=== PATIENT | female | born 1950 | race Caucasian/White ===

== ENCOUNTER 2020-02-01 09:18 | Outpatient (REF) | payer MEDICARE, SELFPAY | END 2020-02-01 09:19 | disposition home or self-care (01) | LOC: HO.LAB 09:18 | PROVIDERS: PCP Internal Medicine; Visit Provider Internal Medicine | DX: E03.9 Hypothyroidism, unspecified (principal) | CPT/HCPCS: 84443 ==

== ENCOUNTER 2020-10-12 12:12 | Outpatient (REF) | payer MEDICARE, SELFPAY ==
[2020-10-12 13:39] LABS: Alanine Aminotransferase 14 U/L (0-31); Albumin Level 3.9 g/dL (3.5-5.0); Alkaline Phosphatase 78 U/L (39-117); Anion Gap 14 (12-20); Aspartate Amino Transferase 17 U/L (5-31); Bilirubin Total 0.6 mg/dL (0.0-1.0); Blood Urea Nitrogen 9 mg/dL (9-16); Calcium 9.6 mg/dL (8.4-10.2); Carbon Dioxide 27 mmol/L (22-29); Chloride 102 mmol/L (96-108); Cholesterol 225 mg/dL; Estimated Glomerular Filt Rate > 60; Glucose Fasting 98 mg/dL (60-99); HDL Cholesterol 64 mg/dL; LDL Cholesterol Calculated 139 mg/dl; Potassium 5.1 mmol/L (3.3-5.1); Sodium 138 mmol/L (135-145); Total Protein 6.8 g/dL (6.5-8.0); Triglycerides 111 mg/dL
[2020-10-12 14:00] LABS: TSH reflex Free T4 0.17 uIU/mL (0.32-4.0)
[2020-10-12 14:46] LABS: Free T4 (Free Thyroxine) 1.51 ng/dL (0.71-1.85)
[2020-10-16 13:37] LABS: Vitamin D 25-OH, D2 <4 ng/mL; Vitamin D 25-OH, D3 18 ng/mL; Vitamin D 25-OH, Total 18 ng/mL (30-100)
== END 2020-10-12 12:13 | disposition home or self-care (01) ==
LOC: HO.LAB 12:12
PROVIDERS: PCP Internal Medicine; Visit Provider Internal Medicine
DX: E78.00 Pure hypercholesterolemia, unspecified (principal); E78.5 Hyperlipidemia, unspecified; E55.9 Vitamin D deficiency, unspecified; E03.9 Hypothyroidism, unspecified
CPT/HCPCS: 36415; 80053; 80061; 82306; 84439; 84443

== ENCOUNTER 2021-02-19 09:22 | Outpatient (REF) | payer MEDICARE, SELFPAY ==
[2021-02-19 11:08] LABS: Alanine Aminotransferase 20 U/L (0-31); Alkaline Phosphatase 77 U/L (39-117); Anion Gap 12 (12-20); Aspartate Amino Transferase 21 U/L (5-31); Bilirubin Total 0.6 mg/dL (0.0-1.0); Blood Urea Nitrogen 8 mg/dL (9-16); Calcium 9.3 mg/dL (8.4-10.2); Carbon Dioxide 29 mmol/L (22-29); Chloride 103 mmol/L (96-108); Cholesterol 214 mg/dL; Estimated Glomerular Filt Rate > 60; Glucose Fasting 93 mg/dL (60-99); HDL Cholesterol 72 mg/dL; LDL Cholesterol Calculated 127 mg/dl; Potassium 4.9 mmol/L (3.3-5.1); Sodium 139 mmol/L (135-145); Total Protein 6.8 g/dL (6.5-8.0); Triglycerides 75 mg/dL
[2021-02-19 11:19] LABS: TSH reflex Free T4 0.45 uIU/mL (0.32-4.0); Thyroid Stimulating Hormone 0.46 uIU/mL (0.32-4.0)
== END 2021-02-19 09:23 | disposition home or self-care (01) ==
LOC: HO.LAB 09:22
PROVIDERS: PCP Internal Medicine; Visit Provider Internal Medicine
DX: I10 Essential (primary) hypertension (principal); E78.5 Hyperlipidemia, unspecified; E03.9 Hypothyroidism, unspecified
CPT/HCPCS: 36415; 80053; 80061; 84443

== ENCOUNTER 2021-06-19 09:23 | Outpatient (REF) | payer MEDICARE, SELFPAY ==
[2021-06-19 10:38] LABS: Alanine Aminotransferase 19 U/L (0-31); Albumin Level 3.8 g/dL (3.5-5.0); Alkaline Phosphatase 68 U/L (39-117); Anion Gap 11 (12-20); Aspartate Amino Transferase 20 U/L (5-31); Bilirubin Total 0.2 mg/dL (0.0-1.0); Blood Urea Nitrogen 16 mg/dL (9-16); Calcium 9.1 mg/dL (8.4-10.2); Carbon Dioxide 29 mmol/L (22-29); Chloride 103 mmol/L (96-108); Cholesterol 203 mg/dL; Estimated Glomerular Filt Rate > 60; Glucose Fasting 113 mg/dL (60-99); HDL Cholesterol 65 mg/dL; LDL Cholesterol Calculated 125 mg/dl; Potassium 5.1 mmol/L (3.3-5.1); Sodium 138 mmol/L (135-145); Total Protein 6.5 g/dL (6.5-8.0); Triglycerides 68 mg/dL
[2021-06-19 11:01] LABS: Thyroid Stimulating Hormone 1.54 uIU/mL (0.32-4.0)
== END 2021-06-19 09:24 | disposition home or self-care (01) ==
LOC: HO.LAB 09:23
PROVIDERS: PCP Internal Medicine; Visit Provider Internal Medicine
DX: E66.01 Morbid (severe) obesity due to excess calories (principal); E03.9 Hypothyroidism, unspecified; E78.5 Hyperlipidemia, unspecified; Z68.41 Body mass index [BMI] 40.0-44.9, adult
CPT/HCPCS: 36415; 80053; 80061; 84443

== ENCOUNTER 2021-09-07 09:23 | Outpatient (REF) | payer MEDICARE, SELFPAY ==
--- NOTE | ~2021-09-07 | MM_ITS ---
EXAMINATION: MM SCREENING DIGITAL BREAST TOMOSYNTHESIS, BILATERAL CLINICAL INFORMATION: Screening. Asymptomatic. The lifetime risk of breast cancer based on the Tyrer-Cuzick Model is 3%. COMPARISON: Mammography: 06/07/2017, 06/12/2015 TECHNIQUE: Digital breast tomosynthesis is performed in both the craniocaudal and mediolateral oblique views along with computer-aided detection (CAD). Synthesized 2D images are generated from the tomosynthesis. Additional bilateral CC and left MLO views are provided. FINDINGS: There are scattered areas of fibroglandular density (ACR BI-RADS breast composition Category b). There are no significant masses, abnormal calcifications, or other abnormalities. Breast tissue composition borders on predominantly fatty. Background fibroglandular and stromal densities are stable. No developing density. No significant changes. MM/MM tomosynthesis screening BI IMPRESSION: No mammographic evidence of malignancy. ASSESSMENT: BI-RADS 1: Negative RECOMMENDATION: Routine annual mammography screening. This patient's information was entered into a reminder system with a target due date for their next mammogram.
--- NOTE | ~2021-09-07 | MM_ITS ---
EXAMINATION: BONE DENSITOMETRY CLINICAL INDICATION: Asymptomatic menopausal state. COMPARISON: None (current study represents initial baseline exam). TECHNIQUE: Using a [employer] DXA System (software version: 13.1) manufactured by [employer], dual-energy x-ray absorptiometry was performed of the lumbar spine and left hip. The images are of good technical quality. Summary results are attached. FINDINGS: AP SPINE L1-L4: BMD 1.325 g/cm2, Z-score 1.7, T-score 1.2, normal. LEFT FEMUR, NECK: BMD 0.967 g/cm2, Z-score 0.5, T-score -0.5, normal. LEFT FEMUR, TOTAL: BMD 1.130 g/cm2, Z-score 1.7, T-score 1.0, normal. IDENTIFIED RISK FACTORS: Menopause. HISTORY OF FRACTURE: None listed. MEDICATIONS: None listed. MM/XR DEXA axial skeleton IMPRESSION: 1. DIAGNOSIS: Normal bone density based on the lowest T-score value of -0.5 in the femoral neck applying World Health Organization criteria. 2. 10-YEAR FRACTURE RISK PREDICTION, FRAX: According to the guidelines, FRAX calculation should only be performed on patients in the osteopenia bone density category. Therefore, FRAX was not performed on this patient. 3. Treatment Recommendations: NOF guidelines recommend consideration for treatment in postmenopausal women and men age 50 and older presenting with the following: -A hip or vertebral (clinical or morphometric) fracture. -T-score less than or equal to -2.5 at the femoral neck or spine after appropriate evaluation to exclude secondary causes. -Low bone mass at the hip or spine and a 10-year fracture probability by FRAX of greater than or equal to 3% for hip fracture or greater than or equal to 20% for major osteoporotic fracture based on the [place] adapted WHO algorithm. 4. Other Recommendations: All treatment decisions require clinical judgment and consideration of individual patient factors, including patient preferences, comorbidities, previous drug use, risk factors not captured in the FRAX model (e.g. frailty, falls, vitamin D deficiency, increased bone turnover, interval significant decline in bone density) and possible under or overestimation of fracture risk by FRAX. FUTURE SCAN RECOMMENDATION: People with diagnosed cases of osteoporosis or at high risk for fracture should have regular bone mineral density tests. For patients eligible for Medicare, routine testing is allowed once every 2 years. The testing frequency can be increased to one year for patients who have rapidly progressing disease, those who are receiving or discontinuing medical therapy to restore bone mass, or have additional risk factors.
== END 2021-09-07 09:24 | disposition home or self-care (01) ==
LOC: HO.MAMMO 09:23
PROVIDERS: PCP Internal Medicine; Visit Provider Internal Medicine
DX: Z12.31 Encounter for screening mammogram for malignant neoplasm of breast (principal); Z13.820 Encounter for screening for osteoporosis; Z78.0 Asymptomatic menopausal state
CPT/HCPCS: 77063; 77067; 77080

== ENCOUNTER 2021-11-09 10:22 | Outpatient (REF) | payer OTHER, SELFPAY ==
[2021-11-09 11:22] LABS: Alanine Aminotransferase 14 U/L (0-31); Alkaline Phosphatase 70 U/L (39-117); Anion Gap 12 (12-20); Aspartate Amino Transferase 17 U/L (5-31); Bilirubin Total 0.4 mg/dL (0.0-1.0); Blood Urea Nitrogen 11 mg/dL (9-16); Carbon Dioxide 29 mmol/L (22-29); Chloride 104 mmol/L (96-108); Cholesterol 212 mg/dL; Estimated Glomerular Filt Rate > 60; Glucose Fasting 109 mg/dL (60-99); HDL Cholesterol 58 mg/dL; LDL Cholesterol Calculated 142 mg/dl; Sodium 140 mmol/L (135-145); Total Protein 6.7 g/dL (6.5-8.0); Triglycerides 63 mg/dL
[2021-11-09 11:44] LABS: Thyroid Stimulating Hormone 0.31 uIU/mL (0.32-4.0)
== END 2021-11-09 10:23 | disposition home or self-care (01) ==
LOC: HO.LAB 10:22
PROVIDERS: PCP Internal Medicine; Visit Provider Internal Medicine
DX: E03.9 Hypothyroidism, unspecified (principal); E78.00 Pure hypercholesterolemia, unspecified; E78.5 Hyperlipidemia, unspecified
CPT/HCPCS: 36415; 80053; 80061; 84443

== ENCOUNTER 2022-02-15 09:37 | Outpatient (REF) | payer OTHER, SELFPAY ==
[2022-02-15 11:15] LABS: Alanine Aminotransferase 15 U/L (0-31); Albumin Level 4.1 g/dL (3.5-5.0); Alkaline Phosphatase 80 U/L (39-117); Anion Gap 15 (12-20); Aspartate Amino Transferase 20 U/L (5-31); Bilirubin Total 0.5 mg/dL (0.0-1.0); Blood Urea Nitrogen 14 mg/dL (9-16); Calcium 9.6 mg/dL (8.4-10.2); Carbon Dioxide 27 mmol/L (22-29); Chloride 101 mmol/L (96-108); Cholesterol 234 mg/dL; Estimated Glomerular Filt Rate > 60; Glucose Fasting 104 mg/dL (60-99); HDL Cholesterol 70 mg/dL; LDL Cholesterol Calculated 146 mg/dl; Sodium 138 mmol/L (135-145); Total Protein 6.9 g/dL (6.5-8.0); Triglycerides 92 mg/dL
[2022-02-15 11:40] LABS: Thyroid Stimulating Hormone 2.53 uIU/mL (0.32-4.0)
== END 2022-02-15 09:38 | disposition home or self-care (01) ==
LOC: HO.LAB 09:37
PROVIDERS: PCP Internal Medicine; Visit Provider Internal Medicine
DX: E03.9 Hypothyroidism, unspecified (principal); E78.00 Pure hypercholesterolemia, unspecified
CPT/HCPCS: 36415; 80053; 80061; 84443

== ENCOUNTER 2022-07-05 08:38 | Outpatient (REF) | payer OTHER, SELFPAY ==
[2022-07-05 10:15] LABS: Alanine Aminotransferase 20 U/L (0-31); Alkaline Phosphatase 74 U/L (39-117); Anion Gap 13 (12-20); Aspartate Amino Transferase 31 U/L (5-31); Bilirubin Total 0.8 mg/dL (0.0-1.0); Blood Urea Nitrogen 13 mg/dL (9-16); Calcium 9.3 mg/dL (8.4-10.2); Carbon Dioxide 29 mmol/L (22-29); Chloride 100 mmol/L (96-108); Cholesterol 232 mg/dL; Estimated Glomerular Filt Rate > 60; Glucose Fasting 101 mg/dL (60-99); HDL Cholesterol 76 mg/dL; LDL Cholesterol Calculated 143 mg/dl; Potassium 5.5 mmol/L (3.3-5.1); Sodium 136 mmol/L (135-145); Total Protein 6.9 g/dL (6.5-8.0); Triglycerides 68 mg/dL
[2022-07-05 10:17] LABS: Thyroid Stimulating Hormone 2.94 uIU/mL (0.32-4.0)
== END 2022-07-05 08:39 | disposition home or self-care (01) ==
LOC: HO.LAB 08:38
PROVIDERS: PCP Internal Medicine; Visit Provider Internal Medicine
DX: Z00.00 Encounter for general adult medical examination without abnormal findings (principal); E03.9 Hypothyroidism, unspecified; E78.5 Hyperlipidemia, unspecified
CPT/HCPCS: 36415; 80053; 80061; 84443

== ENCOUNTER 2022-07-08 08:38 | Outpatient (REF) | payer OTHER, SELFPAY ==
[2022-07-08 10:29] LABS: Anion Gap 12 (12-20); Blood Urea Nitrogen 13 mg/dL (9-16); Calcium 9.4 mg/dL (8.4-10.2); Carbon Dioxide 29 mmol/L (22-29); Chloride 100 mmol/L (96-108); Estimated Glomerular Filt Rate > 60; Glucose Random 105 mg/dL (60-115); Potassium 4.8 mmol/L (3.3-5.1); Sodium 136 mmol/L (135-145)
== END 2022-07-08 08:39 | disposition home or self-care (01) ==
LOC: HO.LAB 08:38
PROVIDERS: PCP Internal Medicine; Visit Provider Nurse Practitioner Family
DX: E87.5 Hyperkalemia (principal)
CPT/HCPCS: 36415; 80048

== ENCOUNTER 2022-10-16 10:07 | Outpatient (REF) | payer OTHER, SELFPAY ==
--- NOTE | ~2022-10-16 | MM_ITS ---
EXAMINATION: MM SCREENING DIGITAL BREAST TOMOSYNTHESIS, BILATERAL CLINICAL INFORMATION: Screening. Asymptomatic. The lifetime risk of breast cancer based on the Tyrer-Cuzick Model is 2.7%. COMPARISON: Mammography: This study is compared with prior exams dating back to 2018. TECHNIQUE: Digital breast tomosynthesis is performed in both the craniocaudal and mediolateral oblique views along with computer-aided detection (CAD). Synthesized 2D images are generated from the tomosynthesis. FINDINGS: There are scattered areas of fibroglandular density (ACR BI-RADS breast composition Category b). There are no significant masses, abnormal calcifications, or other abnormalities. MM/MM tomosynthesis screening BI IMPRESSION: No mammographic evidence of malignancy. ASSESSMENT: BI-RADS BI-RADS 1 - Negative RECOMMENDATION: Routine annual mammography screening. 1 year F/U This examination should not preclude the clinical evaluation of a suspicious palpable abnormality. This patient's information was entered into a reminder system with a target due date for their next mammogram.
== END 2022-10-16 10:08 | disposition home or self-care (01) ==
LOC: HO.MAMMO 10:07
PROVIDERS: PCP Internal Medicine; Visit Provider Internal Medicine
DX: Z12.31 Encounter for screening mammogram for malignant neoplasm of breast (principal)
CPT/HCPCS: 77063; 77067

== ENCOUNTER → 2022-10-16 10:15 | Outpatient (BNV) | payer OTHER, SELFPAY | PROVIDERS: PCP Internal Medicine; Visit Provider Radiology Diagnostic Radiology | DX: Z12.31 Encounter for screening mammogram for malignant neoplasm of breast (principal) | CPT/HCPCS: 77063; 77067 ==

== ENCOUNTER → 2022-10-22 10:19 | Outpatient (BNVA) | payer OTHER, SELFPAY | PROVIDERS: PCP Internal Medicine; Visit Provider Internal Medicine ==

== ENCOUNTER 2022-11-07 13:37 | Outpatient (AMB) | payer OTHER, SELFPAY ==
[2022-11-07 13:44] VITALS: BP 136/78; BMI 40.8
--- NOTE | 2022-11-07 13:44 | MHC.PC.OV ---
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 Accompanied by: Self / Same As Patient Allergies No Known Allergies [No Known Allergies*] Allergy (Verified 11/07/22 14:20) Medication List - Last Reconciled 11/07/22 by Maki Wheeler MD atorvastatin 80 mg PO DAILY furosemide 20 mg PO DAILY levothyroxine 175 mcg PO DAILY 90 days lisinopril 20 mg PO DAILY 90 days peg 3350-electrolytes 236-22.74-6.74 -5.86 gram (Golytely) 240 mL PO Q10M Tobacco use date assessed: 07/05/22 Fall risk assessment: No Falls in past year Last assessed Fall Risk: 11/07/22 Dental Screening Dental Screen Date: 11/07/22 Did you have a dental visit in the last 12 months?: No Did you have a dental problem in the last 6 months where you did not have access to dental care?: No Was dental information given to patient?: Patient has dentist HPI HPI Comments History of Present Illness Details This is a 72-year-old female with hypertension, pure hypercholesterolemia, hypothyroidism and morbid obesity that comes today for follow-up on her conditions. Blood pressure stable. Lipid panel will be order for next office visit. TSH normal the last time and will be repeated for the next office visit. She is morbidly obese with a BMI of 40.8 and declines weight loss surgery. Advised to diet and exercise to reach BMI goal less than 30. Denies any chest pain or shortness of breath. [facility] Medical History Essential hypertension Hypothyroidism Morbid obesity with BMI of 40.0-44.9, adult Port wine stain Postmenopausal Pure hypercholesterolemia Surgical History H/O ventral hernia repair History of cholecystectomy History of total abdominal hysterectomy Hx of colonoscopy Family History Father Hypertension Mother Cancer Sister Hyperlipidemia Son No problems noted. Son No problems noted. Son No problems noted. Social History Housing: House Alcohol intake: former Patient Tobacco Use Status: Never used Tobacco e-Cigarette/Vaping Use: Never Used Second Hand Smoke Exposure: No service: No Current occupational status: unemployed and disabled Cognitive needs: No Hearing needs: No Vision needs: Yes Questionnaire Thrive Questionnaire Date Thrive assessed: 07/05/22 YOVANA-7 AMB Questionnaire YOVANA-7 Date YOVANA - 7 assessed: 07/05/22 Source: Developed by Drs. Caleb Guzman, Juanita De Dios, Aris Coppola and colleagues, with an educational travis from [employer]. Review of Systems Const All systems reviewed & are unremarkable except as noted in HPI and below Eyes Reports no additional complaints, Denies change in vision and Denies other visual disturbances Card Denies chest pain at rest, Denies chest pain with activity, Denies edema, Denies irregular heart rhythm, Denies claudication, Denies dyspnea, Denies dyspnea on exertion, Denies orthopnea, Denies paroxysmal nocturnal dyspnea and Denies slow heart rate Resp Denies cough, Denies dyspnea and Denies dyspnea on exertion GI Denies abdominal pain, Denies change in bowel habits, Denies excessive flatus, Denies nausea and Denies vomiting Denies urinary incontinence, Denies urinary hesitancy and Denies urinary urgency Musc Denies atrophy, Denies deformity and Denies limited range of motion Skin/Breast Denies bleeding lesions and Denies rash Physical exam (Primary Care) Vital Signs: Last Vital Signs BP 136/78 11/07/22 13:44 BMI result Body Mass Index 40.8 Tobacco/Smoking Status: Tobacco use Status Tobacco use date assessed 07/05/22 11/07/22 13:51 Patient Tobacco Use Status Never used Tobacco 11/07/22 13:51 Tobacco use type 11/15/21 11:00 e-Cigarette/Vaping Use Never Used 11/07/22 13:51 Thrive Assessment: Date of Thrive Assessment Date Thrive assessed 07/05/22 11/07/22 13:51 Eyes General: appearance normal, both eyes and all related structures Eyelids: Yes eyelids normal Conjunctivae: conjunctivae normal Neck Neck: Yes normal visual inspection and Yes supple Resp Effort & Inspection: normal respiratory effort Auscultation: clear to auscultation bilaterally Cardio Jugular venous distension: no JVD Rate: regular rate Rhythm: regular rhythm Heart sounds: S1 normal heart sound present and S2 normal heart sound present Extrem General: Yes full ROM Assessment and Plan Assessment & Plan (1) Essential hypertension: Code(s): I10 - Essential (primary) hypertension Plan: Continue lisinopril. Blood pressure goal is equal or less than 130/80. (2) Hypothyroidism: Code(s): E03.9 - Hypothyroidism, unspecified Qualifiers: Hypothyroidism type: unspecified Qualified Code(s): E03.9 - Hypothyroidism, unspecified Plan: Continue levothyroxine. Monitor TSH. (3) Pure hypercholesterolemia: Code(s): E78.00 - Pure hypercholesterolemia, unspecified Plan: Continue statin. (4) Morbid obesity with BMI of 40.0-44.9, adult: Code(s): E66.01 - Morbid (severe) obesity due to excess calories; Z68.41 - Body mass index [BMI] 40.0-44.9, adult Plan: Start diet and exercise. BMI goal is less than 30. Orders: Orders Comprehensive [place]. Panel Fast 4 Months E66.01 - Morbid (severe) obesity due to excess calories, Z68.41 - Body mass index [BMI] 40.0-44.9, adult Lipid Panel 4 Months E78.5 - Hyperlipidemia, unspecified Thyroid Stimulating Hormone 4 Months E03.9 - Hypothyroidism, unspecified Vitamin D 25-OH Total 4 Months E55.9 - Vitamin D deficiency, unspecified Coding Level of Care Code Est Pt Level 4 (46772) Diagnoses Essential hypertension I10 Hypothyroidism E03.9 Hypothyroidism type: unspecified Pure hypercholesterolemia E78.00 Morbid obesity with BMI of 40.0-44.9, adult E66.01; Z68.41 Time Spent (min) 22
== END 2022-11-07 14:27 | disposition home or self-care (01) ==
PROVIDERS: Visit Provider Internal Medicine
DX: I10 Essential (primary) hypertension (principal); E03.9 Hypothyroidism, unspecified; E66.01 Morbid (severe) obesity due to excess calories; Z68.41 Body mass index [BMI] 40.0-44.9, adult; E78.00 Pure hypercholesterolemia, unspecified
CPT/HCPCS: 99214

== ENCOUNTER 2023-02-26 09:08 | Outpatient (AMB) | payer OTHER, SELFPAY ==
--- NOTE | 2023-02-26 09:10 | MHC.PC.OV ---
Vital Signs 02/26/23 09:12 Height 5 ft 2 in Weight 217 lb BMI 39.7 BP 130/80 Blood Pressure Location Lt brachial Position Sitting Pulse 78 Pulse Source Pulse Oximeter Pulse Oximetry (%) 98 Oxygen Delivery Method Room Air Intake Visit Reasons: PE Intake Note: Patient here for a physical exam End Maker Required: No Accompanied by: Self / Same As Patient Allergies No Known Allergies [No Known Allergies*] Allergy (Verified 02/26/23 09:23) Medication List - Last Reconciled 02/26/23 by Maki Wheeler MD atorvastatin 80 mg PO DAILY furosemide 20 mg PO DAILY levothyroxine 175 mcg PO DAILY 90 days lisinopril 20 mg PO DAILY 90 days peg 3350-electrolytes 236-22.74-6.74 -5.86 gram (Golytely) 240 mL PO Q10M Tobacco use date assessed: 07/05/22 Fall risk assessment: No Falls in past year Last assessed Fall Risk: 02/26/23 Dental Screening Dental Screen Date: 02/26/23 Did you have a dental visit in the last 12 months?: No Did you have a dental problem in the last 6 months where you did not have access to dental care?: No Was dental information given to patient?: Patient has dentist HPI HPI Comments History of Present Illness Details This is a 72-year-old female that comes for her physical exam. Mammogram done 2022 was normal. Last colonoscopy was 2010 and will have next colonoscopy in May 2023. No chest pain or shortness of breath. No fever or cough. [facility] Medical History Postmenopausal Morbid obesity with BMI of 40.0-44.9, adult Port wine stain Pure hypercholesterolemia Hypothyroidism Essential hypertension Surgical History Hx of colonoscopy H/O ventral hernia repair History of total abdominal hysterectomy History of cholecystectomy Family History Father Hypertension Mother Cancer Sister Hyperlipidemia Son No problems noted. Son No problems noted. Son No problems noted. Social History Housing: House Alcohol intake: former Patient Tobacco Use Status: Never used Tobacco e-Cigarette/Vaping Use: Never Used Second Hand Smoke Exposure: No service: No Current occupational status: unemployed and disabled Cognitive needs: No Hearing needs: No Vision needs: Yes Questionnaire Thrive Questionnaire Date Thrive assessed: 07/05/22 YOVANA-7 AMB Questionnaire YOVANA-7 Date YOVANA - 7 assessed: 07/05/22 Source: Developed by Drs. Caleb Guzman, Juanita De Dios, Aris Coppola and colleagues, with an educational travis from [employer]. Review of Systems Const All systems reviewed & are unremarkable except as noted in HPI and below Eyes Reports no additional complaints, Denies change in vision and Denies other visual disturbances Card Denies chest pain at rest, Denies chest pain with activity, Denies edema, Denies irregular heart rhythm, Denies claudication, Denies dyspnea, Denies dyspnea on exertion, Denies orthopnea, Denies paroxysmal nocturnal dyspnea and Denies slow heart rate Resp Denies cough, Denies dyspnea and Denies dyspnea on exertion GI Denies abdominal pain, Denies change in bowel habits, Denies excessive flatus, Denies nausea and Denies vomiting Denies urinary incontinence, Denies urinary hesitancy and Denies urinary urgency Musc Denies abnormal gait, Denies atrophy, Denies deformity and Denies limited range of motion Skin/Breast Denies bleeding lesions, Denies changing lesions and Denies rash Neuro Denies abnormal gait and Denies lack of coordination Physical exam (Primary Care) Vital Signs: Last Vital Signs Pulse 78 02/26/23 09:12 BP 130/80 02/26/23 09:12 Pulse Ox 98 02/26/23 09:12 Oxygen Delivery Method Room Air 02/26/23 09:12 BMI result Body Mass Index 39.7 Tobacco/Smoking Status: Tobacco use Status Tobacco use date assessed 07/05/22 02/26/23 09:13 Patient Tobacco Use Status Never used Tobacco 02/26/23 09:13 Tobacco use type 11/15/21 11:00 e-Cigarette/Vaping Use Never Used 02/26/23 09:13 Thrive Assessment: Date of Thrive Assessment Date Thrive assessed 07/05/22 02/26/23 09:13 Const Orientation/consciousness: patient oriented x3 HENMT Head: Yes normal to inspection, Yes normocephalic and Yes atraumatic Ears: external ears normal Eyes General: appearance normal, both eyes and all related structures Eyelids: Yes eyelids normal Conjunctivae: conjunctivae normal Neck Neck: Yes normal visual inspection and Yes supple Resp Effort & Inspection: normal respiratory effort Auscultation: clear to auscultation bilaterally Cardio Jugular venous distension: no JVD Rate: regular rate Rhythm: regular rhythm Heart sounds: S1 normal heart sound present and S2 normal heart sound present GI Inspection: Yes normal to inspection Palpation (GI): Soft to palpation and nontender Auscultation: normal bowel sounds Skin Other: Port wine stain in upper limbs General skin exam: no rashes or lesions noted Neuro General: patient oriented x3 and no focal motor deficits Extrem General: Yes full ROM Psych Appearance: grossly normal Office Procedures Flu Questionnaire Does the patient have a severe egg allergy?: No Does the patient have severe life threatening allergies?: No Does the patient have a fever or illness today?: No Has the patient ever had Guillain-[place] Syndrome?: No Has the patient ever had any past reaction to a flu shot?: No Immunizations flu vacc [id number] 6mos up(PF) 60 mcg(15 mcgx4)/0.5 mL IM syringe Performing Provider: Maki Wheeler MD Performing Location: [facility] Administered by: DEANA Leyva on 02/26/23 09:30 Dose Route Admin Location Dispensed Lot Number Expiration Date NDC Any Commodity Sales Deliverer 0.5 mL IM Left Deltoid 0.5 mL [id number] 10/12/23 21928-761-30 [facility] VIS Given Date VIS Provided VIS Publication Date 02/26/23 Single Vaccine 20 Eligibility Eligibility Date Funding Source Not [facility] Eligible 02/26/23 Private Assessment and Plan Assessment & Plan (1) Physical exam: Code(s): Z00.00 - Encounter for general adult medical examination without abnormal findings Plan: Repeat in a year. Orders: Orders Influenza [id number] Immunization Today Z23 - Encounter for immunization Comprehensive [place]. Panel Fast Today I10 - Essential (primary) hypertension Lipid Panel Today E78.5 - Hyperlipidemia, unspecified Thyroid Stimulating Hormone Today E03.9 - Hypothyroidism, unspecified Coding Level of Care Code Est Pt Prev Care >65y(70301) Diagnoses Physical exam Z00.00 Time Spent (min) 32
[2023-02-26 09:12] VITALS: BP 130/80; PULSE 78; O2SAT 98; BMI 39.7
== END 2023-02-26 09:39 | disposition home or self-care (01) ==
PROVIDERS: Visit Provider Internal Medicine
DX: Z00.00 Encounter for general adult medical examination without abnormal findings (principal); Z23 Encounter for immunization
CPT/HCPCS: 90471; 90686; 99397

== ENCOUNTER 2023-07-14 12:45 | Outpatient (AMB) | payer OTHER, SELFPAY ==
--- NOTE | 2023-07-14 12:51 | A.OFFPC_ITS ---
Vital Signs 07/14/23 12:55 Height 5 ft 2 in Weight 219 lb BMI 40.1 BP 130/82 Blood Pressure Location Lt brachial Position Sitting Intake Visit Reasons: follow up thyroid Intake Note: Patient here for a follow up thyroid Dry House Attendant Required: No Accompanied by: Child Allergies No Known Allergies [No Known Allergies*] Allergy (Verified 07/14/23 13:29) Medication List - Last Reconciled 07/14/23 by Maki Wheeler MD atorvastatin 80 mg PO DAILY furosemide 20 mg PO DAILY levothyroxine 175 mcg PO DAILY 90 days lisinopril 20 mg PO DAILY 90 days Tobacco use date assessed: 07/14/23 Fall risk assessment: No Falls in past year Last assessed Fall Risk: 07/14/23 Dental Screening Dental Screen Date: 07/14/23 Did you have a dental visit in the last 12 months?: No Did you have a dental problem in the last 6 months where you did not have access to dental care?: No Was dental information given to patient?: Patient has dentist HPI HPI Comments History of Present Illness Details This is a 73-year-old female with hypertension, pure hypercholesterolemia, morbid obesity and hypothyroidism that comes today accompanied by daughter for follow-up on her conditions. Blood pressure stable. Last cholesterol was well control. She is morbidly obese with a BMI of 40.1 and declines weight loss surgery. Was advised to do diet and exercise to reach BMI goal less than 30. TSH will be done this week. No chest pain or shortness of breath. [facility] Medical History Postmenopausal Morbid obesity with BMI of 40.0-44.9, adult Port wine stain Pure hypercholesterolemia Hypothyroidism Essential hypertension Surgical History Hx of cataract extraction Hx of colonoscopy H/O ventral hernia repair History of total abdominal hysterectomy History of cholecystectomy Family History Father Hypertension Mother Cancer Sister Hyperlipidemia Son No problems noted. Son No problems noted. Son No problems noted. Social History Housing: House Alcohol intake: former Patient Tobacco Use Status: Never used Tobacco e-Cigarette/Vaping Use: Never Used Second Hand Smoke Exposure: No service: No Current occupational status: unemployed and disabled Cognitive needs: No Hearing needs: No Vision needs: Yes Questionnaire PHQ-9 Over the last 2 weeks, how often have you been bothered by any of the following problems? 1. Little interest or pleasure in doing things: not at all 2. Feeling down, depressed, or hopeless: not at all 3. Trouble falling or staying asleep, or sleeping too much: not at all 4. Feeling tired or having little energy: not at all 5. Poor appetite or overeating: not at all 6. Feeling bad about yourself - or that you are a failure or have let yourself or your family down: not at all 7. Trouble concentrating on things, such as reading the newspaper or watching television: not at all 8. Moving or speaking so slowly that other people could have noticed. Or the opposite - being so fidgety or restless that you have been moving around a lot more than usual: not at all 9. Thoughts that you would be better off or of hurting yourself in some way: not at all Total score: 0 Depression Screening Interpretation: Negative Depression Screening Done: Yes [id number] - PHQ-9 Billing: Yes Source: Developed by Drs. Caleb Guzman, Juanita De Dios, Aris Coppola and colleagues, with an educational travis from [employer]. Thrive Questionnaire Date Thrive assessed: 07/14/23 I am a: Patient What is your living situation today?: I have a steady place to live Within the past 12 months, did the food you bought not last and you didn't have the money to get more?: Never true Within the past 12 months, did you worry whether your food would run out before you got money to buy more?: Never true Do you have trouble paying for medicines?: No Do you have trouble getting transportation to medical appointments?: No Do you have trouble paying your heating and electricity bill?: No Do you have trouble taking care of your child, family member or friend?: No Do you have trouble with day-to-day activities such as bathing, preparing meals, shopping, managing finances, etc.?: No Are you currently unemployed and looking for a job?: No Are you interested in more education?: No Please select the resources that you would like help with: None Currently or been in a relationship where the following occur: no concerns reported THRIVE Score: 0 AUDIT C Alcohol Use Questionnaire (AUDIT-C) 1. How often do you have a drink containing alcohol?: Never Total Score: 0 YOVANA-7 AMB Questionnaire YOVANA-7 Date YOVANA - 7 assessed: 07/14/23 Feeling nervous, anxious, or on edge: 0 = Not at all Not being able to stop or control worryin = Not at all Worrying too much about different things: 0 = Not at all Trouble relaxin = Not at all Being so restless that it is hard to sit still: 0 = Not at all Becoming easily annoyed or irritable: 0 = Not at all Feeling afraid as if something awful might happen: 0 = Not at all Total YOVANA-7 score (0-4 normal; 5-9 mild; 10-14 moderate; 15-21 severe): 0 Source: Developed by Drs. Caleb Guzman, Juanita De Dios, Aris Coppola and colleagues, with an educational travis from [employer]. YOVANA-7 Assessment Billing YOVANA-7 Assessment Tool: YOVANA-7 Assessment 43934 Review of Systems Const All systems reviewed & are unremarkable except as noted in HPI and below Eyes Reports no additional complaints, Denies change in vision and Denies other visual disturbances Card Denies chest pain at rest, Denies chest pain with activity, Denies edema, Denies irregular heart rhythm, Denies claudication, Denies dyspnea, Denies dyspnea on exertion, Denies orthopnea, Denies paroxysmal nocturnal dyspnea and Denies slow heart rate Resp Denies cough, Denies dyspnea and Denies dyspnea on exertion GI Denies abdominal pain, Denies change in bowel habits, Denies excessive flatus, Denies nausea and Denies vomiting Denies urinary incontinence, Denies urinary hesitancy and Denies urinary urgency Physical exam (Primary Care) Vital Signs: Last Vital Signs BP 130/82 07/14/23 12:55 BMI result Body Mass Index 40.1 Tobacco/Smoking Status: Tobacco use Status Tobacco use date assessed 07/14/23 07/14/23 12:58 Patient Tobacco Use Status Never used Tobacco 07/14/23 12:52 Tobacco use type 11/15/21 11:00 e-Cigarette/Vaping Use Never Used 07/14/23 12:52 PHQ-9: PHQ-9 Score PHQ-9: Total score 0 07/14/23 13:31 Depression Screening Interpretation: Negative Thrive Assessment: Date of Thrive Assessment Date Thrive assessed 07/14/23 07/14/23 12:58 Currently or been in a relationship where the following occur: no concerns r eported Cardio Jugular venous distension: no JVD Rate: regular rate Rhythm: regular rhythm Heart sounds: S1 normal heart sound present and S2 normal heart sound present Extrem General: Yes full ROM Assessment and Plan Assessment & Plan (1) Essential hypertension: Code(s): I10 - Essential (primary) hypertension Plan: Continue lisinopril. Blood pressure goal is equal or less than 130/80. (2) Hypothyroidism: Code(s): E03.9 - Hypothyroidism, unspecified Qualifiers: Hypothyroidism type: unspecified Qualified Code(s): E03.9 - Hypothyroidism, unspecified Plan: Continue levothyroxine. (3) Morbid obesity with BMI of 40.0-44.9, adult: Code(s): E66.01 - Morbid (severe) obesity due to excess calories; Z68.41 - Body mass index [BMI] 40.0-44.9, adult Plan: Start diet and exercise. BMI goal is less than 30. (4) Pure hypercholesterolemia: Code(s): E78.00 - Pure hypercholesterolemia, unspecified Plan: Continue statins. Orders: Orders XR DEXA axial skeleton 1 Month N95.9 - Unspecified menopausal and perimenopausal disorder Thyroid Stimulating Hormone Today E03.9 - Hypothyroidism, unspecified Coding Level of Care Code Est Pt Level 4 (67457) Diagnoses Essential hypertension I10 Hypothyroidism, unspecified type E03.9 Hypothyroidism type: unspecified Morbid obesity with BMI of 40.0-44.9, adult E66.01; Z68.41 Pure hypercholesterolemia E78.00 Additional Codes YOVANA-7 Assessment Billing - YOVANA-7 Assessment Tool: YOVANA-7 Assessment [id number] ([id number]) Time Spent (min) 21
[2023-07-14 12:55] VITALS: BP 130/82; BMI 40.1
== END 2023-07-14 13:36 | disposition home or self-care (01) ==
PROVIDERS: PCP Internal Medicine; Visit Provider Internal Medicine
DX: I10 Essential (primary) hypertension (principal); E03.9 Hypothyroidism, unspecified; E66.01 Morbid (severe) obesity due to excess calories; Z68.41 Body mass index [BMI] 40.0-44.9, adult; E78.00 Pure hypercholesterolemia, unspecified
CPT/HCPCS: 99214

== ENCOUNTER 2023-07-15 08:55 | Outpatient (REF) | payer OTHER, SELFPAY ==
[2023-07-15 11:10] LABS: Alanine Aminotransferase 24 U/L (0-31); Albumin Level 3.7 g/dL (3.5-5.0); Alkaline Phosphatase 59 U/L (39-117); Anion Gap 10 (12-20); Aspartate Amino Transferase 24 U/L (5-31); Bilirubin Total 0.4 mg/dL (0.0-1.0); Blood Urea Nitrogen 11 mg/dL (9-16); Calcium 9.3 mg/dL (8.4-10.2); Carbon Dioxide 28 mmol/L (22-29); Chloride 101 mmol/L (96-108); Cholesterol 204 mg/dL (<200); Estimated Glomerular Filt Rate > 60; Glucose Fasting 101 mg/dL (60-99); HDL Cholesterol 69 mg/dL (>40); LDL Cholesterol Calculated 114 mg/dL (<100); Potassium 4.6 mmol/L (3.3-5.1); Sodium 134 mmol/L (135-145); Thyroid Stimulating Hormone 3.48 uIU/mL (0.32-4.0); Total Protein 6.7 g/dL (6.5-8.0); Triglycerides 106 mg/dL (<150)
== END 2023-07-15 08:56 | disposition home or self-care (01) ==
LOC: HO.LAB 08:55
PROVIDERS: PCP Internal Medicine; Visit Provider Internal Medicine
DX: E55.9 Vitamin D deficiency, unspecified (principal); E78.5 Hyperlipidemia, unspecified; E03.9 Hypothyroidism, unspecified; E66.01 Morbid (severe) obesity due to excess calories; I10 Essential (primary) hypertension; Z68.41 Body mass index [BMI] 40.0-44.9, adult
CPT/HCPCS: 36415; 80053; 80061; 82306; 84443

== ENCOUNTER 2023-10-07 11:11 | Outpatient (REF) | payer OTHER, SELFPAY ==
--- NOTE | ~2023-10-07 | MM_ITS ---
EXAMINATION: BONE DENSITOMETRY CLINICAL INDICATION: Menopause. COMPARISON: Baseline BD dated 09/07/2021. TECHNIQUE: Using a [employer] DXA System (software version: 13.1) manufactured by [facility], dual-energy x-ray absorptiometry was performed of the lumbar spine and left hip. The images are of good technical quality. Summary results are attached. FINDINGS: LEFT FEMUR, NECK: Current: BMD 0.985 g/cm2, Z-score 0.7, T-score -0.4, normal. Baseline: BMD 0.967 g/cm2. LEFT FEMUR, TOTAL: Current: BMD 1.107 g/cm2, Z-score 1.6, T-score 0.8, normal, 2.0% decrease from baseline (<5% change is not significant). Baseline: BMD 1.130 g/cm2. AP SPINE L1-L4: Current: BMD 1.347 g/cm2, Z-score 2.0, T-score 1.4, normal, 1.7% increase from baseline (<5% change is not significant). Baseline: BMD 1.325 g/cm2. IDENTIFIED RISK FACTORS: Menopause. HISTORY OF FRACTURE: None listed. MEDICATIONS: None listed. MM/XR DEXA axial skeleton IMPRESSION: 1. DIAGNOSIS: Normal bone density based on the lowest T-score value of -0.4 in the femoral neck applying World Health Organization criteria. 2. 10-YEAR FRACTURE RISK PREDICTION, FRAX: According to the guidelines, FRAX calculation should only be performed on patients in the osteopenia bone density category. Therefore, FRAX was not performed on this patient. 3. Treatment Recommendations: NOF guidelines recommend consideration for treatment in postmenopausal women and men age 50 and older presenting with the following: -A hip or vertebral (clinical or morphometric) fracture. -T-score less than or equal to -2.5 at the femoral neck or spine after appropriate evaluation to exclude secondary causes. -Low bone mass at the hip or spine and a 10-year fracture probability by FRAX of greater than or equal to 3% for hip fracture or greater than or equal to 20% for major osteoporotic fracture based on the [place] adapted WHO algorithm. 4. Other Recommendations: All treatment decisions require clinical judgment and consideration of individual patient factors, including patient preferences, comorbidities, previous drug use, risk factors not captured in the FRAX model (e.g. frailty, falls, vitamin D deficiency, increased bone turnover, interval significant decline in bone density) and possible under or overestimation of fracture risk by FRAX. FUTURE SCAN RECOMMENDATION: People with diagnosed cases of osteoporosis or at high risk for fracture should have regular bone mineral density tests. For patients eligible for Medicare, routine testing is allowed once every 2 years. The testing frequency can be increased to one year for patients who have rapidly progressing disease, those who are receiving or discontinuing medical therapy to restore bone mass, or have additional risk factors.
== END 2023-10-07 11:12 | disposition home or self-care (01) ==
LOC: HO.MAMMO 11:11
PROVIDERS: PCP Internal Medicine; Visit Provider Internal Medicine
DX: Z13.820 Encounter for screening for osteoporosis (principal); Z78.0 Asymptomatic menopausal state
CPT/HCPCS: 77080

== ENCOUNTER 2023-10-27 09:44 | Outpatient (REF) | payer OTHER, SELFPAY | END 2023-10-27 09:45 | disposition home or self-care (01) | LOC: HO.MAMMO 09:44 | PROVIDERS: PCP Internal Medicine; Visit Provider Internal Medicine | DX: Z12.31 Encounter for screening mammogram for malignant neoplasm of breast (principal) | CPT/HCPCS: 77063; 77067 ==

== ENCOUNTER → 2023-10-27 10:00 | Outpatient (BNV) | payer OTHER, SELFPAY | PROVIDERS: PCP Internal Medicine; Visit Provider Radiology Diagnostic Radiology | DX: Z12.31 Encounter for screening mammogram for malignant neoplasm of breast (principal) | CPT/HCPCS: 77063; 77067 ==

== ENCOUNTER 2023-11-25 13:46 | Outpatient (AMB) | payer OTHER, SELFPAY ==
[2023-11-25 13:52] VITALS: BP 136/82; BMI 40.6
--- NOTE | 2023-11-25 13:52 | MHC.PC.OV ---
Vital Signs 11/25/23 13:52 Height 5 ft 2 in Weight 222 lb BMI 40.6 BP 136/82 Blood Pressure Location Lt brachial Position Sitting Intake Visit Reasons: thyroid Intake Note: Patient here for a follow up thyroid Quality Assurance Consultant Required: No Accompanied by: Self / Same As Patient Allergies No Known Allergies [No Known Allergies*] Allergy (Verified 11/25/23 13:58) Medication List - Last Reconciled 11/25/23 by Maki Wheeler MD atorvastatin 80 mg PO DAILY furosemide 20 mg PO DAILY levothyroxine 175 mcg PO DAILY 90 days lisinopril 20 mg PO DAILY 90 days Tobacco use date assessed: 07/14/23 Fall risk assessment: No Falls in past year Last assessed Fall Risk: 11/25/23 Dental Screening Dental Screen Date: 07/14/23 HPI HPI Comments History of Present Illness Details This is a 73-year-old female with hypertension, pure hypercholesterolemia, hypothyroidism and morbid obesity that comes today for follow-up on her conditions. DEXA and mammogram were normal. Blood pressure stable. Cholesterol well controlled. TSH normal. She is morbidly obese with a BMI of 40.6 and declines weight loss surgery. Was advised to do diet and exercise to reach BMI goal less than 30. [facility] Medical History Postmenopausal Morbid obesity with BMI of 40.0-44.9, adult Port wine stain Pure hypercholesterolemia Hypothyroidism Essential hypertension Surgical History Hx of cataract extraction Hx of colonoscopy H/O ventral hernia repair History of total abdominal hysterectomy History of cholecystectomy Family History Father Hypertension Mother Cancer Sister Hyperlipidemia Son No problems noted. Son No problems noted. Son No problems noted. Social History Housing: House Alcohol intake: former Patient Tobacco Use Status: Never used Tobacco e-Cigarette/Vaping Use: Never Used Second Hand Smoke Exposure: No service: No Current occupational status: unemployed and disabled Cognitive needs: No Hearing needs: No Vision needs: Yes Questionnaire Thrive Questionnaire Date Thrive assessed: 07/14/23 YOVANA-7 AMB Questionnaire YOVANA-7 Date YOVANA - 7 assessed: 07/14/23 Source: Developed by Drs. Caleb Guzman, Juanita De Dios, Aris Coppola and colleagues, with an educational travis from [employer]. Review of Systems Const All systems reviewed & are unremarkable except as noted in HPI and below Card Denies chest pain at rest, Denies chest pain with activity, Denies edema, Denies irregular heart rhythm, Denies claudication, Denies dyspnea, Denies dyspnea on exertion, Denies orthopnea, Denies paroxysmal nocturnal dyspnea and Denies slow heart rate Resp Denies cough, Denies dyspnea and Denies dyspnea on exertion Denies urinary incontinence, Denies urinary hesitancy and Denies urinary urgency Musc Denies atrophy, Denies deformity and Denies limited range of motion Physical exam (Primary Care) Vital Signs: Last Vital Signs BP 136/82 11/25/23 13:52 BMI result Body Mass Index 40.6 BMI Assessment/Plan discussion: High BMI High, discussed plan: lifestyle, weight reduction, dietary and physical activity Tobacco/Smoking Status: Tobacco use Status Tobacco use date assessed 07/14/23 11/25/23 13:52 Patient Tobacco Use Status Never used Tobacco 11/25/23 13:52 Tobacco use type 11/15/21 11:00 e-Cigarette/Vaping Use Never Used 11/25/23 13:52 Thrive Assessment: Date of Thrive Assessment Date Thrive assessed 07/14/23 11/25/23 13:52 Resp Effort & Inspection: normal respiratory effort Auscultation: clear to auscultation bilaterally Cardio Jugular venous distension: no JVD Rate: regular rate Rhythm: regular rhythm Heart sounds: S1 normal heart sound present and S2 normal heart sound present Extrem General: Yes full ROM Assessment and Plan Assessment & Plan (1) Essential hypertension: Code(s): I10 - Essential (primary) hypertension Plan: Continue lisinopril. Blood pressure goal is equal or less than 130/80. (2) Morbid obesity with BMI of 40.0-44.9, adult: Code(s): E66.01 - Morbid (severe) obesity due to excess calories; Z68.41 - Body mass index [BMI] 40.0-44.9, adult Plan: Start diet and exercise. BMI goal is less than 30. (3) Hypothyroidism: Code(s): E03.9 - Hypothyroidism, unspecified Qualifiers: Hypothyroidism type: unspecified Qualified Code(s): E03.9 - Hypothyroidism, unspecified Plan: Continue levothyroxine. Monitor TSH. (4) Pure hypercholesterolemia: Code(s): E78.00 - Pure hypercholesterolemia, unspecified Plan: Continue statins. Orders: Orders Vitamin D 25-OH Total Today E55.9 - Vitamin D deficiency, unspecified Comprehensive [place]. Panel Fast Today I10 - Essential (primary) hypertension Lipid Panel Today E78.5 - Hyperlipidemia, unspecified Thyroid Stimulating Hormone Today E03.9 - Hypothyroidism, unspecified Coding Level of Care Code Est Pt Level 4 (54783) Complex EM visit Add On G2211 Diagnoses Essential hypertension I10 Morbid obesity with BMI of 40.0-44.9, adult E66.01; Z68.41 Hypothyroidism, unspecified type E03.9 Hypothyroidism type: unspecified Pure hypercholesterolemia E78.00 Time Spent (min) 20
== END 2023-11-25 14:03 | disposition home or self-care (01) ==
PROVIDERS: PCP Internal Medicine; Visit Provider Internal Medicine
DX: I10 Essential (primary) hypertension (principal); E66.01 Morbid (severe) obesity due to excess calories; Z68.41 Body mass index [BMI] 40.0-44.9, adult; E03.9 Hypothyroidism, unspecified; E78.00 Pure hypercholesterolemia, unspecified
CPT/HCPCS: 99214; G2211

== ENCOUNTER 2024-03-09 09:26 | Outpatient (AMB) | payer OTHER, SELFPAY ==
--- NOTE | 2024-03-09 09:35 | MHC.PC.OV ---
Vital Signs 03/09/24 09:38 Height 5 ft 2 in Weight 224 lb 0.017 oz BMI 41.0 BP 130/72 Blood Pressure Location Lt brachial Position Sitting Intake Visit Reasons: annual exam Intake Note: Patient here for an annual physical exam Certified Dental Assistant Required: No Accompanied by: Self / Same As Patient Allergies No Known Allergies [No Known Allergies*] Allergy (Verified 03/09/24 09:49) Medication List - Last Reconciled 03/09/24 by Maki Wheeler MD atorvastatin 80 mg PO DAILY furosemide 20 mg PO DAILY levothyroxine 175 mcg PO DAILY 90 days lisinopril 20 mg PO DAILY 90 days Tobacco use date assessed: 07/14/23 Fall risk assessment: No Falls in past year Last assessed Fall Risk: 03/09/24 Dental Screening Dental Screen Date: 03/09/24 Did you have a dental visit in the last 12 months?: No Did you have a dental problem in the last 6 months where you did not have access to dental care?: No Was dental information given to patient?: Patient has dentist HPI HPI Comments History of Present Illness Details The patient is a 73-year-old female presenting for her annual physical examination. She has a history of hyperlipidemia, for which she is currently on atorvastatin at a dose of 80 mg once daily. Additionally, the patient is treated for hypothyroidism with levothyroxine 175 mg once daily. Her hypertension is managed with lisinopril 20 mg once daily, and her current blood pressure reading is 132 mmHg. The patient's surgical history includes a hysterectomy performed in 2017 for benign reasons and a cholecystectomy. There are no known drug allergies. Family history is notable for both parents being , with the mother having a history of cancer. The patient denies smoking or alcohol use. She had a mammogram done 2023 which was normal. Had colonoscopy over 10 years ago and will be refer to another colonoscopy. Had a DEXA scan done 2023 which was normal. No need for Pap smears due to hysterectomy for benign reasons plus she is over 65 years old. Will have pneumonia vaccine and flu vaccine today. Next office visit we will place Tdap vaccine. She is morbidly obese with a BMI of 41 and was advised to do diet and exercise to reach BMI goal less than 30. She also complains of right shoulder pain that started few weeks ago after doing a twisting movement. Still has limited elevation and abduction. I will order x-ray and she will start physical therapy. No fever or localized redness. [facility] Medical History Postmenopausal Morbid obesity with BMI of 40.0-44.9, adult Port wine stain Pure hypercholesterolemia Hypothyroidism Essential hypertension Surgical History Hx of cataract extraction Hx of colonoscopy H/O ventral hernia repair History of total abdominal hysterectomy History of cholecystectomy Family History Father Hypertension Mother Cancer Sister Hyperlipidemia Son No problems noted. Son No problems noted. Son No problems noted. Social History Housing: House Alcohol intake: former Patient Tobacco Use Status: Never used Tobacco e-Cigarette/Vaping Use: Never Used Second Hand Smoke Exposure: No service: No Current occupational status: unemployed and disabled Cognitive needs: No Hearing needs: No Vision needs: Yes Questionnaire Thrive Questionnaire Date Thrive assessed: 07/14/23 YOVANA-7 AMB Questionnaire YOVANA-7 Date YOVANA - 7 assessed: 07/14/23 Source: Developed by Drs. Caleb Guzman, Juanita De Dios, Aris Coppola and colleagues, with an educational travis from [employer]. Review of Systems Const All systems reviewed & are unremarkable except as noted in HPI and below Card Denies chest pain at rest, Denies chest pain with activity, Denies edema, Denies irregular heart rhythm, Denies claudication, Denies dyspnea, Denies dyspnea on exertion, Denies orthopnea, Denies paroxysmal nocturnal dyspnea and Denies slow heart rate Resp Denies cough, Denies dyspnea and Denies dyspnea on exertion GI Denies abdominal pain, Denies change in bowel habits, Denies excessive flatus, Denies nausea and Denies vomiting Skin/Breast Denies bleeding lesions, Denies changing lesions and Denies rash Neuro Denies lack of coordination Physical exam (Primary Care) Vital Signs: Last Vital Signs BP 130/72 03/09/24 09:38 BMI result Body Mass Index 41.0 BMI Assessment/Plan discussion: High BMI High, discussed plan: lifestyle, weight reduction, dietary and physical activity Tobacco/Smoking Status: Tobacco use Status Tobacco use date assessed 07/14/23 03/09/24 09:37 Patient Tobacco Use Status Never used Tobacco 03/09/24 09:37 Tobacco use type 11/15/21 11:00 e-Cigarette/Vaping Use Never Used 03/09/24 09:37 Thrive Assessment: Date of Thrive Assessment Date Thrive assessed 07/14/23 03/09/24 09:37 [facility] Head: Yes normal to inspection, Yes normocephalic and Yes atraumatic Ears: external ears normal Eyes General: appearance normal, both eyes and all related structures Eyelids: Yes eyelids normal Conjunctivae: conjunctivae normal Neck Neck: Yes normal visual inspection and Yes supple Resp Effort & Inspection: normal respiratory effort Auscultation: clear to auscultation bilaterally Cardio Jugular venous distension: no JVD Rate: regular rate Rhythm: regular rhythm Heart sounds: S1 normal heart sound present and S2 normal heart sound present GI Inspection: Yes normal to inspection Palpation (GI): Soft to palpation and nontender Auscultation: normal bowel sounds Skin General skin exam: no rashes or lesions noted Neuro General: no focal motor deficits Extrem General: Yes full ROM Psych Appearance: grossly normal Office Procedures Flu Questionnaire Does the patient have a severe egg allergy?: No Does the patient have severe life threatening allergies?: No Does the patient have a fever or illness today?: No Has the patient ever had Guillain-[place] Syndrome?: No Has the patient ever had any past reaction to a flu shot?: No Immunizations Fluarix Triv [id number] (PF) 45 mcg (15 mcg x 3)/0.5 mL IM syringe Performing Provider: Maki Wheeler MD [facility] [place] Administered by: DEANA Leyva on 03/09/24 10:09 Dose Route Admin Location Dispensed Lot Number Expiration Date [facility] Clothing Busheler 0.5 mL IM Left Deltoid 0.5 mL [id number] 10/11/24 [id number] Ruby Ribbon VIS Given Date VIS Provided VIS Publication Date 03/09/24 Single Vaccine 20 Eligibility Eligibility Date Funding Source Not [facility] Eligible 03/09/24 Private pneumoc 20-luis conj-dip cr(PF) 0.5 mL IM syringe Performing Provider: Maki Wheeler MD Performing Location: [facility] [place] [facility] Administered by: DEANA Leyva on 03/09/24 10:09 Dose Route Admin Location Dispensed Lot Number Expiration Date [facility] Clothing Busheler 0.5 mL IM Right Deltoid 0.5 mL [id number] 04/14/25 [id number] WYETH/PFIZER VIS Given Date VIS Provided VIS Publication Date 03/09/24 Single Vaccine 21 Eligibility Eligibility Date Funding Source Not [facility] Eligible 03/09/24 Private Coding Level of Care Code Est Pt Level 3 (72364) Est Pt Prev Care >65y(97786) Diagnoses Physical exam Z00.00 Morbid obesity with BMI of 40.0-44.9, adult E66.01; Z68.41 Right shoulder pain M25.511 Time Spent (min) 35 Assessment & Plan Assessment & Plan (1) Physical exam: Code(s): Z00.00 - Encounter for general adult medical examination without abnormal findings Category: Medical (2) Morbid obesity with BMI of 40.0-44.9, adult: Code(s): E66.01 - Morbid (severe) obesity due to excess calories; Z68.41 - Body mass index [BMI] 40.0-44.9, adult Category: Medical (3) Right shoulder pain: Code(s): M25.511 - Pain in right shoulder Category: Medical Plan - Annual physical examination conducted. - Continue current regimen of atorvastatin for hyperlipidemia, lisinopril for hypertension, and levothyroxine for hypothyroidism. - Referred for routine laboratory work to assess cholesterol, iodine, glucose, kidney, and liver function. - Mammography outcomes normal; recommend scheduled follow-up. - Discussed the importance and scheduling for colonoscopy. - Repeat DEXA in 2025. Patient was informed and verbally consented to the use of an ambient scribe for clinic note documentation during this visit. During this visit, I reviewed the patient's medical history, current medications, and surgical history. We discussed continuing the management of hyperlipidemia, hypertension, and hypothyroidism with her current medications. I emphasized the importance of follow-up care, including routine laboratory tests to monitor her health status further. Furthermore, we discussed the scheduling and pertinent vaccination, specifically the pneumonia and tetanus vaccines, to enhance her preventive care plan. I have suggested routine screenings to ensure timely surveillance of potential health concerns, with ongoing monitoring via colonoscopy and mammography where required. Orders: Orders Lipid Panel Today E78.5 - Hyperlipidemia, unspecified IRON PROFILE Today D64.9 - Anemia, unspecified Influenza [id number] Immunization Today Z23 - Encounter for immunization Pneumococcal 20 Immunization Today Z23 - Encounter for immunization XR shoulder RT min 2V Today M25.511 - Pain in right shoulder PT Evaluation and Treatment Today M25.511 - Pain in right shoulder Complete Blood Count Auto Diff Today D64.9 - Anemia, unspecified Vitamin D 25-OH Total Today E55.9 - Vitamin D deficiency, unspecified Comprehensive [place]. Panel Fast Today Z00.00 - Encounter for general adult medical examination without abnormal findings Thyroid Stimulating Hormone Today E03.9 - Hypothyroidism, unspecified Referrals Gastroenterology Referral Z12.11 - Encounter for screening for malignant neoplasm of colon Patient Instructions: - Continue current medications as prescribed. - Complete recommended laboratory work for health monitoring. - Maintain follow-up appointments for continued health screening and vaccination updates. - Adhere to scheduled mammography and prepare for colonoscopy as directed.
[2024-03-09 09:38] VITALS: BP 130/72; BMI 41.0
== END 2024-03-09 10:11 | disposition home or self-care (01) ==
LOC: HO.HMCH 09:26
PROVIDERS: PCP Internal Medicine; Visit Provider Internal Medicine
DX: Z00.00 Encounter for general adult medical examination without abnormal findings (principal); M25.511 Pain in right shoulder; E66.01 Morbid (severe) obesity due to excess calories; Z68.41 Body mass index [BMI] 40.0-44.9, adult; Z23 Encounter for immunization

== ENCOUNTER → 2024-03-09 09:26 | Outpatient (BNVA) | payer OTHER, SELFPAY | PROVIDERS: PCP Internal Medicine; Visit Provider Internal Medicine | DX: Z00.00 Encounter for general adult medical examination without abnormal findings (principal); Z23 Encounter for immunization; E66.01 Morbid (severe) obesity due to excess calories; Z68.41 Body mass index [BMI] 40.0-44.9, adult; M25.511 Pain in right shoulder | CPT/HCPCS: 90471; 90656; 90677; 99212; 99397 ==

== ENCOUNTER 2024-08-10 09:02 | Outpatient (AMB) | payer MEDICARE, MEDICAID, SELFPAY ==
--- NOTE | 2024-08-10 09:16 | A.OFFPC_ITS ---
Vital Signs 08/10/24 09:23 Height 5 ft 2 in Weight 232 lb BMI 42.4 BP 138/86 Blood Pressure Location Rt brachial Position Sitting Intake Visit Reasons: BP Intake Note: Patient here for a follow up BP Measurement Superintendent Required: No Accompanied by: Self / Same As Patient Allergies No Known Allergies [No Known Allergies*] Allergy (Verified 08/10/24 09:39) Medication List - Last Reconciled 08/10/24 by Maki Wheeler MD atorvastatin 80 mg PO DAILY furosemide 20 mg PO DAILY levothyroxine 175 mcg PO DAILY 90 days lisinopril 20 mg PO DAILY 90 days Tobacco use date assessed: 08/10/24 Fall risk assessment: No Falls in past year Last assessed Fall Risk: 08/10/24 Dental Screening Dental Screen Date: 08/10/24 Did you have a dental visit in the last 12 months?: No Did you have a dental problem in the last 6 months where you did not have access to dental care?: No Was dental information given to patient?: Patient has dentist HPI HPI Comments History of Present Illness Details The patient is a 74-year-old female presenting for follow-up management of her chronic conditions, including well-controlled essential hypertension with Lisinopril. Hypothyroidism management continues with levothyroxine, and hyperlipidemia is managed with atorvastatin. Regular monitoring of thyroid function and cholesterol levels is planned. The patient also manages edema with furosemide. Mild depression, marked by a PHQ-9 score of 12, will be addressed with the initiation of a new medication for depression and potential weight management. The patient has morbid obesity, yet expresses reluctance to take active measures towards weight loss. A recent fall at a family gathering resulted in a left shoulder injury but no head trauma. The patient experienced difficulty raising her left arm. [facility] Medical History (Updated 08/10/24 @ 09:52 by Maki Wheeler MD) Postmenopausal Morbid obesity with BMI of 40.0-44.9, adult Port wine stain Pure hypercholesterolemia Hypothyroidism Essential hypertension Surgical History Hx of cataract extraction Hx of colonoscopy H/O ventral hernia repair History of total abdominal hysterectomy History of cholecystectomy Family History Father Hypertension Mother Cancer Sister Hyperlipidemia Son No problems noted. Son No problems noted. Son No problems noted. Social History Housing: House Alcohol intake: former Patient Tobacco Use Status: Never used Tobacco e-Cigarette/Vaping Use: Never Used Second Hand Smoke Exposure: No service: No Current occupational status: unemployed and disabled Cognitive needs: No Hearing needs: No Vision needs: Yes Questionnaire PHQ-9 Over the last 2 weeks, how often have you been bothered by any of the following problems? 1. Little interest or pleasure in doing things: several days 2. Feeling down, depressed, or hopeless: nearly every day 3. Trouble falling or staying asleep, or sleeping too much: nearly every day 4. Feeling tired or having little energy: nearly every day 5. Poor appetite or overeating: several days 6. Feeling bad about yourself - or that you are a failure or have let yourself or your family down: not at all 7. Trouble concentrating on things, such as reading the newspaper or watching television: not at all 8. Moving or speaking so slowly that other people could have noticed. Or the opposite - being so fidgety or restless that you have been moving around a lot more than usual: several days 9. Thoughts that you would be better off or of hurting yourself in some way: not at all Total score: 12 Depression Screening Interpretation: Positive Depression Screening Follow-up: Existing condition, New Medication prescribed and Follow-up Visit Requested Depression Screening Done: Yes 25742 - PHQ-9 Billing: Yes Source: Developed by Drs. Caleb Guzman, Juanita De Dios, Aris Coppola and colleagues, with an educational travis from [employer]. Thrive Questionnaire Date Thrive assessed: 08/10/24 I am a: Patient What is your living situation today?: I have a steady place to live Within the past 12 months, did the food you bought not last and you didn't have the money to get more?: Never true Within the past 12 months, did you worry whether your food would run out before you got money to buy more?: Never true Do you have trouble paying for medicines?: No Do you have trouble getting transportation to medical appointments?: Yes Do you have trouble paying your heating and electricity bill?: No Do you have trouble taking care of your child, family member or friend?: No Do you have trouble with day-to-day activities such as bathing, preparing meals, shopping, managing finances, etc.?: No Are you currently unemployed and looking for a job?: Yes Are you interested in more education?: No Please select the resources that you would like help with: None Currently or been in a relationship where the following occur: No concerns reported THRIVE Score: 1 AUDIT C Alcohol Use Questionnaire (AUDIT-C) 1. How often do you have a drink containing alcohol?: Never Total Score: 0 Score Reviewed/Action Taken: No YOVANA-7 AMB Questionnaire YOVANA-7 Date YOVANA - 7 assessed: 08/10/24 Feeling nervous, anxious, or on edge: 1 = Several days Not being able to stop or control worryin = Several days Worrying too much about different things: 1 = Several days Trouble relaxin = Several days Being so restless that it is hard to sit still: 1 = Several days Becoming easily annoyed or irritable: 1 = Several days Feeling afraid as if something awful might happen: 1 = Several days Total YOVANA-7 score (0-4 normal; 5-9 mild; 10-14 moderate; 15-21 severe): 7 Source: Developed by Drs. Caleb Guzman, Juanita De Dios, Aris Coppola and colleagues, with an educational travis from [employer]. YOVANA-7 Assessment Billing YOVANA-7 Assessment Tool: YOVANA-7 Assessment 83266 Review of Systems Const All systems reviewed & are unremarkable except as noted in HPI and below Card Denies chest pain at rest, Denies chest pain with activity, Denies edema, Denies irregular heart rhythm, Denies claudication, Denies dyspnea, Denies dyspnea on exertion, Denies orthopnea, Denies paroxysmal nocturnal dyspnea and Denies slow heart rate Resp Denies cough, Denies dyspnea and Denies dyspnea on exertion GI Denies abdominal pain, Denies change in bowel habits, Denies excessive flatus, Denies nausea and Denies vomiting Physical exam (Primary Care) Vital Signs: Last Vital Signs BP 138/86 08/10/24 09:23 BMI result Body Mass Index 42.4 BMI Assessment/Plan discussion: High BMI High, discussed plan: lifestyle, weight reduction, dietary and physical activity Tobacco/Smoking Status: Tobacco use Status Tobacco use date assessed 08/10/24 08/10/24 09:26 Patient Tobacco Use Status Never used Tobacco 08/10/24 09:18 Tobacco use type 11/15/21 11:00 e-Cigarette/Vaping Use Never Used 08/10/24 09:18 PHQ-9: PHQ-9 Score PHQ-9: Total score 12 08/10/24 09:26 Depression Screening Interpretation: Positive Depression Screening Follow-up: Existing condition, New Medication prescribed and Follow-up Visit Requested Thrive Assessment: Date of Thrive Assessment Date Thrive assessed 08/10/24 08/10/24 09:18 Currently or been in a relationship where the following occur: No concerns reported Resp Effort & Inspection: normal respiratory effort Auscultation: clear to auscultation bilaterally Cardio Jugular venous distension: no JVD Rate: regular rate Rhythm: regular rhythm Heart sounds: S1 normal heart sound present and S2 normal heart sound present Extrem Left upper extremity: shoulder/upper arm Details: tenderness and abnormal ROM Details: pain with active ROM Details: in ABduction and in extension and pain with passive ROM Details: in ABduction and in extension Coding Level of Care Code Est Pt Level 4 (25762) Complex EM visit Add On G2211 Diagnoses Acute pain of left shoulder M25.512 Chronicity: acute Mild recurrent major depression F33.0 Morbid obesity with BMI of 40.0-44.9, adult E66.01; Z68.41 Essential hypertension I10 Hypothyroidism, unspecified type E03.9 Hypothyroidism type: unspecified Pure hypercholesterolemia E78.00 Additional Codes PHQ-9 - 88054 - PHQ-9 Billing: Yes ([id number]) YOVANA-7 Assessment Billing - YOVANA-7 Assessment Tool: YOVANA-7 Assessment [id number] ([id number]) Time Spent (min) 24 Assessment & Plan Assessment & Plan (1) Left shoulder pain: Code(s): M25.512 - Pain in left shoulder Category: Medical Qualifiers: Chronicity: acute Qualified Code(s): M25.512 - Pain in left shoulder (2) Mild recurrent major depression: Code(s): F33.0 - Major depressive disorder, recurrent, mild Category: Medical (3) Morbid obesity with BMI of 40.0-44.9, adult: Code(s): E66.01 - Morbid (severe) obesity due to excess calories; Z68.41 - Body mass index [BMI] 40.0-44.9, adult Category: Medical (4) Essential hypertension: Code(s): I10 - Essential (primary) hypertension Category: Medical (5) Hypothyroidism: Code(s): E03.9 - Hypothyroidism, unspecified Category: Medical Qualifiers: Hypothyroidism type: unspecified Qualified Code(s): E03.9 - Hypothyroidism, unspecified (6) Pure hypercholesterolemia: Code(s): E78.00 - Pure hypercholesterolemia, unspecified Category: Medical Plan Essential hypertension will continue to be managed with Lisinopril 20 mg. Hyperlipidemia management with atorvastatin 80 mg daily requires follow-up labs. Levothyroxine continues for hypothyroidism, pending routine blood tests. The patient agrees to start a new medication for mild depression, which may also support weight management considering her morbid obesity. Edema of the lower extremities continues to be managed with furosemide 20 mg. Further assessment of left shoulder injury is warranted if symptoms persist. Patient was informed and verbally consented to the use of an ambient scribe for clinic note documentation during this visit. During the visit, I discussed the patient's essential hypertension management, confirming its current control with Lisinopril. We reviewed ongoing hypothyroidism and hyperlipidemia management, planning for comprehensive lab work to monitor lipid levels and thyroid function. For mild depression, we deliberated over beginning medication, emphasizing its dual purpose for depression and weight support. The patient consented, recognizing its potential benefits. We also addressed her recent fall, noting the left shoulder concern and absence of head trauma. Future monitoring and management align with ongoing symptoms and any further evaluations as needed. We discussed the necessity for continued lifestyle considerations and the importance of compliance with medication and follow-up appointments. Orders: Orders XR shoulder LT min 2V Today M25.512 - Pain in left shoulder PT Evaluation and Treatment Today M25.512 - Pain in left shoulder Comprehensive [place]. Panel Fast Today E78.00 - Pure hypercholesterolemia, unspecified Thyroid Stimulating Hormone Today E03.9 - Hypothyroidism, unspecified Lipid Panel Today E78.00 - Pure hypercholesterolemia, unspecified, E78.5 - Hyperlipidemia, unspecified Medications: New bupropion HCl XL 150 mg PO QAM 90 days 90 tabs 0RF F33.0 - Major depressive disorder, recurrent, mild Patient Instructions: - Continue taking medications as prescribed: Lisinopril, atorvastatin, levothyroxine, and furosemide. - Start the new medication for depression and potential weight management daily as instructed. - Attend scheduled laboratory testing for thyroid, cholesterol, glucose, kidney, and liver function. - Monitor left shoulder and seek further evaluation if pain persists or worsens. - Maintain a healthy lifestyle and follow recommendations for managing chronic conditions. - Schedule follow-up appointments to review lab results and adjust treatment as necessary.
[2024-08-10 09:23] VITALS: BP 138/86; BMI 42.4
--- OUTSIDE RECORDS SUMMARY | 2024-08-10 09:47 | XMS_ITS | Continuity of Care Document ---
Author Organization [employer] [facility] [facility] Address [address] [place] [address] Phone Care Team Providers Care Research Support Specialist Name Role Phone Adrian GILMAN, Carlene Unavailable Unavailable Procedures Procedure Date DUPLICATE ENCOUNTER SUBSEQUENT [facility]OSPITAL CARE SUBSEQUENT HOSPITAL CARE SUBSEQUENT HOSPITAL CARE INITIAL HOSPITAL CARE SUBSEQUENT HOSPITAL CARE SUBSEQUENT HOSPITAL CARE TTE W/DOPPLER COMPLETE Advance Directives Directive Yes / No Effective Date File Name No Information Encounters Encounter Description Practice Location Reason(s) For Visit Diagnoses Date Provider Providers Copied on Encounter [facility], [facility] [place], [address], tel:[phone] [facility] No Information Adrian Fahed. [address], [address] [place] [address], [id number]. tel:[phone] Referring Provider: Carlene Campbell [address] [place] [address], [address] . tel:[phone] [facility]SEQU[facility] CARE [place] [facility], [address] [place], [address], tel:[phone] [facility] No Information Adrian Concepcion. [address], [address], [place], [id number]. tel:[phone] Referring Provider: Carlene Campbell [address], [place], [address] . tel:[phone] INITIAL HOSPITAL CARE [facility], [address] [facility], [place], [address], tel:[phone] [facility] No Information Angelita Velez. [address], [address], [place], [place], [id number], [place]. tel:[phone] Referring Provider: Agustin Goldstein, [address], [place], [address] . tel:[phone] Family History Family Member Type Diagnosis Age At Onset No Information Payers Payer name Insurance type Covered libertarian ID Freda noel(peewee) Cristopher [facility] [id number] [facility] [id number] Social History Type Description Quantity Date Captured [...]
== END 2024-08-10 09:46 | disposition home or self-care (01) ==
LOC: HO.HMCH 09:06
PROVIDERS: PCP Internal Medicine; Visit Provider Internal Medicine
DX: M25.512 Pain in left shoulder (principal); F33.0 Major depressive disorder, recurrent, mild; E66.01 Morbid (severe) obesity due to excess calories; Z68.41 Body mass index [BMI] 40.0-44.9, adult; I10 Essential (primary) hypertension; E03.9 Hypothyroidism, unspecified; E78.00 Pure hypercholesterolemia, unspecified

== ENCOUNTER → 2024-08-10 09:02 | Outpatient (BNVA) | payer MEDICARE, MEDICAID, SELFPAY | PROVIDERS: PCP Internal Medicine; Visit Provider Internal Medicine | DX: M25.512 Pain in left shoulder (principal); F33.0 Major depressive disorder, recurrent, mild; E66.01 Morbid (severe) obesity due to excess calories; Z68.41 Body mass index [BMI] 40.0-44.9, adult; I10 Essential (primary) hypertension; E03.9 Hypothyroidism, unspecified; E78.00 Pure hypercholesterolemia, unspecified; Z71.3 Dietary counseling and surveillance | CPT/HCPCS: 96127; 99212 ==

== ENCOUNTER 2024-08-17 08:49 | Outpatient (REF) | payer OTHER, SELFPAY ==
--- NOTE | ~2024-08-17 | XR_ITS ---
EXAMINATION: XR SHOULDER 2 OR MORE VIEWS LEFT HISTORY: M25.512 - Pain in left shoulder COMPARISON: There are no prior studies available for comparison. FINDINGS: Three views of the left shoulder are submitted. Osseous mineralization is normal. There appears to be proliferative bone off the glenoid rim. A lucency is seen in this region which could represent a fracture. A large osseous fragment adjacent to the humeral head likely represents a fracture of the acromion. The glenohumeral joint is maintained. There is moderate degenerative change of the AC joint. There is diffuse soft tissues. XR/XR shoulder LT min 2V IMPRESSION: Findings compatible with a fracture of the lateral aspect of the acromion, with a large fracture fragment adjacent to the humeral head. Proliferative bone off the glenoid with a possible additional fracture in this region. Further evaluation with CT would be helpful. Electronically signed by: Caleb Cain MD 08/17/2024 09:54 AM EDT
--- OUTSIDE RECORDS SUMMARY | 2024-08-17 09:23 | XMS_ITS | Continuity of Care Document ---
Author Organization [facility] Address [address] [place] [address] Phone Care Team Providers Care Cylinder Head Assembler Name Role Phone Adrian GILMAN, Carlene Unavailable Unavailable Procedures Procedure Date DUPLICATE ENCOUNTER SUBSEQUENT HOSPITAL CARE SUBSEQUENT HOSPITAL CARE SUBSEQUENT HOSPITAL CARE INITIAL [facility]PITAL CARE SUBSEQUENT [facility]OSPITAL CARE SUBSEQUENT HOSPITAL CARE TTE W/DOPPLER COMPLETE Advance Directives Directive Yes / No Effective Date File Name No Information Encounters Encounter Description Practice Location Reason(s) For Visit Diagnoses Date Provider Providers Copied on Encounter [facility], [facility] [place], [address], tel:[phone] [facility] No Information Adrian Fahed. [address], [address] [place] [address], [id number]. tel:[phone] Referring Provider: Carlene Campbell [address] [facility], [place], [address] . tel:[phone] [facility] CARE [facility], [address] [place], [address], tel:[phone] [facility] No Information Adrian Concepcion. [address], [address], [place], [id number]. tel:[phone] Referring Provider: Carlene Campbell [address], [place], [address] . tel:[phone] INITIAL HOSPITAL CARE [facility], [address] [facility], [place], [address], tel:[phone] [facility] No Information Angelita Velez. [address], [address], [place], [place], [id number], [place]. tel:[phone] Referring Provider: Agustin Goldstein, [address], [place], [address] . tel:[phone] Family History Family Member Type Diagnosis Age At Onset No Information Payers Payer name Insurance type Covered democrat ID Freda noel(peewee) Cristopher [facility] [id number] [facility] [id number] Social History Type Description Quantity Date Captured [...]
== END 2024-08-17 08:50 | disposition home or self-care (01) ==
LOC: HO.XRAY 08:49
PROVIDERS: PCP Internal Medicine; Visit Provider Internal Medicine
DX: M25.512 Pain in left shoulder (principal)
CPT/HCPCS: 73030

== ENCOUNTER → 2024-08-17 08:57 | Outpatient (BNV) | payer OTHER, SELFPAY | PROVIDERS: PCP Internal Medicine; Visit Provider Radiology Diagnostic Radiology | DX: S42.121A Displaced fracture of acromial process, right shoulder, initial encounter for closed fracture (principal) | CPT/HCPCS: 73030 ==

== ENCOUNTER 2024-08-30 12:40 | Outpatient (AMB) | payer OTHER, SELFPAY ==
--- OUTSIDE RECORDS SUMMARY | 2024-08-30 12:55 | XMS_ITS | Continuity of Care Document ---
Author Organization [employer] Address [address] [place] [address] Phone Care Team Providers Care Microfiche Camera Operator Name Role Phone Adrian GILMAN, Carlene Unavailable Unavailable Procedures Procedure Date DUPLICATE ENCOUNTER SUBSEQUENT HOSPITAL CARE SUBSEQUENT HOSPITAL CARE SUBSEQUENT HOSPITAL CARE INITIAL [facility]OSPITAL CARE SUBSEQUENT HOSPITAL CARE SUBSEQUENT HOSPITAL CARE TTE W/DOPPLER COMPLETE Advance Directives Directive Yes / No Effective Date File Name No Information Encounters Encounter Description Practice Location Reason(s) For Visit Diagnoses Date Provider Providers Copied on Encounter [facility], [facility] [place], [address], tel:[phone] [facility] No Information Adrian Fahed. [address], [address] [place] [address], [id number]. tel:[phone] Referring Provider: Carlene Campbell [address] [facility], [place], [address] . tel:[phone] SUB[facility]PITAL CARE [facility], [address] [place], [address], tel:[phone] [facility] No Information Adrian Concepcion. [address], [address], [place], [id number]. tel:[phone] Referring Provider: Carlene Campbell [address], [place], [address] . tel:[phone] INITIAL HOSPITAL CARE [facility], [address] [facility], [place], [address], tel:[phone] [facility] No Information Angelita Velez. [address], [address], [place], [place], [id number], [place]. tel:[phone] Referring Provider: Agustin Goldstein, [address], [place], [address] . tel:[phone] Family History Family Member Type Diagnosis Age At Onset No Information Payers Payer name Insurance type Covered libertarian ID Freda noel(peewee) Cristopher [facility] [id number] [facility] [id number] Social History Type Description Quantity Date Captured [...]
[2024-08-30 12:59] VITALS: BMI 42.4
--- NOTE | 2024-08-30 12:59 | MHC.OFFVIS ---
Vital Signs 08/30/24 12:59 Height 5 ft 2 in Weight 232 lb BMI 42.4 Intake Visit Reasons: FC-Lt shoulder girdle closed fx Intake Note: Linda is a 74 year old right hand dominant female who presents today for an evaluation of left shoulder. Patient was seen by her PCP on 08/07/24, where she mentioned her shoulder pain began after taking a fall. X-rays were ordered which showed fracture of left shoulder girdle. Patient reports pain at the base of the left shoulder. Patient complains of limited ROM, difficult tolift arm above the head or bring it to her back. Patient states she was already unable to bring her arm up prior to the fall. Patient is taking Advil without relief. Patient states the bruising has been clearing up since the fall. Denies prior injuries or surgeries to the left shoulder. Electrical Electronics Technician Required: No Allergies No Known Allergies [No Known Allergies*] Allergy (Verified 08/30/24 13:00) Medication List - Last Reconciled 08/30/24 by Tawnya Srivastava PA-C atorvastatin 80 mg PO DAILY bupropion HCl XL 150 mg PO QAM 90 days furosemide 20 mg PO DAILY levothyroxine 175 mcg PO DAILY 90 days lisinopril 20 mg PO DAILY 90 days HPI HPI FC-Lt shoulder girdle closed fx: Details: 74 yo female presents to the office today accompanied by her SHOT FIREMAN for pain in the left shoulder. She states she fell on 08/07 and landed on the left side of her body which caused pain in the left shoulder. Prior to the injury, she did have pain in the left shoulder but after the injury she has significant decrease in motion and strength. on 08/10 she was seen by her PCP for a physical , she mentioned the shoulder pain and an xry was ordered and she was referred to our office for ortho eval. [facility] Medical History Postmenopausal Morbid obesity with BMI of 40.0-44.9, adult Port wine stain Pure hypercholesterolemia Hypothyroidism Essential hypertension Surgical History Hx of cataract extraction Hx of colonoscopy H/O ventral hernia repair History of total abdominal hysterectomy History of cholecystectomy Family History Father Hypertension Mother Cancer Sister Hyperlipidemia Son No problems noted. Son No problems noted. Son No problems noted. Social History (Updated 08/30/24 @ 13:06 by DEANA Marie) Housing: House Alcohol intake: former Patient Tobacco Use Status: Never used Tobacco e-Cigarette/Vaping Use: Never Used Second Hand Smoke Exposure: No service: No Current occupational status: unemployed and disabled Current occupation: rt handed Cognitive needs: No Hearing needs: No Vision needs: Yes Review of Systems Const All systems reviewed & are unremarkable except as noted in HPI and below Physical Exam Vital Signs: BMI result Body Mass Index 42.4 Const General: cooperative and no acute distress Orientation/consciousness: patient oriented x3 Resp Effort & Inspection: normal respiratory effort and able to speak in complete sentences Cardio Peripheral pulses: Peripheral pulses 2+ throughout Neuro General: patient oriented x3 Extrem Other: Left arm it is normal to inspection she does have a birthmark on her left forearm into her hand. Mild tenderness over the proximal humerus which extends into the bicipital groove. She has significant crepitus with passive range of motion. Neurovascularly intact Results Reviewed Results Reviewed: XR shoulder LT min 2V 08/17/24 IMPRESSION: Findings compatible with a fracture of the lateral aspect of the acromion, with a large fracture fragment adjacent to the humeral head. Proliferative bone off the glenoid with a possible additional fracture in this region. Further evaluation with CT would be helpful. Assessment & Plan Assessment & Plan (1) Shoulder fracture, left: Code(s): S42.92XA - Fracture of left shoulder girdle, part unspecified, initial encounter for closed fracture Category: Medical Plan: I explained to the patient and her SHOT FIREMAN the extent of her injury. I feel as though we can treat this conservatively however we will obtain a CT scan to better understand the extent of her injury. At this time I recommend a sling for comfort but she should not use this at all times. She needs to come out of the sling to let the arm rest and dangle. She can work on elbow range of motion. She should avoid any lifting or reaching motions above shoulder height or behind the plane of the body. I would like to see her back once the CT scan has been obtained. Orders: Orders CT shoulder LT wo IV con Today S42.92XA - Fracture of left shoulder girdle, part unspecified, initial encounter for closed fracture Coding Level of Care Code New Pt Level 3 (37479) Complex EM visit Add On G2211 Diagnoses Shoulder fracture, left S42.92XA
== END 2024-08-30 13:41 | disposition home or self-care (01) ==
LOC: HO.HOS 12:41
PROVIDERS: PCP Internal Medicine; Visit Provider Physician Assistant
DX: S42.92XA Fracture of left shoulder girdle, part unspecified, initial encounter for closed fracture (principal)
CPT/HCPCS: 99203; G2211

== ENCOUNTER → 2024-08-30 12:40 | Outpatient (BNVA) | payer OTHER, SELFPAY | PROVIDERS: PCP Internal Medicine; Visit Provider Physician Assistant | DX: S42.92XA Fracture of left shoulder girdle, part unspecified, initial encounter for closed fracture (principal) | CPT/HCPCS: 99202 ==

== ENCOUNTER 2024-09-13 09:17 | Inpatient (IN) | payer OTHER, SELFPAY ==
[2024-09-13] VITALS (10 sets, daily range): BP systolic 111–134; BP diastolic 57–87; PULSE 95–127; RESP 14–18; TEMP 36.4–37.9; O2SAT 95–98; BMI 43.9
--- NOTE | 2024-09-13 | ECG_ITS ---
Test Reason : cp Blood Pressure : */* mmHG Vent. Rate : 121 BPM Atrial Rate : * BPM P-R Int : * ms QRS Dur : 96 ms QT Int : 328 ms P-R-T Axes : * -39 115 degrees QTcB Int : 465 ms Atrial fibrillation with rapid ventricular response Left axis deviation Anterior infarct , age undetermined Abnormal ECG When compared with ECG of 01-Jan-2018 08:40, Atrial fibrillation has replaced Sinus rhythm Vent. rate has increased by 61 bpm QRS axis Shifted left Anterior infarct is now Present Referred By: Generic ED Physician Electronically Signed By: SKY PHILLIPS
--- NOTE | ~2024-09-13 | XR_ITS ---
CLINICAL HISTORY: Check ngt placement 1 view chest x-ray Comparison: CR/SR - XR CHEST 1V - 09/13/24 10:42 EDT Findings: Interval enteric tube placement extending below the diaphragm with the tip overlying the stomach. The heart is enlarged. Pulmonary vasculature within normal limits. No definite consolidation, significant pleural effusion or pneumothorax. Osseous structures appear stable. IMPRESSION: 1. Interval placement of enteric tube extending below the diaphragm with the tip overlying the stomach. This document has been electronically signed by: Kelsey Espana MD on 09/13/2024 19:35:49
--- NOTE | ~2024-09-13 | XR_ITS ---
EXAMINATION: XR CHEST CLINICAL INFORMATION: cough COMPARISON: September 13, 2024. TECHNIQUE: Frontal view of the chest was obtained. FINDINGS: Opacity in the left lower hemithorax with transversely oriented linear morphology. Blunting of the left costophrenic angle. No pneumothorax. Cardiomediastinal silhouette size is mildly prominent, unchanged. Multilevel spondylosis, thoracic spine. Degenerative changes in both shoulders suggesting old chronic rotator cuff tendon.. XR/XR chest 1V IMPRESSION: Left-sided pleural effusion, moderate volume. Electronically signed by: Joseph Morales MD 09/29/2024 12:40 PM EDT
--- NOTE | ~2024-09-13 | XR_ITS ---
EXAMINATION: XR CHEST 1 VIEW HISTORY: SOB and chest pain COMPARISON: There are no prior studies available for comparison. FINDINGS: A single AP portable view of the chest performed at 10:42 AM is submitted. The lungs are expanded and clear. There is no pleural effusion, pneumothorax, or pulmonary vascular congestion. The heart is enlarged. There is degenerative disc disease of the spine. XR/XR chest 1V IMPRESSION: Cardiomegaly. The lungs are clear. Electronically signed by: Caleb Cain MD 09/13/2024 10:56 AM EDT
--- NOTE | ~2024-09-13 | CT_ITS ---
EXAMINATION: CT ABDOMEN AND PELVIS WITH CONTRAST CLINICAL INFORMATION: Enterocutaneous fistula. Abscess. Follow-up. COMPARISON: September 23, 2024 and September 13, 2024. TECHNIQUE: Multidetector volumetric images were obtained from the superior aspect of the liver through the pubic symphysis following administration 85 mL of Omnipaque 350 intravenous contrast. Sagittal and coronal reformatted images were obtained on the technologist's workstation. Oral contrast: [address] examination was performed using dose optimization techniques as appropriate, variously including the following: *Automated exposure control *Adjustment of mA and/or kV according to patient size (this includes techniques or standardized protocols for targeted exams where dose is matched to indication/reason for exam; i.e. extremities or head) *Use of iterative reconstruction technique. DLP: 662 mGy centimeter. FINDINGS: Enterocutaneous fistula/tract containing mostly gas and to a lesser extent contrast extending from the mid to distal small bowel loops into the infraumbilical region. 2.5 mm peripheral enhancing fluid collection at the proximal trajectory of the enterocutaneous tract/fistula. There is a 38 mm oral contrast and gasfield collection in the deep fat planes just beneath the skin along the left midline of the enterocutaneous tract/fistula. Sutures within the mid to distal small bowel loops without overt oral contrast extraluminal abnormality. The possibility of an entero enteric fistulous tract might be present best seen on image #52 series #3. No intestinal obstruction pattern. No overt pneumoperitoneum. Numerous diverticula in the left hemicolon. No other change in the appearance of the intra-abdominal solid organs and vascular structures. Coronary artery disease and atherosclerosis disease. Small hiatal hernia. Atelectasis left lung base. No hydronephrosis in either kidney. Persistent prominent mesenteric and retroperitoneal and inguinal lymph nodes. Resolved fluid collection in the posterior vagina/cervix anterior perianal. CT/CT abdomen pelvis w IV con IMPRESSION: Persistent oral contrast/gas peripheral enhancing fluid collections deep fat planes of the infraumbilical abdominal wall and peritoneal compartment along the enterocutaneous fistula. Fleischner guidelines were followed. Electronically signed by: Joseph Morales MD 09/28/2024 11:30 AM EDT
--- NOTE | ~2024-09-13 | CT_ITS ---
EXAMINATION: CT ABDOMEN PELVIS WITH IV CONTRAST HISTORY: n/v COMPARISON: There are no prior studies for available comparison. TECHNIQUE: CT scan of the abdomen and pelvis was performed following administration of 85 mL Omnipaque 350 using standard departmental protocol. Coronal and sagittal reformatted images were generated and reviewed. Oral contrast material was not administered at the request of the referring physician. This CT exam was performed with one or more of the following dose reduction techniques: automated exposure control, adjustment of the mA and/or kV according to patient size, use of iterative reconstruction technique. DLP: 1243 mGy-cm FINDINGS: LOWER CHEST: The visualized lung bases are clear. There is no pleural effusion. CARDIOVASCULATURE: The heart is normal in size. There is no pericardial effusion. LIVER: The liver is normal in size and contour. No liver mass is identified. The hepatic and portal veins are patent. GALLBLADDER / BILE DUCTS: The gallbladder is surgically absent. There is no intra or extrahepatic biliary ductal dilatation. SPLEEN: The spleen is normal in size. No focal splenic lesion is identified. PANCREAS: The pancreas is unremarkable in appearance. ADRENAL GLANDS: Within normal limits. KIDNEYS/RETROPERITONEUM: No renal calculi are identified. There is no hydronephrosis. There is a probable subcentimeter cyst at the upper pole of the left kidney. LYMPH NODES: No abdominal or pelvic lymphadenopathy. VASCULATURE: The abdominal aorta demonstrates atherosclerotic calcification, but is normal in caliber. MESENTERY/PERITONEUM: No free fluid. No masses. There is no free intraperitoneal gas. STOMACH: There is fluid in the distal esophagus. The stomach is markedly distended with fluid. SMALL BOWEL: There is dilatation of proximal small bowel loops with fluid, consistent with obstruction. The point of obstruction is at a ventral hernia just below the umbilicus and at the site of an abdominal wall mesh. Deep to this hernia, there is a heterogeneous collection of fluid and extraluminal gas measuring approximately 4 cm in size, compatible with an abscess. COLON: There is diverticulosis of the descending and sigmoid colon, without evidence of diverticulitis. APPENDIX: Normal. URINARY BLADDER/PELVIC ORGANS: The urinary bladder is unremarkable. The patient is status post hysterectomy. BONES / SOFT TISSUES: No suspicious bony or soft tissue abnormalities. CT/CT abdomen pelvis w IV con IMPRESSION: Findings consistent with small bowel obstruction secondary to a ventral hernia just below the umbilicus and in the region of an abdominal wall mesh. Deep to the hernia, there is an approximately 4 cm fluid collection and a moderate collection of extraluminal gas, consistent with an abscess. These findings were discussed with Dr. Vincent in the emergency room on 09/13/2024 at 2:31 PM. Electronically signed by: Caleb Cain MD 09/13/2024 02:36 PM EDT
--- NOTE | ~2024-09-13 | CT_ITS ---
EXAMINATION: CT ABDOMEN PELVIS WITH IV CONTRAST HISTORY: feculent discharge from incision, ? Enterocutaneous fistula COMPARISON: Patent is made with the prior examination of 09/13/2024. TECHNIQUE: CT scan of the abdomen and pelvis was performed following administration of 85 mL Omnipaque 350 using standard departmental protocol. Coronal and sagittal reformatted images were generated and reviewed. The patient received oral contrast material. This CT exam was performed with one or more of the following dose reduction techniques: automated exposure control, adjustment of the mA and/or kV according to patient size, use of iterative reconstruction technique. DLP: 816 mGy-cm FINDINGS: LOWER CHEST: The visualized lung bases are clear. There is a tiny bilateral pleural effusions. CARDIOVASCULATURE: The heart is normal in size. There is no pericardial effusion. LIVER: The liver is normal in size and contour. No liver mass is identified. The hepatic and portal veins are patent. GALLBLADDER / BILE DUCTS: The patient is status post cholecystectomy. There is mild dilatation of the common bile duct without change. SPLEEN: The spleen is normal in size. No focal splenic lesion is identified. PANCREAS: The pancreas is unremarkable in appearance. ADRENAL GLANDS: Within normal limits. KIDNEYS/RETROPERITONEUM: No renal calculi are identified. There is no hydronephrosis. A subcentimeter hypodensity at the upper pole of the left kidney likely represents a cyst. LYMPH NODES: No abdominal or pelvic lymphadenopathy. VASCULATURE: The abdominal aorta demonstrates atherosclerotic calcification, but is normal in caliber. MESENTERY/PERITONEUM: No free fluid. There is no free intraperitoneal gas. STOMACH: The stomach is collapsed, limiting evaluation. SMALL BOWEL: The small bowel is normal in caliber and is opacified by oral contrast material. There is a fistulous communication demonstrated between a small bowel loop and the previously seen abdominal abscess. The abscess measures approximately 4.8 x 2.6 x 3.1 cm on the current study and contains oral contrast material. Two separate fistulous tracts are seen extending from the abscess to the skin surface, one just above and one just below the umbilicus. The more inferior fistulous tract is outlined by oral contrast material COLON: There is diverticulosis of the sigmoid colon, without evidence of diverticulitis. APPENDIX: Normal. URINARY BLADDER/PELVIC ORGANS: The urinary bladder is unremarkable. The patient is status post hysterectomy. There is a 3.5 x 1.7 cm cyst of the vagina. BONES / SOFT TISSUES: There is degenerative disc disease of the spine. CT/CT abdomen pelvis w IV con IMPRESSION: Again seen is a 4.8 x 2.6 x 3.1 cm abscess in the upper pelvis. There is fistulous communication between the abscess and a small bowel loop which is outlined by oral contrast material. Two fistulous tracts are seen extending from the abscess to the skin surface. Electronically signed by: Caleb Cain MD 09/23/2024 01:59 PM EDT
--- NOTE | ~2024-09-13 | US_ITS ---
EXAMINATION: US TRIPLEX UPPER EXTREMITY, LEFT CLINICAL INFORMATION: Pain and swelling left upper extremity. COMPARISON: None available. TECHNIQUE: Color-flow triplex imaging with spectral analysis and compression Doppler was performed on the left upper extremity. FINDINGS: The left internal jugular, subclavian, and axillary veins are patent and free of thrombus. The imaged segment of the left brachiocephalic vein is patent. Spectral doppler waveforms are normal. The brachial, basilic, radial, and ulnar veins are patent and compressible. The cephalic vein in the mid to distal aspect appears to contain thrombus, consistent with superficial thrombophlebitis. US/US venous duplex UE LT IMPRESSION: 1. No evidence of deep venous thrombosis involving the left upper extremity. 2. Mid to distal left cephalic vein superficial thrombophlebitis. Electronically signed by: Jaya Fitzpatrick MD 09/20/2024 03:50 PM EDT
[2024-09-13 10:10] LABS: MANUAL DIFF FLAG NO
[2024-09-13 10:15] LABS: Basophils Percent Auto 0.2 % (0-2); Hematocrit 40.8 % (37.0-47.0); Hemoglobin 14.4 g/dl (12.0-16.0); Imm Gran Abs Auto 0.13 X10*3/uL (0.00-0.03); Lymphocytes Absolute Auto 0.3 X10*3/uL (1.2-4.9); Lymphocytes Percent Auto 2.1 % (20-40); Mean Corpuscular HGB Conc 35.3 g/dl (31.0-35.0); Mean Corpuscular Hemoglobin 26.9 pg (27.0-33.0); Mean Corpuscular Volume 76.3 fL (80.0-98.0); Mean Platelet Volume 8.8 fL (9.4-12.3); Monocytes Absolute Auto 1.4 X10*3/uL (0.1-1.2); Monocytes Percent Auto 10.5 % (2-11); Neutrophils Absolute Auto 11.4 x10*3/uL (2.0-8.3); Neutrophils Percent Auto 86.2 % (45-73); Platelet Count 326 X10*3/uL (160-400); Red Blood Count 5.35 X10*6/uL (4.20-5.50); Red Cell Distribution Width 14.7 % (11.0-16.0); White Blood Count 13.2 X10*3/uL (4.8-10.8)
[2024-09-13 10:27] LABS: Alanine Aminotransferase 20 U/L (0-31); Albumin Level 3.9 g/dL (3.5-5.0); Alkaline Phosphatase 87 U/L (39-117); Anion Gap 16 (12-20); Aspartate Amino Transferase 35 U/L (5-31); Bilirubin Total 1.3 mg/dL (0.0-1.0); Blood Urea Nitrogen 44 mg/dL (9-16); Calcium 9.2 mg/dL (8.4-10.2); Carbon Dioxide 25 mmol/L (22-29); Chloride 90 mmol/L (96-108); Estimated Glomerular Filt Rate 55; Glucose Random 131 mg/dL (60-115); Potassium 4.4 mmol/L (3.3-5.1); Sodium 127 mmol/L (135-145); Total Protein 7.2 g/dL (6.5-8.0)
[2024-09-13 10:38] LABS: Influenza A PCR NEGATIVE (Negative); Influenza B PCR NEGATIVE (Negative); Resp Syncy Virus RNA Qual PCR NEGATIVE (Negative); SARS COV2 PCR INHOUSE NEGATIVE (Negative)
--- OUTSIDE RECORDS SUMMARY | 2024-09-13 10:47 | XMS_ITS | Continuity of Care Document ---
Author Organization [employer] Address [address] [place] [address] Phone Care Team Providers Care Diamond Sizer Name Role Phone Adrian GILMAN, Carlene Unavailable Unavailable Procedures Procedure Date DUPLICATE ENCOUNTER SUBSEQUENT HOSPITAL CARE SUBSEQUENT HOSPITAL CARE SUBSEQUENT HOSPITAL CARE INITIAL HOSPITAL CARE SUBSEQUENT HOSPITAL CARE SUBSEQUENT HOSPITAL CARE TTE W/DOPPLER COMPLETE Advance Directives Directive Yes / No Effective Date File Name No Information Encounters Encounter Description Practice Location Reason(s) For Visit Diagnoses Date Provider Providers Copied on Encounter [facility], [facility] [place], [address], tel:[phone] [facility] No Information Adrina Fahed. [address], [address] [place] [address], [id number]. tel:[phone] Referring Provider: Carlene Campbell [address] [place] [address], [address] . tel:[phone] [facility] [employer] [facility], [address] [place], [address], tel:[phone] [facility] No Information Adrian Concepcion. [address], [address], [place], [id number]. tel:[phone] Referring Provider: Carelne Campbell [address], [place], [address] . tel:[phone] IN[facility]IAL [facility]PITAL CARE [facility], [address] [facility], [place], [address], tel:[phone] [facility] No Information Angelita Velez. [address], [address], [place], [place], [id number], [place]. tel:[phone] Referring Provider: Agustin Goldstein, [address], [place], [address] . tel:[phone] Family History Family Member Type Diagnosis Age At Onset No Information Payers Payer name Insurance type Covered constitution party ID Freda noel(peewee) Cristopher [facility] [id number] [facility] [id number] Social History Type Description Quantity Date Captured [...]
--- NOTE | 2024-09-13 10:48 | PC.NURSE ---
New a fib on monitor. Pt denies ever being told she has a fib in the past
--- NOTE | 2024-09-13 12:17 | ED.GENADULT ---
HPI - General Adult General Chief complaint: General Medical Stated complaint: chest pain nausea vomiting Time Seen by Provider: 09/13/24 10:08 History of Present Illness HPI narrative: Patient is a 74-year-old female with a history of nausea vomiting. History of hypercholesterolemia history of hypothyroid presented today with generalized malaise nausea vomiting. Patient from home. Feels weak feels nauseous have some palpitation not feeling well. Related Data Previous Rx's ?Medication ?Instructions ?Recorded atorvastatin 80 mg tablet 80 mg PO DAILY #90 tabs 02/21/21 lisinopril 20 mg tablet 20 mg PO DAILY 90 days #90 tabs 03/21/23 furosemide 20 mg tablet 20 mg PO DAILY #90 tabs 09/27/23 levothyroxine 175 mcg tablet 175 mcg PO DAILY 90 days #90 tabs 04/12/24 bupropion HCl 150 mg 24 hr tablet, 150 mg PO QAM 90 days #90 tabs 08/10/24 extended release Allergies Allergy/AdvReac Type Severity Reaction Status Date / Time No Known Allergies Allergy Verified 09/13/24 09:37 [No Known Allergies*] Review of Systems Review of Systems: Positive generalized malaise Yes all other systems are reviewed and are negative PMFSH Past Medical History Attestation statement: The following information was validated with the patient. Medical History (Updated 09/13/24 @ 15:34 by Angelita Vincent MD) Anterior wall myocardial infarction Atrial fibrillation Postmenopausal Morbid obesity with BMI of 40.0-44.9, adult Port wine stain Pure hypercholesterolemia Hypothyroidism Essential hypertension Surgical History Hx of cataract extraction Hx of colonoscopy H/O ventral hernia repair History of total abdominal hysterectomy History of cholecystectomy Family History Family History Father Hypertension Mother Cancer Sister Hyperlipidemia Son No problems noted. Son No problems noted. Son No problems noted. Social History Social History Housing: House Alcohol intake: former Patient Tobacco Use Status: Never used Tobacco e-Cigarette/Vaping Use: Never Used Second Hand Smoke Exposure: No Advance Directives: No Advance Directives Information Provided: Yes Do you have a plan to hurt others: No Plan service: No Current occupational status: unemployed and disabled Current occupation: rt handed Cognitive needs: No Hearing needs: No Vision needs: Yes Physical Exam ED Vital Signs: Vital Signs - 24 hr 09/13/24 09:32 09/13/24 12:00 09/13/24 12:27 Temperature 97.8 F 97.8 F 97.6 F Pulse Rate 127 H 109 H 120 H Respiratory Rate 18 14 16 Blood Pressure 121/70 127/60 121/59 L Pulse Oximetry 98 98 96 Oxygen Delivery Method Room Air Room Air Room Air 09/13/24 12:41 09/13/24 15:03 Temperature Pulse Rate 125 H 106 H Respiratory Rate 17 Blood Pressure 134/87 116/65 Pulse Oximetry Oxygen Delivery Method BMI result Body Mass Index 43.9 Appearance: Alert. Oriented X3. No acute distress. Eyes: Pupils equal, round and reactive to light. ENT: Pharynx normal. Neck: Normal inspection. Neck supple. No lymph nodes noted. No crepitus CVS: Normal heart rate and rhythm. Pulses normal. Normal S1 and S2 Respiratory: No respiratory distress. Breath sounds normal. No Wheezing. No rales Abdomen: Soft and nontender. No rigidity. No distention. good BS x4 Skin: Skin warm and dry. Normal skin color. Normal skin turgor. Extremities: No lower extremity edema. Neurovascular intact to all extremities. No Lacerations. No Rash Neuro: Oriented X 3. No motor deficit. No sensory deficit. Moving all extermities. No slurred speech Medications Administered Discontinued Medications Generic Name Dose Route Start Last Admin Trade Name Freq PRN Reason Stop Dose Admin Piperacillin Sod/Tazobactam 100 mls @ 200 mls/hr 09/13/24 14:31 09/13/24 15:30 Sod 4.5 gm/ Sodium Chloride IV 09/13/24 15:00 Infused ONCE ONE Infusion Iohexol 100 ml 09/13/24 14:12 09/13/24 14:13 Iohexol 350 Mg/Ml 100 Ml Infus..Btl IV 09/13/24 14:13 85 ml ONCE ONE Administration Metoprolol Tartrate 5 mg 09/13/24 12:14 09/13/24 12:37 Metoprolol Tartrate 5 Mg/5 Ml Vial IVPUSH 09/13/24 12:15 5 mg ONCE ONE Administration Protocol Metoprolol Tartrate 5 mg 09/13/24 14:32 09/13/24 15:00 Metoprolol Tartrate 5 Mg/5 Ml Vial IVPUSH 09/13/24 14:33 5 mg ONCE ONE Administration Protocol Medical Decision Making Medical Decision Making [facility] Narrative: My interpretation patient's EKG shows a atrial fibrillation had an heart rate is about 120 QRS is normal QTC is normal patient has a history of hypertension no history of cardiomyopathy she is 74 Years Old score is high. Will try to manage patient's heart rate by giving a dose of metoprolol. My interpretation patient's chest x-ray is grossly negative there is no pneumonia no pneumothorax. Patient's COVID flu RSV these are all negative. TSH is pending troponin is negative Patient's CT scan of the abdomen pelvis consistent with small-bowel obstruction by my interpretation. I reviewed radiology's reading and discussed the case with the radiologist. [place] that there is in addition to the small-bowel obstruction a possible abscess. Cultures are obtained. Antibiotics started. Surgery was consulted. Patient will most likely require admission. Two doses of metoprolol was given. Heart rate is down to approximately 100. My interpretation of patient's initial EKG showed an atrial fibrillation pattern heart rate is about 130 QRS is tight QTC is normal there is no acute ST segment elevation. Patient will require admission as well. Differential Diagnosis Differential Diagnoses: The differential diagnosis associated with the presentation includes Atrial fibrillation, small-bowel obstruction, abscess Admission/Observation Consideration of admission/observation: Escalation of care including admission/observation considered Consult Healthcare Provider Management of the patient was discussed with: Hospitalist and Electrodynamicist Surgery Lab Data [facility] Lab Attestation statement: I reviewed the patient's lab results. 09/13/24 10:04 09/13/24 10:04 Labs: Lab Results 09/13/24 09/13/24 09/13/24 Range/Units 09:54 10:04 14:54 WBC 13.2 H (4.8-10.8) X10*3/uL RBC 5.35 (4.20-5.50) X10*6/uL Hgb 14.4 (12.0-16.0) g/dl Hct 40.8 (37.0-47.0) % MCV 76.3 L (80.0-98.0) fL MCH 26.9 L (27.0-33.0) pg MCHC 35.3 H (31.0-35.0) g/dl RDW 14.7 (11.0-16.0) % Plt Count 326 (160-400) X10*3/uL MPV 8.8 L (9.4-12.3) fL Immature Gran % (Auto) 1.0 H (0.0-0.4) % Neut % (Auto) 86.2 H (45-73) % Lymph % (Auto) 2.1 L (20-40) % [place] % (Auto) 10.5 (2-11) % Eos % (Auto) 0.0 (0-4) % Baso % (Auto) 0.2 (0-2) % Lymph # (Auto) 0.3 L (1.2-4.9) X10*3/uL [place] # (Auto) 1.4 H (0.1-1.2) X10*3/uL Eos # (Auto) 0.0 (0.0-0.4) X10*3/uL Baso # (Auto) 0.0 (0.0-0.2) X10*3/uL Abs Immat Gran (auto) 0.13 H (0.00-0.03) X10*3/uL Absolute Neuts (auto) 11.4 H (2.0-8.3) x10*3/uL Absolute Nucleated RBC 0.000 (0.0-0.012) X10*3/uL Nucleated RBC % (auto) 0.0 (0.0-0.2) /100WBC Sodium 127 L (135-145) mmol/L Potassium 4.4 (3.3-5.1) mmol/L Chloride 90 L (96-108) mmol/L Carbon Dioxide 25 (22-29) mmol/L Anion Gap 16 (12-20) BUN 44 H (9-16) mg/dL Creatinine 0.99 (0.5-1.4) mg/dL Estim Creat Clear Calc 57.0 Estimated GFR 55 Random Glucose 131 H (60-115) mg/dL Lactic Acid 0.6 (0.5-2.0) mmol/L Calcium 9.2 (8.4-10.2) mg/dL Total Bilirubin 1.3 H (0.0-1.0) mg/dL AST 35 H (5-31) U/L ALT 20 (0-31) U/L Alkaline Phosphatase 87 (39-117) U/L Troponin I High Sens 17.0 (<3.5-17.0) ng/L Total Protein 7.2 (6.5-8.0) g/dL Albumin 3.9 (3.5-5.0) g/dL TSH 12.08 H (0.32-4.0) uIU/mL Influenza Type A (PCR) NEGATIVE (Negative) Influenza Type B (PCR) NEGATIVE (Negative) RSV RNA Qual (PCR) NEGATIVE (Negative) SARS-CoV-2 RNA (RT-PCR) NEGATIVE (Negative) Independent Interpretation I performed an independent interpretation of an: EKG (Atrial fibrillation heart rate is 130) and CT Scan (Small-bowel obstruction) Radiology Impression Discussion of test interpretation with radiology: I have reviewed the radiologist's reading. Radiologist Impression: An abscess was noted just adjacent to the ventral hernia Critical Care Time Critical Care Time Critical Care Time: Yes Total Critical Care Time: 40 Attestation: I have personally provided 40 minutes of critical care time exclusive of time spent on separately billable procedures. ?Time includes review of lab data, radiology results, discussion with consultants, and monitoring for potential decompensation. ?Interventions were performed as documented above Discharge Plan Discharge Clinical Impression: Complete small bowel obstruction, Atrial fibrillation, Abscess Patient Disposition: Admitted As Inpatient Print Language: Cuban
[2024-09-13] MEDS: Metoprolol Tartrate 5 MG/5 ML VIAL IVPUSH ×2 (12:37→15:00)
[2024-09-13 13:00] LABS: Thyroid Stimulating Hormone 12.08 uIU/mL (0.32-4.0)
[2024-09-13] MEDS: iohexoL 350 MG/ML 100 ML INFUS..BTL IV (14:13)
[2024-09-13] MEDS: Piperacillin Sodium/Tazobactam 4.5 GM in 0.9 % Sodium Chloride 100 ML IV (15:00)
--- NOTE | 2024-09-13 15:09 | P.CONGS_ITS ---
History of Present Illness Consult details Consult date: 09/13/24 Reason for consult: abdominal pain Requesting physician: Angelita Vincent Narrative: 74-year-old female patient presenting to the emergency department with complaints of nausea/vomiting, with generalized malaise. Patient also reports sensation of palpitations and generally feeling weak. The symptoms started several days ago but increased over the past 24 hours. She presented to the emergency department and was noted to be tachycardic with a heart rate of 127, blood pressure 121/70. Initial laboratories revealed a WBC of 13.2, sodium 127, chloride of 90, BUN of 44 glucose of 131. Troponin was 17.0 (normal range < 3.5-17). A CT abdomen and pelvis revealed dilated loops of proximal small bowel with a transition point at a an incisional hernia located in the lower abdomen. She previously underwent a ventral hernia repair with a large mesh. The new hernia is located below this mesh in the midline. There is also a fluid collection adjacent to this which may be an underlying abscess. EKG revealed atrial fibrillation, new onset with anterior infarct now present, age indeterminate. Surgical consultation was requested for management of the small- bowel obstruction. Review of Systems 2 Review of Systems: Yes all other systems are reviewed and are negative Constitutional: Constitutional: Reports lethargy Cardiovascular: Cardiovascular: Reports palpitations Gastrointestinal: Gastrointestinal: Reports as per HPI Endocrine: Endocrine: Reports palpitations PMFSH Past Medical History Medical History (Updated 09/13/24 @ 15:29 by Drake Crawford MD) Anterior wall myocardial infarction Atrial fibrillation Postmenopausal Morbid obesity with BMI of 40.0-44.9, adult Port wine stain Pure hypercholesterolemia Hypothyroidism Essential hypertension Family History Family History Father Hypertension Mother Cancer Sister Hyperlipidemia Son No problems noted. Son No problems noted. Son No problems noted. Surgical History Surgical History Hx of cataract extraction Hx of colonoscopy H/O ventral hernia repair History of total abdominal hysterectomy History of cholecystectomy Social History Social History Housing: House Alcohol intake: former Patient Tobacco Use Status: Never used Tobacco e-Cigarette/Vaping Use: Never Used Second Hand Smoke Exposure: No Advance Directives: No Advance Directives Information Provided: Yes Do you have a plan to hurt others: No Plan service: No Current occupational status: unemployed and disabled Current occupation: rt handed Cognitive needs: No Hearing needs: No Vision needs: Yes Meds Allergies Allergy/AdvReac Type Severity Reaction Status Date / Time No Known Allergies Allergy Verified 09/13/24 09:37 [No Known Allergies*] Physical Exam 2 Vital Signs: Vital Signs: Last Vital Signs Temp 97.6 F 09/13/24 12:27 Pulse 106 H 09/13/24 15:03 Resp 17 09/13/24 15:03 BP 116/65 09/13/24 15:03 Pulse Ox 96 09/13/24 12:27 O2 Del Method Room Air 09/13/24 12:27 BMI result Body Mass Index 43.9 Const: General: ill appearing Nutritional Appearance: well nourished O rientation/consciousness: patient oriented x3 Limitations: no limitations HEENT: Head: Yes normocephalic and Yes atraumatic Ears: hearing grossly normal bilaterally Resp: Effort & Inspection: normal respiratory effort Auscultation: clear to auscultation bilaterally Cardio: Rate: tachycardic Rhythm: abnormal rhythm irregularly irregular GI: Inspection: Yes normal to inspection Palpation (GI): Soft to palpation, Tenderness to palpation present (GI) (Lower midline with palpable hernia. Previous midline incision), no guarding and not rigid Percussion: Yes tympanic to percussion Rectal Exam - Female: deferred Abdomen image: 1. Palpable hernia lower abdomen Skin: General skin exam: no rashes or lesions noted Neuro: General: patient oriented x3 Extrem: General: Yes no clubbing, cyanosis or edema Results Labs 09/13/24 10:04 09/13/24 10:04 Labs: Abnormal lab results 09/13/24 Range/Units 10:04 WBC 13.2 H (4.8-10.8) X10*3/uL MCV 76.3 L (80.0-98.0) fL MCH 26.9 L (27.0-33.0) pg MCHC 35.3 H (31.0-35.0) g/dl MPV 8.8 L (9.4-12.3) fL Immature Gran % (Auto) 1.0 H (0.0-0.4) % Neut % (Auto) 86.2 H (45-73) % Lymph % (Auto) 2.1 L (20-40) % Lymph # (Auto) 0.3 L (1.2-4.9) X10*3/uL [place] # (Auto) 1.4 H (0.1-1.2) X10*3/uL Abs Immat Gran (auto) 0.13 H (0.00-0.03) X10*3/uL Absolute Neuts (auto) 11.4 H (2.0-8.3) x10*3/uL Sodium 127 L (135-145) mmol/L Chloride 90 L (96-108) mmol/L BUN 44 H (9-16) mg/dL Random Glucose 131 H (60-115) mg/dL Total Bilirubin 1.3 H (0.0-1.0) mg/dL AST 35 H (5-31) U/L TSH 12.08 H (0.32-4.0) uIU/mL Short CBC 09/13/24 Range/Units 10:04 WBC 13.2 H (4.8-10.8) X10*3/uL Hgb 14.4 (12.0-16.0) g/dl Hct 40.8 (37.0-47.0) % Plt Count 326 (160-400) X10*3/uL BMP 09/13/24 10:04 Sodium 127 L Potassium 4.4 Chloride 90 L Carbon Dioxide 25 BUN 44 H Creatinine 0.99 Calcium 9.2 Liver Function 09/13/24 Range/Units 10:04 Total Bilirubin 1.3 H (0.0-1.0) mg/dL AST 35 H (5-31) U/L ALT 20 (0-31) U/L Alkaline Phosphatase 87 (39-117) U/L Albumin 3.9 (3.5-5.0) g/dL All other labs normal. Imaging Abdomen CT scan report/results: image reviewed CT scan - pelvis: image reviewed Assessment and Plan (1) Recurrent incisional hernia with obstruction: Status: Acute (2) Anterior wall myocardial infarction: Status: Acute (3) Atrial fibrillation: Qualifiers: Atrial fibrillation type: unspecified Qualified Code(s): I48.91 - Unspecified atrial fibrillation Status: Acute Plan 74-year-old female patient presenting with complaints of abdominal pain, nausea, vomiting, malaise, heart fluttering found on examination to have tachycardia. Further workup revealed new onset atrial fibrillation with age indeterminate anterior infarct. CT abdomen and pelvis revealed dilated loops of small bowel proximally with a transition point at a ventral hernia below a previous incisional hernia repair. There was a small fluid collection adjacent to this which may indicate an underlying abscess. On examination the patient is mildly tender in this location however there is definitely a palpable incisional hernia in the lower abdomen below the umbilicus. The patient will need surgery to repair this hernia and drain the abscess collection. Patient will need medical and cardiology evaluation prior to surgery given her new diagnosis of atrial fibrillation and anterior infarct. Discussed with Dr. Gary and Dr. Vincent. Procedures Date of Service Date of Service: 09/13/24
[2024-09-13 15:20] LABS: Lactic Acid 0.6 mmol/L (0.5-2.0)
[2024-09-13] MEDS: Dextrose 5 % and 0.9 % NaCl 1,000 ML 100 ML IVCONT (16:05)
[2024-09-13] MEDS: Enoxaparin Sodium 40 MG/0.4 ML SYRINGE SUBCUT (16:05)
--- NOTE | 2024-09-13 16:12 | P.CONIM_ITS ---
History of Present Illness Data of Consult Service Date: 09/13/24 Primary Care Provider: Maki Wheeler MD HPI Reason for consult: weakness, abd pain A 74 years old lady with PMH of HTN, HLD, Hypothyroid presenting to ED with abdominal pain and weakness with reported palpitations. reporting worsening symptoms over last week with nausea and vomiting last 24 hours so she came to the hospital. Found to have hernia with SBO and transition point on CT scan. She was also noted to have new onset atrial fibrillation with RvR. denies any history of irregular heart rhythm before. Admitted for surgical evaluation. Hospitalist team asked to eval for the new Afib. Review of Systems 2 Review of Systems: No fever, chills or has weakness No chest pain, has palpitation No shortness of breath or coughing reporiting abdominal pain, nausea or vomiting No urinary symptoms No any rash or wounds [facility] Medical History Anterior wall myocardial infarction Atrial fibrillation Postmenopausal Morbid obesity with BMI of 40.0-44.9, adult Port wine stain Pure hypercholesterolemia Hypothyroidism Essential hypertension Family History Father Hypertension Mother Cancer Sister Hyperlipidemia Son No problems noted. Son No problems noted. Son No problems noted. Surgical History Hx of cataract extraction Hx of colonoscopy H/O ventral hernia repair History of total abdominal hysterectomy History of cholecystectomy Social History Housing: House Alcohol intake: former Patient Tobacco Use Status: Never used Tobacco e-Cigarette/Vaping Use: Never Used Second Hand Smoke Exposure: No Advance Directives: No Advance Directives Information Provided: Yes Do you have a plan to hurt others: No Plan service: No Current occupational status: unemployed and disabled Current occupation: rt handed Cognitive needs: No Hearing needs: No Vision needs: Yes Meds Allergies Allergy/AdvReac Type Severity Reaction Status Date / Time No Known Allergies Allergy Verified 09/13/24 09:37 [No Known Allergies*] Active Medications: Current Medications Enoxaparin Sodium (Enoxaparin Sodium 40 Mg/0.4 Ml Syringe) 40 mg SUBCUT Q24H [facility] Last Admin: 09/13/24 16:05 Dose: 40 mg Hydromorphone HCl (Hydromorphone Hcl 0.5 Mg/0.5 Ml Syringe) 0.5 mg IVPUSH Q3H PRN; Protocol PRN Reason: Pain, Severe (Pain Scale 7-10) Acetaminophen (Ofirmev) 1,000 mg in 100 mls @ 400 mls/hr IV Q6H PRN PRN Reason: Pain, Mild (Pain Scale 1-3) Piperacillin Sod/Tazobactam (Sod 3.375 gm/ Sodium Chloride) 50 mls @ 100 mls/hr IV Q6H ALETA Dextrose/Sodium Chloride (D5ns) 1,000 mls @ 100 mls/hr IVCONT .Q10H [facility] Last Admin: 09/13/24 16:05 Dose: 100 mls/hr Ondansetron HCl (Ondansetron Hcl 4 Mg/2 Ml Vial) 4 mg IVPUSH QID PRN PRN Reason: Nausea Home Medications ?Medication ?Instructions ?Recorded ?Confirmed ?Last Taken ?Type bupropion HCl 150 mg 24 hr tablet, 150 mg PO DAILY 09/13/24 Unknown History extended release levothyroxine 175 mcg tablet 175 mcg PO DAILY@0600 09/13/24 Unknown History Physical Exam 2 Vital Signs and Narrative: Vital Signs: Last Vital Signs Temp 97.6 F 09/13/24 12:27 Pulse 106 H 09/13/24 15:03 Resp 17 09/13/24 15:03 BP 116/65 09/13/24 15:03 Pulse Ox 96 09/13/24 12:27 O2 Del Method Room Air 09/13/24 12:27 BMI result Body Mass Index 43.9 Const: Other: Constitutional : Awake, interactive, not in distress Neck : Normal inspection, Supple Cardiovascular : irregular irregular , no JVP, no lower extremity edema Respiratory : good bilateral air entry, no crackles, wheezes or rhonchi Gastrointestinal: soft, lax, decreased bowel sounds, Non tender Skin : Warm, Dry Neurological : Alert & oriented x3, No focal deficit Results Labs 09/13/24 10:04 09/13/24 10:04 Labs: Laboratory Results - last 24 hr 09/13/24 09/13/24 09/13/24 09:54 10:04 14:54 MCV 76.3 L MCH 26.9 L MCHC 35.3 H RDW 14.7 Plt Count 326 MPV 8.8 L Immature Gran % (Auto) 1.0 H Neut % (Auto) 86.2 H Lymph % (Auto) 2.1 L [place] % (Auto) 10.5 Eos % (Auto) 0.0 Baso % (Auto) 0.2 Lymph # (Auto) 0.3 L [place] # (Auto) 1.4 H Eos # (Auto) 0.0 Baso # (Auto) 0.0 Abs Immat Gran (auto) 0.13 H Absolute Neuts (auto) 11.4 H Absolute Nucleated RBC 0.000 Nucleated RBC % (auto) 0.0 Anion Gap 16 Estim Creat Clear Calc 57.0 Estimated GFR 55 Random Glucose 131 H Lactic Acid 0.6 Calcium 9.2 Total Bilirubin 1.3 H AST 35 H ALT 20 Alkaline Phosphatase 87 Troponin I High Sens 17.0 Total Protein 7.2 Albumin 3.9 TSH 12.08 H Influenza Type A (PCR) NEGATIVE Influenza Type B (PCR) NEGATIVE RSV RNA Qual (PCR) NEGATIVE SARS-CoV-2 RNA (RT-PCR) NEGATIVE Imaging Radiologist's Impressions: Impressions Chest X-Ray 09/13/24 10:40 IMPRESSION: Cardiomegaly. The lungs are clear. Electronically signed by: Caleb Cain MD 09/13/2024 10:56 AM EDT RP Abdomen/Pelvis CT 09/13/24 13:59 IMPRESSION: Findings consistent with small bowel obstruction secondary to a ventral hernia just below the umbilicus and in the region of an abdominal wall mesh. Deep to the hernia, there is an approximately 4 cm fluid collection and a moderate collection of extraluminal gas, consistent with an abscess. These findings were discussed with Dr. Vincent in the emergency room on 09/13/2024 at 2:31 PM. Electronically signed by: Caleb Cain MD 09/13/2024 02:36 PM EDT RP Assessment and Plan (1) Atrial fibrillation: Status: Acute (2) Complete small bowel obstruction: Status: Acute Plan A 74 years old lady with PMH of HTN, HLD, Hypothyroid presenting to ED with abdominal pain and weakness with reported palpitations. New onset atrial fibrillation with RvR EKG showing RvR, no ST\T wave changes to suggest ACS Trop negative To check Echo and get cardiology consult Lovenox full dose for now Keep on Tele Metoprolol 2.5 mg IV for HR control SBO w complicated hernia Surgical team following HLD Startin HTN Hold Lisinopril and Lasix Hypothyroid elevated TSH check T4 Thank you for the consult will continue to follow with you.
--- NOTE | 2024-09-13 17:16 | PHA.MEDREC ---
Addendum entered by Juliet Swartz [facility] 09/13/24 17:43: [facility] ED REVIEWED, BRIEN GILMAN AND ALSO MENTIONED NO RECENT FILL OF ATORVASTATIN Original Note: Pharmacy Consult ? Medication Reconciliation Pharmacy has completed the medication reconciliation. Spoke with pt, utilizing tractor trailer technician and she was able to confirm her medications. Pt confirmed she still takes the Furosemide 20mg and Lisinopril 20mg tabs QD and states she is filling them at [facility] on ; I called [facility] and they stated they have not filled either of those medications since 09/2023 for 90 days and stated the pt has 1 refill remaining for both of them and no Dc from her
[2024-09-13 17:32] LABS: Free T4 (Free Thyroxine) 0.88 ng/dL (0.71-1.85)
[2024-09-13] MEDS: Enoxaparin Sodium 80 MG/0.8 ML SYRINGE 70 MG SUBCUT (18:02)
[2024-09-13] MEDS: Metoprolol Tartrate 5 MG/5 ML VIAL 2.5 MG IVPUSH (20:24)
[2024-09-13] MEDS: Piperacillin Sodium/Tazobactam 3.375 GM in 0.9 % Sodium Chloride 50 ML IV (21:34)
[2024-09-13] MEDS: Acetaminophen 1,000 MG/100 ML PIGGYBACK 400 MG IV (22:21)
[2024-09-14] MEDS: Dextrose 5 % and 0.9 % NaCl 1,000 ML 100 ML IVCONT (02:32)
[2024-09-14] MEDS: Piperacillin Sodium/Tazobactam 3.375 GM in 0.9 % Sodium Chloride 50 ML IV ×4 (02:32→20:56)
[2024-09-14] MEDS: Metoprolol Tartrate 5 MG/5 ML VIAL 2.5 MG IVPUSH ×4 (02:58→20:56)
[2024-09-14 03:04] VITALS: BMI 43.7
[2024-09-14 03:55] VITALS: BP 129/69; PULSE 92; RESP 18; TEMP 36.8; O2SAT 95
[2024-09-14 06:01] LABS: Appearance Urine Clear; Color Urine Yellow; Glucose Urine UA Negative (Negative); Leukocyte Esterase Urine Negative (Negative); Nitrite Urine Negative (Negative); PH 5.5 (5.0-9.0); Specific Gravity - Urine >= 1.030 (1.005-1.025); UMIC TRIGGER UACC YES; Urine Blood Negative (Negative); Urine Ketones Trace mg/dL (Negative); Urine Protein 30 (1+) mg/dL (Neg-Trace)
[2024-09-14 06:32] LABS: MANUAL DIFF FLAG NO
[2024-09-14 06:41] LABS: Basophils Absolute Auto 0.1 X10*3/uL (0.0-0.2); Basophils Percent Auto 0.7 % (0-2); Eosinophils Percent Auto 0.3 % (0-4); Hematocrit 39.6 % (37.0-47.0); Hemoglobin 13.6 g/dl (12.0-16.0); Imm Gran Abs Auto 0.15 X10*3/uL (0.00-0.03); Imm Gran Pct Auto 1.4 % (0.0-0.4); Lymphocytes Absolute Auto 0.6 X10*3/uL (1.2-4.9); Lymphocytes Percent Auto 5.6 % (20-40); Mean Corpuscular HGB Conc 34.3 g/dl (31.0-35.0); Mean Corpuscular Hemoglobin 26.6 pg (27.0-33.0); Mean Corpuscular Volume 77.5 fL (80.0-98.0); Mean Platelet Volume 9.1 fL (9.4-12.3); Monocytes Absolute Auto 1.4 X10*3/uL (0.1-1.2); Monocytes Percent Auto 13.5 % (2-11); Neutrophils Absolute Auto 8.3 x10*3/uL (2.0-8.3); Neutrophils Percent Auto 78.5 % (45-73); Platelet Count 306 X10*3/uL (160-400); Red Blood Count 5.11 X10*6/uL (4.20-5.50); Red Cell Distribution Width 14.7 % (11.0-16.0); White Blood Count 10.5 X10*3/uL (4.8-10.8)
[2024-09-14 06:43] LABS: Bacteria Urine Trace (None Seen); RBC Urine 0-2 /HPF (0-2); WBC Urine 0-5 /HPF (0-5)
[2024-09-14 06:56] LABS: Anion Gap 12 (12-20); Blood Urea Nitrogen 38 mg/dL (9-16); Calcium 8.8 mg/dL (8.4-10.2); Carbon Dioxide 25 mmol/L (22-29); Chloride 95 mmol/L (96-108); Creatinine Clr Calc Pharmacy 73.1; Estimated Glomerular Filt Rate > 60; Glucose Random 126 mg/dL (60-115); Potassium 4.1 mmol/L (3.3-5.1); Sodium 128 mmol/L (135-145)
--- NOTE | 2024-09-14 07:00 | CA_ITS ---
Transthoracic Echocardiogram Patient (Last, First, Middle): Linda Barlow, Gender: Female Date of : 1950 Age: 74 Procedure Date: 09/14/2024 Procedure Type: Transthoracic Echocardiogram Location: [facility] [place] [facility] [place] Height: 157.48 cm Weight: 107.96 kg BSA: 2.06 m2 Heart Rate: bpm BP: 129 / 69 mmHg Garage Hand: Referring MD: Preethi Albrecht MD Symptoms: new onset Afib Study Quality: Adequate w contrast ECG Rhythm: Atrial Fibrillation Conclusions: - The left ventricular systolic function is normal. The visually estimated ejection fraction is between 55-60%. - No obvious valvular pathology seen on this study. - There is mild dilatation of the ascending aorta measuring 4.00 cm. Findings Procedure Information Contrast agent, definity, is being given per protocol without apparent complications. Left Ventricle Normal left ventricular cavity size. There is moderately increased left ventricular wall thickness. The left ventricular systolic function is normal. The visually estimated ejection fraction is between 55-60%. There is no evidence of regional wall motion abnormalities. Diastolic function is indeterminate on the basis of available data. Right Ventricle Normal right ventricular cavity size and systolic function. Atria The left atrium is moderately dilated. The right atrium is mildly dilated. Aortic Valve There is a normal trileaflet aortic valve. There is no aortic valve stenosis. There is no aortic valve regurgitation. Mitral Valve The mitral valve appears normal. There is trace mitral valve regurgitation. There is no mitral valve stenosis. Pulmonic Valve There is trace pulmonic valve regurgitation. Tricuspid Valve There is trace tricuspid valve regurgitation. Tricuspid regurgitation envelope is inadequate for calculation of right ventricular systolic pressure. Great Vessels There is mild dilatation of the ascending aorta measuring 4.00 cm. Venous The inferior vena cava is normal in size and collapses greater than 50% with inspiration. Pericardium/Pleural There is a trivial pericardial effusion. Prior Study Comparison No significant change compared to prior study dated: 01/25/2016. Recommendations, Care & Conclusions No obvious valvular pathology seen on this study. Measurements 2D Linear Measurements IVSd: 1.28 0.6-0.9/0.6-1.0 cm LVIDd: 4.00 3.9-5.3/4.2-5.9 cm LVIDd Index: 1.94 2.4-3.2/2.2-3.1 cm/m2 LVIDs: 2.90 2.0-3.6 cm LVPWd: 1.26 0.7-1.1 cm Ao Root: 3.70 2.1-3.5 cm LA Diam: 4.10 2.7-3.8/3.0-4.0 cm LAIDs Index: 1.99 1.5-2.3 cm/m2 LV Mass: 224.36 67-162/88-224 g LV Mass Index: 108.91 43-95/49-115 g/m2 LVOT Diam: 2.10 3.0+(-)1.3 cm 2D Systolic Function EF 4C: 62.40 >55% EF 2C: 57.90 >55% EF BiP: 60.20 >55% Mitral Valve MV Pk E: 1.00 MV Decel Time: 139.00 E'Lateral: 13.60 E'Medial: 8.70 E/E' Med: 11.50 E/E' Lat: 7.40 PHT: 41.00 MVA PHT: 5.37 Decel [place]: 7.19 Aortic Valve AoV Pk Michael: 1.40 AoV Mn Michael: 1.01 AoV VTI: 0.23 AoV Pk Grad: 8.00 Aov Mn Grad: 5.00 JAIMIE Cont.VTI: 1.91 LVOT LVOT Pk Michael: 0.71 LVOT Mn Michael: 0.46 LVOT VTI: 0.13 LVOT Pk Grad: 2.00 LVOT Mn Grad: 1.00 LVOT Diam: 2.10 LVOT Area: 3.46 Diastolic Function MV Pk E: 1.00 E'Medial: 8.70 E/E' Med: 11.50 E' Laterial: 13.60 E/E' Lat: 7.40 Right Ventricle TAPSE (mm): 22.40 TVS' Michael: 11.20 Tricuspid Valve TR Pk Michael: 1.84 TR Pk Grad: 14.00 Great Vessels Aorta Ao Root-2D: 3.70 2.0-3.7 cm Ao Asc: 4.00 2.1-3.4 cm Pulmonary Valve PV Pk Michael: 0.98 Peak PV Grad: 4.00 Updated in Other Vendor System with Status of Final José Luis Perez MD electronically signed on 09/14/2024 10:39:25 AM with status of Final
[2024-09-14 07:28] VITALS: BP 117/76; PULSE 92; RESP 20; TEMP 36.2; O2SAT 97
--- NOTE | 2024-09-14 07:32 | PM.PNGS ---
Subjective Subjective Date of Service: 09/14/24 <Arturo Sung PA-C - Last Filed: 09/14/24 08:39> 09/14/24 <Drake Crawford MD - Last Filed: 09/14/24 07:56> Interval history: patient doing okay this morning, feels some improvement this morning. States she has mild pain in her abdomen today, she feels bloated. Denies nausea/vomiting. Endorses passing flatus, denies bowel movement. Complains of discomfort due to NG tube <Arturo Sung PA-C - Last Filed: 09/14/24 08:39> Physical Exam Vital Signs: Vital Signs: Last Vital Signs Temp 97.1 F 09/14/24 07:28 Pulse 92 09/14/24 07:28 Resp 20 09/14/24 07:28 BP 117/76 09/14/24 07:28 Pulse Ox 97 09/14/24 07:28 O2 Del Method Room Air 09/14/24 07:28 BMI result Body Mass Index 43.7 <Arturo Sung PA-C - Last Filed: 09/14/24 08:39> Const: General: comfortable and no acute distress <Arturo Sung PA-C - Last Filed: 09/14/24 08:39> Orientation/consciousness: patient oriented x3 <RK Ramos Last Filed: 09/14/24 08:39> Resp: Effort & Inspection: normal respiratory effort and able to speak in complete sentences <Arturo Sung PA-C - Last Filed: 09/14/24 08:39> GI: Other: moderate sized ventral hernia inferior to umbillicus. NG tube present 200 cc <Arturo Sung PA-C - Last Filed: 09/14/24 08:39> Inspection: Yes distended (mild upper abdominal ) <RK Ramos Last Filed: 09/14/24 08:39> Palpation (GI): Soft to palpation, not firm, Tenderness to palpation present (GI) (mild ) periumbilically, no guarding and not rigid <RK Ramos Last Filed: 09/14/24 08:39> Percussion: Yes normal to percussion <RK Ramos Last Filed: 09/14/24 08:39> Neuro: General: patient oriented x3 <Arturo Sung PA-C - Last Filed: 09/14/24 08:39> Objective Data Active Medications Calcium Carbonate (Calcium Carbonate 750 Mg Tab.Chew) 750 mg PO Q4H PRN PRN Reason: Heartburn Hydromorphone HCl (Hydromorphone Hcl 0.5 Mg/0.5 Ml Syringe) 0.5 mg IVPUSH Q3H PRN; Protocol PRN Reason: Pain, Severe (Pain Scale 7-10) Acetaminophen (Ofirmev) 1,000 mg in 100 mls @ 400 mls/hr IV Q6H PRN PRN Reason: Pain, Mild (Pain Scale 1-3) Last Infusion: 09/13/24 22:40 Dose: Infused Documented By: STELLA Piperacillin Sod/Tazobactam (Sod 3.375 gm/ Sodium Chloride) 50 mls @ 100 mls/hr IV Q6H [facility] Last Infusion: 09/14/24 03:02 Dose: Infused Documented By: STELLA Dextrose/Sodium Chloride (D5ns) 1,000 mls @ 100 mls/hr IVCONT .Q10H [facility] Last Admin: 09/14/24 02:32 Dose: 100 mls/hr Documented By: STELLA Magnesium Hydroxide (Milk Of Magnesia 30 Ml Oral.Susp) 30 ml PO DAILY PRN PRN Reason: Constipation Melatonin (Melatonin 3 Mg Tablet) 6 mg PO BEDTIME PRN PRN Reason: Insomnia Metoprolol Tartrate (Metoprolol Tartrate 5 Mg/5 Ml Vial) 2.5 mg IVPUSH Q6H [facility]; Protocol Last Admin: 09/14/24 02:58 Dose: 2.5 mg Documented By: STELLA Ondansetron HCl (Ondansetron Hcl 4 Mg/2 Ml Vial) 4 mg IVPUSH QID PRN PRN Reason: Nausea Sodium Chloride (0.9 % Sodium Chloride Flush 3 Ml Syringe) 3 ml IVFLUSH QSHIFT [facility] Last Admin: 09/14/24 00:45 Dose: Not Given Documented By: STELLA Non-Admin Reason: IV Running <Arturo Sung PA-C - Last Filed: 09/14/24 08:39> Labs CBC & Chem 7: 09/14/24 06:20 09/14/24 06:20 <Arturo Sung PA-C - Last Filed: 09/14/24 08:39> Labs: Laboratory Results - last 24 hr 09/13/24 09/13/24 09/13/24 09:54 10:04 14:54 MCV 76.3 L MCH 26.9 L MCHC 35.3 H RDW 14.7 Plt Count 326 MPV 8.8 L Immature Gran % (Auto) 1.0 H Neut % (Auto) 86.2 H Lymph % (Auto) 2.1 L [place] % (Auto) 10.5 Eos % (Auto) 0.0 Baso % (Auto) 0.2 Lymph # (Auto) 0.3 L [place] # (Auto) 1.4 H Eos # (Auto) 0.0 Baso # (Auto) 0.0 Abs Immat Gran (auto) 0.13 H Absolute Neuts (auto) 11.4 H Absolute Nucleated RBC 0.000 Nucleated RBC % (auto) 0.0 Anion Gap 16 Estim Creat Clear Calc 57.0 Estimated GFR 55 Random Glucose 131 H Lactic Acid 0.6 Calcium 9.2 Total Bilirubin 1.3 H AST 35 H ALT 20 Alkaline Phosphatase 87 Troponin I High Sens 17.0 Total Protein 7.2 Albumin 3.9 TSH 12.08 H Free T4 0.88 Urine Color Urine Appearance Urine pH Ur Specific [place] Urine Protein Urine Glucose (UA) Urine Ketones Urine Blood Urine Nitrite Ur Leukocyte Esterase Urine RBC Urine WBC Ur Squamous Epith Cells Urine Bacteria Hyaline Casts Influenza Type A (PCR) NEGATIVE Influenza Type B (PCR) NEGATIVE RSV RNA Qual (PCR) NEGATIVE SARS-CoV-2 RNA (RT-PCR) NEGATIVE 09/14/24 09/14/24 05:43 06:20 MCV 77.5 L MCH 26.6 L MCHC 34.3 RDW 14.7 Plt Count 306 MPV 9.1 L Immature Gran % (Auto) 1.4 H Neut % (Auto) 78.5 H Lymph % (Auto) 5.6 L [place] % (Auto) 13.5 H Eos % (Auto) 0.3 Baso % (Auto) 0.7 Lymph # (Auto) 0.6 L [place] # (Auto) 1.4 H Eos # (Auto) 0.0 Baso # (Auto) 0.1 Abs Immat Gran (auto) 0.15 H Absolute Neuts (auto) 8.3 Absolute Nucleated RBC 0.000 Nucleated RBC % (auto) 0.0 Anion Gap 12 Estim Creat Clear Calc 73.1 Estimated GFR > 60 Random Glucose 126 H Lactic Acid Calcium 8.8 Total Bilirubin AST ALT Alkaline Phosphatase Troponin I High Sens Total Protein Albumin TSH Free T4 Urine Color Yellow Urine Appearance Clear Urine pH 5.5 Ur Specific [place] >= 1.030 H Urine Protein 30 (1+) H Urine Glucose (UA) Negative Urine Ketones Trace Urine Blood Negative Urine Nitrite Negative Ur Leukocyte Esterase Negative Urine RBC 0-2 Urine WBC 0-5 Ur Squamous Epith Cells 11-20 Urine Bacteria Trace Hyaline Casts 3-5 Influenza Type A (PCR) Influenza Type B (PCR) RSV RNA Qual (PCR) SARS-CoV-2 RNA (RT-PCR) <Arturo Sung PA-C - Last Filed: 09/14/24 08:39> Procedures Date of Service Date of Service: 09/14/24 <Arturo Sung PA-C - Last Filed: 09/14/24 08:39> 09/14/24 <Drake Crawford MD - Last Filed: 09/14/24 07:56> Progress Note: A&P Assessment and plan (1) Recurrent incisional hernia with obstruction: Status: Acute <Arturo Sung PA-C - Last Filed: 09/14/24 08:39> (2) Abscess: Status: Acute <Arturo Sung PA-C - Last Filed: 09/14/24 08:39> Assessment and Plan: 74 year old female admitted to hospitalist service for new onset afib with RVR, being followed for SBO secondary to ventral hernia with possible intra-abdominal abscess. Patient feels some improvement this morning, denying nausea or vomiting. Complains of discomfort due to NG tube. Continues to have mild periumbilical pain to palpation at hernia site. Mild distention on exam. NG tube in place, 1000 cc overnight, 200 cc this morning. Cardiology consult this morning, will have echo for clearance for surgical intervention. Remains in afib, tachycardia improved. Improvement in leukocytosis this morning, kidney function stable. Plan for surgical repair of hernia with mesh and drainage of intra-abdominal fluid collection tomorrow morning pending cardiology clearance. Plan Continue IV antibiotics for possible intra-abdominal abscess Plan for hernia repair with mesh and intra-abdominal fluid drainage tomorrow Maintain NG tube NPO serial abdominal exams cardiology consult and echo pending Patient seen and examined independently and I agree with the above assessment and plan. Patient complaining of sore throat secondary to nasogastric tube. Reports less abdominal pain this morning. No flatus or BM yet. Does report lower abdominal pain at the site of the recurrent hernia. Patient also reports a prior fracture of the left clavicle which is causing some pain as well. Abdomen is soft with some tenderness in the infraumbilical region. Hernias still palpable. Discussed with the hospitalist team. Heart rate is improved this morning but remains in AFib. Cardiology evaluation and echocardiogram planned for this morning. WBC is improved this morning down to 10.5. We will continue the IV antibiotics for possible intra-abdominal abscess. I have tentatively placed her on the OR schedule for tomorrow for repair of the recurrent incisional hernia with mesh, drainage of abdominal fluid collection. I discussed this with the patient and her [id number] who was at the bedside. The patient expressed understanding and agrees with the plan. <Arturo Sung PA-C - Last Filed: 09/14/24 08:39> 74 year old female admitted to hospitalist service for new onset afib with RVR, being followed for SBO secondary to ventral hernia. Patient feels some improvment this morning, denying nausea or vomiting. Continues to have mild periumbilical pain. Mild distention on exam. NG tube in place, 100 cc overnight, 200 cc this morning. Patient being followed by cardiology will have echo this morning for clearance for surgical intervention. Patient seen and examined independently and I agree with the above assessment and plan. Patient complaining of sore throat secondary to nasogastric tube. Reports less abdominal pain this morning. No flatus or BM yet. Does report lower abdominal pain at the site of the recurrent hernia. Patient also reports a prior fracture of the left clavicle which is causing some pain as well. Abdomen is soft with some tenderness in the infraumbilical region. Hernias still palpable. Discussed with the hospitalist team. Heart rate is improved this morning but remains in AFib. Cardiology evaluation and echocardiogram planned for this morning. WBC is improved this morning down to 10.5. We will continue the IV antibiotics for possible intra-abdominal abscess. I have tentatively placed her on the OR schedule for tomorrow for repair of the recurrent incisional hernia with mesh, drainage of abdominal fluid collection. I discussed this with the patient and her [id number] who was at the bedside. The patient expressed understanding and agrees with the plan. <Drake Crawford MD - Last Filed: 09/14/24 07:56> Time Spent With Patient Time: Total time managing care of this patient today ____ minutes. <Arturo Sung PA-C - Last Filed: 09/14/24 08:39> Quality Stroke Does the patient have a stroke diagnosis?: No <Drake Crawford MD - Last Filed: 09/14/24 07:56> VTE Prior VTE?: No <Drake Crawford MD - Last Filed: 09/14/24 07:56> VTE Risk Level:: Surgical - moderate <Arturo Sung PA-C - Last Filed: 09/14/24 08:39> VTE Device Contraindication: N/A - Device Ordered <Arturo Sung PA-C - Last Filed: 09/14/24 08:39> VTE Drug Contraindication: N/A - Med Ordered <Arturo Sung PA-C - Last Filed: 09/14/24 08:39>
[2024-09-14] MEDS: 0.9 % Sodium Chloride Flush 3 ML SYRINGE IVFLUSH ×2 (08:07→20:56)
--- NOTE | 2024-09-14 08:26 | MHC.CM.PN ---
IMM 09/14. This CM met with pt with the assistance of a medical scheduler. Pt states she lives at home with her grandson and great grandchildren. Pt received [employer] services, and her [employer] will also transport her home at discharge. Pt states she has a HCP, its her son Dominik and daughter Malathi, copy has been requested. PCP: Dr. Maki Wheeler
--- NOTE | 2024-09-14 09:32 | P.CONCA_ITS ---
History of Present Illness History of Present Illness Date of Service: 09/14/24 Chief complaint: Small-bowel obstruction,incarcerated incisional he Narrative: This is a cardiology consultation regarding atrial fibrillation. Discussed with patient using full time staff interpreter. Patient is currently in the hospital for abdominal pain and weakness along with palpitations. In this context, she has been found to have small-bowel obstruction with complicated hernia. Surgical team is following. From the cardiac standpoint, there is finding of atrial fibrillation. Patient herself does not know much about it. She denies any prior issues like coronary disease or myocardial infarction or cardiomyopathy or in fact anything cardiac sounding. Currently, she is denying any clear cardiac symptoms. Review of Systems 2 Review of Systems: Yes all other systems are reviewed and are negative Constitutional: Constitutional: Reports as per HPI and Reports no additional constitutional complaints Eyes: Eyes: Reports as per HPI and Denies no additional eye complaints ENT: Denies system reviewed and no additional complaints, except as documented and Reports as per HPI Cardiovascular: Cardiovascular: Reports as per HPI, Reports no additional cardiovascular complaints, Denies acrocyanosis, Denies cool extremities, Denies chest pain, Denies leg edema, Denies lightheadedness, Denies palpitations and Denies dyspnea Respiratory: Respiratory: Reports as per HPI, Denies no additional respiratory complaints and Denies dyspnea Gastrointestinal: Gastrointestinal: Reports as per HPI and Denies no additional gastrointestinal complaints Genitourinary: Genitourinary: Reports as per HPI Musculoskeletal: Musculoskeletal: Reports no additional musculoskeletal complaints and Reports as per HPI Integumentary/Breasts: Skin/Breast: Reports system reviewed and no additional complaints, except as docu Neurologic: Reports system reviewed and no additional complaints, except as documented and Reports as per HPI Psychiatric: Psychiatric: Reports no additional psychiatric complaints and Reports as per HPI Endocrine: Endocrine: Reports no additional endocrine complaints, Reports as per HPI and Denies palpitations Hematologic/Lymphatic: Hematologic/Lymphatic: Reports no additional hematologic/lymphatic complaints and Reports as per HPI Allergic/Immunologic: Allergic/Immunologic: Reports no additional allergic/immunologic complaints and Reports as per HPI ON LICENSE OF [facility] Past Medical History Medical History Anterior wall myocardial infarction Atrial fibrillation Postmenopausal Morbid obesity with BMI of 40.0-44.9, adult Port wine stain Pure hypercholesterolemia Hypothyroidism Essential hypertension Family History Family History Father Hypertension Mother Cancer Sister Hyperlipidemia Son No problems noted. Son No problems noted. Son No problems noted. Surgical History Surgical History Hx of cataract extraction Hx of colonoscopy H/O ventral hernia repair History of total abdominal hysterectomy History of cholecystectomy Social History Social History Household Members: Family Housing: House Do you presently have visiting nurse or other home services: Yes ([facility]) Alcohol intake: former Patient Tobacco Use Status: Never used Tobacco e-Cigarette/Vaping Use: Never Used Second Hand Smoke Exposure: No service: No Current occupational status: unemployed and disabled Current occupation: rt handed Cognitive needs: No Hearing needs: No Vision needs: Yes Meds Allergies Allergy/AdvReac Type Severity Reaction Status Date / Time No Known Allergies Allergy Verified 09/13/24 09:37 [No Known Allergies*] Active Medications: Current Medications Calcium Carbonate (Calcium Carbonate 750 Mg Tab.Chew) 750 mg PO Q4H PRN PRN Reason: Heartburn Hydromorphone HCl (Hydromorphone Hcl 0.5 Mg/0.5 Ml Syringe) 0.5 mg IVPUSH Q3H PRN; Protocol PRN Reason: Pain, Severe (Pain Scale 7-10) Acetaminophen (Ofirmev) 1,000 mg in 100 mls @ 400 mls/hr IV Q6H PRN PRN Reason: Pain, Mild (Pain Scale 1-3) Last Infusion: 09/13/24 22:40 Dose: Infused Piperacillin Sod/Tazobactam (Sod 3.375 gm/ Sodium Chloride) 50 mls @ 100 mls/hr IV Q6H [facility] Last Admin: 09/14/24 08:05 Dose: 100 mls/hr Sodium Chloride (Ns) 1,000 mls @ 100 mls/hr IVCONT .Q10H [facility] Magnesium Hydroxide (Milk Of Magnesia 30 Ml Oral.Susp) 30 ml PO DAILY PRN PRN Reason: Constipation Melatonin (Melatonin 3 Mg Tablet) 6 mg PO BEDTIME PRN PRN Reason: Insomnia Metoprolol Tartrate (Metoprolol Tartrate 5 Mg/5 Ml Vial) 2.5 mg IVPUSH Q6H [facility]; Protocol Last Admin: 09/14/24 08:05 Dose: 2.5 mg Multi-Ingred Medicated Throat [place] (Throat [place], Medicated 177 Ml Bottle) 1 spray MUCOUS MEM Q2H PRN PRN Reason: Sore Throat Ondansetron HCl (Ondansetron Hcl 4 Mg/2 Ml Vial) 4 mg IVPUSH QID PRN PRN Reason: Nausea Sodium Chloride (0.9 % Sodium Chloride Flush 3 Ml Syringe) [facility] Last Admin: 09/14/24 08:07 Dose: 3 ml Home Medications ?Medication ?Instructions ?Recorded ?Confirmed ?Last Taken ?Type bupropion HCl 150 mg 24 hr tablet, 150 mg PO DAILY 09/13/24 09/13/24 5 Days Ago History extended release ~09/08/24 furosemide 20 mg tablet 20 mg PO DAILY 09/13/24 09/13/24 5 Days Ago History ~09/08/24 levothyroxine 175 mcg tablet 175 mcg PO DAILY@0600 09/13/24 09/13/24 5 Days Ago History ~09/08/24 lisinopril 20 mg tablet 20 mg PO DAILY 09/13/24 09/13/24 5 Days Ago History ~09/08/24 Physical Exam 2 Vital Signs: Vital Signs: Last Vital Signs Temp 97.1 F 09/14/24 07:28 Pulse 92 09/14/24 07:28 Resp 20 09/14/24 07:28 BP 117/76 09/14/24 07:28 Pulse Ox 97 09/14/24 07:28 O2 Del Method Room Air 09/14/24 07:28 BMI result Body Mass Index 43.7 Const: General: comfortable and no acute distress O rientation/consciousness: patient oriented x3 HEENT: Other: Unremarkable Head: Yes normal to inspection Neck: Neck: Yes normal visual inspection Chest: Chest palpation & inspection: normal inspection of the chest Resp: Auscultation: clear to auscultation bilaterally Cardio: Palpation: normal PMI Heart sounds: S1 normal heart sound present, S2 normal heart sound present, no gallops, no murmurs and no rubs GI: Palpation (GI): Soft to palpation Back/Spine/Pelvis: Other: unremarkable Skin: General skin exam: no rashes or lesions noted Neuro: General: patient oriented x3 Extrem: General: Yes normal to inspection Psych: Mental Status: mental status grossly normal Objective Labs and Meds 09/14/24 06:20 09/14/24 06:20 Lab results: Laboratory Results - last 24 hr 09/13/24 09/13/24 09/13/24 09:54 10:04 14:54 WBC 13.2 H RBC 5.35 Hgb 14.4 Hct 40.8 MCV 76.3 L MCH 26.9 L MCHC 35.3 H RDW 14.7 Plt Count 326 MPV 8.8 L Immature Gran % (Auto) 1.0 H Neut % (Auto) 86.2 H Lymph % (Auto) 2.1 L [place] % (Auto) 10.5 Eos % (Auto) 0.0 Baso % (Auto) 0.2 Lymph # (Auto) 0.3 L [place] # (Auto) 1.4 H Eos # (Auto) 0.0 Baso # (Auto) 0.0 Abs Immat Gran (auto) 0.13 H Absolute Neuts (auto) 11.4 H Absolute Nucleated RBC 0.000 Nucleated RBC % (auto) 0.0 Sodium 127 L Potassium 4.4 Chloride 90 L Carbon Dioxide 25 Anion Gap 16 BUN 44 H Creatinine 0.99 Estim Creat Clear Calc 57.0 Estimated GFR 55 Random Glucose 131 H Lactic Acid 0.6 Calcium 9.2 Total Bilirubin 1.3 H AST 35 H ALT 20 Alkaline Phosphatase 87 Troponin I High Sens 17.0 Total Protein 7.2 Albumin 3.9 TSH 12.08 H Free T4 0.88 Urine Color Urine Appearance Urine pH Ur Specific [place] Urine Protein Urine Glucose (UA) Urine Ketones Urine Blood Urine Nitrite Ur Leukocyte Esterase Urine RBC Urine WBC Ur Squamous Epith Cells Urine Bacteria Hyaline Casts Influenza Type A (PCR) NEGATIVE Influenza Type B (PCR) NEGATIVE RSV RNA Qual (PCR) NEGATIVE SARS-CoV-2 RNA (RT-PCR) NEGATIVE 09/14/24 09/14/24 05:43 06:20 WBC 10.5 RBC 5.11 Hgb 13.6 Hct 39.6 MCV 77.5 L MCH 26.6 L MCHC 34.3 RDW 14.7 Plt Count 306 MPV 9.1 L Immature Gran % (Auto) 1.4 H Neut % (Auto) 78.5 H Lymph % (Auto) 5.6 L [place] % (Auto) 13.5 H Eos % (Auto) 0.3 Baso % (Auto) 0.7 Lymph # (Auto) 0.6 L [place] # (Auto) 1.4 H Eos # (Auto) 0.0 Baso # (Auto) 0.1 Abs Immat Gran (auto) 0.15 H Absolute Neuts (auto) 8.3 Absolute Nucleated RBC 0.000 Nucleated RBC % (auto) 0.0 Sodium 128 L Potassium 4.1 Chloride 95 L Carbon Dioxide 25 Anion Gap 12 BUN 38 H Creatinine 0.77 Estim Creat Clear Calc 73.1 Estimated GFR > 60 Random Glucose 126 H Lactic Acid Calcium 8.8 Total Bilirubin AST ALT Alkaline Phosphatase Troponin I High Sens Total Protein Albumin TSH Free T4 Urine Color Yellow Urine Appearance Clear Urine pH 5.5 Ur Specific [place] >= 1.030 H Urine Protein 30 (1+) H Urine Glucose (UA) Negative Urine Ketones Trace Urine Blood Negative Urine Nitrite Negative Ur Leukocyte Esterase Negative Urine RBC 0-2 Urine WBC 0-5 Ur Squamous Epith Cells 11-20 Urine Bacteria Trace Hyaline Casts 3-5 Influenza Type A (PCR) Influenza Type B (PCR) RSV RNA Qual (PCR) SARS-CoV-2 RNA (RT-PCR) ECG Interpretation: EKG with atrial fibrillation at a rate of 121/Min. Cannot exclude old anterior infarct but could be from body habitus. Imaging Radiologist's impression: Impressions Chest X-Ray 09/13/24 10:40 IMPRESSION: Cardiomegaly. The lungs are clear. Electronically signed by: Caleb Cain MD 09/13/2024 10:56 AM EDT RP Abdomen/Pelvis CT 09/13/24 13:59 IMPRESSION: Findings consistent with small bowel obstruction secondary to a ventral hernia just below the umbilicus and in the region of an abdominal wall mesh. Deep to the hernia, there is an approximately 4 cm fluid collection and a moderate collection of extraluminal gas, consistent with an abscess. These findings were discussed with Dr. Vincent in the emergency room on 09/13/2024 at 2:31 PM. Electronically signed by: Caleb Cain MD 09/13/2024 02:36 PM EDT Assessment and Plan (1) Atrial fibrillation with rapid ventricular response: Status: Acute (2) Recurrent incisional hernia with obstruction: Status: Acute (3) Preoperative cardiovascular examination: Status: Acute Plan High sensitivity troponin is within range. EKGs/telemetry shows atrial fibrillation. No prior EKGs for comparison. Overall, atrial fibrillation of uncertain duration and not clear if it is new or pre-existing. However, she seems clinically compensated. We will need an echocardiogram for cardiac function assessment. As long as there is no concerning finding, she will be able to proceed with planned abdominal surgery. Eventually, anticoagulation. Procedures Date of Service Date of Service: 09/14/24
--- NOTE | 2024-09-14 09:50 | P.PNIM_ITS ---
Subjective Subjective Date of Service: 09/14/24 Interval History: seen and evaluated feels pain and nausea HR better controlled Review of Systems Review of Systems: Yes all other systems are reviewed and are negative Physical Exam 2 Vital Signs: Vital Signs: Last Vital Signs Temp 97.1 F 09/14/24 07:28 Pulse 92 09/14/24 07:28 Resp 20 09/14/24 07:28 BP 117/76 09/14/24 07:28 Pulse Ox 97 09/14/24 07:28 O2 Del Method Room Air 09/14/24 07:28 BMI result Body Mass Index 43.7 Const: Other: Constitutional : Awake, interactive, not in distress Neck : Normal inspection, Supple Cardiovascular : irregular irregular , no JVP, no lower extremity edema Respiratory : good bilateral air entry, no crackles, wheezes or rhonchi Gastrointestinal: soft, lax, decreased bowel sounds, Non tender Skin : Warm, Dry Neurological : Alert & oriented x3, No focal deficit Objective Data Active Medications Calcium Carbonate (Calcium Carbonate 750 Mg Tab.Chew) 750 mg PO Q4H PRN PRN Reason: Heartburn Hydromorphone HCl (Hydromorphone Hcl 0.5 Mg/0.5 Ml Syringe) 0.5 mg IVPUSH Q3H PRN; Protocol PRN Reason: Pain, Severe (Pain Scale 7-10) Acetaminophen (Ofirmev) 1,000 mg in 100 mls @ 400 mls/hr IV Q6H PRN PRN Reason: Pain, Mild (Pain Scale 1-3) Last Infusion: 09/13/24 22:40 Dose: Infused Documented By: STELLA Piperacillin Sod/Tazobactam (Sod 3.375 gm/ Sodium Chloride) 50 mls @ 100 mls/hr IV Q6H [facility] Last Admin: 09/14/24 08:05 Dose: 100 mls/hr Documented By: LEXI Sodium Chloride (Ns) 1,000 mls @ 100 mls/hr IVCONT .Q10H [facility] Magnesium Hydroxide (Milk Of Magnesia 30 Ml Oral.Susp) 30 ml PO DAILY PRN PRN Reason: Constipation Melatonin (Melatonin 3 Mg Tablet) 6 mg PO BEDTIME PRN PRN Reason: Insomnia Metoprolol Tartrate (Metoprolol Tartrate 5 Mg/5 Ml Vial) 2.5 mg IVPUSH Q6H [facility]; Protocol Last Admin: 09/14/24 08:05 Dose: 2.5 mg Documented By: LEXI Multi-Ingred Medicated Throat [place] (Throat [place], Medicated 177 Ml Bottle) 1 spray MUCOUS MEM Q2H PRN PRN Reason: Sore Throat Ondansetron HCl (Ondansetron Hcl 4 Mg/2 Ml Vial) 4 mg IVPUSH QID PRN PRN Reason: Nausea Sodium Chloride (0.9 % Sodium Chloride Flush 3 Ml Syringe) 3 ml IVFLUSH QSHIFT [facility] Last Admin: 09/14/24 08:07 Dose: 3 ml Documented By: LEXI Labs 09/14/24 06:20 09/14/24 06:20 Labs: Laboratory Results - last 24 hr 09/13/24 09/13/24 09/13/24 09:54 10:04 14:54 MCV 76.3 L MCH 26.9 L MCHC 35.3 H RDW 14.7 Plt Count 326 MPV 8.8 L Immature Gran % (Auto) 1.0 H Neut % (Auto) 86.2 H Lymph % (Auto) 2.1 L [place] % (Auto) 10.5 Eos % (Auto) 0.0 Baso % (Auto) 0.2 Lymph # (Auto) 0.3 L [place] # (Auto) 1.4 H Eos # (Auto) 0.0 Baso # (Auto) 0.0 Abs Immat Gran (auto) 0.13 H Absolute Neuts (auto) 11.4 H Absolute Nucleated RBC 0.000 Nucleated RBC % (auto) 0.0 Anion Gap 16 Estim Creat Clear Calc 57.0 Estimated GFR 55 Random Glucose 131 H Lactic Acid 0.6 Calcium 9.2 Total Bilirubin 1.3 H AST 35 H ALT 20 Alkaline Phosphatase 87 Troponin I High Sens 17.0 Total Protein 7.2 Albumin 3.9 TSH 12.08 H Free T4 0.88 Urine Color Urine Appearance Urine pH Ur Specific [place] Urine Protein Urine Glucose (UA) Urine Ketones Urine Blood Urine Nitrite Ur Leukocyte Esterase Urine RBC Urine WBC Ur Squamous Epith Cells Urine Bacteria Hyaline Casts Influenza Type A (PCR) NEGATIVE Influenza Type B (PCR) NEGATIVE RSV RNA Qual (PCR) NEGATIVE SARS-CoV-2 RNA (RT-PCR) NEGATIVE 09/14/24 09/14/24 05:43 06:20 MCV 77.5 L MCH 26.6 L MCHC 34.3 RDW 14.7 Plt Count 306 MPV 9.1 L Immature Gran % (Auto) 1.4 H Neut % (Auto) 78.5 H Lymph % (Auto) 5.6 L [place] % (Auto) 13.5 H Eos % (Auto) 0.3 Baso % (Auto) 0.7 Lymph # (Auto) 0.6 L [place] # (Auto) 1.4 H Eos # (Auto) 0.0 Baso # (Auto) 0.1 Abs Immat Gran (auto) 0.15 H Absolute Neuts (auto) 8.3 Absolute Nucleated RBC 0.000 Nucleated RBC % (auto) 0.0 Anion Gap 12 Estim Creat Clear Calc 73.1 Estimated GFR > 60 Random Glucose 126 H Lactic Acid Calcium 8.8 Total Bilirubin AST ALT Alkaline Phosphatase Troponin I High Sens Total Protein Albumin TSH Free T4 Urine Color Yellow Urine Appearance Clear Urine pH 5.5 Ur Specific [place] >= 1.030 H Urine Protein 30 (1+) H Urine Glucose (UA) Negative Urine Ketones Trace Urine Blood Negative Urine Nitrite Negative Ur Leukocyte Esterase Negative Urine RBC 0-2 Urine WBC 0-5 Ur Squamous Epith Cells 11-20 Urine Bacteria Trace Hyaline Casts 3-5 Influenza Type A (PCR) Influenza Type B (PCR) RSV RNA Qual (PCR) SARS-CoV-2 RNA (RT-PCR) Assessment and Plan (1) Atrial fibrillation with rapid ventricular response: Status: Acute (2) New onset atrial fibrillation: Status: Acute Plan A 74 years old lady with PMH of HTN, HLD, Hypothyroid presenting to ED with abdominal pain and weakness with reported palpitations. New onset atrial fibrillation with RvR rate better controlled pending Echo cardiology consult Lovenox full dose for today, hold overnight for planned surgery Keep on Tele Metoprolol 2.5 mg IV for HR control SBO w complicated hernia Surgical team following HLD Startin HTN Hold Lisinopril and Lasix Hypothyroid elevated TSH check T4 Thank you for the consult will continue to follow with you as needed Quality Stroke Does the patient have a stroke diagnosis?: No VTE Prior VTE?: No VTE Risk Level:: Surgical - moderate VTE Device Contraindication: N/A - Device Ordered VTE Drug Contraindication: N/A - Med Ordered
[2024-09-14] MEDS: 0.9 % Sodium Chloride 1,000 ML 100 ML IVCONT ×2 (09:57→18:23)
[2024-09-14] MEDS: Enoxaparin Sodium 120 MG/0.8 ML SYRINGE 110 MG SUBCUT (10:56)
[2024-09-14 11:40] VITALS: BP 130/63; PULSE 96; RESP 18; TEMP 36.4; O2SAT 98
[2024-09-14] MEDS: Throat Spray, Medicated 177 ML BOTTLE 1 SPRAY MUCOUS MEM ×2 (12:47→18:44)
[2024-09-14 15:29] VITALS: BP 128/65; PULSE 95; RESP 18; TEMP 36.5; O2SAT 96
[2024-09-14] MEDS: ondansetron HCL 4 MG/2 ML VIAL IVPUSH (18:44)
[2024-09-14 20:00] VITALS: BP 133/64; PULSE 110; RESP 16; TEMP 36.4; O2SAT 94
[2024-09-15] VITALS (12 sets, daily range): BP systolic 124–151; BP diastolic 59–96; PULSE 88–119; RESP 16–20; TEMP 36.2–37.2; O2SAT 95–100
[2024-09-15] MEDS: Piperacillin Sodium/Tazobactam 3.375 GM in 0.9 % Sodium Chloride 50 ML IV ×4 (03:06→21:37)
[2024-09-15] MEDS: Metoprolol Tartrate 5 MG/5 ML VIAL 2.5 MG IVPUSH ×4 (03:06→21:36)
[2024-09-15] MEDS: 0.9 % Sodium Chloride 1,000 ML 100 ML IVCONT ×2 (04:54→17:36)
[2024-09-15] MEDS: Acetaminophen 1,000 MG/100 ML PIGGYBACK 400 MG IV (06:23)
[2024-09-15 07:23] LABS: Anion Gap 15 (12-20); Blood Urea Nitrogen 26 mg/dL (9-16); Calcium 8.3 mg/dL (8.4-10.2); Carbon Dioxide 23 mmol/L (22-29); Chloride 101 mmol/L (96-108); Creatinine Clr Calc Pharmacy 93.8; Estimated Glomerular Filt Rate > 60; Glucose Random 75 mg/dL (60-115); Potassium 3.7 mmol/L (3.3-5.1); Sodium 135 mmol/L (135-145)
[2024-09-15] MEDS: 0.9 % Sodium Chloride Flush 3 ML SYRINGE IVFLUSH ×2 (08:56→17:36)
--- NOTE | 2024-09-15 09:32 | P.PNGS_ITS ---
Subjective Subjective Date of Service: 09/15/24 <Arturo Sung PA-C - Last Filed: 09/15/24 10:24> 09/15/24 <Drake Crawford MD - Last Filed: 09/15/24 12:14> Interval history: Patient doing okay today. Daughter at bedside. She has mild abdominal pain. Intermittent nausea. Complains of headache, was given tylenol, notes improvement. She has been passing small amounts of flatus, no BM. overnight NG output 1000. <Arturo Sung PA-C - Last Filed: 09/15/24 10:24> Physical Exam 2 Vital Signs: Vital Signs: Last Vital Signs Temp 99.0 F 09/15/24 07:53 Pulse 98 09/15/24 07:53 Resp 20 09/15/24 07:53 BP 124/60 09/15/24 07:53 Pulse Ox 95 09/15/24 07:53 O2 Del Method Room Air 09/15/24 07:53 BMI result Body Mass Index 43.7 <Arturo Sung PA-C - Last Filed: 09/15/24 10:24> Const: General: comfortable and no acute distress <Arturo Sung PA-C - Last Filed: 09/15/24 10:24> Orientation/consciousness: patient oriented x3 <RK Ramos Last Filed: 09/15/24 10:24> Resp: Effort & Inspection: normal respiratory effort and able to speak in complete sentences <Arturo Sung PA-C - Last Filed: 09/15/24 10:24> GI: Other: NG tube in place <RK Ramos Last Filed: 09/15/24 10:24> Inspection: No distended <RK Ramos Last Filed: 09/15/24 10:24> Palpation (GI): Soft to palpation, not firm, Tenderness to palpation present (GI) (mild epigastric tenderness), no guarding and not rigid <RK Ramos Last Filed: 09/15/24 10:24> Percussion: Yes normal to percussion <RK Ramos Last Filed: 09/15/24 10:24> Neuro: General: patient oriented x3 <RK Ramos Last Filed: 09/15/24 10:24> Objective Data Active Medications Calcium Carbonate (Calcium Carbonate 750 Mg Tab.Chew) 750 mg PO Q4H PRN PRN Reason: Heartburn Hydromorphone HCl (Hydromorphone Hcl 0.5 Mg/0.5 Ml Syringe) 0.5 mg IVPUSH Q3H PRN; Protocol PRN Reason: Pain, Severe (Pain Scale 7-10) Acetaminophen (Ofirmev) 1,000 mg in 100 mls @ 400 mls/hr IV Q6H PRN PRN Reason: Pain, Mild (Pain Scale 1-3) Last Infusion: 09/15/24 07:29 Dose: Infused Documented By: SHIVAM Piperacillin Sod/Tazobactam (Sod 3.375 gm/ Sodium Chloride) 50 mls @ 100 mls/hr IV Q6H [facility] Last Admin: 09/15/24 08:55 Dose: 100 mls/hr Documented By: SHIVAM Sodium Chloride (Ns) 1,000 mls @ 100 mls/hr IVCONT .Q10H [facility] Last Admin: 09/15/24 04:54 Dose: 100 mls/hr Documented By: JEWEL Magnesium Hydroxide (Milk Of Magnesia 30 Ml Oral.Susp) 30 ml PO DAILY PRN PRN Reason: Constipation Melatonin (Melatonin 3 Mg Tablet) 6 mg PO BEDTIME PRN PRN Reason: Insomnia Metoprolol Tartrate (Metoprolol Tartrate 5 Mg/5 Ml Vial) 2.5 mg IVPUSH Q6H [facility]; Protocol Last Admin: 09/15/24 08:55 Dose: 2.5 mg Documented By: SHIVAM Multi-Ingred Medicated Throat [place] (Throat [place], Medicated 177 Ml Bottle) 1 spray MUCOUS MEM Q2H PRN PRN Reason: Sore Throat Last Admin: 09/14/24 18:44 Dose: 1 spray Documented By: LEXI Ondansetron HCl (Ondansetron Hcl 4 Mg/2 Ml Vial) 4 mg IVPUSH QID PRN PRN Reason: Nausea Last Admin: 09/14/24 18:44 Dose: 4 mg Documented By: LEXI Sodium Chloride (0.9 % Sodium Chloride Flush 3 Ml Syringe) [facility] Last Admin: 09/15/24 08:56 Dose: 3 ml Documented By: SHIVAM <Arturo Sung PA-C - Last Filed: 09/15/24 10:24> Labs CBC & Chem 7: 09/14/24 06:20 09/15/24 06:18 <Arturo Sung PA-C - Last Filed: 09/15/24 10:24> Labs: Laboratory Results - last 24 hr 09/15/24 06:18 Hold Purple Top SEE NOTE Anion Gap 15 Estim Creat Clear Calc 93.8 Estimated GFR > 60 Random Glucose 75 Calcium 8.3 L <Arturo Sung PA-C - Last Filed: 09/15/24 10:24> Microbiology Microbiology Results: Microbiology 09/13/24 14:54 Blood Culture - Preliminary Blood - Venous No growth after 24 hours. 09/13/24 14:54 Blood Culture - Preliminary Blood - Venous No growth after 24 hours. <Arturo Sung PA-C - Last Filed: 09/15/24 10:24> Procedures Date of Service Date of Service: 09/15/24 <Arturo Sung PA-C - Last Filed: 09/15/24 10:24> 09/15/24 <Drake Crawford MD - Last Filed: 09/15/24 12:14> Progress Note: A&P Assessment and plan (1) Recurrent incisional hernia with obstruction: Status: Acute <Arturo Sung PA-C - Last Filed: 09/15/24 10:24> (2) Abscess: Status: Acute <Arturo Sung PA-C - Last Filed: 09/15/24 10:24> Assessment and Plan: 74 year old female admitted admitted to hospitalist service for new onset afib with RVR, being followed for SBO secondary to ventral hernia with possible intra-abdominal abscess. Patient stable today, no acute changes overnight. NG tube output 1000 cc overnight, 200 at the time of evaluation. Abdomen remains soft, mild tenderness to palpation of the epigastric area. AM BMP shows kidney function stable. Patient was seen by cardiology for new onset afib. had echo yesterday with no concerning findings, cardiology spoke with Dr. Crawford, cleared patient for surgery this afternoon. Will proceed with plan for hernia repair with mesh. Patient agreeable with plan. NPO Continue NG tube maintenance Plan for incisional hernia repair with mesh this afternoon. pain regimen as needed <Arturo Sung PA-C - Last Filed: 09/15/24 10:24> 74 year old female admitted admitted to hospitalist service for new onset afib with RVR, being followed for SBO secondary to ventral hernia with possible intra-abdominal abscess. Patient stable today, no acute changes overnight. NG tube output 1000 cc overnight, 200 at the time of evaluation. Abdomen remains soft, mild tenderness to palpation of the epigastric area. AM BMP shows kidney function stable. Patient was seen by cardiology for new onset afib. had echo yesterday with no concerning findings, cardiology spoke with Dr. Crawford, cleared patient for surgery this afternoon. Will proceed with plan for hernia repair with mesh. Patient agreeable with plan. NPO Continue NG tube maintenance Plan for incisional hernia repair with mesh this afternoon. pain regimen as needed Agree with the above assessment and plan. Discussed with Dr. Perez this morning I secured text. Reports we may proceed with surgery based on the echocardiogram. <Drake Crawford MD - Last Filed: 09/15/24 12:14> Time Spent With Patient Time: Total time managing care of this patient today ____ minutes. <Arturo Sung PA-C - Last Filed: 09/15/24 10:24> Quality Stroke Does the patient have a stroke diagnosis?: No <Arturo Sung PA-C - Last Filed: 09/15/24 10:24> VTE Prior VTE?: No <Arturo Sung PA-C - Last Filed: 09/15/24 10:24> VTE Risk Level:: Surgical - moderate <Arturo Sung PA-C - Last Filed: 09/15/24 10:24> VTE Device Contraindication: N/A - Device Ordered <Arturo Sung PA-C - Last Filed: 09/15/24 10:24> VTE Drug Contraindication: N/A - Med Ordered <Arturo Sung PA-C - Last Filed: 09/15/24 10:24>
--- NOTE | 2024-09-15 13:54 | P.PNIM_ITS ---
Subjective Subjective Date of Service: 09/15/24 Interval History: seen and evaluated feels pain and gas HR better controlled Review of Systems Review of Systems: Yes all other systems are reviewed and are negative Physical Exam 2 Vital Signs: Vital Signs: Last Vital Signs Temp 98.2 F 09/15/24 12:00 Pulse 93 09/15/24 12:00 Resp 18 09/15/24 12:00 BP 134/59 L 09/15/24 12:00 Pulse Ox 96 09/15/24 12:00 O2 Del Method Room Air 09/15/24 12:00 BMI result Body Mass Index 43.7 Const: Other: Constitutional : Awake, interactive, not in distress Neck : Normal inspection, Supple Cardiovascular : irregular irregular , no JVP, no lower extremity edema Respiratory : good bilateral air entry, no crackles, wheezes or rhonchi Gastrointestinal: soft, lax, decreased bowel sounds, Non tender Skin : Warm, Dry Neurological : Alert & oriented x3, No focal deficit Objective Data Active Medications Calcium Carbonate (Calcium Carbonate 750 Mg Tab.Chew) 750 mg PO Q4H PRN PRN Reason: Heartburn Hydromorphone HCl (Hydromorphone Hcl 0.5 Mg/0.5 Ml Syringe) 0.5 mg IVPUSH Q3H PRN; Protocol PRN Reason: Pain, Severe (Pain Scale 7-10) Acetaminophen (Ofirmev) 1,000 mg in 100 mls @ 400 mls/hr IV Q6H PRN PRN Reason: Pain, Mild (Pain Scale 1-3) Last Infusion: 09/15/24 07:29 Dose: Infused Documented By: SHIVAM Piperacillin Sod/Tazobactam (Sod 3.375 gm/ Sodium Chloride) 50 mls @ 100 mls/hr IV Q6H [facility] Last Infusion: 09/15/24 09:43 Dose: Infused Documented By: SHIVAM Sodium Chloride (Ns) 1,000 mls @ 100 mls/hr IVCONT .Q10H [facility] Last Admin: 09/15/24 04:54 Dose: 100 mls/hr Documented By: JEWEL Magnesium Hydroxide (Milk Of Magnesia 30 Ml Oral.Susp) 30 ml PO DAILY PRN PRN Reason: Constipation Melatonin (Melatonin 3 Mg Tablet) 6 mg PO BEDTIME PRN PRN Reason: Insomnia Metoprolol Tartrate (Metoprolol Tartrate 5 Mg/5 Ml Vial) 2.5 mg IVPUSH Q6H ALYSSA; Protocol Last Admin: 09/15/24 13:15 Dose: 2.5 mg Documented By: SHIVAM Multi-Ingred Medicated Throat [place] (Throat [place], Medicated 177 Ml Bottle) 1 spray MUCOUS MEM Q2H PRN PRN Reason: Sore Throat Last Admin: 09/14/24 18:44 Dose: 1 spray Documented By: LEXI Ondansetron HCl (Ondansetron Hcl 4 Mg/2 Ml Vial) 4 mg IVPUSH QID PRN PRN Reason: Nausea Last Admin: 09/14/24 18:44 Dose: 4 mg Documented By: LEXI Sodium Chloride (0.9 % Sodium Chloride Flush 3 Ml Syringe) 3 ml IVFLUSH QSHIFT ALYSSA Last Admin: 09/15/24 08:56 Dose: 3 ml Documented By: SHIVAM Labs 09/14/24 06:20 09/15/24 06:18 Labs: Laboratory Results - last 24 hr 09/15/24 06:18 Hold Purple Top SEE NOTE Anion Gap 15 Estim Creat Clear Calc 93.8 Estimated GFR > 60 Random Glucose 75 Calcium 8.3 L Microbiology Microbiology Results: Microbiology 09/13/24 14:54 Blood Culture - Preliminary Blood - Venous No growth after 24 hours. 09/13/24 14:54 Blood Culture - Preliminary Blood - Venous No growth after 24 hours. Assessment and Plan (1) Atrial fibrillation with rapid ventricular response: Status: Acute Plan A 74 years old lady with PMH of HTN, HLD, Hypothyroid presenting to ED with abdominal pain and weakness with reported palpitations. New onset atrial fibrillation with RvR rate better controlled with IV Metoprolol 2.5 mg Q6 alyssa for now Echo cardiology consulted Lovenox full dose held today for planned surgery , to hold until ok by surgery Keep on Tele SBO w complicated hernia Surgical team following HLD Startin HTN Hold Lisinopril and Lasix Hypothyroid elevated TSH 12.8 T4 normal Continue Levothyroixne Thank you for the consult will continue to follow with you as needed Quality Stroke Does the patient have a stroke diagnosis?: No VTE Prior VTE?: No VTE Risk Level:: Surgical - moderate VTE Device Contraindication: N/A - Device Ordered VTE Drug Contraindication: N/A - Med Ordered
--- NOTE | 2024-09-15 13:57 | HO.ANESPROP2 ---
HPI - Anesthesia Eval Consult details Narrative: 4 year old female admitted admitted to hospitalist service for new onset afib with RVR, being followed for SBO secondary to ventral hernia with possible intra-abdominal abscess. Patient stable today, no acute changes overnight. NG tube output 1000 cc overnight, 200 at the time of evaluation. Abdomen remains soft, mild tenderness to palpation of the epigastric area. AM BMP shows kidney function stable. Patient was seen by cardiology for new onset afib. had echo yesterday with no concerning findings, cardiology spoke with Dr. Crawford, cleared patient for surgery this afternoon. Will proceed with plan for hernia repair with mesh under GA PMFSH Active Problems Active Problems: All Active Problems Preoperative cardiovascular examination (Acute) Atrial fibrillation with rapid ventricular response (Acute) New onset atrial fibrillation (Acute) Abscess (Acute) Atrial fibrillation (Acute) Complete small bowel obstruction (Acute) Recurrent incisional hernia with obstruction (Acute) Anterior wall myocardial infarction (Acute) Atrial fibrillation (Acute) Shoulder fracture, left (Acute) Left shoulder pain (Acute) Mild recurrent major depression (Acute) Right shoulder pain (Acute) Colon cancer screening (Acute) Hyperkalemia (Acute) Physical exam (Acute) Postmenopausal (Acute) Morbid obesity with BMI of 40.0-44.9, adult (Acute) Port wine stain (Acute) Pure hypercholesterolemia (Acute) Hypothyroidism (Acute) Essential hypertension (Acute) Past Medical History Medical History Anterior wall myocardial infarction Atrial fibrillation Postmenopausal Morbid obesity with BMI of 40.0-44.9, adult Port wine stain Pure hypercholesterolemia Hypothyroidism Essential hypertension Family History Family History Father Hypertension Mother Cancer Sister Hyperlipidemia Son No problems noted. Son No problems noted. Son No problems noted. Family history of problems with anesthesia: No Surgical History Surgical History Hx of cataract extraction Hx of colonoscopy H/O ventral hernia repair History of total abdominal hysterectomy History of cholecystectomy History of Problems with Anesthesia: No Social History Social History Household Members: Family Housing: House Do you presently have visiting nurse or other home services: Yes ([facility]) Alcohol intake: former Patient Tobacco Use Status: Never used Tobacco e-Cigarette/Vaping Use: Never Used Second Hand Smoke Exposure: No service: No Current occupational status: unemployed and disabled Current occupation: rt handed Cognitive needs: No Hearing needs: No Vision needs: Yes Meds Allergies Allergy/AdvReac Type Severity Reaction Status Date / Time No Known Allergies Allergy Verified 09/13/24 09:37 [No Known Allergies*] Active Medications: Current Medications Calcium Carbonate (Calcium Carbonate 750 Mg Tab.Chew) 750 mg PO Q4H PRN PRN Reason: Heartburn Hydromorphone HCl (Hydromorphone Hcl 0.5 Mg/0.5 Ml Syringe) 0.5 mg IVPUSH Q3H PRN; Protocol PRN Reason: Pain, Severe (Pain Scale 7-10) Acetaminophen (Ofirmev) 1,000 mg in 100 mls @ 400 mls/hr IV Q6H PRN PRN Reason: Pain, Mild (Pain Scale 1-3) Last Infusion: 09/15/24 07:29 Dose: Infused Piperacillin Sod/Tazobactam (Sod 3.375 gm/ Sodium Chloride) 50 mls @ 100 mls/hr IV Q6H [facility] Last Infusion: 09/15/24 09:43 Dose: Infused Sodium Chloride (Ns) 1,000 mls @ 100 mls/hr IVCONT .Q10H [facility] Last Admin: 09/15/24 04:54 Dose: 100 mls/hr Magnesium Hydroxide (Milk Of Magnesia 30 Ml Oral.Susp) 30 ml PO DAILY PRN PRN Reason: Constipation Melatonin (Melatonin 3 Mg Tablet) 6 mg PO BEDTIME PRN PRN Reason: Insomnia Metoprolol Tartrate (Metoprolol Tartrate 5 Mg/5 Ml Vial) 2.5 mg IVPUSH Q6H [facility]; Protocol Last Admin: 09/15/24 13:15 Dose: 2.5 mg Multi-Ingred Medicated Throat [place] (Throat [place], Medicated 177 Ml Bottle) 1 spray MUCOUS MEM Q2H PRN PRN Reason: Sore Throat Last Admin: 09/14/24 18:44 Dose: 1 spray Ondansetron HCl (Ondansetron Hcl 4 Mg/2 Ml Vial) 4 mg IVPUSH QID PRN PRN Reason: Nausea Last Admin: 09/14/24 18:44 Dose: 4 mg Sodium Chloride (0.9 % Sodium Chloride Flush 3 Ml Syringe) 3 ml IVFLUSH QSHIFT [facility] Last Admin: 09/15/24 08:56 Dose: 3 ml Home Medications ?Medication ?Instructions ?Recorded ?Confirmed ?Last Taken ?Type bupropion HCl 150 mg 24 hr tablet, 150 mg PO DAILY 09/13/24 09/13/24 5 Days Ago History extended release ~09/08/24 furosemide 20 mg tablet 20 mg PO DAILY 09/13/24 09/13/24 5 Days Ago History ~09/08/24 levothyroxine 175 mcg tablet 175 mcg PO DAILY@59909/13/24 09/13/24 5 Days Ago History ~09/08/24 lisinopril 20 mg tablet 20 mg PO DAILY 09/13/24 09/13/24 5 Days Ago History ~09/08/24 Exam Height,Weight and Vital Signs: Height 5 ft 2 in Weight 108.3 kg Last Vital Signs Temp 98.2 F 09/15/24 12:00 Pulse 93 09/15/24 12:00 Resp 18 09/15/24 12:00 BP 134/59 L 09/15/24 12:00 Pulse Ox 96 09/15/24 12:00 O2 Del Method Room Air 09/15/24 12:00 Pertinent Lab Results Pertinent Lab Results: Laboratory Tests 09/13/24 09/13/24 09/13/24 09:54 10:04 14:54 WBC 13.2 H RBC 5.35 Hgb 14.4 Hct 40.8 MCV 76.3 L MCH 26.9 L MCHC 35.3 H RDW 14.7 Plt Count 326 MPV 8.8 L Immature Gran % (Auto) 1.0 H Neut % (Auto) 86.2 H Lymph % (Auto) 2.1 L [place] % (Auto) 10.5 Eos % (Auto) 0.0 Baso % (Auto) 0.2 Lymph # (Auto) 0.3 L [place] # (Auto) 1.4 H Eos # (Auto) 0.0 Baso # (Auto) 0.0 Abs Immat Gran (auto) 0.13 H Absolute Neuts (auto) 11.4 H Absolute Nucleated RBC 0.000 Nucleated RBC % (auto) 0.0 Hold Purple Top Sodium 127 L Potassium 4.4 Chloride 90 L Carbon Dioxide 25 Anion Gap 16 BUN 44 H Creatinine 0.99 Estim Creat Clear Calc 57.0 Estimated GFR 55 Random Glucose 131 H Lactic Acid 0.6 Calcium 9.2 Total Bilirubin 1.3 H AST 35 H ALT 20 Alkaline Phosphatase 87 Troponin I High Sens 17.0 Total Protein 7.2 Albumin 3.9 TSH 12.08 H Free T4 0.88 Urine Color Urine Appearance Urine pH Ur Specific [place] Urine Protein Urine Glucose (UA) Urine Ketones Urine Blood Urine Nitrite Ur Leukocyte Esterase Urine RBC Urine WBC Ur Squamous Epith Cells Urine Bacteria Hyaline Casts Influenza Type A (PCR) NEGATIVE Influenza Type B (PCR) NEGATIVE RSV RNA Qual (PCR) NEGATIVE SARS-CoV-2 RNA (RT-PCR) NEGATIVE 09/14/24 09/14/24 09/15/24 05:43 06:20 06:18 WBC 10.5 RBC 5.11 Hgb 13.6 Hct 39.6 MCV 77.5 L MCH 26.6 L MCHC 34.3 RDW 14.7 Plt Count 306 MPV 9.1 L Immature Gran % (Auto) 1.4 H Neut % (Auto) 78.5 H Lymph % (Auto) 5.6 L [place] % (Auto) 13.5 H Eos % (Auto) 0.3 Baso % (Auto) 0.7 Lymph # (Auto) 0.6 L [place] # (Auto) 1.4 H Eos # (Auto) 0.0 Baso # (Auto) 0.1 Abs Immat Gran (auto) 0.15 H Absolute Neuts (auto) 8.3 Absolute Nucleated RBC 0.000 Nucleated RBC % (auto) 0.0 Hold Purple Top SEE NOTE Sodium 128 L 135 Potassium 4.1 3.7 Chloride 95 L 101 Carbon Dioxide 25 23 Anion Gap 12 15 BUN 38 H 26 H Creatinine 0.77 0.60 Estim Creat Clear Calc 73.1 93.8 Estimated GFR > 60 > 60 Random Glucose 126 H 75 Lactic Acid Calcium 8.8 8.3 L Total Bilirubin AST ALT Alkaline Phosphatase Troponin I High Sens Total Protein Albumin TSH Free T4 Urine Color Yellow Urine Appearance Clear Urine pH 5.5 Ur Specific [place] >= 1.030 H Urine Protein 30 (1+) H Urine Glucose (UA) Negative Urine Ketones Trace Urine Blood Negative Urine Nitrite Negative Ur Leukocyte Esterase Negative Urine RBC 0-2 Urine WBC 0-5 Ur Squamous Epith Cells 11-20 Urine Bacteria Trace Hyaline Casts 3-5 Influenza Type A (PCR) Influenza Type B (PCR) RSV RNA Qual (PCR) SARS-CoV-2 RNA (RT-PCR) Airway Mallampati Class: III TM Dist: >3cm Neck ROM: Full Heart: afib Lungs: cta Assessment and Plan Assessment Anesthesia Assessment: Anesthesia Plan Discussed Final Anesthetic Review Family History of Problems with Anesthesia: No History of Problems with Anesthesia: No NPO: Yes ASA Class: III Final Preanesthetic Review: No Changes in Pt Med Stat, Meds/Allgs Chart Reviewed, Consent Obtained/Reviewed and Anes Risks/Benef Reviewed Patient Risk: Intermediate Procedure Risk: Intermediate Anesthetic Plan Anesthetic Plan: GA Disposition: Standard PACU
--- NOTE | 2024-09-15 16:07 | W.PM.OPN ---
Operative Note Operative Note Date of Service: 09/15/24 Narrative: Preoperative diagnosis: Incarcerated incisional hernia, intra-abdominal abscess Postoperative diagnosis: Incarcerated incisional hernia, intra-abdominal abscess, perforated small bowel loop due to prior surgery Procedure: Repair of incarcerated incisional hernia, drainage of intra-abdominal abscess, small-bowel resection Surgeon: Drake Crawford MD Film Process Operator: Damion Johnston MD, Arturo Sung PA-C Anesthesia: General endotracheal Indications for procedure: 74-year-old female patient presenting with complaints of abdominal pain abdominal distention, nausea, vomiting, and the recurrent incisional hernia. She had had a previous incisional hernia repair following hysterectomy approximately 5-6 years ago at an outside institution. She now has pain in the lower abdomen abdominal distention and evidence of a small-bowel obstruction. CT abdomen and pelvis revealed a fluid collection with air suggestive of an abscess as well as the incisional hernia. Operative findings: Incarcerated small bowel within the hernia sac as well as omentum. The omentum appeared to be strangulated. A perforation was noted in the loop of small bowel and a large abscess noted between bowel loops. Specimen: Omentum and peritoneum, small bowel, wound culture of abscess Estimated blood loss: 20 mL Complications: None Procedure details: Patient was brought to the OR and placed in a supine position. After administering general anesthesia the patient's abdomen was prepped with ChloraPrep and draped in a sterile fashion. A lower midline incision was made around the previous incision and between the palpable hernias. This was carried out through subcutaneous tissue down to fascia. Area of herniation was noted on both the left and right side. This was dissected circumferentially down to fascia. A very tight opening was identified. This opening was then widened using electrocautery to allow examination of the contents. The hernia sac was entered and omental 2nd opening on the left side was noted to have a loop of small bowel through a tiny fascial defect. This was opened further to allow reduction of the hernia.. A perforation was noted in the the loop of incarcerated bowel. In addition a large abscess was noted with foul-smelling discharge. This was drained and a wound culture obtained. The small bowel was further mobilized and a DELROY stapler used both proximally and distally to resect the perforated bowel. A segment of approximately 10 cm was removed. A functional end-to-end anastomosis was then performed. A enterotomy was placed at the staple line of both the proximal and distal bowel. A DELROY stapler was then placed to create a [id number] anastomosis. A TA 60 stapler was then used to close the enterotomy. A patent anastomosis was identified. The anastomosis was then returned to the abdominal cavity. Abdomen was then irrigated with a Betadine solution. Fascia was closed using [id number] Polysorb sutures. No attempt was made to place a mesh. Subcutaneous tissue was then irrigated with Betadine solution. Dermis was then reapproximated with interrupted 3-0 Polysorb sutures. Skin was closed using skin quentin. Sterile dressings were then applied. The patient tolerated the procedure well. Sponge, instrument, and needle counts reported as correct. The patient was transferred to PACU in stable condition.
--- NOTE | 2024-09-15 16:14 | MHC.CM.PN ---
Per MD rounds patient is scheduled for the OR today. DP dependent on PT eval recommendation. Home with resumption of [employer] services including transport home.
[2024-09-15] MEDS: fentaNYL citrate/PF 100 MCG/2 ML VIAL 25 MCG IVPUSH (16:48)
[2024-09-15] MEDS: HYDROmorphone HCl 0.5 MG/0.5 ML SYRINGE IVPUSH ×2 (17:37→19:04)
[2024-09-15] MEDS: HYDROmorphone HCl 1 MG/ML SYRINGE IVPUSH (22:21)
[2024-09-16] VITALS (8 sets, daily range): BP systolic 95–137; BP diastolic 58–70; PULSE 93–114; RESP 16–20; TEMP 36.3–37.3; O2SAT 97–100
[2024-09-16] MEDS: 0.9 % Sodium Chloride Flush 3 ML SYRINGE IVFLUSH ×3 (00:55→23:49)
[2024-09-16] MEDS: Piperacillin Sodium/Tazobactam 3.375 GM in 0.9 % Sodium Chloride 50 ML IV ×4 (02:23→20:48)
[2024-09-16] MEDS: Metoprolol Tartrate 5 MG/5 ML VIAL 2.5 MG IVPUSH ×3 (02:24→23:49)
[2024-09-16] MEDS: 0.9 % Sodium Chloride 1,000 ML 100 ML IVCONT ×3 (02:26→20:48)
[2024-09-16] MEDS: HYDROmorphone HCl 1 MG/ML SYRINGE IVPUSH (03:28)
[2024-09-16] MEDS: Levothyroxine Sodium 175 MCG TABLET PO (05:51)
--- NOTE | 2024-09-16 08:03 | HO.POSTANES ---
Post Anesthesia Evaluation Post Anesthesia Evaluation Date of Service: 09/16/24 Vital Signs: Vital Signs Temp Pulse Resp BP Pulse Ox O2 Del Method O2 Flow Rate 09/16/24 03:17 97.8 F 96 18 137/70 98 Room Air 09/16/24 00:00 97.7 F 95 18 127/66 98 Nasal Cannula 2 Anesthesia: General Endotracheal-GETA Mental Status: Awake Pain Control: Satisfactory Nausea/Vomiting: None Hydration: Adequate Anesthesia-Related Issues: No Anes. Related Issues
--- NOTE | 2024-09-16 08:27 | P.PNGS_ITS ---
Subjective Subjective Date of Service: 09/16/24 <Arturo Sung PA-C - Last Filed: 09/16/24 10:01> 09/16/24 <Drake Crawford MD - Last Filed: 09/16/24 11:21> Interval history: patient doing okay this morning, experiencing significant surrounding incision site. Denies nausea,vomiting. NG tube in place, 200 cc overnight. < Arturo Sung PA-C - Last Filed: 09/16/24 10:01> Physical Exam 2 Vital Signs: Vital Signs: Last Vital Signs Temp 97.8 F 09/16/24 03:17 Pulse 96 09/16/24 03:17 Resp 18 09/16/24 03:17 BP 137/70 09/16/24 03:17 Pulse Ox 98 09/16/24 03:17 O2 Del Method Room Air 09/16/24 03:17 O2 Flow Rate 2 09/16/24 00:00 BMI result Body Mass Index 43.7 <Arturo Sung PA-C - Last Filed: 09/16/24 10:01> Const: General: no acute distress <Arturo Sung PA-C - Last Filed: 09/16/24 10:01> Orientation/consciousness: patient oriented x3 <RK Ramos Last Filed: 09/16/24 10:01> Resp: Effort & Inspection: normal respiratory effort and no respiratory distress <Arturo Sung PA-C - Last Filed: 09/16/24 10:01> GI: Other: ng tube in place <Arturo Sung PA-C - Last Filed: 09/16/24 10:01> Inspection: No distended <RK Ramos Last Filed: 09/16/24 10:01> Palpation (GI): Soft to palpation, not firm, Tenderness to palpation present (GI) (midline incisional site ), no guarding and not rigid <RK Ramos Last Filed: 09/16/24 10:01> Neuro: General: patient oriented x3 <RK Ramos Last Filed: 09/16/24 10:01> Objective Data Active Medications Bupropion HCl (Bupropion Hcl Xl 150 Mg Tab.Er.24h) 150 mg PO DAILY [facility] Calcium Carbonate (Calcium Carbonate 750 Mg Tab.Chew) 750 mg PO Q4H PRN PRN Reason: Heartburn Hydromorphone HCl (Hydromorphone Hcl 1 Mg/Ml Syringe) 1 mg IVPUSH Q3H PRN; Protocol PRN Reason: Pain, Severe (Pain Scale 7-10) Last Admin: 09/16/24 03:28 Dose: 1 mg Documented By: KACY Acetaminophen (Ofirmev) 1,000 mg in 100 mls @ 400 mls/hr IV Q6H PRN PRN Reason: Pain, Mild (Pain Scale 1-3) Last Infusion: 09/15/24 07:29 Dose: Infused Documented By: SHIVAM Piperacillin Sod/Tazobactam (Sod 3.375 gm/ Sodium Chloride) 50 mls @ 100 mls/hr IV Q6H [facility] Last Infusion: 09/16/24 03:04 Dose: Infused Documented By: AMELIA Sodium Chloride (Ns) 1,000 mls @ 100 mls/hr IVCONT .Q10H [facility] Last Admin: 09/16/24 02:26 Dose: 100 mls/hr Documented By: AMELIA Levothyroxine Sodium (Levothyroxine Sodium 175 Mcg Tablet) 175 mcg PO DAILY@0600 [facility] Last Admin: 09/16/24 05:51 Dose: 175 mcg Documented By: AMELIA Magnesium Hydroxide (Milk Of Magnesia 30 Ml Oral.Susp) 30 ml PO DAILY PRN PRN Reason: Constipation Melatonin (Melatonin 3 Mg Tablet) 6 mg PO BEDTIME PRN PRN Reason: Insomnia Metoprolol Tartrate (Metoprolol Tartrate 5 Mg/5 Ml Vial) 2.5 mg IVPUSH Q6H [facility]; Protocol Last Admin: 09/16/24 02:24 Dose: 2.5 mg Documented By: AMELIA Comments: BP 133/69, HR 107 Multi-Ingred Medicated Throat [place] (Throat [place], Medicated 177 Ml Bottle) 1 spray MUCOUS MEM Q2H PRN PRN Reason: Sore Throat Last Admin: 09/14/24 18:44 Dose: 1 spray Documented By: LEXI Ondansetron HCl (Ondansetron Hcl 4 Mg/2 Ml Vial) 4 mg IVPUSH QID PRN PRN Reason: Nausea Last Admin: 09/14/24 18:44 Dose: 4 mg Documented By: LEXI Sodium Chloride (0.9 % Sodium Chloride Flush 3 Ml Syringe) [facility] Last Admin: 09/16/24 00:55 Dose: 3 ml Documented By: AMELIA <Arturo Sung PA-C - Last Filed: 09/16/24 10:01> Labs CBC & Chem 7: 09/14/24 06:20 09/15/24 06:18 <Arturo Sung PA-C - Last Filed: 09/16/24 10:01> Microbiology Microbiology Results: Microbiology 09/13/24 14:54 Blood Culture - Preliminary Blood - Venous No growth after 48 hours. 09/13/24 14:54 Blood Culture - Preliminary Blood - Venous No growth after 48 hours. <Arturo Sung PA-C - Last Filed: 09/16/24 10:01> Procedures Date of Service Date of Service: 09/16/24 <Arturo Sung PA-C - Last Filed: 09/16/24 10:01> 09/16/24 <Drake Crawford MD - Last Filed: 09/16/24 11:21> Progress Note: A&P Assessment and plan (1) Recurrent incisional hernia with obstruction: Status: Acute <Arturo Sung PA-C - Last Filed: 09/16/24 10:01> (2) S/P small bowel resection: Status: Acute <Arturo Sung PA-C - Last Filed: 09/16/24 10:01> (3) Abscess: Status: Acute <RK Ramos Last Filed: 09/16/24 10:01> Assessment and Plan: 74-year-old female POD 1, s/p incisional recurrent hernia repair, abscess drainage, small bowel resection. Patient doing well this morning, resting comfortably in bed. Patient experiencing significant pain localized around the incision site. Pain is controlled with current pain regimen. NG tube remains in place, 200 cc overnight. Patient denies nausea or vomiting, denies flatus, bowel movement. Abdominal exam significant for tenderness around the incision site, otherwise soft and benign. Continue current pain regimen Continue IV antibiotics Recommend ambulation, spirometry We will continue to monitor NG output When patient passing more flatus, we will remove NG, and advance diet <Arturo Sung PA-C - Last Filed: 09/16/24 10:01> 74-year-old female POD 1, s/p incisional recurrent hernia repair, abscess drainage, small bowel resection. Patient doing well this morning, resting comfortably in bed. Patient experiencing significant pain localized around the incision site. Pain is controlled with current pain regimen. NG tube remains in place, 200 cc overnight. Patient denies nausea or vomiting, denies flatus, bowel movement. Abdominal exam significant for tenderness around the incision site, otherwise soft and benign. Continue current pain regimen Continue IV antibiotics Recommend ambulation, spirometry We will continue to monitor NG output When patient passing more flatus, we will remove NG, and advance diet Patient seen and examined independently and agree with the above assessment and plan. Reviewed the findings with the patient and her family today. Patient is having some incision pain but generally remained stable overnight. NG tube continues to produce some bilious fluid. No flatus or BM yet. Management of cardiac issues per hospitalist and Cardiology team. Okay to begin anticoagulation today. Continue NG tube decompression pending return of bowel function. Await abscess culture results. Continue Zosyn. <Drake Crawford MD - Last Filed: 09/16/24 11:21> Time Spent With Patient Time: Total time managing care of this patient today ____ minutes. <Arturo Sung PA-C - Last Filed: 09/16/24 10:01> Quality Stroke Does the patient have a stroke diagnosis?: No <Arturo Sung PA-C - Last Filed: 09/16/24 10:01> VTE Prior VTE?: No <Arturo Sung PA-C - Last Filed: 09/16/24 10:01> VTE Risk Level:: Surgical - moderate <Arturo Sung PA-C - Last Filed: 09/16/24 10:01> VTE Device Contraindication: N/A - Device Ordered <Arturo Sung PA-C - Last Filed: 09/16/24 10:01> VTE Drug Contraindication: N/A - Med Ordered <Arturo Sung PA-C - Last Filed: 09/16/24 10:01>
[2024-09-16] MEDS: buPROPion HCl XL 150 MG TAB.ER.24H PO (09:02)
--- NOTE | 2024-09-16 12:43 | PM.PNCARD ---
Subjective Subjective Date of Service: 09/16/24 Interval history: Seen and examined patient. Discussed using community liaison. She is still in atrial fibrillation. However, she is not having any overt symptoms from that. Underwent bowel surgery yesterday and per surgical note, incisional hernia repair, abscess drainage and small-bowel resection. Review of Systems Review of Systems Yes all other systems are reviewed and are negative Constitutional: Reports as per HPI and Reports no additional constitutional complaints Eyes: Reports as per HPI and Denies no additional eye complaints Denies system reviewed and no additional complaints, except as documented and Reports as per HPI Cardiovascular: Reports as per HPI, Reports no additional cardiovascular complaints, Denies acrocyanosis, Denies cool extremities, Denies chest pain, Denies leg edema, Denies lightheadedness, Denies palpitations and Denies dyspnea Respiratory: Reports as per HPI, Denies no additional respiratory complaints and Denies dyspnea Gastrointestinal: Reports as per HPI and Denies no additional gastrointestinal complaints Genitourinary: Reports as per HPI Musculoskeletal: Reports no additional musculoskeletal complaints and Reports as per HPI Skin/Breast: Reports system reviewed and no additional complaints, except as docu Reports system reviewed and no additional complaints, except as documented and Reports as per HPI Psychiatric: Reports no additional psychiatric complaints and Reports as per HPI Endocrine: Reports no additional endocrine complaints, Reports as per HPI and Denies palpitations Hematologic/Lymphatic: Reports no additional hematologic/lymphatic complaints and Reports as per HPI Allergic/Immunologic: Reports no additional allergic/immunologic complaints and Reports as per HPI Physical Exam Vital Signs: Last Vital Signs Temp 97.4 F 09/16/24 12:00 Pulse 102 H 09/16/24 12:00 Resp 19 09/16/24 12:00 BP 125/70 09/16/24 12:00 Pulse Ox 97 09/16/24 12:00 O2 Del Method Nasal Cannula 09/16/24 12:00 O2 Flow Rate 2 09/16/24 12:00 BMI result Body Mass Index 43.7 Const General: comfortable and no acute distress Orientation/consciousness: patient oriented x3 HEENT Other: Unremarkable Head: Yes normal to inspection Neck Neck: Yes normal visual inspection Chest Chest palpation & inspection: normal inspection of the chest Resp Auscultation: clear to auscultation bilaterally Cardio Palpation: normal PMI Heart sounds: S1 normal heart sound present, S2 normal heart sound present, no gallops, no murmurs and no rubs GI Palpation (GI): Soft to palpation Back/Spine/Pelvis Other: unremarkable Skin General skin exam: no rashes or lesions noted Neuro General: patient oriented x3 Extrem General: Yes normal to inspection Psych Mental Status: mental status grossly normal Objective Labs and Meds 09/16/24 13:15 09/16/24 13:15 Progress Note: A&P Assessment and plan (1) Atrial fibrillation with rapid ventricular response: Status: Acute (2) Recurrent incisional hernia with obstruction: Status: Acute Plan In the echocardiogram, LVEF is 55-60%. No wall motion abnormalities. No significant valvular findings. Ascending aortic size 4 cm. High sensitivity troponin within range. Telemetry shows atrial fibrillation with slightly increased rate. Overall, atrial fibrillation of uncertain duration. Unclear if it is a new finding or visit pre-existing but not identified. Rate is slightly faster on telemetry but not too fast. We need to assess her heart rates when she is improved from surgery and not in any distress. Based on that, probably low-dose beta-blockers. Anticoagulation when cleared by surgery. Otherwise, outpatient follow-up after discharge. Discussed with Yoselin Durbin. Time Spent With Patient Time: Total time managing care of this patient today ____ minutes. Progress Note: Quality Stroke Does the patient have a stroke diagnosis?: No Procedures Date of Service Date of Service: 09/16/24
[2024-09-16 13:21] LABS: Hematocrit 41.3 % (37.0-47.0); Hemoglobin 13.9 g/dl (12.0-16.0); Mean Corpuscular HGB Conc 33.7 g/dl (31.0-35.0); Mean Corpuscular Hemoglobin 26.6 pg (27.0-33.0); Mean Corpuscular Volume 79.1 fL (80.0-98.0); Mean Platelet Volume 8.3 fL (9.4-12.3); Platelet Count 351 X10*3/uL (160-400); Red Blood Count 5.22 X10*6/uL (4.20-5.50); Red Cell Distribution Width 15.3 % (11.0-16.0); White Blood Count 12.5 X10*3/uL (4.8-10.8)
[2024-09-16 13:35] LABS: Anion Gap 15 (12-20); Blood Urea Nitrogen 20 mg/dL (9-16); Calcium 8.6 mg/dL (8.4-10.2); Carbon Dioxide 23 mmol/L (22-29); Chloride 104 mmol/L (96-108); Creatinine Clr Calc Pharmacy 93.8; Estimated Glomerular Filt Rate > 60; Glucose Random 87 mg/dL (60-115); Potassium 3.8 mmol/L (3.3-5.1); Sodium 138 mmol/L (135-145)
--- NOTE | 2024-09-16 14:49 | P.PNIM_ITS ---
Subjective Subjective Date of Service: 09/16/24 Interval History: Seen and examined this morning Follow-up for medical consultation Status post incisional hernia repair, abscess drainage, small bowel resection Pain control this morning, has NG tube in place Awake, alert, family at the bedside Review of Systems Review of Systems: Yes all other systems are reviewed and are negative Constitutional Constitutional: Denies chills and Denies fever(s) Cardiovascular Cardiovascular: Denies chest pain Physical Exam 2 Vital Signs: Vital Signs: Last Vital Signs Temp 97.4 F 09/16/24 12:00 Pulse 102 H 09/16/24 12:00 Resp 19 09/16/24 12:00 BP 125/70 09/16/24 12:00 Pulse Ox 97 09/16/24 12:00 O2 Del Method Nasal Cannula 09/16/24 12:00 O2 Flow Rate 2 09/16/24 12:00 BMI result Body Mass Index 43.7 Const: General: cooperative, comfortable, no acute distress, alert and awake Nutritional Appearance: obese Resp: Effort & Inspection: normal respiratory effort, able to speak in complete sentences, no respiratory distress and no use of accessory muscles Cardio: Other: irregular Rate: tachycardic GI: Other: NG tube in place, abdominal incision covered with clean, dry dressing Neuro: Other: Grossly nonfocal Objective Data Active Medications Bupropion HCl (Bupropion Hcl Xl 150 Mg Tab.Er.24h) 150 mg PO DAILY ALYSSA Last Admin: 09/16/24 09:02 Dose: 150 mg Documented By: PACO Calcium Carbonate (Calcium Carbonate 750 Mg Tab.Chew) 750 mg PO Q4H PRN PRN Reason: Heartburn Hydromorphone HCl (Hydromorphone Hcl 1 Mg/Ml Syringe) 1 mg IVPUSH Q3H PRN; Protocol PRN Reason: Pain, Severe (Pain Scale 7-10) Last Admin: 09/16/24 03:28 Dose: 1 mg Documented By: KACY Acetaminophen (Ofirmev) 1,000 mg in 100 mls @ 400 mls/hr IV Q6H PRN PRN Reason: Pain, Mild (Pain Scale 1-3) Last Infusion: 09/15/24 07:29 Dose: Infused Documented By: SHIVAM Piperacillin Sod/Tazobactam (Sod 3.375 gm/ Sodium Chloride) 50 mls @ 100 mls/hr IV Q6H [facility] Last Infusion: 09/16/24 10:43 Dose: Infused Documented By: KELLY Sodium Chloride (Ns) 1,000 mls @ 100 mls/hr IVCONT .Q10H [facility] Last Infusion: 09/16/24 11:13 Dose: 0 mls/hr Documented By: KELLY Levothyroxine Sodium (Levothyroxine Sodium 175 Mcg Tablet) 175 mcg PO DAILY@0600 [facility] Last Admin: 09/16/24 05:51 Dose: 175 mcg Documented By: AMELIA Magnesium Hydroxide (Milk Of Magnesia 30 Ml Oral.Susp) 30 ml PO DAILY PRN PRN Reason: Constipation Melatonin (Melatonin 3 Mg Tablet) 6 mg PO BEDTIME PRN PRN Reason: Insomnia Metoprolol Tartrate (Metoprolol Tartrate 5 Mg/5 Ml Vial) 2.5 mg IVPUSH Q6H [facility]; Protocol Last Admin: 09/16/24 09:01 Dose: Not Given Documented By: KELLY Non-Admin Reason: Physician Held Med Multi-Ingred Medicated Throat [place] (Throat [place], Medicated 177 Ml Bottle) 1 spray MUCOUS MEM Q2H PRN PRN Reason: Sore Throat Last Admin: 09/14/24 18:44 Dose: 1 spray Documented By: LEXI Ondansetron HCl (Ondansetron Hcl 4 Mg/2 Ml Vial) 4 mg IVPUSH QID PRN PRN Reason: Nausea Last Admin: 09/14/24 18:44 Dose: 4 mg Documented By: LEXI Sodium Chloride (0.9 % Sodium Chloride Flush 3 Ml Syringe) 3 ml IVFLUSH QSHIFT [facility] Last Admin: 09/16/24 09:25 Dose: Not Given Documented By: PACO Non-Admin Reason: IV Running Labs 09/16/24 13:15 09/16/24 13:15 Labs: Laboratory Results - last 24 hr 09/16/24 13:15 MCV 79.1 L MCH 26.6 L MCHC 33.7 RDW 15.3 Plt Count 351 MPV 8.3 L Absolute Nucleated RBC 0.000 Nucleated RBC % (auto) 0.0 Anion Gap 15 Estim Creat Clear Calc 93.8 Estimated GFR > 60 Random Glucose 87 Calcium 8.6 Microbiology Microbiology Results: Microbiology 09/15/24 15:00 Gram Stain - Final Abscess Intra-abdominal Routine Culture - Preliminary Culture in progress. Anaerobic Culture - Preliminary Culture in progress. 09/13/24 14:54 Blood Culture - Preliminary Blood - Venous No growth after 48 hours. 09/13/24 14:54 Blood Culture - Preliminary Blood - Venous No growth after 48 hours. Assessment and Plan (1) S/P small bowel resection: Status: Acute (2) Atrial fibrillation with rapid ventricular response: Status: Acute Plan This is a 74 year old female with PMH of HTN, HLD, Hypothyroid presenting to ED with abdominal pain , nausea, vomiting and palpitations found to have small- bowel obstruction, incisional hernia and underlying abscess with EKG showing atrial fibrillation New onset atrial fibrillation with RvR rate better controlled with IV Metoprolol 2.5 mg Q6 alyssa for now -transition to p.o. when able to tolerate diet/NG tube removed Echo unremarkable cardiology following ok to start Eliquis for anticoagulation per surgery Keep on Tele SBO w complicated hernia Surgical team following Status post incisional hernia repair, abscess drainage and small-bowel resection Abscess culture pending Continue Zosyn HLD Startin HTN Hold Lisinopril and Lasix Hypothyroid elevated TSH 12.8 T4 normal Continue Levothyroixne Thank you for the consult will continue to follow with you as needed Quality Stroke Does the patient have a stroke diagnosis?: No VTE Prior VTE?: No VTE Risk Level:: Surgical - moderate VTE Device Contraindication: N/A - Device Ordered VTE Drug Contraindication: N/A - Med Ordered
--- NOTE | 2024-09-16 17:20 | PC.NURSE ---
09/16/2024, At 11:10 AM, the IV site of L antecubital area is mildly puffy. Patient denies discomfort to this area. L antecubital area is not cool to touch and no redness noted. Manuel (primary nurse) was notified and assessed the area. IV fluids were placed on hold and Manuel to arrange an IV restart and removal of L ancecubital peripheral line. Debbie Irvin, MSN, RN, [facility] PN Instructor
[2024-09-16] MEDS: Throat Spray, Medicated 177 ML BOTTLE 1 SPRAY MUCOUS MEM (20:30)
[2024-09-16] MEDS: Apixaban 5 MG TABLET PO (20:31)
[2024-09-16] MEDS: Acetaminophen 1,000 MG/100 ML PIGGYBACK 400 MG IV (20:45)
[2024-09-17] VITALS (8 sets, daily range): BP systolic 112–153; BP diastolic 55–78; PULSE 79–100; RESP 17–18; TEMP 36.2–37; O2SAT 97–99; BMI 43.7
[2024-09-17] MEDS: Throat Spray, Medicated 177 ML BOTTLE 1 SPRAY MUCOUS MEM ×2 (03:41→20:52)
[2024-09-17] MEDS: Piperacillin Sodium/Tazobactam 3.375 GM in 0.9 % Sodium Chloride 50 ML IV ×4 (03:41→20:41)
[2024-09-17] MEDS: Metoprolol Tartrate 5 MG/5 ML VIAL 2.5 MG IVPUSH ×4 (05:11→22:27)
[2024-09-17] MEDS: Levothyroxine Sodium 175 MCG TABLET PO (05:12)
[2024-09-17] MEDS: 0.9 % Sodium Chloride 1,000 ML 100 ML IVCONT ×2 (06:05→18:02)
--- NOTE | 2024-09-17 08:07 | P.PNGS_ITS ---
Subjective Subjective Date of Service: 09/17/24 <Arturo Sung PA-C - Last Filed: 09/17/24 08:36> 09/17/24 <Drake Crawford MD - Last Filed: 09/17/24 08:24> Interval history: Continuies to have pain along the incision site. Endorses mild nausea. NG tube output overnight 1100 cc, 450 at time of evaluation. Denies passing gas or stool. Patient states she is hungry, states she hasnt eaten in over a week. < Arturo Sung PA-C - Last Filed: 09/17/24 08:36> Physical Exam 2 Vital Signs: Vital Signs: Last Vital Signs Temp 98.0 F 09/17/24 07:52 Pulse 92 09/17/24 07:52 Resp 17 09/17/24 07:52 BP 120/58 L 09/17/24 07:52 Pulse Ox 97 09/17/24 07:52 O2 Del Method Nasal Cannula 09/17/24 07:52 O2 Flow Rate 1 09/17/24 07:52 BMI result Body Mass Index 43.7 <Arturo Sung PA-C - Last Filed: 09/17/24 08:36> Const: General: comfortable and no acute distress <RK Ramos Last Filed: 09/17/24 08:36> Orientation/consciousness: patient oriented x3 <Arturo Sung PA-C - Last Filed: 09/17/24 08:36> Resp: Effort & Inspection: normal respiratory effort and able to speak in complete sentences <Arturo Sung PA-C - Last Filed: 09/17/24 08:36> GI: Other: dressings removed at bedside, incision site clean and dry. quentin in place. No surrounding erythema, edema, discharge. NG in place <Arturo Sung PA-C - Last Filed: 09/17/24 08:36> Inspection: No distended <RK Ramos Last Filed: 09/17/24 08:36> Palpation (GI): Soft to palpation, not firm, Tenderness to palpation present (GI) (incisional), no guarding and not rigid <RK Ramos Last Filed: 09/17/24 08:36> Neuro: General: patient oriented x3 <Arturo Sung PA-C - Last Filed: 09/17/24 08:36> Objective Data Active Medications Apixaban (Apixaban 5 Mg Tablet) 5 mg PO BID [facility] Last Admin: 09/16/24 20:31 Dose: 5 mg Documented By: JOSE J Bupropion HCl (Bupropion Hcl Xl 150 Mg Tab.Er.24h) 150 mg PO DAILY [facility] [place] Last Admin: 09/16/24 09:02 Dose: 150 mg Documented By: PACO Calcium Carbonate (Calcium Carbonate 750 Mg Tab.Chew) 750 mg PO Q4H PRN PRN Reason: Heartburn Hydromorphone HCl (Hydromorphone Hcl 1 Mg/Ml Syringe) 1 mg IVPUSH Q3H PRN; Protocol PRN Reason: Pain, Severe (Pain Scale 7-10) Last Admin: 09/16/24 03:28 Dose: 1 mg Documented By: KACY Acetaminophen (Ofirmev) 1,000 mg in 100 mls @ 400 mls/hr IV Q6H PRN PRN Reason: Pain, Mild (Pain Scale 1-3) Last Infusion: 09/16/24 21:00 Dose: Infused Documented By: JOSE J Piperacillin Sod/Tazobactam (Sod 3.375 gm/ Sodium Chloride) 50 mls @ 100 mls/hr IV Q6H [facility] [place] Last Infusion: 09/17/24 04:11 Dose: Infused Documented By: JOSE J Sodium Chloride (Ns) 1,000 mls @ 100 mls/hr IVCONT .Q10H [facility] [place] Last Admin: 09/17/24 06:05 Dose: 100 mls/hr Documented By: JOSE J Levothyroxine Sodium (Levothyroxine Sodium 175 Mcg Tablet) 175 mcg PO DAILY@0600 [facility] [place] Last Admin: 09/17/24 05:12 Dose: 175 mcg Documented By: JOSE J Magnesium Hydroxide (Milk Of Magnesia 30 Ml Oral.Susp) 30 ml PO DAILY PRN PRN Reason: Constipation Melatonin (Melatonin 3 Mg Tablet) 6 mg PO BEDTIME PRN PRN Reason: Insomnia Metoprolol Tartrate (Metoprolol Tartrate 5 Mg/5 Ml Vial) 2.5 mg IVPUSH Q6H [facility] [place]; Protocol Last Admin: 09/17/24 05:11 Dose: 2.5 mg Documented By: JOSE J Multi-Ingred Medicated Throat [place] (Throat [place], Medicated 177 Ml Bottle) 1 spray MUCOUS MEM Q2H PRN PRN Reason: Sore Throat Last Admin: 09/17/24 03:41 Dose: 1 spray Documented By: JOSE J Comments: sore throat Ondansetron HCl (Ondansetron Hcl 4 Mg/2 Ml Vial) 4 mg IVPUSH QID PRN PRN Reason: Nausea Last Admin: 09/14/24 18:44 Dose: 4 mg Documented By: LEXI Sodium Chloride (0.9 % Sodium Chloride Flush 3 Ml Syringe) 3 ml IVFLUSH QSHIFT [facility] Last Admin: 09/16/24 23:49 Dose: 3 ml Documented By: JOSE J <Arturo Sung PA-C - Last Filed: 09/17/24 08:36> Labs CBC & Chem 7: 09/16/24 13:15 09/16/24 13:15 <Arturo Sung PA-C - Last Filed: 09/17/24 08:36> Labs: Laboratory Results - last 24 hr 09/16/24 13:15 MCV 79.1 L MCH 26.6 L MCHC 33.7 RDW 15.3 Plt Count 351 MPV 8.3 L Absolute Nucleated RBC 0.000 Nucleated RBC % (auto) 0.0 Anion Gap 15 Estim Creat Clear Calc 93.8 Estimated GFR > 60 Random Glucose 87 Calcium 8.6 <Arturo Sung PA-C - Last Filed: 09/17/24 08:36> Microbiology Microbiology Results: Microbiology 09/15/24 15:00 Gram Stain - Final Abscess Intra-abdominal Routine Culture - Preliminary Culture in progress. Anaerobic Culture - Preliminary Culture in progress. <Arturo Sung PA-C - Last Filed: 09/17/24 08:36> Procedures Date of Service Date of Service: 09/17/24 <Arturo Sung PA-C - Last Filed: 09/17/24 08:36> 09/17/24 <Drake Crawford MD - Last Filed: 09/17/24 08:24> Progress Note: A&P Assessment and plan (1) S/P small bowel resection: Status: Acute <Arturo Sung PA-C - Last Filed: 09/17/24 08:36> (2) Complete small bowel obstruction: Status: Acute <Arturo Sung PA-C - Last Filed: 09/17/24 08:36> (3) Recurrent incisional hernia with obstruction: Status: Acute <Arturo Sung PA-C - Last Filed: 09/17/24 08:36> Assessment and Plan: 74 year old female POD2 s/p recurrent incisional hernia repair, abscess drainage, small bowel resection. Patient doing well this morning, continues to have incisonal site pain. No flatus or BM. Abdomen soft and otherwise benign. Incision site dressings removed at bedside. Incision is clean and dry, quentin in place, no concern for infection. Patient experiencing mild nausea. NG tube remains in place, high output overnight, 1100 cc, 450 cc at the time of exam. Patient will remain NPO, would recommend parenteral nutrition due to long duration of NPO. Nutrition consult ordered Continue IV antibiotics NPO. Recommend PPN, nutrition consult ordered pain regimen as needed AM labs ordered 74 year old female POD2 s/p recurrent incisional hernia repair, abscess drainage, small bowel resection. Patient doing well this morning, continues to have incisonal site pain. Abdomen soft and otherwise benign. Patient seen and examined. Agree with the above assessment and plan. Patient has been NPO for a prolonged period of time and she will be started on parenteral nutrition. We will start PPN <Arturo Sung PA-C - Last Filed: 09/17/24 08:36> 74 year old female POD2 s/p recurrent incisional hernia repair, abscess drainage, small bowel resection. Patient doing well this morning, continues to have incisonal site pain. Abdomen soft and otherwise benign. Patient seen and examined. Agree with the above assessment and plan. Patient has been NPO for a prolonged period of time and she will be started on parenteral nutrition. We will start PPN in anticipation of a prolonged delay in return of bowel function. <Drake Crawford MD - Last Filed: 09/17/24 08:24> Time Spent With Patient Time: Total time managing care of this patient today ____ minutes. <Arturo Sung PA-C - Last Filed: 09/17/24 08:36> Quality Stroke Does the patient have a stroke diagnosis?: No <Arturo Sung PA-C - Last Filed: 09/17/24 08:36> VTE Prior VTE?: No <Arturo Sung PA-C - Last Filed: 09/17/24 08:36> VTE Risk Level:: Surgical - moderate <Arturo Sung PA-C - Last Filed: 09/17/24 08:36> VTE Device Contraindication: N/A - Device Ordered <Arturo Sung PA-C - Last Filed: 09/17/24 08:36> VTE Drug Contraindication: N/A - Med Ordered <Arturo Sung PA-C - Last Filed: 09/17/24 08:36>
[2024-09-17] MEDS: Apixaban 5 MG TABLET PO ×2 (08:35→20:41)
[2024-09-17] MEDS: buPROPion HCl XL 150 MG TAB.ER.24H PO (08:36)
--- NOTE | 2024-09-17 10:17 | MHC.CLN ---
CONSULT FOR PPN: PT REQUIRES PPN R/T PROLONGED NPO STATUS REVIEWED LABS DISCUSSED WITH PHARMACY RECOMMEND PPN START AT 60ML/HR TO PROVIDE 734KCALS, 144G DEXTROSE, 61G PROTEIN (1.2G/KG) REPLETE LYTES NEEDED; CHECK TRIGS TOMORROW Friday09/18/24 IF TRIGS WNL; CONTINUE PPN AT 60ML/HR AND ADD 42G LIPIDS TO PROVIDE 1154KCALS (23KCALS/KG BASED ON IBW), 144G DEXTROSE, 61G PROTEIN (1.2G/KG) REPLETE LYTES NEEDED FRIDAY: CONTINUE PPN AT 60ML/HR WITH 42G LIPIDS TO PROVIDE 1154KCALS, 144G DEXTROSE, 61G PROTEIN REPLETE LYTES NEEDED RD CAN BE REACHED VIA TIGER CONNECT DURING OFF HOURS IF NEEDED SEE ALSO FULL CLINICAL NUTRITION ASSESSMENT
[2024-09-17 10:56] LABS: Triglycerides 127 mg/dL (<150)
[2024-09-17 11:01] LABS: Anion Gap 15 (12-20); Blood Urea Nitrogen 19 mg/dL (9-16); Calcium 8.3 mg/dL (8.4-10.2); Carbon Dioxide 23 mmol/L (22-29); Chloride 108 mmol/L (96-108); Creatinine Clr Calc Pharmacy 98.8; Estimated Glomerular Filt Rate > 60; Glucose Random 101 mg/dL (60-115); Magnesium 2.2 mg/dL (1.6-2.6); Phosphorus 2.3 mg/dL (2.7-4.5); Potassium 3.5 mmol/L (3.3-5.1); Sodium 142 mmol/L (135-145)
--- NOTE | 2024-09-17 13:09 | MHC.CM.PN ---
EMR REVIEWED, SURGICAL PT S/P INCISIONAL HERNIA REPAIR/ABSCESS DRAINAGE/SB RESECTION, PER SURGICAL NOTE PT REMAINS W/NG TUBE IN PLACE, NPO, AWAITING RETURN OF BOWEL FX AND PLAN FOR PT TO START PPN, PT WILL NEED PT EVAL FOR DISPO, CM WILL CONT TO FOLLOW DC NEEDS.
--- NOTE | 2024-09-17 15:31 | P.PNIM_ITS ---
Subjective Subjective Date of Service: 09/17/24 Interval History: Seen and examined this morning Follow-up for medical consultation for AFib RVR Heart rate under 100 overnight No chest pain or palpitations Review of Systems Review of Systems: Yes all other systems are reviewed and are negative Constitutional Constitutional: Denies chills and Denies fever(s) Physical Exam 2 Vital Signs: Vital Signs: Last Vital Signs Temp 97.1 F 09/17/24 15:26 Pulse 100 09/17/24 15:26 Resp 17 09/17/24 15:26 BP 120/63 09/17/24 15:26 Pulse Ox 99 09/17/24 15:26 O2 Del Method Nasal Cannula 09/17/24 15: O2 Flow Rate 1 09/17/24 15:26 BMI result Body Mass Index 43.7 Const: General: cooperative, comfortable, no acute distress, alert and awake Nutritional Appearance: obese Resp: Effort & Inspection: normal respiratory effort, able to speak in complete sentences, no respiratory distress and no use of accessory muscles Cardio: Other: irregular Rate: tachycardic GI: Other: NG tube in place, abdominal incision clean Neuro: Other: Grossly nonfocal Objective Data Active Medications Apixaban (Apixaban 5 Mg Tablet) 5 mg PO BID [facility] Last Admin: 09/17/24 08:35 Dose: 5 mg Documented By: PACO Bupropion HCl (Bupropion Hcl Xl 150 Mg Tab.Er.24h) 150 mg PO DAILY [facility] Last Admin: 09/17/24 08:36 Dose: 150 mg Documented By: PACO Calcium Carbonate (Calcium Carbonate 750 Mg Tab.Chew) 750 mg PO Q4H PRN PRN Reason: Heartburn Hydromorphone HCl (Hydromorphone Hcl 1 Mg/Ml Syringe) 1 mg IVPUSH Q3H PRN; Protocol PRN Reason: Pain, Severe (Pain Scale 7-10) Last Admin: 09/16/24 03:28 Dose: 1 mg Documented By: KACY Acetaminophen (Ofirmev) 1,000 mg in 100 mls @ 400 mls/hr IV Q6H PRN PRN Reason: Pain, Mild (Pain Scale 1-3) Last Infusion: 09/16/24 21:00 Dose: Infused Documented By: JOSE J Piperacillin Sod/Tazobactam (Sod 3.375 gm/ Sodium Chloride) 50 mls @ 100 mls/hr IV Q6H [facility] Last Infusion: 09/17/24 09:28 Dose: Infused Documented By: GAVIN Sodium Chloride (Ns) 1,000 mls @ 100 mls/hr IVCONT .Q10H [facility] Last Admin: 09/17/24 06:05 Dose: 100 mls/hr Documented By: JOSE J Nutrition (Parenteral) (Parenteral Nutrition) 1,440 mls @ 60 mls/hr IV .Q24H [facility]; Protocol Stop: 09/18/24 20:59 Levothyroxine Sodium (Levothyroxine Sodium 175 Mcg Tablet) 175 mcg PO DAILY@0600 [facility] Last Admin: 09/17/24 05:12 Dose: 175 mcg Documented By: JOSE J Magnesium Hydroxide (Milk Of Magnesia 30 Ml Oral.Susp) 30 ml PO DAILY PRN PRN Reason: Constipation Melatonin (Melatonin 3 Mg Tablet) 6 mg PO BEDTIME PRN PRN Reason: Insomnia Metoprolol Tartrate (Metoprolol Tartrate 5 Mg/5 Ml Vial) 2.5 mg IVPUSH Q6H [facility]; Protocol Last Admin: 09/17/24 10:26 Dose: 2.5 mg Documented By: GAVIN Multi-Ingred Medicated Throat [place] (Throat [place], Medicated 177 Ml Bottle) 1 spray MUCOUS MEM Q2H PRN PRN Reason: Sore Throat Last Admin: 09/17/24 03:41 Dose: 1 spray Documented By: JOSE J Comments: sore throat Ondansetron HCl (Ondansetron Hcl 4 Mg/2 Ml Vial) 4 mg IVPUSH QID PRN PRN Reason: Nausea Last Admin: 09/14/24 18:44 Dose: 4 mg Documented By: LEXI Pharmacy Consult (Consult Rx Parenteral Nutrition Ordering) 1 each MISCELLANE DAILY PRN PRN Reason: Consult order Sodium Chloride (0.9 % Sodium Chloride Flush 3 Ml Syringe) 3 ml IVFLUSH QSHIFT [facility] Last Admin: 09/17/24 08:59 Dose: Not Given Documented By: PACO Non-Admin Reason: IV Running Labs 09/16/24 13:15 09/17/24 10:36 Labs: Laboratory Results - last 24 hr 09/17/24 10:36 Anion Gap 15 Estim Creat Clear Calc 98.8 Estimated GFR > 60 Random Glucose 101 Calcium 8.3 L Phosphorus 2.3 L Magnesium 2.2 Triglycerides 127 Microbiology Microbiology Results: Microbiology 09/15/24 15:00 Gram Stain - Final Abscess Intra-abdominal Routine Culture - Preliminary Anaerobic Culture - Preliminary Culture in progress. Assessment and Plan (1) Atrial fibrillation with rapid ventricular response: Status: Acute Plan This is a 74 year old female with PMH of HTN, HLD, Hypothyroid presenting to ED with abdominal pain , nausea, vomiting and palpitations found to have small- bowel obstruction, incisional hernia and underlying abscess with EKG showing atrial fibrillation atrial fibrillation with RvR unknown chronicity rate better controlled with IV Metoprolol 2.5 mg Q6 alyssa for now -transition to p.o. when able to tolerate diet/NG tube removed Echo unremarkable cardiology following ok to start Eliquis for anticoagulation per surgery Keep on Tele SBO w complicated hernia Management per General surgery Status post incisional hernia repair, abscess drainage and small-bowel resection Abscess culture pending Continue Zosyn HLD Startin HTN BP stable Hold Lisinopril and Lasix Hypothyroid elevated TSH 12.8 T4 normal Continue Levothyroixne Thank you for the consult will continue to follow with you Quality Stroke Does the patient have a stroke diagnosis?: No VTE Prior VTE?: No VTE Risk Level:: Surgical - moderate VTE Device Contraindication: N/A - Device Ordered VTE Drug Contraindication: N/A - Med Ordered
[2024-09-17] MEDS: Acetaminophen 1,000 MG/100 ML PIGGYBACK 400 MG IV (20:38)
[2024-09-17] MEDS: Parenteral Nutrition 1,440 ML 60 ML IV (20:41)
[2024-09-17] MEDS: 0.9 % Sodium Chloride Flush 3 ML SYRINGE IVFLUSH (22:28)
[2024-09-18] VITALS (7 sets, daily range): BP systolic 131–160; BP diastolic 64–96; PULSE 95–109; RESP 16–18; TEMP 36.1–37.1; O2SAT 96–98
[2024-09-18] MEDS: Piperacillin Sodium/Tazobactam 3.375 GM in 0.9 % Sodium Chloride 50 ML IV ×4 (03:53→22:24)
[2024-09-18] MEDS: 0.9 % Sodium Chloride 1,000 ML 100 ML IVCONT ×2 (03:53→22:24)
[2024-09-18] MEDS: Metoprolol Tartrate 5 MG/5 ML VIAL 2.5 MG IVPUSH ×4 (03:54→22:25)
[2024-09-18] MEDS: Levothyroxine Sodium 175 MCG TABLET PO (05:55)
[2024-09-18 08:22] LABS: Hemoglobin 12.2 g/dl (12.0-16.0); Mean Corpuscular Hemoglobin 26.3 pg (27.0-33.0); Mean Corpuscular Volume 79.7 fL (80.0-98.0); Platelet Count 351 X10*3/uL (160-400); Red Blood Count 4.64 X10*6/uL (4.20-5.50); Red Cell Distribution Width 15.9 % (11.0-16.0); White Blood Count 13.9 X10*3/uL (4.8-10.8)
[2024-09-18 08:29] LABS: Albumin Level 2.8 g/dL (3.5-5.0); Anion Gap 11 (12-20); Blood Urea Nitrogen 17 mg/dL (9-16); Calcium 8.6 mg/dL (8.4-10.2); Carbon Dioxide 25 mmol/L (22-29); Chloride 110 mmol/L (96-108); Creatinine Clr Calc Pharmacy 102.3; Estimated Glomerular Filt Rate > 60; Glucose Random 143 mg/dL (60-115); Magnesium 2.2 mg/dL (1.6-2.6); Phosphorus 1.9 mg/dL (2.7-4.5); Potassium 3.8 mmol/L (3.3-5.1); Sodium 142 mmol/L (135-145)
[2024-09-18] MEDS: Apixaban 5 MG TABLET PO ×2 (08:35→20:08)
[2024-09-18] MEDS: buPROPion HCl XL 150 MG TAB.ER.24H PO (08:35)
--- NOTE | 2024-09-18 10:18 | P.PNIM_ITS ---
Subjective Subjective Date of Service: 09/18/24 Interval History: Seen and examined this morning Follow-up for medical consultation for AFib RVR No chest pain or palpitations Review of Systems Review of Systems: Yes all other systems are reviewed and are negative Constitutional Constitutional: Denies chills and Denies fever(s) Physical Exam 2 Vital Signs: Vital Signs: Last Vital Signs Temp 96.9 F 09/18/24 08:00 Pulse 99 09/18/24 08:00 Resp 18 09/18/24 08:00 BP 131/76 09/18/24 08:00 Pulse Ox 96 09/18/24 08:00 O2 Del Method Room Air 09/18/24 08:00 O2 Flow Rate 1 09/17/24 15:26 BMI result Body Mass Index 43.7 Appearing in no acute distress lung sounds are clear to auscultation heart regular rate rhythm, clear S1, S2 positive bowel sounds, abdomen is soft, nontender, NGT neuro patient is alert x3, no focal deficits Objective Data Active Medications Apixaban (Apixaban 5 Mg Tablet) 5 mg PO BID [facility] Last Admin: 09/18/24 08:35 Dose: 5 mg Documented By: OMAR Bupropion HCl (Bupropion Hcl Xl 150 Mg Tab.Er.24h) 150 mg PO DAILY [facility] Last Admin: 09/18/24 08:35 Dose: 150 mg Documented By: OMAR Calcium Carbonate (Calcium Carbonate 750 Mg Tab.Chew) 750 mg PO Q4H PRN PRN Reason: Heartburn Hydromorphone HCl (Hydromorphone Hcl 1 Mg/Ml Syringe) 1 mg IVPUSH Q3H PRN; Protocol PRN Reason: Pain, Severe (Pain Scale 7-10) Last Admin: 09/16/24 03:28 Dose: 1 mg Documented By: KACY Acetaminophen (Ofirmev) 1,000 mg in 100 mls @ 400 mls/hr IV Q6H PRN PRN Reason: Pain, Mild (Pain Scale 1-3) Last Infusion: 09/17/24 20:53 Dose: Infused Documented By: JOSE J Piperacillin Sod/Tazobactam (Sod 3.375 gm/ Sodium Chloride) 50 mls @ 100 mls/hr IV Q6H [facility] Last Infusion: 09/18/24 09:14 Dose: Infused Documented By: OMAR Sodium Chloride (Ns) 1,000 mls @ 100 mls/hr IVCONT .Q10H [facility] Last Admin: 09/18/24 03:53 Dose: 100 mls/hr Documented By: JOSE J Nutrition (Parenteral) (Parenteral Nutrition) 1,440 mls @ 60 mls/hr IV .Q24H [facility]; Protocol Stop: 09/18/24 20:59 Last Admin: 09/17/24 20:41 Dose: 60 mls/hr Documented By: JOSE J Nutrition (Parenteral) (Parenteral Nutrition) 1,440 mls @ 60 mls/hr IV .Q24H [facility]; Protocol Stop: 09/19/24 20:59 Levothyroxine Sodium (Levothyroxine Sodium 175 Mcg Tablet) 175 mcg PO DAILY@0600 [facility] Last Admin: 09/18/24 05:55 Dose: 175 mcg Documented By: JOSE J Magnesium Hydroxide (Milk Of Magnesia 30 Ml Oral.Susp) 30 ml PO DAILY PRN PRN Reason: Constipation Melatonin (Melatonin 3 Mg Tablet) 6 mg PO BEDTIME PRN PRN Reason: Insomnia Metoprolol Tartrate (Metoprolol Tartrate 5 Mg/5 Ml Vial) 2.5 mg IVPUSH Q6H [facility]; Protocol Last Admin: 09/18/24 03:54 Dose: 2.5 mg Documented By: JOSE J Multi-Ingred Medicated Throat [place] (Throat [place], Medicated 177 Ml Bottle) 1 spray MUCOUS MEM Q2H PRN PRN Reason: Sore Throat Last Admin: 09/17/24 20:52 Dose: 1 spray Documented By: JOSE J Comments: sore throat Ondansetron HCl (Ondansetron Hcl 4 Mg/2 Ml Vial) 4 mg IVPUSH QID PRN PRN Reason: Nausea Last Admin: 09/14/24 18:44 Dose: 4 mg Documented By: LEXI Pharmacy Consult (Consult Rx Parenteral Nutrition Ordering) 1 each MISCELLANE DAILY PRN PRN Reason: Consult order Sodium Chloride (0.9 % Sodium Chloride Flush 3 Ml Syringe) 3 ml IVFLUSH QSHIFT [facility] Last Admin: 09/18/24 08:35 Dose: Not Given Documented By: OMAR Non-Admin Reason: IV Running Labs 09/18/24 07:01 09/18/24 07:01 Labs: Laboratory Results - last 24 hr 09/17/24 09/18/24 09/18/24 10:36 07:01 07:01 MCV 79.7 L MCH 26.3 L MCHC 33.0 RDW 15.9 Plt Count 351 MPV 9.0 L Absolute Nucleated RBC 0.000 Nucleated RBC % (auto) 0.0 Anion Gap 15 Cancelled 11 L Estim Creat Clear Calc 98.8 Cancelled Estimated GFR > 60 Random Glucose 101 Calcium 8.3 L Phosphorus 2.3 L Magnesium 2.2 Albumin Triglycerides 127 09/18/24 09/18/24 09/18/24 07:01 07:01 07:01 MCV MCH MCHC RDW Plt Count MPV Absolute Nucleated RBC Nucleated RBC % (auto) Anion Gap Estim Creat Clear Calc 102.3 Estimated GFR Cancelled > 60 Random Glucose Cancelled 143 H Calcium Cancelled Phosphorus Magnesium Albumin Triglycerides 09/18/24 07:01 MCV MCH MCHC RDW Plt Count MPV Absolute Nucleated RBC Nucleated RBC % (auto) Anion Gap Estim Creat Clear Calc Estimated GFR Random Glucose Calcium 8.6 Phosphorus 1.9 L Magnesium 2.2 Albumin 2.8 L Triglycerides Microbiology Microbiology Results: Microbiology 09/15/24 15:00 Gram Stain - Final Abscess Intra-abdominal Routine Culture - Final Anaerobic Culture - Preliminary Culture in progress. Assessment and Plan (1) Atrial fibrillation with rapid ventricular response: Status: Acute Plan 74 year old female with PMH of HTN, HLD, Hypothyroid presenting to ED with abdominal pain , nausea, vomiting and palpitations found to have small-bowel obstruction, incisional hernia and underlying abscess with EKG showing atrial fibrillation Hypophosphatemia K-Phos x2 Atrial fibrillation with RvR unknown chronicity rate better controlled with IV Metoprolol 2.5 mg Q6 alyssa for now>transition to p.o. when able to tolerate diet/NG tube removed Echo unremarkable cardiology following ok to start Eliquis for anticoagulation per surgery Keep on Tele SBO w complicated hernia Management per General surgery Status post incisional hernia repair, abscess drainage and small-bowel resection Abscess culture pending Continue Zosyn HLD Startin HTN BP stable Hold Lisinopril and Lasix Hypothyroid elevated TSH 12.8 T4 normal Continue Levothyroixne Thank you for the consult will continue to follow with you Quality Stroke Does the patient have a stroke diagnosis?: No VTE Prior VTE?: No VTE Risk Level:: Surgical - moderate VTE Device Contraindication: N/A - Device Ordered VTE Drug Contraindication: N/A - Med Ordered
--- NOTE | 2024-09-18 10:23 | P.PNGS_ITS ---
Subjective Subjective Date of Service: 09/18/24 Interval history: Patient denies abdominal pain this morning. She appears much more comfortable. She denies passing flatus or having a bowel movement yet. Denies nausea. NG tube output seems to be decreasing Physical Exam 2 Vital Signs: Vital Signs: Last Vital Signs Temp 96.9 F 09/18/24 08:00 Pulse 99 09/18/24 08:00 Resp 18 09/18/24 08:00 BP 131/76 09/18/24 08:00 Pulse Ox 96 09/18/24 08:00 O2 Del Method Room Air 09/18/24 08:00 O2 Flow Rate 1 09/17/24 15:26 BMI result Body Mass Index 43.7 Const: General: comfortable and no acute distress O rientation/consciousness: patient oriented x3 Resp: Effort & Inspection: normal respiratory effort and able to speak in complete sentences GI: Other: Wound clean with a small amount of moisture noted at the umbilicus. No hernia palpable. No erythema noted in the skin. Inspection: No distended Palpation (GI): Soft to palpation, not firm, Tenderness to palpation present (GI) (incisional), no guarding and not rigid Skin: Other: Warm and dry. Neuro: General: patient oriented x3 Extrem: General: No edema Objective Data Active Medications Apixaban (Apixaban 5 Mg Tablet) 5 mg PO BID [facility] Last Admin: 09/18/24 08:35 Dose: 5 mg Documented By: OMAR Bupropion HCl (Bupropion Hcl Xl 150 Mg Tab.Er.24h) 150 mg PO DAILY [facility] Last Admin: 09/18/24 08:35 Dose: 150 mg Documented By: OMAR Calcium Carbonate (Calcium Carbonate 750 Mg Tab.Chew) 750 mg PO Q4H PRN PRN Reason: Heartburn Hydromorphone HCl (Hydromorphone Hcl 1 Mg/Ml Syringe) 1 mg IVPUSH Q3H PRN; Protocol PRN Reason: Pain, Severe (Pain Scale 7-10) Last Admin: 09/16/24 03:28 Dose: 1 mg Documented By: KACY Acetaminophen (Ofirmev) 1,000 mg in 100 mls @ 400 mls/hr IV Q6H PRN PRN Reason: Pain, Mild (Pain Scale 1-3) Last Infusion: 09/17/24 20:53 Dose: Infused Documented By: JOSE J Piperacillin Sod/Tazobactam (Sod 3.375 gm/ Sodium Chloride) 50 mls @ 100 mls/hr IV Q6H [facility] Last Infusion: 09/18/24 09:14 Dose: Infused Documented By: OMAR Sodium Chloride (Ns) 1,000 mls @ 100 mls/hr IVCONT .Q10H [facility] Last Admin: 09/18/24 03:53 Dose: 100 mls/hr Documented By: JOSE J Nutrition (Parenteral) (Parenteral Nutrition) 1,440 mls @ 60 mls/hr IV .Q24H [facility]; Protocol Stop: 09/18/24 20:59 Last Admin: 09/17/24 20:41 Dose: 60 mls/hr Documented By: JOSE J Nutrition (Parenteral) (Parenteral Nutrition) 1,440 mls @ 60 mls/hr IV .Q24H [facility]; Protocol Stop: 09/19/24 20:59 Potassium Phosphate (Kphos) 15 mmol in 250 mls @ 62.5 mls/hr IV Q4H [facility] Stop: 09/18/24 18:29 Levothyroxine Sodium (Levothyroxine Sodium 175 Mcg Tablet) 175 mcg PO DAILY@0600 [facility] Last Admin: 09/18/24 05:55 Dose: 175 mcg Documented By: JOSE J Magnesium Hydroxide (Milk Of Magnesia 30 Ml Oral.Susp) 30 ml PO DAILY PRN PRN Reason: Constipation Melatonin (Melatonin 3 Mg Tablet) 6 mg PO BEDTIME PRN PRN Reason: Insomnia Metoprolol Tartrate (Metoprolol Tartrate 5 Mg/5 Ml Vial) 2.5 mg IVPUSH Q6H [facility]; Protocol Last Admin: 09/18/24 03:54 Dose: 2.5 mg Documented By: JOSE J Multi-Ingred Medicated Throat [place] (Throat [place], Medicated 177 Ml Bottle) 1 spray MUCOUS MEM Q2H PRN PRN Reason: Sore Throat Last Admin: 09/17/24 20:52 Dose: 1 spray Documented By: JOSE J Comments: sore throat Ondansetron HCl (Ondansetron Hcl 4 Mg/2 Ml Vial) 4 mg IVPUSH QID PRN PRN Reason: Nausea Last Admin: 09/14/24 18:44 Dose: 4 mg Documented By: LEXI Pharmacy Consult (Consult Rx Parenteral Nutrition Ordering) 1 each MISCELLANE DAILY PRN PRN Reason: Consult order Sodium Chloride (0.9 % Sodium Chloride Flush 3 Ml Syringe) 3 ml IVFLUSH QSHIFT [facility] Last Admin: 09/18/24 08:35 Dose: Not Given Documented By: OMAR Non-Admin Reason: IV Running Labs 09/18/24 07:01 09/18/24 07:01 Labs: Laboratory Results - last 24 hr 09/17/24 09/18/24 09/18/24 10:36 07:01 07:01 MCV 79.7 L MCH 26.3 L MCHC 33.0 RDW 15.9 Plt Count 351 MPV 9.0 L Absolute Nucleated RBC 0.000 Nucleated RBC % (auto) 0.0 Anion Gap 15 Cancelled 11 L Estim Creat Clear Calc 98.8 Cancelled Estimated GFR > 60 Random Glucose 101 Calcium 8.3 L Phosphorus 2.3 L Magnesium 2.2 Albumin Triglycerides 127 09/18/24 09/18/24 09/18/24 07:01 07:01 07:01 MCV MCH MCHC RDW Plt Count MPV Absolute Nucleated RBC Nucleated RBC % (auto) Anion Gap Estim Creat Clear Calc 102.3 Estimated GFR Cancelled > 60 Random Glucose Cancelled 143 H Calcium Cancelled Phosphorus Magnesium Albumin Triglycerides 09/18/24 07:01 MCV MCH MCHC RDW Plt Count MPV Absolute Nucleated RBC Nucleated RBC % (auto) Anion Gap Estim Creat Clear Calc Estimated GFR Random Glucose Calcium 8.6 Phosphorus 1.9 L Magnesium 2.2 Albumin 2.8 L Triglycerides Microbiology Microbiology Results: Microbiology 09/15/24 15:00 Gram Stain - Final Abscess Intra-abdominal Routine Culture - Final Anaerobic Culture - Preliminary Culture in progress. Procedures Date of Service Date of Service: 09/18/24 Progress Note: A&P Assessment and plan (1) Atrial fibrillation: Status: Acute (2) S/P small bowel resection: Status: Acute (3) Recurrent incisional hernia with obstruction: Status: Acute Plan POD 3 following exploratory laparotomy, drainage of abdominal abscess, repair of incisional hernia, small-bowel resection. Patient remains with NG tube decompression, NPO, awaiting return of bowel function. Abdominal wounds are clean and intact with no evidence of hernia recurrence. Continue NPO, PPN nutrition. Encouraged out of bed and ambulation. We will monitor NG tube output. New onset AFib be monitored by Cardiology, hospitalist. Patient started on oral anticoagulation. No evidence of bleeding at this time. Time Spent With Patient Time: Total time managing care of this patient today ____ minutes. Quality Stroke Does the patient have a stroke diagnosis?: No VTE Prior VTE?: No VTE Risk Level:: Surgical - moderate VTE Device Contraindication: N/A - Device Ordered VTE Drug Contraindication: N/A - Med Ordered
[2024-09-18] MEDS: Potassium Phosphate/NS 15 MMOL/250 ML PLAST..BAG 62.5 MMOL IV ×2 (11:05→16:45)
[2024-09-18] MEDS: Parenteral Nutrition 1,440 ML 60 ML IV (20:14)
[2024-09-18] MEDS: Throat Spray, Medicated 177 ML BOTTLE 1 SPRAY MUCOUS MEM (22:52)
[2024-09-18] MEDS: Acetaminophen 1,000 MG/100 ML PIGGYBACK 400 MG IV (22:55)
[2024-09-18] MEDS: Simethicone 80 MG TAB.CHEW PO (23:48)
[2024-09-19] VITALS (8 sets, daily range): BP systolic 134–163; BP diastolic 80–93; PULSE 92–106; RESP 14–18; TEMP 36.2–37.2; O2SAT 97–99
[2024-09-19] MEDS: Piperacillin Sodium/Tazobactam 3.375 GM in 0.9 % Sodium Chloride 50 ML IV ×4 (04:52→20:36)
[2024-09-19] MEDS: Metoprolol Tartrate 5 MG/5 ML VIAL 2.5 MG IVPUSH ×4 (04:54→22:00)
[2024-09-19] MEDS: Levothyroxine Sodium 175 MCG TABLET PO (06:16)
[2024-09-19 08:19] LABS: Albumin Level 2.9 g/dL (3.5-5.0); Anion Gap 14 (12-20); Blood Urea Nitrogen 15 mg/dL (9-16); Calcium 8.7 mg/dL (8.4-10.2); Carbon Dioxide 25 mmol/L (22-29); Chloride 111 mmol/L (96-108); Creatinine Clr Calc Pharmacy 110.3; Estimated Glomerular Filt Rate > 60; Glucose Random 137 mg/dL (60-115); Phosphorus 3.2 mg/dL (2.7-4.5); Potassium 4.6 mmol/L (3.3-5.1); Sodium 145 mmol/L (135-145)
[2024-09-19] MEDS: Apixaban 5 MG TABLET PO ×2 (09:51→20:36)
[2024-09-19] MEDS: buPROPion HCl XL 150 MG TAB.ER.24H PO (09:51)
--- NOTE | 2024-09-19 11:27 | P.PNGS_ITS ---
Subjective Subjective Date of Service: 09/19/24 Interval history: Overall the patient is feeling improved with less abdominal pain. She does note some gurgling in her stomach. NG tube output has decreased significantly. She denies any flatus or BM. Physical Exam 2 Vital Signs: Vital Signs: Last Vital Signs Temp 97.5 F 09/19/24 11:20 Pulse 96 09/19/24 11:20 Resp 14 09/19/24 11:20 BP 150/80 H 09/19/24 11:20 Pulse Ox 98 09/19/24 11:20 O2 Del Method Room Air 09/19/24 11:20 O2 Flow Rate 1 09/17/24 15:26 BMI result Body Mass Index 43.7 Const: General: comfortable and no acute distress O rientation/consciousness: patient oriented x3 Resp: Effort & Inspection: normal respiratory effort GI: Other: Wound clean with a small amount of moisture noted at the umbilicus. No hernia palpable. No erythema noted in the skin. Inspection: No distended Palpation (GI): Soft to palpation, not firm, Tenderness to palpation present (GI) (incisional), no guarding and not rigid Skin: Other: Warm and dry. Neuro: General: patient oriented x3 Extrem: General: No edema Objective Data Active Medications Apixaban (Apixaban 5 Mg Tablet) 5 mg PO BID [facility] Last Admin: 09/19/24 09:51 Dose: 5 mg Documented By: NED Bupropion HCl (Bupropion Hcl Xl 150 Mg Tab.Er.24h) 150 mg PO DAILY [facility] Last Admin: 09/19/24 09:51 Dose: 150 mg Documented By: NED Calcium Carbonate (Calcium Carbonate 750 Mg Tab.Chew) 750 mg PO Q4H PRN PRN Reason: Heartburn Hydromorphone HCl (Hydromorphone Hcl 1 Mg/Ml Syringe) 1 mg IVPUSH Q3H PRN; Protocol PRN Reason: Pain, Severe (Pain Scale 7-10) Last Admin: 09/16/24 03:28 Dose: 1 mg Documented By: KACY Acetaminophen (Ofirmev) 1,000 mg in 100 mls @ 400 mls/hr IV Q6H PRN PRN Reason: Pain, Mild (Pain Scale 1-3) Last Infusion: 09/18/24 23:10 Dose: Infused Documented By: JOSE J Piperacillin Sod/Tazobactam (Sod 3.375 gm/ Sodium Chloride) 50 mls @ 100 mls/hr IV Q6H [facility] Last Infusion: 09/19/24 10:40 Dose: Infused Documented By: NED Nutrition (Parenteral) (Parenteral Nutrition) 1,440 mls @ 60 mls/hr IV .Q24H [facility]; Protocol Stop: 09/19/24 20:59 Last Admin: 09/18/24 20:14 Dose: 60 mls/hr Documented By: HAMILTON Nutrition (Parenteral) (Parenteral Nutrition) 1,440 mls @ 60 mls/hr IV .Q24H [facility]; Protocol Stop: 09/20/24 20:59 Levothyroxine Sodium (Levothyroxine Sodium 175 Mcg Tablet) 175 mcg PO DAILY@0600 [facility] Last Admin: 09/19/24 06:16 Dose: 175 mcg Documented By: HAMILTON Magnesium Hydroxide (Milk Of Magnesia 30 Ml Oral.Susp) 30 ml PO DAILY PRN PRN Reason: Constipation Melatonin (Melatonin 3 Mg Tablet) 6 mg PO BEDTIME PRN PRN Reason: Insomnia Metoprolol Tartrate (Metoprolol Tartrate 5 Mg/5 Ml Vial) 2.5 mg IVPUSH Q6H [facility]; Protocol Last Admin: 09/19/24 09:51 Dose: 2.5 mg Documented By: NED Multi-Ingred Medicated Throat [place] (Throat [place], Medicated 177 Ml Bottle) 1 spray MUCOUS MEM Q2H PRN PRN Reason: Sore Throat Last Admin: 09/18/24 22:52 Dose: 1 spray Documented By: JOSE J Ondansetron HCl (Ondansetron Hcl 4 Mg/2 Ml Vial) 4 mg IVPUSH QID PRN PRN Reason: Nausea Last Admin: 09/14/24 18:44 Dose: 4 mg Documented By: LEXI Pharmacy Consult (Consult Rx Parenteral Nutrition Ordering) 1 each MISCELLANE DAILY PRN PRN Reason: Consult order Simethicone (Simethicone 80 Mg Tab.Chew) 80 mg PO QIDWMHS PRN PRN Reason: Gas Last Admin: 09/18/24 23:48 Dose: 80 mg Documented By: JOSE J Comments: pt reports feelin gassy Sodium Chloride (0.9 % Sodium Chloride Flush 3 Ml Syringe) 3 ml IVFLUSH QSHIFT [facility] Last Admin: 09/19/24 08:00 Dose: Not Given Documented By: NED Non-Admin Reason: IV Running Labs 09/18/24 07:01 09/19/24 07:19 Labs: Laboratory Results - last 24 hr 09/19/24 07:19 Hold Purple Top SEE NOTE Anion Gap 14 Estim Creat Clear Calc 110.3 Estimated GFR > 60 Random Glucose 137 H Calcium 8.7 Phosphorus 3.2 Magnesium 2.0 Albumin 2.9 L Microbiology Microbiology Results: Microbiology 09/15/24 15:00 Gram Stain - Final Abscess Intra-abdominal Routine Culture - Final Anaerobic Culture - Preliminary Culture in progress. 09/13/24 14:54 Blood Culture - Final Blood - Venous No growth after 5 days. 09/13/24 14:54 Blood Culture - Final Blood - Venous No growth after 5 days. Procedures Date of Service Date of Service: 09/19/24 Progress Note: A&P Assessment and plan (1) Atrial fibrillation: Status: Acute (2) S/P small bowel resection: Status: Acute (3) Recurrent incisional hernia with obstruction: Status: Acute Plan POD 4 following exploratory laparotomy, drainage of abdominal abscess, repair of incisional hernia, small-bowel resection. Patient remains with NG tube decompression, NPO, awaiting return of bowel function. Abdominal wounds are clean and intact with no evidence of hernia recurrence. Continue with PPN nutrition. We will do a NG tube clamping trial today. If continued low output, we will remove the tube and start clear liquids. Encouraged out of bed and ambulation. New onset AFib be monitored by Cardiology, hospitalist. Patient started on oral anticoagulation. No evidence of bleeding at this time. Time Spent With Patient Time: Total time managing care of this patient today ____ minutes. Quality Stroke Does the patient have a stroke diagnosis?: No VTE Prior VTE?: No VTE Risk Level:: Surgical - moderate VTE Device Contraindication: N/A - Device Ordered VTE Drug Contraindication: N/A - Med Ordered
--- NOTE | 2024-09-19 11:57 | P.PNIM_ITS ---
Subjective Subjective Date of Service: 09/19/24 Interval History: Seen and examined this morning Follow-up for medical consultation for AFib RVR No chest pain or palpitations Review of Systems Review of Systems: Yes all other systems are reviewed and are negative Constitutional Constitutional: Denies chills and Denies fever(s) Physical Exam 2 Vital Signs: Vital Signs: Last Vital Signs Temp 97.5 F 09/19/24 11:20 Pulse 96 09/19/24 11:20 Resp 14 09/19/24 11:20 BP 150/80 H 09/19/24 11:20 Pulse Ox 98 09/19/24 11:20 O2 Del Method Room Air 09/19/24 11:20 O2 Flow Rate 1 09/17/24 15:26 BMI result Body Mass Index 43.7 Appearing in no acute distress lung sounds are clear to auscultation heart regular rate rhythm, clear S1, S2 positive bowel sounds, abdomen is soft, nontender neuro patient is alert x3, no focal deficits NGT clamped Objective Data Active Medications Apixaban (Apixaban 5 Mg Tablet) 5 mg PO BID [facility] Last Admin: 09/19/24 09:51 Dose: 5 mg Documented By: NED Bupropion HCl (Bupropion Hcl Xl 150 Mg Tab.Er.24h) 150 mg PO DAILY [facility] Last Admin: 09/19/24 09:51 Dose: 150 mg Documented By: NED Calcium Carbonate (Calcium Carbonate 750 Mg Tab.Chew) 750 mg PO Q4H PRN PRN Reason: Heartburn Hydromorphone HCl (Hydromorphone Hcl 1 Mg/Ml Syringe) 1 mg IVPUSH Q3H PRN; Protocol PRN Reason: Pain, Severe (Pain Scale 7-10) Last Admin: 09/16/24 03:28 Dose: 1 mg Documented By: KACY Acetaminophen (Ofirmev) 1,000 mg in 100 mls @ 400 mls/hr IV Q6H PRN PRN Reason: Pain, Mild (Pain Scale 1-3) Last Infusion: 09/18/24 23:10 Dose: Infused Documented By: JOSE J Piperacillin Sod/Tazobactam (Sod 3.375 gm/ Sodium Chloride) 50 mls @ 100 mls/hr IV Q6H [facility] Last Infusion: 09/19/24 10:40 Dose: Infused Documented By: NED Nutrition (Parenteral) (Parenteral Nutrition) 1,440 mls @ 60 mls/hr IV .Q24H [facility]; Protocol Stop: 09/19/24 20:59 Last Admin: 09/18/24 20:14 Dose: 60 mls/hr Documented By: HAMILTON Nutrition (Parenteral) (Parenteral Nutrition) 1,440 mls @ 60 mls/hr IV .Q24H [facility]; Protocol Stop: 09/20/24 20:59 Levothyroxine Sodium (Levothyroxine Sodium 175 Mcg Tablet) 175 mcg PO DAILY@0600 [facility] Last Admin: 09/19/24 06:16 Dose: 175 mcg Documented By: HAMILTON Magnesium Hydroxide (Milk Of Magnesia 30 Ml Oral.Susp) 30 ml PO DAILY PRN PRN Reason: Constipation Melatonin (Melatonin 3 Mg Tablet) 6 mg PO BEDTIME PRN PRN Reason: Insomnia Metoprolol Tartrate (Metoprolol Tartrate 5 Mg/5 Ml Vial) 2.5 mg IVPUSH Q6H [facility]; Protocol Last Admin: 09/19/24 09:51 Dose: 2.5 mg Documented By: NED Multi-Ingred Medicated Throat [place] (Throat [place], Medicated 177 Ml Bottle) 1 spray MUCOUS MEM Q2H PRN PRN Reason: Sore Throat Last Admin: 09/18/24 22:52 Dose: 1 spray Documented By: JOSE J Ondansetron HCl (Ondansetron Hcl 4 Mg/2 Ml Vial) 4 mg IVPUSH QID PRN PRN Reason: Nausea Last Admin: 09/14/24 18:44 Dose: 4 mg Documented By: LEXI Pharmacy Consult (Consult Rx Parenteral Nutrition Ordering) 1 each MISCELLANE DAILY PRN PRN Reason: Consult order Simethicone (Simethicone 80 Mg Tab.Chew) 80 mg PO QIDWMHS PRN PRN Reason: Gas Last Admin: 09/18/24 23:48 Dose: 80 mg Documented By: JOSE J Comments: pt reports dorain jadyn Sodium Chloride (0.9 % Sodium Chloride Flush 3 Ml Syringe) 3 ml IVFLUSH QSHIFT [facility] Last Admin: 09/19/24 08:00 Dose: Not Given Documented By: HO.DOBROB Non-Admin Reason: IV Running Labs 09/18/24 07:01 09/19/24 07:19 Labs: Laboratory Results - last 24 hr 09/19/24 07:19 Hold Purple Top SEE NOTE Anion Gap 14 Estim Creat Clear Calc 110.3 Estimated GFR > 60 Random Glucose 137 H Calcium 8.7 Phosphorus 3.2 Magnesium 2.0 Albumin 2.9 L Microbiology Microbiology Results: Microbiology 09/15/24 15:00 Gram Stain - Final Abscess Intra-abdominal Routine Culture - Final Anaerobic Culture - Preliminary Culture in progress. 09/13/24 14:54 Blood Culture - Final Blood - Venous No growth after 5 days. 09/13/24 14:54 Blood Culture - Final Blood - Venous No growth after 5 days. Assessment and Plan (1) Atrial fibrillation with rapid ventricular response: Status: Acute Plan 74 year old female with PMH of HTN, HLD, Hypothyroid presenting to ED with abdominal pain , nausea, vomiting and palpitations found to have small-bowel obstruction, incisional hernia and underlying abscess with EKG showing atrial fibrillation Hypophosphatemia K-Phos x2 Atrial fibrillation with RvR unknown chronicity rate better controlled with IV Metoprolol 2.5 mg Q6 alyssa for now>transition to p.o. when able to tolerate diet/NG tube removed Echo unremarkable cardiology following ok to start Eliquis for anticoagulation per surgery Keep on Tele SBO w complicated hernia Management per General surgery Status post incisional hernia repair, abscess drainage and small-bowel resection Abscess culture pending Continue Zosyn HLD Startin HTN BP stable Hold Lisinopril and Lasix Hypothyroid elevated TSH 12.8 T4 normal Continue Levothyroixne Medical consultation complete. Will sign off. Please consult Hospital Medicine Service for any further assistance. Quality Stroke Does the patient have a stroke diagnosis?: No VTE Prior VTE?: No VTE Risk Level:: Surgical - moderate VTE Device Contraindication: N/A - Device Ordered VTE Drug Contraindication: N/A - Med Ordered
--- NOTE | 2024-09-19 15:15 | PC.NURSE ---
Per provider's order patient's NG tube clamped for 4 hrs, started at 1000 at 1400 NG tube reconnected to suction with < 10ml output after 40min. Provider notified and telephone order to remove NG tube received. NG tube removed at 1500, patient tolerated the procedure well. Diet advanced to clear liquids.
[2024-09-19] MEDS: Parenteral Nutrition 1,440 ML 60 ML IV (20:36)
[2024-09-19] MEDS: 0.9 % Sodium Chloride Flush 3 ML SYRINGE IVFLUSH (20:37)
[2024-09-20 03:30] VITALS: BP 139/84; PULSE 100; RESP 18; TEMP 37.2; O2SAT 98
[2024-09-20] MEDS: Levothyroxine Sodium 175 MCG TABLET PO (04:11)
[2024-09-20] MEDS: Piperacillin Sodium/Tazobactam 3.375 GM in 0.9 % Sodium Chloride 50 ML IV ×4 (04:11→19:45)
[2024-09-20] MEDS: Metoprolol Tartrate 5 MG/5 ML VIAL 2.5 MG IVPUSH (04:12)
[2024-09-20 07:50] VITALS: BP 141/84; PULSE 93; RESP 17; TEMP 36.6; O2SAT 97
[2024-09-20 08:05] LABS: Albumin Level 2.9 g/dL (3.5-5.0); Anion Gap 12 (12-20); Blood Urea Nitrogen 13 mg/dL (9-16); Calcium 8.5 mg/dL (8.4-10.2); Carbon Dioxide 27 mmol/L (22-29); Chloride 105 mmol/L (96-108); Creatinine Clr Calc Pharmacy 117.3; Estimated Glomerular Filt Rate > 60; Glucose Random 120 mg/dL (60-115); Magnesium 1.9 mg/dL (1.6-2.6); Phosphorus 3.1 mg/dL (2.7-4.5); Potassium 4.8 mmol/L (3.3-5.1); Sodium 139 mmol/L (135-145)
[2024-09-20] MEDS: buPROPion HCl XL 150 MG TAB.ER.24H PO (08:14)
[2024-09-20] MEDS: Apixaban 5 MG TABLET PO ×2 (08:14→19:47)
[2024-09-20] MEDS: 0.9 % Sodium Chloride Flush 3 ML SYRINGE IVFLUSH ×2 (08:19→19:47)
--- NOTE | 2024-09-20 10:22 | PC.NURSE ---
0900 Patient's left arm/hand noted to be severely swollen and pink upon assessment. #20 to left lower arm and #20 to right upper arm inplace with running PPN. Patient does have a large red/purple birthmark to left hand up to mid forearm. Patient denies any pain in left arm. Positive CMS, Patient able to move left arm slightly without any assistance. [employer] notified. Ultrasound to be ordered. PPN paused at this time until new IV access is obtained.
--- NOTE | 2024-09-20 11:07 | P.PNGS_ITS ---
Subjective Subjective Date of Service: 09/20/24 <Arturo Sung PA-C - Last Filed: 09/20/24 11:55> 09/20/24 <Drake Crawford MD - Last Filed: 09/20/24 11:56> Patient reports: no new complaints, feels better, still having pain (Mild around incision) and tolerating liquids well <Arturo Sung PA-C - Last Filed: 09/20/24 11:55> Interval history: Patient doing well today. NG tube clamping trial was performed. Output remained low and NG removed yesterday evening, patient was started on clear liquids. Patient is tolerating clear liquid diet, denies nausea vomiting at this time. Patient passed a bowel movement yesterday states her abdomen feels a lot better since then. Reports she has been ambulating to and from the chair < Arturo Sung PA-C - Last Filed: 09/20/24 11:55> Physical Exam 2 Vital Signs: Vital Signs: Last Vital Signs Temp 97.9 F 09/20/24 07:50 Pulse 93 09/20/24 07:50 Resp 17 09/20/24 07:50 BP 141/84 H 09/20/24 07:50 Pulse Ox 97 09/20/24 07:50 O2 Del Method Room Air 09/20/24 07:50 O2 Flow Rate 1 09/17/24 15:26 BMI result Body Mass Index 43.7 <RK Ramos Last Filed: 09/20/24 11:55> Const: General: comfortable and no acute distress <RK Ramos Last Filed: 09/20/24 11:55> Orientation/consciousness: patient oriented x3 <RK Ramos Last Filed: 09/20/24 11:55> Resp: Effort & Inspection: normal respiratory effort and able to speak in complete sentences <RK Ramos Last Filed: 09/20/24 11:55> GI: Other: Incision site evaluated, quentin intact. Scant amounts of oozing noted <RK Ramos Last Filed: 09/20/24 11:55> Inspection: No distended <RK Ramos Last Filed: 09/20/24 11:55> Palpation (GI): Soft to palpation, not firm, Tenderness to palpation present (GI) (Incisional), no guarding and not rigid <Arturo Sung PA-C - Last Filed: 09/20/24 11:55> Neuro: General: patient oriented x3 <Arturo Sung PA-C - Last Filed: 09/20/24 11:55> Objective Data Active Medications Apixaban (Apixaban 5 Mg Tablet) 5 mg PO BID [facility] Last Admin: 09/20/24 08:14 Dose: 5 mg Documented By: SHIVAM Bupropion HCl (Bupropion Hcl Xl 150 Mg Tab.Er.24h) 150 mg PO DAILY [facility] Last Admin: 09/20/24 08:14 Dose: 150 mg Documented By: SHIVAM Calcium Carbonate (Calcium Carbonate 750 Mg Tab.Chew) 750 mg PO Q4H PRN PRN Reason: Heartburn Hydromorphone HCl (Hydromorphone Hcl 1 Mg/Ml Syringe) 1 mg IVPUSH Q3H PRN; Protocol PRN Reason: Pain, Severe (Pain Scale 7-10) Last Admin: 09/16/24 03:28 Dose: 1 mg Documented By: KACY Acetaminophen (Ofirmev) 1,000 mg in 100 mls @ 400 mls/hr IV Q6H PRN PRN Reason: Pain, Mild (Pain Scale 1-3) Last Infusion: 09/18/24 23:10 Dose: Infused Documented By: JOSE J Piperacillin Sod/Tazobactam (Sod 3.375 gm/ Sodium Chloride) 50 mls @ 100 mls/hr IV Q6H [facility] Last Infusion: 09/20/24 09:11 Dose: Infused Documented By: SHIVAM Nutrition (Parenteral) (Parenteral Nutrition) 1,440 mls @ 60 mls/hr IV .Q24H [facility]; Protocol Stop: 09/20/24 20:59 Last Admin: 09/19/24 20:36 Dose: 60 mls/hr Documented By: SRINIVAS Levothyroxine Sodium (Levothyroxine Sodium 175 Mcg Tablet) 175 mcg PO DAILY@0600 [facility] Last Admin: 09/20/24 04:11 Dose: 175 mcg Documented By: SRINIVAS Magnesium Hydroxide (Milk Of Magnesia 30 Ml Oral.Susp) 30 ml PO DAILY PRN PRN Reason: Constipation Melatonin (Melatonin 3 Mg Tablet) 6 mg PO BEDTIME PRN PRN Reason: Insomnia Metoprolol Tartrate (Metoprolol Tartrate 5 Mg/5 Ml Vial) 2.5 mg IVPUSH Q6H [facility]; Protocol Last Admin: 09/20/24 04:12 Dose: 2.5 mg Documented By: SRINIVAS Multi-Ingred Medicated Throat [place] (Throat [place], Medicated 177 Ml Bottle) 1 spray MUCOUS MEM Q2H PRN PRN Reason: Sore Throat Last Admin: 09/18/24 22:52 Dose: 1 spray Documented By: JOSE J Ondansetron HCl (Ondansetron Hcl 4 Mg/2 Ml Vial) 4 mg IVPUSH QID PRN PRN Reason: Nausea Last Admin: 09/14/24 18:44 Dose: 4 mg Documented By: LEXI Pharmacy Consult (Consult Rx Parenteral Nutrition Ordering) 1 each MISCELLANE DAILY PRN PRN Reason: Consult order Simethicone (Simethicone 80 Mg Tab.Chew) 80 mg PO QIDWMHS PRN PRN Reason: Gas Last Admin: 09/18/24 23:48 Dose: 80 mg Documented By: JOSE J Comments: pt reports feelin gassy Sodium Chloride (0.9 % Sodium Chloride Flush 3 Ml Syringe) [address] [facility] Last Admin: 09/20/24 08:19 Dose: 3 ml Documented By: SHIVAM <Atruro Sung PA-C - Last Filed: 09/20/24 11:55> Labs CBC & Chem 7: 09/18/24 07:01 09/20/24 07:06 <Arturo Sung PA-C - Last Filed: 09/20/24 11:55> Labs: Laboratory Results - last 24 hr 09/20/24 07:06 Hold Purple Top SEE NOTE Anion Gap 12 Estim Creat Clear Calc 117.3 Estimated GFR > 60 Random Glucose 120 H Calcium 8.5 Phosphorus 3.1 Magnesium 1.9 Albumin 2.9 L <RK Ramos Last Filed: 09/20/24 11:55> Microbiology Microbiology Results: Microbiology 09/15/24 15:00 Gram Stain - Final Abscess Intra-abdominal Routine Culture - Final Anaerobic Culture - Final <RK Ramos Filed: 09/20/24 11:55> Procedures Date of Service Date of Service: 09/20/24 <Arturo Sung PA-C - Last Filed: 09/20/24 11:55> 09/20/24 <Drake Crawford MD - Last Filed: 09/20/24 11:56> Progress Note: A&P Assessment and plan (1) S/P small bowel resection: Status: Acute <Arturo Sung PA-C - Last Filed: 09/20/24 11:55> (2) Recurrent incisional hernia with obstruction: Status: Acute <Arturo Sung PA-C - Last Filed: 09/20/24 11:55> (3) Complete small bowel obstruction: Status: Acute <Arturo Sung PA-C - Last Filed: 09/20/24 11:55> Assessment and Plan: 74-year-old female POD 5 following exploratory laparotomy, drainage of abdominal abscess, repair of incisional hernia, small-bowel resection. Patient doing well overall. Patient's NG tube was removed yesterday, patient was started on clear liquid diet, tolerating well. Patient passed a bowel movement yesterday, notes improvement in her abdominal pain. Currently denies nausea, vomiting, fever/chills. Abdominal exam is soft and largely benign. Remains tender around the incision site. Incision site remains intact. There is mild drying sanguinous drainage along the incision site, likely due to new oral anticoagulation. Is no surrounding erythema or warmth. No concern for infection at this time. Results from culture of abdominal abscess performed intraoperatively reviewed. Results show mixed ramo and mixed anaerobes no bacteroides or Clostridium species isolated Recommend ambulation/spirometry as tolerated Will advance regular diet Continue IV antibiotics New onset AFib managed by cardiology/hospitalist. Patient started on oral anticoagulation <Arturo Sung PA-C - Last Filed: 09/20/24 11:55> 74-year-old female POD 5 following exploratory laparotomy, drainage of abdominal abscess, repair of incisional hernia, small-bowel resection. Patient doing well overall. Patient's NG tube was removed yesterday, patient was started on clear liquid diet, tolerating well. Patient passed a bowel movement yesterday, notes improvement in her abdominal pain. Currently denies nausea, vomiting, fever/chills. Abdominal exam is soft and largely benign. Remains tender around the incision site. Incision site remains intact. There is mild drying sanguinous drainage along the incision site, likely due to new oral anticoagulation. Is no surrounding erythema or warmth. No concern for infection at this time. Results from culture of abdominal abscess performed intraoperatively reviewed Recommend ambulation/spirometry as tolerated Continue clear liquid diet, we will hopefully advance to regular diet tomorrow. New onset AFib managed by cardiology/hospitalist. Patient started on oral anticoagulation Agree with the above assessment and plan. We will advance to a regular diet today. Encouraged out of bed and ambulation. <Drake Crawford MD - Last Filed: 09/20/24 11:56> Time Spent With Patient Time: Total time managing care of this patient today ____ minutes. <Arturo Sung PA-C - Last Filed: 09/20/24 11:55> Quality Stroke Does the patient have a stroke diagnosis?: No <Arturo Sung PA-C - Last Filed: 09/20/24 11:55> VTE Prior VTE?: No <Arturo Sung PA-C - Last Filed: 09/20/24 11:55> VTE Risk Level:: Surgical - moderate <Arturo Sung PA-C - Last Filed: 09/20/24 11:55> VTE Device Contraindication: N/A - Device Ordered <Arturo Sung PA-C - Last Filed: 09/20/24 11:55> VTE Drug Contraindication: N/A - Med Ordered <Arturo Sung PA-C - Last Filed: 09/20/24 11:55>
[2024-09-20 11:35] VITALS: BP 140/83; PULSE 110; RESP 17; TEMP 36.2; O2SAT 99
[2024-09-20] MEDS: Metoprolol Tartrate 12.5 MG HALFTAB PO ×2 (13:07→19:46)
--- NOTE | 2024-09-20 13:10 | MHC.CM.PN ---
Per MD rounds patient is not medically cleared to discharge. She is tolerating a clear liquid diet. New Afib with RVR. Oral AC therapy has been started. LUE is swollen. An ultra sound of her L arm has been ordered to rule out DVT. DP home with resumption of [employer]. Patient's [employer] will provide transportation home too.
--- NOTE | 2024-09-20 13:10 | MHC.CLN ---
F/U REVIEWED LABS DISCUSSED WITH PHARMACY PT RECEIVED PPN AT 60ML/HR WITH 42G LIPIDS PROVIDED 1154KCALS, 144G DEXTROSE, 61G PROTEIN PPN TO D/C PER MD DIET ADVANCING TO REGULAR MONITOR PO INTAKE [address]LOSE[address] RD TO FOLLOW WEEKLY
[2024-09-20 16:00] VITALS: BP 134/76; PULSE 84; RESP 17; TEMP 36.3; O2SAT 98
[2024-09-20 19:43] VITALS: BP 137/75; PULSE 97; RESP 18; TEMP 37.1; O2SAT 95
[2024-09-20] MEDS: Melatonin 3 MG TABLET 6 MG PO (19:47)
[2024-09-21] VITALS (7 sets, daily range): BP systolic 131–149; BP diastolic 66–84; PULSE 76–93; RESP 16–18; TEMP 36–36.9; O2SAT 96–99
[2024-09-21] MEDS: Piperacillin Sodium/Tazobactam 3.375 GM in 0.9 % Sodium Chloride 50 ML IV ×4 (02:54→22:01)
[2024-09-21] MEDS: Levothyroxine Sodium 175 MCG TABLET PO (05:24)
[2024-09-21 07:33] LABS: Albumin Level 2.8 g/dL (3.5-5.0); Anion Gap 8 (12-20); Blood Urea Nitrogen 14 mg/dL (9-16); Carbon Dioxide 28 mmol/L (22-29); Chloride 103 mmol/L (96-108); Creatinine Clr Calc Pharmacy 112.5; Estimated Glomerular Filt Rate > 60; Glucose Random 104 mg/dL (60-115); Magnesium 1.9 mg/dL (1.6-2.6); Phosphorus 2.9 mg/dL (2.7-4.5); Potassium 4.4 mmol/L (3.3-5.1); Sodium 135 mmol/L (135-145)
--- NOTE | 2024-09-21 08:26 | PM.PNGS ---
Subjective Subjective Date of Service: 09/21/24 Patient reports: no new complaints, flatus (small amounts) and nausea (mild) Interval history: patient overall doing well today, no new complaints. Mild pain at the incision site. Overnight nurse noticed increased drainage and redness from incision site. Patient denies fever/chills. Denies N/V. She is tolerating regular diet. Endorses passing flatus Physical Exam Vital Signs: Vital Signs: Last Vital Signs Temp 96.8 F 09/21/24 07:34 Pulse 84 09/21/24 07:34 Resp 18 09/21/24 07:34 BP 133/75 09/21/24 07:34 Pulse Ox 96 09/21/24 07:34 O2 Del Method Room Air 09/21/24 07:34 O2 Flow Rate 1 09/17/24 15:26 BMI result Body Mass Index 43.7 Const: General: comfortable and no acute distress Orientation/consciousness: patient oriented x3 Resp: Effort & Inspection: normal respiratory effort and able to speak in complete sentences GI: Other: incision site: SeroSanguineous drainage from the centrum. Inferior aspect has surrounding erythema and is warm to touch. Incision remains intact Inspection: No distended Palpation (GI): Soft to palpation, not firm, Tenderness to palpation present (GI) (mild, incisional), no guarding and not rigid Neuro: General: patient oriented x3 Objective Data Active Medications Apixaban (Apixaban 5 Mg Tablet) 5 mg PO BID COUNTS [facility] BEDS AT [facility] Last Admin: 09/20/24 19:47 Dose: 5 mg Documented By: MADIE Bupropion HCl (Bupropion Hcl Xl 150 Mg Tab.Er.24h) 150 mg PO DAILY COUNTS [facility]CLUDE 234 BEDS AT [facility] Last Admin: 09/20/24 08:14 Dose: 150 mg Documented By: SHIVAM Calcium Carbonate (Calcium Carbonate 750 Mg Tab.Chew) 750 mg PO Q4H PRN PRN Reason: Heartburn Hydromorphone HCl (Hydromorphone Hcl 1 Mg/Ml Syringe) 1 mg IVPUSH Q3H PRN; Protocol PRN Reason: Pain, Severe (Pain Scale 7-10) Last Admin: 09/16/24 03:28 Dose: 1 mg Documented By: KACY Acetaminophen (Ofirmev) 1,000 mg in 100 mls @ 400 mls/hr IV Q6H PRN PRN Reason: Pain, Mild (Pain Scale 1-3) Last Infusion: 09/18/24 23:10 Dose: Infused Documented By: JOSE J Piperacillin Sod/Tazobactam (Sod 3.375 gm/ Sodium Chloride) 50 mls @ 100 mls/hr IV Q6H COUNTS [facility]CLUDE 234 BEDS AT [facility] Last Infusion: 09/21/24 03:37 Dose: Infused Documented By: MADIE Levothyroxine Sodium (Levothyroxine Sodium 175 Mcg Tablet) 175 mcg PO DAILY@0600 COUNTS [facility]CLUDE 234 BEDS AT [facility] Last Admin: 09/21/24 05:24 Dose: 175 mcg Documented By: MADIE Magnesium Hydroxide (Milk Of Magnesia 30 Ml Oral.Susp) 30 ml PO DAILY PRN PRN Reason: Constipation Melatonin (Melatonin 3 Mg Tablet) 6 mg PO BEDTIME PRN PRN Reason: Insomnia Last Admin: 09/20/24 19:47 Dose: 6 mg Documented By: MADIE Metoprolol Tartrate (Metoprolol Tartrate 12.5 Mg Halftab) 12.5 mg PO BID COUNTS [facility]CLUDE 234 BEDS AT [facility]; Protocol Last Admin: 09/20/24 19:46 Dose: 12.5 mg Documented By: MADIE Comments: BP 137/75 H 97 Multi-Ingred Medicated Throat [place] (Throat [place], Medicated 177 Ml Bottle) 1 spray MUCOUS MEM Q2H PRN PRN Reason: Sore Throat Last Admin: 09/18/24 22:52 Dose: 1 spray Documented By: JOSE J Ondansetron HCl (Ondansetron Hcl 4 Mg/2 Ml Vial) 4 mg IVPUSH QID PRN PRN Reason: Nausea Last Admin: 09/14/24 18:44 Dose: 4 mg Documented By: LEXI Pharmacy Consult (Consult Rx Parenteral Nutrition Ordering) 1 each MISCELLANE DAILY PRN PRN Reason: Consult order Simethicone (Simethicone 80 Mg Tab.Chew) 80 mg PO QIDWMHS PRN PRN Reason: Gas Last Admin: 09/18/24 23:48 Dose: 80 mg Documented By: JOSE J Comments: pt reports dorain jadyn Sodium Chloride (0.9 % Sodium Chloride Flush 3 Ml Syringe) [facility] Last Admin: 09/20/24 19:47 Dose: 3 ml Documented By: MADIE Labs 09/18/24 07:01 09/21/24 05:47 Labs: Laboratory Results - last 24 hr 09/21/24 05:47 Hold Purple Top SEE NOTE Anion Gap 8 L Estim Creat Clear Calc 112.5 Estimated GFR > 60 Random Glucose 104 Calcium 8.0 L Phosphorus 2.9 Magnesium 1.9 Albumin 2.8 L Microbiology Microbiology Results: Microbiology 09/15/24 15:00 Gram Stain - Final Abscess Intra-abdominal Routine Culture - Final Anaerobic Culture - Final Procedures Date of Service Date of Service: 09/21/24 Progress Note: A&P Assessment and plan (1) S/P small bowel resection: Status: Acute Plan 74-year-old female POD 6 following exploratory laparotomy, drainage of abdominal abscess, repair of incisional hernia, small-bowel resection. Patient overall doing well. She is now tolerating regular diet. No new bowel movements today but is passing gas. Ambulating as tolerated. Abdomen is soft and benign. The incision site had serosanguineous fluid draining from the center, and the distal portion had surrounging erythema. The distal two quentin were removed and the incision was probed with a q tip which facilitated additional serosanguineous fluid which appeared to be a seroma. The area was packed with 1/2 packing and dressed with guaze and an ABD pad. The center of the incision was also draining, so one additional staple was removed. The wound was again probed with a qtip to facilitate drainage, this was again packed and dressed in the same fashion. The patient tolerated this well. No indication for additional antibiotic coverage. Patient remains on zosyn. Recommend daily dressing changes, or as needed depending on saturation. Continue IV zosyn Continue diet recommend ambulation and spirometry Afib managed by cardiology and hospitalist. Time Spent With Patient Time: Total time managing care of this patient today ____ minutes. Quality Stroke Does the patient have a stroke diagnosis?: No VTE Prior VTE?: No VTE Risk Level:: Surgical - moderate VTE Device Contraindication: N/A - Device Ordered VTE Drug Contraindication: N/A - Med Ordered
[2024-09-21] MEDS: 0.9 % Sodium Chloride Flush 3 ML SYRINGE IVFLUSH ×3 (10:21→22:01)
[2024-09-21] MEDS: buPROPion HCl XL 150 MG TAB.ER.24H PO (10:22)
[2024-09-21] MEDS: Apixaban 5 MG TABLET PO ×2 (10:22→21:59)
[2024-09-21] MEDS: Metoprolol Tartrate 12.5 MG HALFTAB PO ×2 (10:22→22:00)
[2024-09-22 03:39] VITALS: BP 121/56; PULSE 91; RESP 18; TEMP 37.4; O2SAT 96
[2024-09-22] MEDS: Piperacillin Sodium/Tazobactam 3.375 GM in 0.9 % Sodium Chloride 50 ML IV ×4 (04:23→21:51)
[2024-09-22] MEDS: Levothyroxine Sodium 175 MCG TABLET PO (05:35)
[2024-09-22 07:27] VITALS: BP 129/67; PULSE 84; RESP 16; TEMP 36.3; O2SAT 96
--- NOTE | 2024-09-22 07:29 | PM.PNGS ---
Subjective Subjective Date of Service: 09/22/24 Patient reports: no new complaints, tolerating a regular diet and bowel movement Interval history: patient doing well. Endorses mild pain at the incision site, well managed with medication. reports passing bowel movement. Ambulating as tolerated within the room. dressing needed to be changed twice overnight due to saturation. Patient denies fever/chills, nausea/vomiting, chest pain, SOB Physical Exam Vital Signs: Vital Signs: Last Vital Signs Temp 99.3 F 09/22/24 03:39 Pulse 91 09/22/24 03:39 Resp 18 09/22/24 03:39 BP 121/56 L 09/22/24 03:39 Pulse Ox 96 09/22/24 03:39 O2 Del Method Room Air 09/22/24 03:39 O2 Flow Rate 1 09/17/24 15:26 BMI result Body Mass Index 43.7 Const: General: comfortable and no acute distress Orientation/consciousness: patient oriented x3 GI: Other: incision site dressing saturated at time of evaluation. Inferior aspect has mild erythema surrounding, improvement from yesterday. Draining serosanguineous fluid. The inferior opening was probed with qtip, tracks about 6 cm. superior opening tracks about 2 cm. both were packed with 1/2in packing and redressed Inspection: No distended Palpation (GI): Soft to palpation, not firm, Tenderness to palpation present (GI) (incisional), no guarding and not rigid Neuro: General: patient oriented x3 Objective Data Active Medications Apixaban (Apixaban 5 Mg Tablet) 5 mg PO BID [facility] Last Admin: 09/21/24 21:59 Dose: 5 mg Documented By: ENEDINA Bupropion HCl (Bupropion Hcl Xl 150 Mg Tab.Er.24h) 150 mg PO DAILY [facility] Last Admin: 09/21/24 10:22 Dose: 150 mg Documented By: DOBROB Calcium Carbonate (Calcium Carbonate 750 Mg Tab.Chew) 750 mg PO Q4H PRN PRN Reason: Heartburn Hydromorphone HCl (Hydromorphone Hcl 1 Mg/Ml Syringe) 1 mg IVPUSH Q3H PRN; Protocol PRN Reason: Pain, Severe (Pain Scale 7-10) Last Admin: 09/16/24 03:28 Dose: 1 mg Documented By: KACY Acetaminophen (Ofirmev) 1,000 mg in 100 mls @ 400 mls/hr IV Q6H PRN PRN Reason: Pain, Mild (Pain Scale 1-3) Last Infusion: 09/18/24 23:10 Dose: Infused Documented By: JOSE J Piperacillin Sod/Tazobactam (Sod 3.375 gm/ Sodium Chloride) 50 mls @ 100 mls/hr IV Q6H [facility] Last Infusion: 09/22/24 05:20 Dose: Infused Documented By: ENEDINA Levothyroxine Sodium (Levothyroxine Sodium 175 Mcg Tablet) 175 mcg PO DAILY@0600 [facility] Last Admin: 09/22/24 05:35 Dose: 175 mcg Documented By: ENEDINA Magnesium Hydroxide (Milk Of Magnesia 30 Ml Oral.Susp) 30 ml PO DAILY PRN PRN Reason: Constipation Melatonin (Melatonin 3 Mg Tablet) 6 mg PO BEDTIME PRN PRN Reason: Insomnia Last Admin: 09/20/24 19:47 Dose: 6 mg Documented By: MADIE Metoprolol Tartrate (Metoprolol Tartrate 12.5 Mg Halftab) 12.5 mg PO BID [facility]; Protocol Last Admin: 09/21/24 22:00 Dose: 12.5 mg Documented By: ENEDINA Comments: Multi-Ingred Medicated Throat [place] (Throat [place], Medicated 177 Ml Bottle) 1 spray MUCOUS MEM Q2H PRN PRN Reason: Sore Throat Last Admin: 09/18/24 22:52 Dose: 1 spray Documented By: JOSE J Ondansetron HCl (Ondansetron Hcl 4 Mg/2 Ml Vial) 4 mg IVPUSH QID PRN PRN Reason: Nausea Last Admin: 09/14/24 18:44 Dose: 4 mg Documented By: LEXI Pharmacy Consult (Consult Rx Parenteral Nutrition Ordering) 1 each MISCELLANE DAILY PRN PRN Reason: Consult order Simethicone (Simethicone 80 Mg Tab.Chew) 80 mg PO QIDWMHS PRN PRN Reason: Gas Last Admin: 09/18/24 23:48 Dose: 80 mg Documented By: JOSE J Comments: pt reports feelin gassy Sodium Chloride (0.9 % Sodium Chloride Flush 3 Ml Syringe) [facility] Last Admin: 09/21/24 22:01 Dose: 3 ml Documented By: ENEDINA Labs 09/18/24 07:01 09/22/24 06:32 Labs: Laboratory Results - last 24 hr 09/21/24 09/22/24 05:47 06:32 Hold Purple Top SEE NOTE Anion Gap 8 L Estim Creat Clear Calc 112.5 Estimated GFR > 60 Random Glucose 104 Calcium 8.0 L Phosphorus 2.9 Magnesium 1.9 Albumin 2.8 L Procedures Date of Service Date of Service: 09/22/24 Progress Note: A&P Assessment and plan (1) S/P small bowel resection: Status: Acute Plan 74 year old female POD 7 s/p exploratory laparotomy, drainage of abdominal abscess, repair of incisional hernia, small-bowel resection. Patient overall doing well. She is tolerating regular diet. Passing bowel movements. She is afebrile. Dressings saturating multiple times overnight. Incision site continues to drain, some improvement in the surrounding erythema noted. The wound was again probed with a qtip, the inferior opening tracks about 6 cm, while the superior tracks about 2 cm. The fluid draining remains serosanguineous. They were repacked with 1/2 in packing and redressed. Abdominal exam remains soft and benign aside from incisional tenderness. Continue dressing changes as needed, leave packing in place Continue IV zosyn pain regimen as needed Will order AM CBC Ambulation as tolerated Continue regular diet New onset AFib management continued per hospitalist and Cardiology recommendation Time Spent With Patient Time: Total time managing care of this patient today ____ minutes. Quality Stroke Does the patient have a stroke diagnosis?: No VTE Prior VTE?: No VTE Risk Level:: Surgical - moderate VTE Device Contraindication: N/A - Device Ordered VTE Drug Contraindication: N/A - Med Ordered
[2024-09-22 07:46] LABS: Albumin Level 2.8 g/dL (3.5-5.0); Anion Gap 9 (12-20); Blood Urea Nitrogen 9 mg/dL (9-16); Calcium 8.2 mg/dL (8.4-10.2); Carbon Dioxide 31 mmol/L (22-29); Chloride 99 mmol/L (96-108); Creatinine Clr Calc Pharmacy 104.2; Estimated Glomerular Filt Rate > 60; Glucose Random 88 mg/dL (60-115); Magnesium 1.9 mg/dL (1.6-2.6); Phosphorus 2.1 mg/dL (2.7-4.5); Potassium 4.3 mmol/L (3.3-5.1); Sodium 135 mmol/L (135-145)
[2024-09-22] MEDS: Apixaban 5 MG TABLET PO ×2 (08:40→21:52)
[2024-09-22] MEDS: Metoprolol Tartrate 12.5 MG HALFTAB PO ×2 (08:40→22:09)
[2024-09-22] MEDS: buPROPion HCl XL 150 MG TAB.ER.24H PO (08:40)
[2024-09-22] MEDS: 0.9 % Sodium Chloride Flush 3 ML SYRINGE IVFLUSH ×3 (08:47→22:09)
[2024-09-22 11:36] VITALS: BP 128/77; PULSE 86; RESP 16; TEMP 36.2; O2SAT 97
--- NOTE | 2024-09-22 15:13 | MHC.CM.PN ---
Patient is not medically cleared to discharge today. Surgical wound is draining large amount of sero-sanguineous drainage. She continues to require IV ABX. Patient is tolerating diet.
[2024-09-22 16:00] VITALS: BP 130/78; PULSE 80; RESP 18; TEMP 36.3; O2SAT 98
[2024-09-22 20:00] VITALS: BP 135/76; PULSE 96; RESP 18; TEMP 37.4; O2SAT 97
[2024-09-23] VITALS (7 sets, daily range): BP systolic 118–137; BP diastolic 59–84; PULSE 72–95; RESP 16–20; TEMP 34.1–37; O2SAT 95–97
[2024-09-23] MEDS: Acetaminophen 1,000 MG/100 ML PIGGYBACK 400 MG IV (01:38)
[2024-09-23] MEDS: Piperacillin Sodium/Tazobactam 3.375 GM in 0.9 % Sodium Chloride 50 ML IV ×4 (03:42→20:32)
[2024-09-23] MEDS: Levothyroxine Sodium 175 MCG TABLET PO (04:55)
[2024-09-23 07:11] LABS: Hematocrit 36.4 % (37.0-47.0); Mean Corpuscular Hemoglobin 26.3 pg (27.0-33.0); Mean Corpuscular Volume 79.8 fL (80.0-98.0); Mean Platelet Volume 8.6 fL (9.4-12.3); Platelet Count 381 X10*3/uL (160-400); Red Blood Count 4.56 X10*6/uL (4.20-5.50); Red Cell Distribution Width 15.2 % (11.0-16.0); White Blood Count 12.9 X10*3/uL (4.8-10.8)
[2024-09-23 07:18] LABS: Albumin Level 2.8 g/dL (3.5-5.0); Anion Gap 10 (12-20); Blood Urea Nitrogen 8 mg/dL (9-16); Calcium 8.1 mg/dL (8.4-10.2); Carbon Dioxide 29 mmol/L (22-29); Chloride 101 mmol/L (96-108); Creatinine Clr Calc Pharmacy 97.1; Estimated Glomerular Filt Rate > 60; Glucose Random 96 mg/dL (60-115); Phosphorus 2.2 mg/dL (2.7-4.5); Potassium 4.1 mmol/L (3.3-5.1); Sodium 136 mmol/L (135-145)
--- NOTE | 2024-09-23 07:57 | P.PNGS_ITS ---
Subjective Subjective Date of Service: 09/23/24 <Arturo Sung PA-C - Last Filed: 09/23/24 08:20> 09/23/24 <Drake Crawford MD - Last Filed: 09/23/24 08:11> Interval history: Patients pain is well controlled. Reports passing gas, no bowel movement yesterday. She has been ambulating within the room. Tolerating diet, denies nausea, vomiting. Overnight nursing reports high saturation of abdominal dressings, reports output appears malodorous and is no cloudy yellow. Patient denies fever/chills <Arturo Sung PA-C - Last Filed: 09/23/24 08:20> Physical Exam 2 Vital Signs: Vital Signs: Last Vital Signs Temp 97.2 F 09/23/24 07:40 Pulse 86 09/23/24 07:40 Resp 20 09/23/24 07:40 BP 126/72 09/23/24 07:40 Pulse Ox 95 09/23/24 07:40 O2 Del Method Room Air 09/23/24 07:40 O2 Flow Rate 1 09/17/24 15:26 BMI result Body Mass Index 43.7 <Arturo Sung PA-C - Last Filed: 09/23/24 08:20> Const: General: comfortable and no acute distress <RK Ramos Last Filed: 09/23/24 08:20> Orientation/consciousness: patient oriented x3 <RK Ramos Last Filed: 09/23/24 08:20> Resp: Effort & Inspection: normal respiratory effort and able to speak in complete sentences <RK Ramos Last Filed: 09/23/24 08:20> GI: Other: incision site dressings saturated. The wound has high output, cloudy yellow malodorous drainage. There appears to be feculent material within the drainage. The skin surrounding the wound is erythematous. Mildy tender to palpation. <RK Ramos Last Filed: 09/23/24 08:20> Inspection: No distended <RK Ramos Last Filed: 09/23/24 08:20> Palpation (GI): Soft to palpation, not firm, Tenderness to palpation present (GI) (mild), no guarding and not rigid <Arturo Sung PA-C - Last Filed: 09/23/24 08:20> Neuro: General: patient oriented x3 <Arturo Sung PA-C - Last Filed: 09/23/24 08:20> Objective Data Active Medications Apixaban (Apixaban 5 Mg Tablet) 5 mg PO BID [facility] Last Admin: 09/22/24 21:52 Dose: 5 mg Documented By: JOSE J Bupropion HCl (Bupropion Hcl Xl 150 Mg Tab.Er.24h) 150 mg PO DAILY [facility] Last Admin: 09/22/24 08:40 Dose: 150 mg Documented By: GAVIN Calcium Carbonate (Calcium Carbonate 750 Mg Tab.Chew) 750 mg PO Q4H PRN PRN Reason: Heartburn Hydromorphone HCl (Hydromorphone Hcl 1 Mg/Ml Syringe) 1 mg IVPUSH Q3H PRN; Protocol PRN Reason: Pain, Severe (Pain Scale 7-10) Last Admin: 09/16/24 03:28 Dose: 1 mg Documented By: KACY Acetaminophen (Ofirmev) 1,000 mg in 100 mls @ 400 mls/hr IV Q6H PRN PRN Reason: Pain, Mild (Pain Scale 1-3) Last Infusion: 09/23/24 01:53 Dose: Infused Documented By: JOSE J Piperacillin Sod/Tazobactam (Sod 3.375 gm/ Sodium Chloride) 50 mls @ 100 mls/hr IV Q6H [facility] Last Infusion: 09/23/24 04:15 Dose: Infused Documented By: JOSE J Levothyroxine Sodium (Levothyroxine Sodium 175 Mcg Tablet) 175 mcg PO DAILY@0600 [facility] Last Admin: 09/23/24 04:55 Dose: 175 mcg Documented By: JOSE J Magnesium Hydroxide (Milk Of Magnesia 30 Ml Oral.Susp) 30 ml PO DAILY PRN PRN Reason: Constipation Melatonin (Melatonin 3 Mg Tablet) 6 mg PO BEDTIME PRN PRN Reason: Insomnia Last Admin: 09/20/24 19:47 Dose: 6 mg Documented By: CASTILDigna Metoprolol Tartrate (Metoprolol Tartrate 12.5 Mg Halftab) 12.5 mg PO BID [facility]; Protocol Last Admin: 09/22/24 22:09 Dose: 12.5 mg Documented By: JOSE J Comments: BP 139/63 HR 90 Multi-Ingred Medicated Throat [place] (Throat [place], Medicated 177 Ml Bottle) 1 spray MUCOUS MEM Q2H PRN PRN Reason: Sore Throat Last Admin: 09/18/24 22:52 Dose: 1 spray Documented By: JOSE J Ondansetron HCl (Ondansetron Hcl 4 Mg/2 Ml Vial) 4 mg IVPUSH QID PRN PRN Reason: Nausea Last Admin: 09/14/24 18:44 Dose: 4 mg Documented By: LEXI Pharmacy Consult (Consult Rx Parenteral Nutrition Ordering) 1 each MISCELLANE DAILY PRN PRN Reason: Consult order Simethicone (Simethicone 80 Mg Tab.Chew) 80 mg PO QIDWMHS PRN PRN Reason: Gas Last Admin: 09/18/24 23:48 Dose: 80 mg Documented By: JOSE J Comments: pt reports feelin gassy Sodium Chloride (0.9 % Sodium Chloride Flush 3 Ml Syringe) 3 ml IVFLUSH QSHIFT [facility] Last Admin: 09/22/24 22:09 Dose: 3 ml Documented By: JOSE J <Arturo Sung PA-C - Last Filed: 09/23/24 08:20> Labs CBC & Chem 7: 09/23/24 06:50 09/23/24 06:50 <Arturo Sung PA-C - Last Filed: 09/23/24 08:20> Labs: Laboratory Results - last 24 hr 09/23/24 06:50 MCV 79.8 L MCH 26.3 L MCHC 33.0 RDW 15.2 Plt Count 381 MPV 8.6 L Absolute Nucleated RBC 0.000 Nucleated RBC % (auto) 0.0 Anion Gap 10 L Estim Creat Clear Calc 97.1 Estimated GFR > 60 Random Glucose 96 Calcium 8.1 L Phosphorus 2.2 L Magnesium 2.0 Albumin 2.8 L <Arturo Sung PA-C - Last Filed: 09/23/24 08:20> Procedures Date of Service Date of Service: 09/23/24 <Arturo Sung PA-C - Last Filed: 09/23/24 08:20> 09/23/24 <Drake Crawford MD - Last Filed: 09/23/24 08:11> Progress Note: A&P Assessment and plan (1) S/P small bowel resection: Status: Acute <Arturo Sung PA-C - Last Filed: 09/23/24 08:20> (2) Recurrent incisional hernia with obstruction: Status: Acute <Arturo Sung PA-C - Last Filed: 09/23/24 08:20> (3) Complete small bowel obstruction: Status: Acute <Arturo Sung PA-C - Last Filed: 09/23/24 08:20> Assessment and Plan: 74 year old female POD 8 s/p exploratory laparotomy, drainage of abdominal abscess, repair of incisional hernia, small-bowel resection. Patient is now having increased output from incision site. The drainage appears cloudy yellow with feculent material. The packing was removed to let the wound continue to drain. The wound was dressed with a high output dressing. Mild leukocytosis, 12.9, on AM labs. Will order repeat CT scan for possible abscess formation and the viability of the anastamosis. Patient will be NPO. Abdominal exam remains soft, mildly tender around the incision site. Nondistended. CT pending NPO Continue IV zosyn New onset afib management per hospitalist/cardiology Agree with the above assessment and plan. Increased the healing discharge noted from the lower incision suggestive of a possible intra-abdominal abscess or fistula. Dressings changed. CT abdomen and pelvis with oral contrast requested. Patient expressed understanding and agrees with the plan. <Arturo Sung PA-C - Last Filed: 09/23/24 08:20> 74 year old female POD 8 s/p exploratory laparotomy, drainage of abdominal abscess, repair of incisional hernia, small-bowel resection. Patient is now having increased output from incision site. The drainage appears cloudy yellow with feculent material Agree with the above assessment and plan. Increased the healing discharge noted from the lower incision suggestive of a possible intra-abdominal abscess or fistula. Dressings changed. CT abdomen and pelvis with oral contrast requested. Patient expressed understanding and agrees with the plan. <Drake Crawford MD - Last Filed: 09/23/24 08:11> Time Spent With Patient Time: Total time managing care of this patient today ____ minutes. <Arturo Sung PA-C - Last Filed: 09/23/24 08:20> Quality Stroke Does the patient have a stroke diagnosis?: No <Arturo Sung PA-C - Last Filed: 09/23/24 08:20> VTE Prior VTE?: No <Arturo Sung PA-C - Last Filed: 09/23/24 08:20> VTE Risk Level:: Surgical - moderate <Arturo Sung PA-C - Last Filed: 09/23/24 08:20> VTE Device Contraindication: N/A - Device Ordered <Arturo Sung PA-C - Last Filed: 09/23/24 08:20> VTE Drug Contraindication: N/A - Med Ordered <Arturo Sung PA-C - Last Filed: 09/23/24 08:20>
--- NOTE | 2024-09-23 08:09 | P.CDIM_ITS ---
PROVIDER RESPONSE TEXT: To clarify, the appropriate diagnosis supported by the clinical indicators: Obesity Due to excess calories QUERY TEXT: PHYSICIAN'S DOCUMENTATION REQUEST Date of Query: 09/20/2024 08:37 AM EDT Patient Name: Linda Barlow Admit Date: 09/13/2024 Dear Drake Crawford MD, A review of the medical record indicates additional documentation may be needed. Please review below and update the documentation accordingly. Clinical Indicators: Height: ( ) 5'2 Weight: ( ) 108.3 kg BMI: ( ) 43.7 Other Clinical Notes Supporting Significance of the BMI: Per RD Assessment 09/17/24: Morbid obesity well nourished NPO, requires PPN If possible, please provide an associated diagnosis related to the abnormal BMI, such as: Overweight Obesity Due to excess calories Obesity Drug induced Obesity Due to other cause Specify the other cause Severe or Morbid Obesity With alveolar hypoventilation Severe or Morbid Obesity Without alveolar hypoventilation BMI is not significant Other (explain) Clinically unable to determine (explain) Thank you, Maura Guerrero RN Use of terms such as suspected, likely, concern for, or probable (associated with a specific diagnosi s that is being evaluated, monitored, or treated as if it exists) are acceptable and can be coded in the inpatient se tting, when documented at the time of discharge. Please use your independent medical judgment in providing your response. THIS QUERY IS PART OF THE PERMANENT MEDICAL RECORD
[2024-09-23] MEDS: 0.9 % Sodium Chloride Flush 3 ML SYRINGE IVFLUSH ×3 (09:51→20:48)
[2024-09-23] MEDS: buPROPion HCl XL 150 MG TAB.ER.24H PO (11:19)
[2024-09-23] MEDS: Metoprolol Tartrate 12.5 MG HALFTAB PO ×2 (11:19→20:31)
[2024-09-23] MEDS: Apixaban 5 MG TABLET PO ×2 (11:20→20:31)
[2024-09-23] MEDS: iohexoL 350 MG/ML 100 ML INFUS..BTL IV (12:14)
--- NOTE | 2024-09-23 12:27 | P.CDIM_ITS ---
PROVIDER RESPONSE TEXT: To clarify, the appropriate diagnosis supported by the clinical indicators: Other (explain): patient with enterocutaneous fistula QUERY TEXT: PHYSICIAN'S DOCUMENTATION REQUEST Date of Query: 09/22/2024 09:39 AM EDT Patient Name: Linda Barlow Admit Date: 09/13/2024 Dear Drake Crawford MD, A review of the medical record indicates additional documentation may be needed. Please review below and update the documentation accordingly. Clinical Indicators: s/p exploratory laparotomy, drainage of abdominal abscess, repair of incisional hernia, small-bowel r esection Incision site has seroma which was probed with a q-tip for additional serosanguinous fluid area was packed with 1/2 packing and dressed with gauze and an ABD pad Based on the above, could you clarify the depth of the seroma that supports the above abnormalities a nd additional evaluation, monitoring, and/or treatment rendered: skin subcutaneous tissue and fascia muscle Other (explain) Clinically unable to determine (explain) Thank you, Maura Guerrero RN Use of terms such as suspected, likely, concern for, or probable (associated with a specific diagnosi s that is being evaluated, monitored, or treated as if it exists) are acceptable and can be coded in the inpatient se tting, when documented at the time of discharge. Please use your independent medical judgment in providing your response. THIS QUERY IS PART OF THE PERMANENT MEDICAL RECORD
--- NOTE | 2024-09-23 15:03 | HO.WOUND ---
Wound Consult: Initial 74 old?female admitted to [facility] [place] on 09/13/24 15:43- See progress notes and H&P for detailed history.? Wound consult placed for Midline dehiscence and copious amounts of drainage.? Patient agreeable to assessment and photo documentation.?Brief chart review completed as was consulted while on unit. Patient is followed by General surgery. Direct care staff reports concerns with azra-incision skin break down due to amount of drainage. Arrival to bedside direct care nurse reports provider was in recently to apply ostomy pouch. Skin assessed and pouch was noted to be leaking and non adherent to wound bed thus no capturing any of the drainage. Removed and skin cleansed with Ns moist gauze. Skin prep applied. The skin inferior to the incision is noted for MASD with some red erythema, scattered epidermal loss, tenderness reported. After cleansing the incision was note to have two areas of drainage. The area between the 8th and 9th quentin was noted for a small amount of kemp oozing. The most inferior portion of the incision where quentin were removed was open with slough noted and moderate amounts of orange, yellow and kemp drainage noted, mal odor noted. Recommendations: Midline Incision - Cleanse with NS Moist gauze, Pat dry. Apply skin prep allow to dry. At superior oozing site apply durafiber over incision cover with hydrocolloid, at open are place ostomy pouch with small opening. Template left at bedside. Empty when a 1/3 -1/2 full. Notify provider of worsening incision. Re-consult wound care Nurse for wound deterioration or wound changes.
[2024-09-24 03:39] VITALS: BP 134/80; PULSE 68; RESP 16; TEMP 36.9; O2SAT 97
[2024-09-24] MEDS: Piperacillin Sodium/Tazobactam 3.375 GM in 0.9 % Sodium Chloride 50 ML IV ×4 (03:41→20:16)
[2024-09-24] MEDS: Levothyroxine Sodium 175 MCG TABLET PO (04:40)
[2024-09-24 07:03] LABS: Anion Gap 13 (12-20); Blood Urea Nitrogen 6 mg/dL (9-16); Calcium 8.4 mg/dL (8.4-10.2); Carbon Dioxide 28 mmol/L (22-29); Chloride 99 mmol/L (96-108); Creatinine Clr Calc Pharmacy 104.2; Estimated Glomerular Filt Rate > 60; Glucose Random 72 mg/dL (60-115); Magnesium 2.1 mg/dL (1.6-2.6); Phosphorus 2.5 mg/dL (2.7-4.5); Potassium 4.1 mmol/L (3.3-5.1); Sodium 136 mmol/L (135-145)
[2024-09-24 07:33] VITALS: BP 130/75; PULSE 82; RESP 18; TEMP 36.1; O2SAT 98
--- NOTE | 2024-09-24 09:12 | PM.PNGS ---
Subjective Subjective Date of Service: 09/24/24 Patient reports: no new complaints Interval history: patient has ostomy bag placed on incision site to protect skin from drainage from incision site. Appears to be working well. Moderately high output, contents appears to be feculent in nature, and is accompanied by gas. Patient states she is feeling okay this morning. denies fever/chill, N/V. Remains NPO Physical Exam Vital Signs: Vital Signs: Last Vital Signs Temp 97.0 F 09/24/24 07:33 Pulse 82 09/24/24 07:33 Resp 18 09/24/24 07:33 BP 130/75 09/24/24 07:33 Pulse Ox 98 09/24/24 07:33 O2 Del Method Room Air 09/24/24 07:33 O2 Flow Rate 1 09/17/24 15:26 BMI result Body Mass Index 43.7 Const: General: no acute distress Orientation/consciousness: patient oriented x3 Resp: Effort & Inspection: normal respiratory effort and able to speak in complete sentences GI: Other: ostomy bag in place over midline incision, draining moderate high volume of feculent drainage. Inspection: No distended Palpation (GI): Soft to palpation, nontender, no guarding and not rigid Neuro: General: patient oriented x3 Objective Data Active Medications Apixaban (Apixaban 5 Mg Tablet) 5 mg PO BID [facility] Last Admin: 09/23/24 20:31 Dose: 5 mg Documented By: TYE Bupropion HCl (Bupropion Hcl Xl 150 Mg Tab.Er.24h) 150 mg PO DAILY [facility] Last Admin: 09/23/24 11:19 Dose: 150 mg Documented By: LEXI Calcium Carbonate (Calcium Carbonate 750 Mg Tab.Chew) 750 mg PO Q4H PRN PRN Reason: Heartburn Hydromorphone HCl (Hydromorphone Hcl 1 Mg/Ml Syringe) 1 mg IVPUSH Q3H PRN; Protocol PRN Reason: Pain, Severe (Pain Scale 7-10) Last Admin: 09/16/24 03:28 Dose: 1 mg Documented By: KACY Acetaminophen (Ofirmev) 1,000 mg in 100 mls @ 400 mls/hr IV Q6H PRN PRN Reason: Pain, Mild (Pain Scale 1-3) Last Infusion: 09/23/24 01:53 Dose: Infused Documented By: JOSE J Piperacillin Sod/Tazobactam (Sod 3.375 gm/ Sodium Chloride) 50 mls @ 100 mls/hr IV Q6H [facility] Last Infusion: 09/24/24 04:35 Dose: Infused Documented By: TYE Levothyroxine Sodium (Levothyroxine Sodium 175 Mcg Tablet) 175 mcg PO DAILY@0600 [facility] Last Admin: 09/24/24 04:40 Dose: 175 mcg Documented By: TYE Magnesium Hydroxide (Milk Of Magnesia 30 Ml Oral.Susp) 30 ml PO DAILY PRN PRN Reason: Constipation Melatonin (Melatonin 3 Mg Tablet) 6 mg PO BEDTIME PRN PRN Reason: Insomnia Last Admin: 09/20/24 19:47 Dose: 6 mg Documented By: REGULOILDigna Metoprolol Tartrate (Metoprolol Tartrate 12.5 Mg Halftab) 12.5 mg PO BID [facility]; Protocol Last Admin: 09/23/24 20:31 Dose: 12.5 mg Documented By: TYE Multi-Ingred Medicated Throat [place] (Throat [place], Medicated 177 Ml Bottle) 1 spray MUCOUS MEM Q2H PRN PRN Reason: Sore Throat Last Admin: 09/18/24 22:52 Dose: 1 spray Documented By: JOSE J Ondansetron HCl (Ondansetron Hcl 4 Mg/2 Ml Vial) 4 mg IVPUSH QID PRN PRN Reason: Nausea Last Admin: 09/14/24 18:44 Dose: 4 mg Documented By: LEXI Pharmacy Consult (Consult Rx Parenteral Nutrition Ordering) 1 each MISCELLANE DAILY PRN PRN Reason: Consult order Simethicone (Simethicone 80 Mg Tab.Chew) 80 mg PO QIDWMHS PRN PRN Reason: Gas Last Admin: 09/18/24 23:48 Dose: 80 mg Documented By: JOSE J Comments: pt reports dorain gassy Sodium Chloride (0.9 % Sodium Chloride Flush 3 Ml Syringe) 3 ml IVFLUSH QSHIFT [facility] Last Admin: 09/23/24 20:48 Dose: 3 ml Documented By: TYE Labs 09/23/24 06:50 09/24/24 06:35 Labs: Laboratory Results - last 24 hr 09/24/24 06:35 Anion Gap 13 Estim Creat Clear Calc 104.2 Estimated GFR > 60 Random Glucose 72 Calcium 8.4 Phosphorus 2.5 L Magnesium 2.1 Albumin 3.0 L Procedures Date of Service Date of Service: 09/24/24 Progress Note: A&P Assessment and plan (1) S/P small bowel resection: Status: Acute Plan 74 year old female POD 8 s/p exploratory laparotomy, drainage of abdominal abscess, repair of incisional hernia, small-bowel resection. Patient had repeat imaging yesterday due to increased output with feculent material from midline incision, i reviewed imaging and impression, patient was found to have a fistulous communication inferior to the umbilicus between the small bowel and the previous abdominal wall abscess. Abscess is 4x2x3 cm and evidence of contrast was seen in the abscess. a separate fistulous tract is noted superior to the umbilicus. An ostomy bag was placed over the incision to protect the skin and contain drainage. There continues to be high output in into the bag, containing feculent drainage. Patient is afebrile, mild incision site pain. Abdomen is soft, nondistended. At this time, no plans for surgical intervention. we will continue to monitor the output from the incision for spontaneous closure. Will continue to monitor output. NPO Frequent dressing changes continue IV zosyn AM labs Afib management per hospitalist and cardiology. Time Spent With Patient Time: Total time managing care of this patient today ____ minutes. Quality Stroke Does the patient have a stroke diagnosis?: No VTE Prior VTE?: No VTE Risk Level:: Surgical - moderate VTE Device Contraindication: N/A - Device Ordered VTE Drug Contraindication: N/A - Med Ordered
[2024-09-24] MEDS: Apixaban 5 MG TABLET PO ×2 (09:37→20:16)
[2024-09-24] MEDS: Metoprolol Tartrate 12.5 MG HALFTAB PO ×2 (09:37→20:16)
[2024-09-24] MEDS: buPROPion HCl XL 150 MG TAB.ER.24H PO (09:38)
[2024-09-24] MEDS: 0.9 % Sodium Chloride Flush 3 ML SYRINGE IVFLUSH ×2 (09:38→15:43)
[2024-09-24 11:08] VITALS: BP 134/77; PULSE 65; RESP 20; TEMP 36.5; O2SAT 98
--- NOTE | 2024-09-24 14:22 | MHC.CM.PN ---
EMR reviewed and per MD rounds, pt is not medically cleared for discharge due to management of post-op care.
[2024-09-24 16:00] VITALS: BP 134/71; PULSE 76; RESP 16; TEMP 36.6; O2SAT 95
[2024-09-24 20:00] VITALS: BP 159/72; PULSE 89; RESP 16; TEMP 36.9; O2SAT 96
[2024-09-24 23:59] VITALS: BP 154/83; PULSE 57; RESP 17; TEMP 36.9; O2SAT 98
[2024-09-25] MEDS: 0.9 % Sodium Chloride Flush 3 ML SYRINGE IVFLUSH ×3 (00:46→20:38)
[2024-09-25] MEDS: Piperacillin Sodium/Tazobactam 3.375 GM in 0.9 % Sodium Chloride 50 ML IV ×4 (03:50→20:38)
[2024-09-25 03:58] VITALS: BP 152/93; PULSE 78; RESP 16; TEMP 36.2; O2SAT 97
[2024-09-25] MEDS: Levothyroxine Sodium 175 MCG TABLET PO (06:48)
[2024-09-25 06:49] VITALS: BP 138/79; PULSE 73; RESP 18; TEMP 37.1; O2SAT 96
[2024-09-25] MEDS: Metoprolol Tartrate 12.5 MG HALFTAB PO ×2 (08:46→20:38)
[2024-09-25] MEDS: buPROPion HCl XL 150 MG TAB.ER.24H PO (08:47)
[2024-09-25] MEDS: Apixaban 5 MG TABLET PO ×2 (08:47→20:38)
[2024-09-25] MEDS: Acetaminophen 1,000 MG/100 ML PIGGYBACK 400 MG IV (09:24)
--- NOTE | 2024-09-25 10:44 | MHC.CLN ---
Addendum entered by Estela Roy [facility] 09/26/24 09:32: spoke with Sheela yesterday regarding patients PPN: for today Sheela suggested if triglycerides are back normal I will want to keep her at 60ml/hr but add 42 g lipids. This will provide 1154kcals, 144g dextrose and 61g protein Trigs are back today 152 which is acceptable to start lipids. Original Note: CONSULT FOR PPN: PT REQUIRES PPN R/T PROLONGED NPO STATUS REVIEWED LABS DISCUSSED WITH PHARMACY RECOMMEND PPN START AT 60ML/HR TO PROVIDE 734KCALS, 144G DEXTROSE, 61G PROTEIN (1.2G/KG) REPLETE LYTES NEEDED; CHECK TRIGS
[2024-09-25 11:03] VITALS: BP 132/79; PULSE 88; RESP 18; TEMP 37.2; O2SAT 96
[2024-09-25 11:28] LABS: Hematocrit 40.2 % (37.0-47.0); Hemoglobin 13.2 g/dl (12.0-16.0); Mean Corpuscular HGB Conc 32.8 g/dl (31.0-35.0); Mean Corpuscular Hemoglobin 26.4 pg (27.0-33.0); Mean Corpuscular Volume 80.4 fL (80.0-98.0); Mean Platelet Volume 8.5 fL (9.4-12.3); Platelet Count 442 X10*3/uL (160-400); Red Cell Distribution Width 15.5 % (11.0-16.0); White Blood Count 11.1 X10*3/uL (4.8-10.8)
[2024-09-25 11:56] LABS: Albumin Level 3.1 g/dL (3.5-5.0); Anion Gap 14 (12-20); Blood Urea Nitrogen 7 mg/dL (9-16); Calcium 8.5 mg/dL (8.4-10.2); Carbon Dioxide 25 mmol/L (22-29); Chloride 100 mmol/L (96-108); Creatinine Clr Calc Pharmacy 102.3; Estimated Glomerular Filt Rate > 60; Glucose Random 73 mg/dL (60-115); Magnesium 2.1 mg/dL (1.6-2.6); Phosphorus 2.6 mg/dL (2.7-4.5); Sodium 135 mmol/L (135-145)
--- NOTE | 2024-09-25 13:11 | PM.PNGS ---
Subjective Subjective Date of Service: 09/25/24 Interval history: pt looks good, not having any abdominal pain of concern, no fever/chills Physical Exam Vital Signs: Vital Signs: Last Vital Signs Temp 98.9 F 09/25/24 11:03 Pulse 88 09/25/24 11:03 Resp 18 09/25/24 11:03 BP 132/79 09/25/24 11:03 Pulse Ox 96 09/25/24 11:03 O2 Del Method Room Air 09/25/24 11:03 O2 Flow Rate 1 09/17/24 15:26 BMI result Body Mass Index 43.7 Resp: Effort & Inspection: normal respiratory effort Auscultation: clear to auscultation bilaterally Cardio: Rate: regular rate Rhythm: regular rhythm GI: Other: abdomen is obese - nontender - ostomy bag over inf midline opening - greenish feculent particulate material in bag - thinking 100+30+ soem gauze saturation for the last day no peritoneal signs. Objective Data Active Medications Apixaban (Apixaban 5 Mg Tablet) 5 mg PO BID [facility] Last Admin: 09/25/24 08:47 Dose: 5 mg Documented By: WOODROW Bupropion HCl (Bupropion Hcl Xl 150 Mg Tab.Er.24h) 150 mg PO DAILY [facility] Last Admin: 09/25/24 08:47 Dose: 150 mg Documented By: WOODROW Calcium Carbonate (Calcium Carbonate 750 Mg Tab.Chew) 750 mg PO Q4H PRN PRN Reason: Heartburn Hydromorphone HCl (Hydromorphone Hcl 1 Mg/Ml Syringe) 1 mg IVPUSH Q3H PRN; Protocol PRN Reason: Pain, Severe (Pain Scale 7-10) Last Admin: 09/16/24 03:28 Dose: 1 mg Documented By: KACY Acetaminophen (Ofirmev) 1,000 mg in 100 mls @ 400 mls/hr IV Q6H PRN PRN Reason: Pain, Mild (Pain Scale 1-3) Last Infusion: 09/25/24 10:38 Dose: Infused Documented By: WOODROW Piperacillin Sod/Tazobactam (Sod 3.375 gm/ Sodium Chloride) 50 mls @ 100 mls/hr IV Q6H [facility] Last Infusion: 09/25/24 09:24 Dose: Infused Documented By: WOODROW Nutrition (Parenteral) (Parenteral Nutrition) 1,440 mls @ 60 mls/hr IV .Q24H [facility]; Protocol Stop: 09/26/24 20:59 Levothyroxine Sodium (Levothyroxine Sodium 175 Mcg Tablet) 175 mcg PO DAILY@0600 [facility] Last Admin: 09/25/24 06:48 Dose: 175 mcg Documented By: LEONOR Magnesium Hydroxide (Milk Of Magnesia 30 Ml Oral.Susp) 30 ml PO DAILY PRN PRN Reason: Constipation Melatonin (Melatonin 3 Mg Tablet) 6 mg PO BEDTIME PRN PRN Reason: Insomnia Last Admin: 09/20/24 19:47 Dose: 6 mg Documented By: CASTILDigna Metoprolol Tartrate (Metoprolol Tartrate 12.5 Mg Halftab) 12.5 mg PO BID [facility]; Protocol Last Admin: 09/25/24 08:46 Dose: 12.5 mg Documented By: WOODROW Multi-Ingred Medicated Throat [place] (Throat [place], Medicated 177 Ml Bottle) 1 spray MUCOUS MEM Q2H PRN PRN Reason: Sore Throat Last Admin: 09/18/24 22:52 Dose: 1 spray Documented By: JOSE J Ondansetron HCl (Ondansetron Hcl 4 Mg/2 Ml Vial) 4 mg IVPUSH QID PRN PRN Reason: Nausea Last Admin: 09/14/24 18:44 Dose: 4 mg Documented By: LEXI Pharmacy Consult (Consult Rx Parenteral Nutrition Ordering) 1 each MISCELLANE DAILY PRN PRN Reason: Consult order Simethicone (Simethicone 80 Mg Tab.Chew) 80 mg PO QIDWMHS PRN PRN Reason: Gas Last Admin: 09/18/24 23:48 Dose: 80 mg Documented By: JOSE J Comments: pt reports emmy salamanca Sodium Chloride (0.9 % Sodium Chloride Flush 3 Ml Syringe) 3 ml IVFLUSH QSHIFT [facility] Last Admin: 09/25/24 08:47 Dose: 3 ml Documented By: WOODROW Labs 09/25/24 11:18 09/25/24 11:18 Labs: Laboratory Results - last 24 hr 09/25/24 11:18 MCV 80.4 MCH 26.4 L MCHC 32.8 RDW 15.5 Plt Count 442 H MPV 8.5 L Absolute Nucleated RBC 0.000 Nucleated RBC % (auto) 0.0 Anion Gap 14 Estim Creat Clear Calc 102.3 Estimated GFR > 60 Random Glucose 73 Calcium 8.5 Phosphorus 2.6 L Magnesium 2.1 Albumin 3.1 L Procedures Date of Service Date of Service: 09/25/24 Progress Note: A&P Assessment and plan (1) S/P small bowel resection: Status: Acute Assessment and Plan: Pt pod#4 s/p expl lap with SBR and primary anastomosis with entero-cutaneous fistula= she looks good - HD stable not sick comfortable trial of conservative therapy to close this vis npo , ppn and iv antibiotics. will cont to d that today - monitor strict ins and outs danielle of the ostomy bag contents follow and correct electrolytes if not improving reexploration would be required which would be higher risk for complications and enterotomies. explained to family and pt who understand and agree with the plan Time Spent With Patient Time: Total time managing care of this patient today ____ minutes. Quality Stroke Does the patient have a stroke diagnosis?: No VTE Prior VTE?: No VTE Risk Level:: Surgical - moderate VTE Device Contraindication: N/A - Device Ordered VTE Drug Contraindication: N/A - Med Ordered
[2024-09-25 15:29] VITALS: BP 117/70; PULSE 84; RESP 18; TEMP 36.8; O2SAT 96
[2024-09-25 19:58] VITALS: BP 137/72; PULSE 74; RESP 17; TEMP 36.5; O2SAT 96
[2024-09-25] MEDS: Parenteral Nutrition 1,440 ML 60 ML IV (21:46)
[2024-09-25 23:30] VITALS: BP 122/80; PULSE 68; RESP 17; TEMP 36.4; O2SAT 99
[2024-09-26] MEDS: Piperacillin Sodium/Tazobactam 3.375 GM in 0.9 % Sodium Chloride 50 ML IV ×4 (02:57→21:51)
[2024-09-26 04:00] VITALS: BP 136/77; PULSE 75; RESP 17; TEMP 36.3; O2SAT 96
[2024-09-26] MEDS: Levothyroxine Sodium 175 MCG TABLET PO (05:25)
[2024-09-26 07:08] LABS: Anion Gap 12 (12-20); Blood Urea Nitrogen 11 mg/dL (9-16); Calcium 8.4 mg/dL (8.4-10.2); Carbon Dioxide 28 mmol/L (22-29); Chloride 100 mmol/L (96-108); Creatinine Clr Calc Pharmacy 95.4; Estimated Glomerular Filt Rate > 60; Glucose Random 107 mg/dL (60-115); Magnesium 2.1 mg/dL (1.6-2.6); Phosphorus 2.6 mg/dL (2.7-4.5); Potassium 3.9 mmol/L (3.3-5.1); Sodium 136 mmol/L (135-145); Triglycerides 152 mg/dL (<150)
[2024-09-26 07:42] VITALS: BP 147/63; PULSE 78; RESP 20; TEMP 36.4; O2SAT 94
[2024-09-26] MEDS: Apixaban 5 MG TABLET PO ×2 (08:40→21:51)
[2024-09-26] MEDS: 0.9 % Sodium Chloride Flush 3 ML SYRINGE IVFLUSH ×3 (08:40→21:52)
[2024-09-26] MEDS: buPROPion HCl XL 150 MG TAB.ER.24H PO (08:40)
[2024-09-26] MEDS: Metoprolol Tartrate 12.5 MG HALFTAB PO ×2 (08:40→21:52)
[2024-09-26 11:05] VITALS: BP 147/65; PULSE 61; RESP 20; TEMP 36.3; O2SAT 96
[2024-09-26 15:49] VITALS: BP 143/71; PULSE 76; RESP 12; TEMP 36.8; O2SAT 96
--- NOTE | 2024-09-26 16:32 | PM.PNGS ---
Subjective Subjective Date of Service: 09/27/24 Interval history: feeling ok no pain no issues less drainage into midline ostomy bag Physical Exam Vital Signs: Vital Signs: Last Vital Signs Temp 98.3 F 09/26/24 15:49 Pulse 76 09/26/24 15:49 Resp 12 09/26/24 15:49 BP 143/71 H 09/26/24 15:49 Pulse Ox 96 09/26/24 15:49 O2 Del Method Room Air 09/26/24 15:49 O2 Flow Rate 1 09/17/24 15:26 BMI result Body Mass Index 43.7 Const: General: cooperative, healthy appearing, comfortable and no acute distress GI: Other: abdomen is soft nontender brownish liquid material in ostomy bag good bowel sounds no peritoneal sounds Objective Data Active Medications Apixaban (Apixaban 5 Mg Tablet) 5 mg PO BID [facility] Last Admin: 09/26/24 08:40 Dose: 5 mg Documented By: SRINIVAS Bupropion HCl (Bupropion Hcl Xl 150 Mg Tab.Er.24h) 150 mg PO DAILY [facility] Last Admin: 09/26/24 08:40 Dose: 150 mg Documented By: SRINIVAS Calcium Carbonate (Calcium Carbonate 750 Mg Tab.Chew) 750 mg PO Q4H PRN PRN Reason: Heartburn Hydromorphone HCl (Hydromorphone Hcl 1 Mg/Ml Syringe) 1 mg IVPUSH Q3H PRN; Protocol PRN Reason: Pain, Severe (Pain Scale 7-10) Last Admin: 09/16/24 03:28 Dose: 1 mg Documented By: KACY Piperacillin Sod/Tazobactam (Sod 3.375 gm/ Sodium Chloride) 50 mls @ 100 mls/hr IV Q6H [facility] Last Infusion: 09/26/24 16:02 Dose: Infused Documented By: SRINIVAS Nutrition (Parenteral) (Parenteral Nutrition) 1,440 mls @ 60 mls/hr IV .Q24H [facility]; Protocol Stop: 09/26/24 20:59 Last Admin: 09/25/24 21:46 Dose: 60 mls/hr Documented By: TAVO Nutrition (Parenteral) (Parenteral Nutrition) 1,440 mls @ 60 mls/hr IV .Q24H [facility]; Protocol Stop: 09/27/24 20:59 Levothyroxine Sodium (Levothyroxine Sodium 175 Mcg Tablet) 175 mcg PO DAILY@0600 [facility] Last Admin: 09/26/24 05:25 Dose: 175 mcg Documented By: TAVO Magnesium Hydroxide (Milk Of Magnesia 30 Ml Oral.Susp) 30 ml PO DAILY PRN PRN Reason: Constipation Melatonin (Melatonin 3 Mg Tablet) 6 mg PO BEDTIME PRN PRN Reason: Insomnia Last Admin: 09/20/24 19:47 Dose: 6 mg Documented By: REGULOILDigna Metoprolol Tartrate (Metoprolol Tartrate 12.5 Mg Halftab) 12.5 mg PO BID [facility]; Protocol Last Admin: 09/26/24 08:40 Dose: 12.5 mg Documented By: SRINIVAS Multi-Ingred Medicated Throat [place] (Throat [place], Medicated 177 Ml Bottle) 1 spray MUCOUS MEM Q2H PRN PRN Reason: Sore Throat Last Admin: 09/18/24 22:52 Dose: 1 spray Documented By: JOSE J Ondansetron HCl (Ondansetron Hcl 4 Mg/2 Ml Vial) 4 mg IVPUSH QID PRN PRN Reason: Nausea Last Admin: 09/14/24 18:44 Dose: 4 mg Documented By: LEXI Pharmacy Consult (Consult Rx Parenteral Nutrition Ordering) 1 each MISCELLANE DAILY PRN PRN Reason: Consult order Simethicone (Simethicone 80 Mg Tab.Chew) 80 mg PO QIDWMHS PRN PRN Reason: Gas Last Admin: 09/18/24 23:48 Dose: 80 mg Documented By: JOSE J Comments: pt reports dorain gassy Sodium Chloride (0.9 % Sodium Chloride Flush 3 Ml Syringe) 3 ml IVFLUSH QSHIFT [facility] Last Admin: 09/26/24 15:22 Dose: 3 ml Documented By: SRINIVAS Labs 09/25/24 11:18 09/26/24 06:25 Labs: Laboratory Results - last 24 hr 09/26/24 06:25 Hold Purple Top SEE NOTE Anion Gap 12 Estim Creat Clear Calc 95.4 Estimated GFR > 60 Random Glucose 107 Calcium 8.4 Phosphorus 2.6 L Magnesium 2.1 Triglycerides 152 H Procedures Date of Service Date of Service: 09/27/24 Progress Note: A&P Assessment and plan (1) S/P small bowel resection: Status: Acute Assessment and Plan: pt s/p explor and sbr - 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 Quality Stroke Does the patient have a stroke diagnosis?: No VTE Prior VTE?: No VTE Risk Level:: Surgical - moderate VTE Device Contraindication: N/A - Device Ordered VTE Drug Contraindication: N/A - Med Ordered
[2024-09-26 19:37] VITALS: BP 138/62; PULSE 82; RESP 16; TEMP 36.4; O2SAT 97
[2024-09-26 23:51] VITALS: BP 132/88; PULSE 78; RESP 16; TEMP 36.5; O2SAT 96
[2024-09-26] MEDS: Parenteral Nutrition 1,440 ML 60 ML IV (23:58)
[2024-09-27 04:00] VITALS: BP 133/86; PULSE 80; RESP 16; TEMP 36.6; O2SAT 96
[2024-09-27] MEDS: Levothyroxine Sodium 175 MCG TABLET PO (05:27)
[2024-09-27] MEDS: Piperacillin Sodium/Tazobactam 3.375 GM in 0.9 % Sodium Chloride 50 ML IV ×4 (05:27→20:59)
[2024-09-27] MEDS: Acetaminophen 325 MG TABLET 650 MG PO (06:07)
[2024-09-27 07:35] LABS: Anion Gap 11 (12-20); Blood Urea Nitrogen 11 mg/dL (9-16); Calcium 8.7 mg/dL (8.4-10.2); Carbon Dioxide 27 mmol/L (22-29); Chloride 100 mmol/L (96-108); Creatinine Clr Calc Pharmacy 100.5; Estimated Glomerular Filt Rate > 60; Glucose Random 119 mg/dL (60-115); Magnesium 2.2 mg/dL (1.6-2.6); Phosphorus 2.2 mg/dL (2.7-4.5); Potassium 4.4 mmol/L (3.3-5.1); Sodium 134 mmol/L (135-145)
[2024-09-27 08:00] VITALS: BP 116/66; PULSE 86; RESP 18; TEMP 36.2; O2SAT 92
--- NOTE | 2024-09-27 08:44 | P.PNGS_ITS ---
Subjective Subjective Date of Service: 09/27/24 Patient reports: no new complaints Interval history: Patient has no new complaints, denies fever, chills. Denies abdominal pain. Denies nausea, vomiting. Drainage from midline incision overnight 25 cc. Previous day was 45 cc. Physical Exam 2 Vital Signs: Vital Signs: Last Vital Signs Temp 97.1 F 09/27/24 08:00 Pulse 86 09/27/24 08:00 Resp 18 09/27/24 08:00 BP 116/66 09/27/24 08:00 Pulse Ox 92 09/27/24 08:00 O2 Del Method Room Air 09/27/24 08:00 O2 Flow Rate 1 09/17/24 15:26 BMI result Body Mass Index 43.7 Const: General: comfortable and no acute distress O rientation/consciousness: patient oriented x3 Resp: Effort & Inspection: normal respiratory effort and able to speak in complete sentences GI: Other: Midline incision continues to be open distally. Draining serosanguineous, feculent fluid. Inspection: No distended Palpation (GI): Soft to palpation, nontender, no guarding and not rigid Neuro: General: patient oriented x3 Objective Data Active Medications Acetaminophen (Acetaminophen 325 Mg Tablet) 650 mg PO Q4H PRN PRN Reason: Pain, Mild 1-3,fever,headache Last Admin: 09/27/24 06:07 Dose: 650 mg Documented By: TAVO Apixaban (Apixaban 5 Mg Tablet) 5 mg PO BID [facility] Last Admin: 09/26/24 21:51 Dose: 5 mg Documented By: TAVO Bupropion HCl (Bupropion Hcl Xl 150 Mg Tab.Er.24h) 150 mg PO DAILY [facility] Last Admin: 09/26/24 08:40 Dose: 150 mg Documented By: SRINIVAS Calcium Carbonate (Calcium Carbonate 750 Mg Tab.Chew) 750 mg PO Q4H PRN PRN Reason: Heartburn Hydromorphone HCl (Hydromorphone Hcl 1 Mg/Ml Syringe) 1 mg IVPUSH Q3H PRN; Protocol PRN Reason: Pain, Severe (Pain Scale 7-10) Last Admin: 09/16/24 03:28 Dose: 1 mg Documented By: KACY Piperacillin Sod/Tazobactam (Sod 3.375 gm/ Sodium Chloride) 50 mls @ 100 mls/hr IV Q6H [facility] Last Infusion: 09/27/24 06:20 Dose: Infused Documented By: TAVO Nutrition (Parenteral) (Parenteral Nutrition) 1,440 mls @ 60 mls/hr IV .Q24H [facility]; Protocol Stop: 09/27/24 20:59 Last Admin: 09/26/24 23:58 Dose: 60 mls/hr Documented By: TAVO Levothyroxine Sodium (Levothyroxine Sodium 175 Mcg Tablet) 175 mcg PO DAILY@0600 [facility] Last Admin: 09/27/24 05:27 Dose: 175 mcg Documented By: TAVO Magnesium Hydroxide (Milk Of Magnesia 30 Ml Oral.Susp) 30 ml PO DAILY PRN PRN Reason: Constipation Melatonin (Melatonin 3 Mg Tablet) 6 mg PO BEDTIME PRN PRN Reason: Insomnia Last Admin: 09/20/24 19:47 Dose: 6 mg Documented By: MADIE Metoprolol Tartrate (Metoprolol Tartrate 12.5 Mg Halftab) 12.5 mg PO BID [facility]; Protocol Last Admin: 09/26/24 21:52 Dose: 12.5 mg Documented By: TAVO Multi-Ingred Medicated Throat [place] (Throat [place], Medicated 177 Ml Bottle) 1 spray MUCOUS MEM Q2H PRN PRN Reason: Sore Throat Last Admin: 09/18/24 22:52 Dose: 1 spray Documented By: JOSE J Ondansetron HCl (Ondansetron Hcl 4 Mg/2 Ml Vial) 4 mg IVPUSH QID PRN PRN Reason: Nausea Last Admin: 09/14/24 18:44 Dose: 4 mg Documented By: LEXI Pharmacy Consult (Consult Rx Parenteral Nutrition Ordering) 1 each MISCELLANE DAILY PRN PRN Reason: Consult order Simethicone (Simethicone 80 Mg Tab.Chew) 80 mg PO QIDWMHS PRN PRN Reason: Gas Last Admin: 09/18/24 23:48 Dose: 80 mg Documented By: JOSE J Comments: pt reports dorain jadyn Sodium Chloride (0.9 % Sodium Chloride Flush 3 Ml Syringe) 3 ml IVFLUSH QSHIFT [facility] Last Admin: 09/26/24 21:52 Dose: 3 ml Documented By: TAVO Labs 09/25/24 11:18 09/27/24 06:29 Labs: Laboratory Results - last 24 hr 09/27/24 06:29 Hold Purple Top SEE NOTE Anion Gap 11 L Estim Creat Clear Calc 100.5 Estimated GFR > 60 Random Glucose 119 H Calcium 8.7 Phosphorus 2.2 L Magnesium 2.2 Procedures Date of Service Date of Service: 09/27/24 Progress Note: A&P Assessment and plan (1) S/P small bowel resection: Status: Acute Plan 74-year-old female POD 12 s/p exploratory laparotomy, drainage of abdominal abscess, repair of incisional hernia, small-bowel resection, now with enterocutaneous fistula. Patient doing well today, currently asymptomatic, denies nausea, vomiting, fever, chills, abdominal pain. Her abdomen is soft and benign. Midline incision continues to drain. Drainage appears serosanguineous with small amounts of fecal material. Overnight drainage about 25 cc. This is improvement from the previous day which was about 45 cc. We will continue to manage this conservatively without surgical intervention. We will continue to monitor drainage output closely. NPO, ordered for PICC line insertion due to prolonged NPO and requiring TPN. Pain control as needed. Strict I's and O's, specifically drainage output. Daily dressing changes New onset AFib management per hospitalist team. Time Spent With Patient Time: Total time managing care of this patient today ____ minutes. Quality Stroke Does the patient have a stroke diagnosis?: No VTE Prior VTE?: No VTE Risk Level:: Surgical - moderate VTE Device Contraindication: N/A - Device Ordered VTE Drug Contraindication: N/A - Med Ordered
[2024-09-27] MEDS: 0.9 % Sodium Chloride Flush 3 ML SYRINGE IVFLUSH ×3 (08:47→20:47)
[2024-09-27] MEDS: Metoprolol Tartrate 12.5 MG HALFTAB PO ×2 (08:47→20:47)
[2024-09-27] MEDS: buPROPion HCl XL 150 MG TAB.ER.24H PO (08:47)
[2024-09-27] MEDS: Apixaban 5 MG TABLET PO ×2 (08:47→20:47)
[2024-09-27 10:21] VITALS: BMI 43.7
--- NOTE | 2024-09-27 10:24 | MHC.CLN ---
F/U PT REQUIRES A RE-START OF PPN R/T POOR PO INTAKE REVIEWED LABS DISCUSSED WITH PHARMACY CONTINUE PPN AT 60ML/HR WITH 42G LIPIDS PROVIDES 1154KCALS (23KCALS/KG BASED ON IBW), 144G DEXTROSE, 61G PROTEIN (1.2G/KG) REPLETE LYTES NEEDED ORDER FOR PICC LINE WILL SWITCH TO TPN WHEN PICC IS PLACED
[2024-09-27 12:00] VITALS: BP 119/89; PULSE 74; RESP 18; TEMP 36.9; O2SAT 99
--- NOTE | 2024-09-27 13:17 | MHC.CM.PN ---
EMR reviewed and per MD rounds, pt is not medically cleared for discharge due to management of post-op care, pt remains NPO, on TPN, pending PICC line placement.
[2024-09-27 16:00] VITALS: BP 143/89; PULSE 80; RESP 20; TEMP 36.8; O2SAT 99
--- NOTE | 2024-09-27 17:26 | HO.PICC ---
PICC Line Insertion NPICC Diagnosis: SBO Indication: TPN Pertinent Labs: Reviewed Technique: Following informed consent including risks, benefits and alternatives and using sterile technique including cap and mask, sterile gown, glove and drape, the arm was prepped and draped in the usual sterile fashion of full barrier technique with CHG. Following completion of [place] Protocol the skin and soft tissues were anesthetized with 1% Lidocaine plain. Using ultrasound guidance, right basilic vein access was obtained. Over an 0.018 wire through peel-away sheath, a 4FR triple lumen PASV PICC line was positioned. Catheter length is 41cm internal length, 0cm external length, for a total trimmed length of 41cm. The procedure was performed in 272. Tip verification was performed by Daniel Harmon with Sherlock 3CG. Tip located in SVC. Ultrasound was used to document vein patency and for needle entry. A formal ultrasound picture and cardiac rhythm strip was recorded. [employer] has released the line for use and it is currently dressed with a StatLock, Tegaderm, and CHG disc. Verification has been performed for blood return and line patency. Arm Circumference: 35cm Equipment: [employer] PowerPICC SOLO HF catheter with Sherlock 3CG Catheter Type: 5FR triple lumen PASV PICC Lot #: [id number]
[2024-09-27 20:00] VITALS: BP 160/65; PULSE 87; RESP 16; TEMP 36.7; O2SAT 98
[2024-09-27] MEDS: Parenteral Nutrition 1,440 ML 60 ML IV (21:00)
[2024-09-27 23:42] VITALS: BP 163/90; PULSE 81; RESP 16; TEMP 36.6; O2SAT 97
[2024-09-28] MEDS: Piperacillin Sodium/Tazobactam 3.375 GM in 0.9 % Sodium Chloride 50 ML IV ×4 (03:51→22:55)
[2024-09-28 04:00] VITALS: BP 135/78; PULSE 82; RESP 16; TEMP 36.4; O2SAT 97
[2024-09-28] MEDS: Levothyroxine Sodium 175 MCG TABLET PO (06:08)
--- NOTE | 2024-09-28 07:03 | PM.PNGS ---
Subjective Subjective Date of Service: 09/28/24 <Marian Jordantus - Last Filed: 09/28/24 08:59> 09/28/24 <Arturo Sung PA-C - Last Filed: 09/28/24 12:38> Interval history: 74 y/o F POD 15 with incisional hernia complicated by abscess and enterocutaneous fistula. No acute overnight events. No pain reported. No nausea, vomiting, fever. Reports a little chills. No bowel movement. Passing flatulence and ambulating. Ostomy bag drained 40mL of feculent, malodorous contents. Rivas at 50mL serous fluid. NPO diet. <Marian Jordantus - Last Filed: 09/28/24 08:59> 74 y/o F POD 15 with incisional hernia complicated by abscess and enterocutaneous fistula. No acute overnight events. No pain reported. No nausea, vomiting, fever. Reports a little chills. No bowel movement. Passing flatulence and ambulating. Ostomy bag drained 40mL of feculent, malodorous contents. Purewick at 50mL clear yellow urine. NPO diet. Patient had picc line inserted yesterday. Tolerating TPN <Arturo Sung PA-C - Last Filed: 09/28/24 12:38> Physical Exam Vital Signs: Vital Signs: Last Vital Signs Temp 97.5 F 09/28/24 04:00 Pulse 82 09/28/24 04:00 Resp 16 09/28/24 04:00 BP 135/78 09/28/24 04:00 Pulse Ox 97 09/28/24 04:00 O2 Del Method Room Air 09/27/24 23:42 O2 Flow Rate 1 09/17/24 15:26 BMI result Body Mass Index 43.7 <Marian Tyler - Last Filed: 09/28/24 08:59> Const: General: comfortable and no acute distress <Marian Tyler - Last Filed: 09/28/24 08:59> Orientation/consciousness: patient oriented x3 <Marian Tyler - Last Filed: 09/28/24 08:59> Chest: Chest palpation & inspection: normal inspection of the chest <Marian Tyler - Last Filed: 09/28/24 08:59> Resp: Effort & Inspection: normal respiratory effort <Marian Tyler - Last Filed: 09/28/24 08:59> GI: Other: Well healing midline incision with minimal erythema, abdomen soft, non-distended, mild epigastric tenderness on palpation, ostomy bag intact with feculent contents <Marian Tyler - Last Filed: 09/28/24 08:59> : Other: Rivas intact draining 50ml of serous fluid <Marian [place] - Last Filed: 09/28/24 08:59> Skin: General skin exam: no rashes or lesions noted <Marian [place] - Last Filed: 09/28/24 08:59> Neuro: General: patient oriented x3 and moves all extremities <Marian [place] - Last Filed: 09/28/24 08:59> Psych: Mental Status: mental status grossly normal <Marian Tyler - Last Filed: 09/28/24 08:59> Objective Data Active Medications Acetaminophen (Acetaminophen 325 Mg Tablet) 650 mg PO Q4H PRN PRN Reason: Pain, Mild 1-3,fever,headache Last Admin: 09/27/24 06:07 Dose: 650 mg Documented By: TAVO Apixaban (Apixaban 5 Mg Tablet) 5 mg PO BID [facility] Last Admin: 09/27/24 20:47 Dose: 5 mg Documented By: ENEDINA Bupropion HCl (Bupropion Hcl Xl 150 Mg Tab.Er.24h) 150 mg PO DAILY [facility] Last Admin: 09/27/24 08:47 Dose: 150 mg Documented By: VELASQUEZARTRuba Calcium Carbonate (Calcium Carbonate 750 Mg Tab.Chew) 750 mg PO Q4H PRN PRN Reason: Heartburn Hydromorphone HCl (Hydromorphone Hcl 1 Mg/Ml Syringe) 1 mg IVPUSH Q3H PRN; Protocol PRN Reason: Pain, Severe (Pain Scale 7-10) Last Admin: 09/16/24 03:28 Dose: 1 mg Documented By: KACY Piperacillin Sod/Tazobactam (Sod 3.375 gm/ Sodium Chloride) 50 mls @ 100 mls/hr IV Q6H [facility] Last Infusion: 09/28/24 05:21 Dose: Infused Documented By: ENEDINA Nutrition (Parenteral) (Parenteral Nutrition) 1,440 mls @ 60 mls/hr IV .Q24H [facility]; Protocol Stop: 09/28/24 20:59 Last Admin: 09/27/24 21:00 Dose: 60 mls/hr Documented By: ENEDINA Levothyroxine Sodium (Levothyroxine Sodium 175 Mcg Tablet) 175 mcg PO DAILY@0600 [facility] Last Admin: 09/28/24 06:08 Dose: 175 mcg Documented By: ENEDINA Magnesium Hydroxide (Milk Of Magnesia 30 Ml Oral.Susp) 30 ml PO DAILY PRN PRN Reason: Constipation Melatonin (Melatonin 3 Mg Tablet) 6 mg PO BEDTIME PRN PRN Reason: Insomnia Last Admin: 09/20/24 19:47 Dose: 6 mg Documented By: CASTILDigna Metoprolol Tartrate (Metoprolol Tartrate 12.5 Mg Halftab) 12.5 mg PO BID [facility]; Protocol Last Admin: 09/27/24 20:47 Dose: 12.5 mg Documented By: ENEDINA Multi-Ingred Medicated Throat [place] (Throat [place], Medicated 177 Ml Bottle) 1 spray MUCOUS MEM Q2H PRN PRN Reason: Sore Throat Last Admin: 09/18/24 22:52 Dose: 1 spray Documented By: JOSE J Ondansetron HCl (Ondansetron Hcl 4 Mg/2 Ml Vial) 4 mg IVPUSH QID PRN PRN Reason: Nausea Last Admin: 09/14/24 18:44 Dose: 4 mg Documented By: LEXI Pharmacy Consult (Consult Rx Parenteral Nutrition Ordering) 1 each MISCELLANE DAILY PRN PRN Reason: Consult order Simethicone (Simethicone 80 Mg Tab.Chew) 80 mg PO QIDWMHS PRN PRN Reason: Gas Last Admin: 09/18/24 23:48 Dose: 80 mg Documented By: JOSE J Comments: pt reports emmy salamanca Sodium Chloride (0.9 % Sodium Chloride Flush 3 Ml Syringe) 3 ml IVFLUSH [facility] Last Admin: 09/27/24 20:47 Dose: 3 ml Documented By: ENEDINA Sodium Chloride (0.9 % Sodium Chloride Flush 10 Ml Syringe) 10 ml IVFLUSH [facility] Last Admin: 09/28/24 02:30 Dose: Not Given Documented By: ENEDINA Non-Admin Reason: IV Running <Marian [place] - Last Filed: 09/28/24 08:59> Labs CBC & Chem 7: 09/25/24 11:18 09/27/24 06:29 <Marian Hernandesus - Last Filed: 09/28/24 08:59> Labs: Laboratory Results - last 24 hr 09/27/24 06:29 Anion Gap 11 L Estim Creat Clear Calc 100.5 Estimated GFR > 60 Random Glucose 119 H Calcium 8.7 Phosphorus 2.2 L Magnesium 2.2 <Marian Jordantus - Last Filed: 09/28/24 08:59> Procedures Date of Service Date of Service: 09/28/24 <Marian [place] - Last Filed: 09/28/24 08:59> 09/28/24 <Arturo Sung PA-C - Last Filed: 09/28/24 12:38> Progress Note: A&P Assessment and plan (1) S/P small bowel resection: Status: Acute <Marian [place] - Last Filed: 09/28/24 08:59> (2) Enterocutaneous fistula: Status: Acute <Marian Scott - Last Filed: 09/28/24 08:59> Assessment and Plan: 74 y/o F with a PMH of small bowel obstruction POD 15 for midline incisional hernia complicated by abscess and fistulas with 40mL of malodorous, feculent contents of ostomy drainage, down from 150mL yesterday. No nausea, vomiting, fever or bowel movement reported, but passing flatulence. Order CT scan to reassess abscess. Continue Zosyn of 50ml at 100 ml/hr IV. Labs pending. <Marian Scott - Last Filed: 09/28/24 08:59> 74 y/o F with a PMH of small bowel obstruction POD 15 for exploratory laparotomy, drainage of abdominal abscess, repair of incisional hernia, small-bowel resection, now with enterocutaneous fistula. Draining 40mL of malodorous, feculent contents of ostomy drainage, down from 150mL yesterday. No nausea, vomiting, fever or bowel movement reported, but passing flatulence. Ordered CT scan to reassess fistula. Continue Zosyn of 50ml at 100 ml/hr IV. Labs pending. On repeat CT, enterocutaneous fistula remains, with evidence of a samll contrast collection in the abdominal wall, appears to be improving. We will continue to closely monitor output via the fistula. Output has been slowly decreasing. Strict monitoring output via drainage NPO, will continue TPN Daily dressing changes Continue IV zosyn <Arturo Sung PA-C - Last Filed: 09/28/24 12:38> Time Spent With Patient Time: Total time managing care of this patient today ____ minutes. <Marian Scott - Last Filed: 09/28/24 08:59> Quality Stroke Does the patient have a stroke diagnosis?: No <Marian Scott - Last Filed: 09/28/24 08:59> VTE Prior VTE?: No <Marian Scott - Last Filed: 09/28/24 08:59> VTE Risk Level:: Surgical - moderate <Marian Scott - Last Filed: 09/28/24 08:59> VTE Device Contraindication: N/A - Device Ordered <Marian Scott - Last Filed: 09/28/24 08:59> VTE Drug Contraindication: N/A - Med Ordered <Marian Scott - Last Filed: 09/28/24 08:59>
[2024-09-28 07:30] VITALS: BP 134/82; PULSE 92; RESP 18; TEMP 36.8; O2SAT 96
[2024-09-28] MEDS: 0.9 % Sodium Chloride Flush 3 ML SYRINGE IVFLUSH ×3 (09:20→15:49)
[2024-09-28] MEDS: Metoprolol Tartrate 12.5 MG HALFTAB PO ×2 (09:21→22:57)
[2024-09-28] MEDS: 0.9 % Sodium Chloride Flush 10 ML SYRINGE IVFLUSH (09:21)
[2024-09-28] MEDS: buPROPion HCl XL 150 MG TAB.ER.24H PO (09:21)
[2024-09-28] MEDS: Apixaban 5 MG TABLET PO ×2 (09:21→22:55)
[2024-09-28 09:54] LABS: Triglycerides 142 mg/dL (<150)
[2024-09-28 10:13] LABS: Albumin Level 3.1 g/dL (3.5-5.0); Anion Gap 13 (12-20); Blood Urea Nitrogen 10 mg/dL (9-16); Carbon Dioxide 22 mmol/L (22-29); Chloride 103 mmol/L (96-108); Creatinine Clr Calc Pharmacy 110.3; Estimated Glomerular Filt Rate > 60; Glucose Random 104 mg/dL (60-115); Magnesium 2.4 mg/dL (1.6-2.6); Potassium 5.2 mmol/L (3.3-5.1); Sodium 133 mmol/L (135-145)
[2024-09-28] MEDS: Barium Sulfate Oral (Vanilla) 450 ML ORAL.SUSP 900 ML PO (11:12)
[2024-09-28] MEDS: iohexoL 350 MG/ML 100 ML INFUS..BTL 85 ML IV (11:13)
--- NOTE | 2024-09-28 11:14 | MHC.CLN ---
F/U Pt REMAINS NPO REVIEWED LABS DISCUSSED WITH PHARMACY PICC LINE PLACED -WILL SWITCH TO TPN RECOMMEND TPN AT 50ML/HR WITH 30G LIPIDS PROVIDES 1152KCALS (23KCALS/KG BASED ON IBW), 180G DEXTROSE, 60G PROTEIN (1.2G/KG) REPLETE LYTES NEEDED
[2024-09-28 11:20] VITALS: BP 125/89; PULSE 93; RESP 18; TEMP 36.4; O2SAT 96
[2024-09-28 15:47] VITALS: BP 147/74; PULSE 79; RESP 16; TEMP 36.8; O2SAT 96
[2024-09-28 20:00] VITALS: BP 146/76; PULSE 81; RESP 16; TEMP 36.7; O2SAT 99
[2024-09-28] MEDS: Parenteral Nutrition 1,200 ML 50 ML IV (22:56)
[2024-09-29] VITALS (8 sets, daily range): BP systolic 112–136; BP diastolic 60–90; PULSE 73–94; RESP 16–20; TEMP 36.2–36.6; O2SAT 96–98
[2024-09-29] MEDS: Piperacillin Sodium/Tazobactam 3.375 GM in 0.9 % Sodium Chloride 50 ML IV ×4 (02:44→21:11)
[2024-09-29] MEDS: Levothyroxine Sodium 175 MCG TABLET PO (07:57)
--- NOTE | 2024-09-29 08:20 | PM.PNGS ---
Subjective Subjective Date of Service: 09/29/24 <Arturo Sung PA-C - Last Filed: 09/29/24 08:31> 09/29/24 <Drake Crawford MD - Last Filed: 09/29/24 08:52> Patient reports: no new complaints <RK Ramos Last Filed: 09/29/24 08:31> Interval history: Denies pain, nausea, vomiting. Tolerating TPN. Passed multiple small bowel movements yesterday. Wound drainage 15 cc overnight, creamy liquid brown. <Arturo Sung PA-C - Last Filed: 09/29/24 08:31> Physical Exam Vital Signs: Vital Signs: Last Vital Signs Temp 97.7 F 09/29/24 07:03 Pulse 84 09/29/24 07:03 Resp 18 09/29/24 07:03 BP 129/72 09/29/24 07:03 Pulse Ox 96 09/29/24 07:03 O2 Del Method Room Air 09/29/24 07:03 O2 Flow Rate 1 09/17/24 15:26 BMI result Body Mass Index 43.7 <Arturo Sung PA-C - Last Filed: 09/29/24 08:31> Const: General: comfortable and no acute distress <RK Ramos Last Filed: 09/29/24 08:31> Orientation/consciousness: patient oriented x3 <RK Ramos Last Filed: 09/29/24 08:31> Resp: Effort & Inspection: normal respiratory effort and able to speak in complete sentences <Arturo Sung PA-C - Last Filed: 09/29/24 08:31> GI: Other: Ostomy bag on incision site, output is creamy brown liquid. Incision site dressing in place, appears dry and intact. Slough from the area of drainage was removed at bedside yesterday, the wound border appears healthy. <RK Ramos Last Filed: 09/29/24 08:31> Inspection: No distended <RK Ramos Last Filed: 09/29/24 08:31> Palpation (GI): Soft to palpation, not firm, nontender, no guarding and not rigid <RK Ramos Last Filed: 09/29/24 08:31> Neuro: General: patient oriented x3 <Arturo Sung PA-C - Last Filed: 09/29/24 08:31> Objective Data Active Medications Acetaminophen (Acetaminophen 325 Mg Tablet) 650 mg PO Q4H PRN PRN Reason: Pain, Mild 1-3,fever,headache Last Admin: 09/27/24 06:07 Dose: 650 mg Documented By: TAVO Apixaban (Apixaban 5 Mg Tablet) 5 mg PO BID [facility] Last Admin: 09/28/24 22:55 Dose: 5 mg Documented By: DARBY Bupropion HCl (Bupropion Hcl Xl 150 Mg Tab.Er.24h) 150 mg PO DAILY [facility] Last Admin: 09/28/24 09:21 Dose: 150 mg Documented By: PHOENIX Calcium Carbonate (Calcium Carbonate 750 Mg Tab.Chew) 750 mg PO Q4H PRN PRN Reason: Heartburn Hydromorphone HCl (Hydromorphone Hcl 1 Mg/Ml Syringe) 1 mg IVPUSH Q3H PRN; Protocol PRN Reason: Pain, Severe (Pain Scale 7-10) Last Admin: 09/16/24 03:28 Dose: 1 mg Documented By: KACY Piperacillin Sod/Tazobactam (Sod 3.375 gm/ Sodium Chloride) 50 mls @ 100 mls/hr IV Q6H [facility] Last Infusion: 09/29/24 03:25 Dose: Infused Documented By: DARBY Nutrition (Parenteral) (Parenteral Nutrition) 1,200 mls @ 50 mls/hr IV .Q24H [facility]; Protocol Stop: 09/29/24 20:59 Last Admin: 09/28/24 22:56 Dose: 50 mls/hr Documented By: DARBY Levothyroxine Sodium (Levothyroxine Sodium 175 Mcg Tablet) 175 mcg PO DAILY@0600 [facility] Last Admin: 09/29/24 07:57 Dose: 175 mcg Documented By: DARBY Magnesium Hydroxide (Milk Of Magnesia 30 Ml Oral.Susp) 30 ml PO DAILY PRN PRN Reason: Constipation Melatonin (Melatonin 3 Mg Tablet) 6 mg PO BEDTIME PRN PRN Reason: Insomnia Last Admin: 09/20/24 19:47 Dose: 6 mg Documented By: REGULOILDigna Metoprolol Tartrate (Metoprolol Tartrate 12.5 Mg Halftab) 12.5 mg PO BID [facility]; Protocol Last Admin: 09/28/24 22:57 Dose: 12.5 mg Documented By: DARBY Multi-Ingred Medicated Throat [place] (Throat [place], Medicated 177 Ml Bottle) 1 spray MUCOUS MEM Q2H PRN PRN Reason: Sore Throat Last Admin: 09/18/24 22:52 Dose: 1 spray Documented By: JOSE J Ondansetron HCl (Ondansetron Hcl 4 Mg/2 Ml Vial) 4 mg IVPUSH QID PRN PRN Reason: Nausea Last Admin: 09/14/24 18:44 Dose: 4 mg Documented By: ELXI Pharmacy Consult (Consult Rx Parenteral Nutrition Ordering) 1 each MISCELLANE DAILY PRN PRN Reason: Consult order Simethicone (Simethicone 80 Mg Tab.Chew) 80 mg PO QIDWMHS PRN PRN Reason: Gas Last Admin: 09/18/24 23:48 Dose: 80 mg Documented By: JOSE J Comments: pt reports emmy salamanca Sodium Chloride (0.9 % Sodium Chloride Flush 3 Ml Syringe) 3 ml IVFLUSH [facility] Last Admin: 09/28/24 15:49 Dose: 3 ml Documented By: PHOENIX Sodium Chloride (0.9 % Sodium Chloride Flush 10 Ml Syringe) 10 ml IVFLUSH [facility] Last Admin: 09/29/24 00:22 Dose: Not Given Documented By: DARBY Non-Admin Reason: IV Running <Arturo Sung PA-C - Last Filed: 09/29/24 08:31> Labs CBC & Chem 7: 09/25/24 11:18 09/28/24 08:53 <Arturo Sung PA-C - Last Filed: 09/29/24 08:31> Labs: Laboratory Results - last 24 hr 09/28/24 09/28/24 09/28/24 08:53 08:53 08:53 Anion Gap Cancelled 13 Estim Creat Clear Calc Cancelled 110.3 Estimated GFR Cancelled Random Glucose Calcium Phosphorus Magnesium Albumin Triglycerides 09/28/24 09/28/24 09/28/24 08:53 08:53 08:53 Anion Gap Estim Creat Clear Calc Estimated GFR > 60 Random Glucose Cancelled 104 Calcium Cancelled 9.0 Phosphorus Cancelled Magnesium Albumin Triglycerides 09/28/24 09/28/24 09/28/24 08:53 08:53 08:53 Anion Gap Estim Creat Clear Calc Estimated GFR Random Glucose Calcium Phosphorus 3.0 Magnesium Cancelled 2.4 Albumin Cancelled 3.1 L Triglycerides 142 <Arturo Sung PA-C - Last Filed: 09/29/24 08:31> Procedures Date of Service Date of Service: 09/29/24 <Arturo Sung PA-C - Last Filed: 09/29/24 08:31> 09/29/24 <Drake Crawford MD - Last Filed: 09/29/24 08:52> Progress Note: A&P Assessment and plan (1) S/P small bowel resection: Status: Acute <Arturo Sung PA-C - Last Filed: 09/29/24 08:31> Assessment and Plan: 74 year old female POD 14 s/p exploratory laparotomy, drainage of abdominal abscess, repair of incisional hernia, small-bowel resection, now with enterocutaneous fistula. Patients doing well, denies pain. Output from wound was 15 cc overnight. Improving day to day. The material is a cloudy brown, which may be the oral contrast passing. The wound above the drainage site appears to be healthy at this time, dressing was changed yesterday evening. her abdomen remains soft an benign. Continue NPO, pt has TPN continue IV zosyn daily dressing changes Stick monitoring out wound output Ambulation and spirometry as tolerated Will consult PT due to long stay, immobility. <Arturo Sung PA-C - Last Filed: 09/29/24 08:31> 74 year old female POD 14 s/p exploratory laparotomy, drainage of abdominal abscess, repair of incisional hernia, small-bowel resection, now with enterocutaneous fistula. Patients doing well, denies pain. Output from wound was 15 cc overnight. Improving day to day. The material is a cloudy brown, which may be the oral contrast passing. The wound above the drainage site appears to be healthy at this time, dressing was changed yesterday evening. her abdomen remains soft an benign. Continue NPO, pt has TPN continue IV zosyn daily dressing changes Stick monitoring out wound output Ambulation and spirometry as tolerated Will consult PT due to long stay, immobility. Patient seen and examined independently. Agree with the above assessment and plan. Overall the output is much lower and CT findings are encouraging. We will continue NPO status today but may consider starting p.o. tomorrow. She passed a large bowel movement yesterday and reports getting out of bed. I agree with PT consultation in anticipation of discharge to home once tolerating regular diet. <Drake Crawford MD - Last Filed: 09/29/24 08:52> Time Spent With Patient Time: Total time managing care of this patient today ____ minutes. <Arturo Sung PA-C - Last Filed: 09/29/24 08:31> Quality Stroke Does the patient have a stroke diagnosis?: No <Arturo Sung PA-C - Last Filed: 09/29/24 08:31> VTE Prior VTE?: No <Arturo Sung PA-C - Last Filed: 09/29/24 08:31> VTE Risk Level:: Surgical - moderate <Arturo Sung PA-C - Last Filed: 09/29/24 08:31> VTE Device Contraindication: N/A - Device Ordered <Arturo Sung PA-C - Last Filed: 09/29/24 08:31> VTE Drug Contraindication: N/A - Med Ordered <Arturo Sung PA-C - Last Filed: 09/29/24 08:31>
[2024-09-29] MEDS: buPROPion HCl XL 150 MG TAB.ER.24H PO (09:49)
[2024-09-29] MEDS: Metoprolol Tartrate 12.5 MG HALFTAB PO ×2 (09:49→20:40)
[2024-09-29] MEDS: Apixaban 5 MG TABLET PO ×2 (09:49→20:40)
[2024-09-29] MEDS: 0.9 % Sodium Chloride Flush 3 ML SYRINGE IVFLUSH ×2 (09:50→15:53)
[2024-09-29 10:55] LABS: Albumin Level 3.5 g/dL (3.5-5.0); Blood Urea Nitrogen 11 mg/dL (9-16); Calcium 9.2 mg/dL (8.4-10.2); Creatinine Clr Calc Pharmacy 98.8; Estimated Glomerular Filt Rate > 60; Glucose Random 98 mg/dL (60-115); Magnesium 2.1 mg/dL (1.6-2.6); Phosphorus 2.9 mg/dL (2.7-4.5)
[2024-09-29 11:02] LABS: Anion Gap 13 (12-20); Carbon Dioxide 27 mmol/L (22-29); Chloride 99 mmol/L (96-108); Potassium 4.4 mmol/L (3.3-5.1); Sodium 135 mmol/L (135-145)
--- NOTE | 2024-09-29 11:54 | MHC.CLN ---
F/U PT REMAINS NPO REVIEWED LABS DISCUSSED WITH PHARMACY CONTINUE TPN AT 50ML/HR WITH 30G LIPIDS PROVIDES 1152KCALS (23KCALS/KG BASED ON IBW), 180G DEXTROSE, 60G PROTEIN (1.2G/KG) REPLETE LYTES NEEDED
--- NOTE | 2024-09-29 14:45 | MHC.CM.PN ---
EMR reviewed and per MD rounds, pt is not medically cleared for discharge at this time due to management of post-op care, and receiving TPN. PT evaluated patient and has recommended STR. This CM met with pt and her HCP/Malathi present at bedside to discuss STR options, a list of local SNF's printed from [facility] and given to Malathi to review.
--- NOTE | 2024-09-29 20:30 | HO.PM.IMCN ---
History of Present Illness Data of Consult Service Date: 09/29/24 Requesting physician: Drake Crawford Primary Care Provider: Maki Wheeler MD HPI Reason for consult: new pleural effusion Patient is a 74-year-old female with a past medical history significant for HTN, HLD, hypothyroid, new dx of AFib on Eliquis, and morbid obesity, who has been hospitalized since 09/13/24 s/p ex lap for abd abscess, incisional hernia reapir, SBO and enterocutaneous fistua, consulted for new left sided moderate pleural effusion. The pleural effusion was found on a chest x-ray today due to a cough. The patient reports that she is feeling well and denies any shortness of breath or dyspnea. She does not feel feverish, no chills, nausea, vomiting. At baseline the patient takes Lasix 20 mg daily but has not been taking this while hospitalized. She is currently on TPN receiving 50 mL/HR. Review of Systems Constitutional: Constitutional: Denies body ache(s), Denies chills, Denies fatigue, Denies fever(s) and Denies headache(s) Eyes: Eyes: Denies change in vision and Denies loss of vision ENT: Denies headache(s) and Denies nasal congestion Cardiovascular: Cardiovascular: Denies chest pain, Denies rapid heart rate, Denies leg edema, Denies lightheadedness and Denies dyspnea Respiratory: Respiratory: Denies chest congestion, Reports cough, Denies dyspnea and Denies wheezing Gastrointestinal: Gastrointestinal: Reports as per HPI, Denies nausea and Denies vomiting Genitourinary: Genitourinary: Denies dysuria and Denies urinary urgency Musculoskeletal: Musculoskeletal: Denies myalgias Integumentary/Breasts: Skin/Breast: Denies rash Neurologic: Denies confusion, Denies headache(s) and Denies loss of vision Psychiatric: Psychiatric: Denies confusion Endocrine: Endocrine: Denies fatigue Hematologic/Lymphatic: Hematologic/Lymphatic: Denies easy bleeding and Denies easy bruising Allergic/Immunologic: Allergic/Immunologic: Denies wheezing PMFSH Medical History Anterior wall myocardial infarction Atrial fibrillation Postmenopausal Morbid obesity with BMI of 40.0-44.9, adult Port wine stain Pure hypercholesterolemia Hypothyroidism Essential hypertension Family History Father Hypertension Mother Cancer Sister Hyperlipidemia Son No problems noted. Son No problems noted. Son No problems noted. Surgical History Hx of cataract extraction Hx of colonoscopy H/O ventral hernia repair History of total abdominal hysterectomy History of cholecystectomy Social History Household Members: Family Housing: House Do you presently have visiting nurse or other home services: Yes ([facility]) Alcohol intake: former Comment: counts correct Patient Tobacco Use Status: Never used Tobacco e-Cigarette/Vaping Use: Never Used Second Hand Smoke Exposure: No service: No Current occupational status: unemployed and disabled Current occupation: rt handed Cognitive needs: No Hearing needs: No Vision needs: Yes Meds Allergies Allergy/AdvReac Type Severity Reaction Status Date / Time No Known Allergies (No Known Allergy Verified 09/13/24 09:37 Allergies*) Active Medications: Current Medications Acetaminophen (Acetaminophen 325 Mg Tablet) 650 mg PO Q4H PRN PRN Reason: Pain, Mild 1-3,fever,headache Last Admin: 09/27/24 06:07 Dose: 650 mg Apixaban (Apixaban 5 Mg Tablet) 5 mg PO BID [facility] Last Admin: 09/29/24 09:49 Dose: 5 mg Bupropion HCl (Bupropion Hcl Xl 150 Mg Tab.Er.24h) 150 mg PO DAILY [facility] Last Admin: 09/29/24 09:49 Dose: 150 mg Calcium Carbonate (Calcium Carbonate 750 Mg Tab.Chew) 750 mg PO Q4H PRN PRN Reason: Heartburn Hydromorphone HCl (Hydromorphone Hcl 1 Mg/Ml Syringe) 1 mg IVPUSH Q3H PRN; Protocol PRN Reason: Pain, Severe (Pain Scale 7-10) Last Admin: 09/16/24 03:28 Dose: 1 mg Piperacillin Sod/Tazobactam (Sod 3.375 gm/ Sodium Chloride) 50 mls @ 100 mls/hr IV Q6H [facility] Last Infusion: 09/29/24 16:39 Dose: Infused Nutrition (Parenteral) (Parenteral Nutrition) 1,200 mls @ 50 mls/hr IV .Q24H [facility]; Protocol Stop: 09/29/24 20:59 Last Admin: 09/28/24 22:56 Dose: 50 mls/hr Nutrition (Parenteral) (Parenteral Nutrition) 1,200 mls @ 50 mls/hr IV .Q24H [facility]; Protocol Stop: 09/30/24 20:59 Levothyroxine Sodium (Levothyroxine Sodium 175 Mcg Tablet) 175 mcg PO DAILY@0600 [facility] Last Admin: 09/29/24 07:57 Dose: 175 mcg Magnesium Hydroxide (Milk Of Magnesia 30 Ml Oral.Susp) 30 ml PO DAILY PRN PRN Reason: Constipation Melatonin (Melatonin 3 Mg Tablet) 6 mg PO BEDTIME PRN PRN Reason: Insomnia Last Admin: 09/20/24 19:47 Dose: 6 mg Metoprolol Tartrate (Metoprolol Tartrate 12.5 Mg Halftab) 12.5 mg PO BID [facility]; Protocol Last Admin: 09/29/24 09:49 Dose: 12.5 mg Multi-Ingred Medicated Throat [place] (Throat [place], Medicated 177 Ml Bottle) 1 spray MUCOUS MEM Q2H PRN PRN Reason: Sore Throat Last Admin: 09/18/24 22:52 Dose: 1 spray Ondansetron HCl (Ondansetron Hcl 4 Mg/2 Ml Vial) 4 mg IVPUSH QID PRN PRN Reason: Nausea Last Admin: 09/14/24 18:44 Dose: 4 mg Pharmacy Consult (Consult Rx Parenteral Nutrition Ordering) 1 each MISCELLANE DAILY PRN PRN Reason: Consult order Simethicone (Simethicone 80 Mg Tab.Chew) 80 mg PO QIDWMHS PRN PRN Reason: Gas Last Admin: 09/18/24 23:48 Dose: 80 mg Sodium Chloride (0.9 % Sodium Chloride Flush 3 Ml Syringe) 3 ml IVFLUSH QSHIFT [facility] Last Admin: 09/29/24 15:53 Dose: 3 ml Sodium Chloride (0.9 % Sodium Chloride Flush 10 Ml Syringe) 10 ml IVFLUSH [facility] Last Admin: 09/29/24 15:53 Dose: Not Given Home Medications ?Medication ?Instructions ?Recorded ?Confirmed ?Last Taken ?Type bupropion HCl 150 mg 24 hr tablet, 150 mg PO DAILY 09/13/24 09/13/24 5 Days Ago History extended release ~09/08/24 furosemide 20 mg tablet 20 mg PO DAILY 09/13/24 09/13/24 5 Days Ago History ~09/08/24 levothyroxine 175 mcg tablet 175 mcg PO DAILY@0600 09/13/24 09/13/24 5 Days Ago History ~09/08/24 lisinopril 20 mg tablet 20 mg PO DAILY 09/13/24 09/13/24 5 Days Ago History ~09/08/24 Physical Exam Vital Signs and Narrative: Vital Signs: Last Vital Signs Temp 97.3 F 09/29/24 20:00 Pulse 77 09/29/24 20:00 Resp 18 09/29/24 20:00 BP 130/67 09/29/24 20:00 Pulse Ox 98 09/29/24 20:00 O2 Del Method Room Air 09/29/24 20:00 O2 Flow Rate 1 09/17/24 15:26 BMI result Body Mass Index 43.7 General: AOx3, no acute distress Resp: CTA bilaterally, no wheezing or crackles CVS: irregularly irregular, normal rate Skin: Warm, dry Neuro: Cranial nerves II-XII grossly intact bilaterally. Motor grossly intact bilaterally Extremities: No LE edema Psych: Appropriate affect Const: General: No confusion Orientation/consciousness: No confusion Neuro: General: No confusion Results Labs 09/25/24 11:18 09/29/24 09:28 Labs: Laboratory Results - last 24 hr 09/29/24 09:28 Anion Gap 13 Estim Creat Clear Calc 98.8 Estimated GFR > 60 Random Glucose 98 Calcium 9.2 Phosphorus 2.9 Magnesium 2.1 Albumin 3.5 Imaging Radiologist's Impressions: Impressions Chest X-Ray 09/29/24 12:10 IMPRESSION: Left-sided pleural effusion, moderate volume. Electronically signed by: Joseph Morales MD 09/29/2024 12:40 PM EDT RP Assessment and Plan (1) Pleural effusion: Status: Acute Plan Patient is a 74-year-old female with a past medical history significant for HTN, HLD, hypothyroid, new dx of AFib on Eliquis, and morbid obesity, who has been hospitalized since 09/13/24 s/p ex lap for abd abscess, incisional hernia reapir, SBO and enterocutaneous fistua, consulted for new left sided moderate pleural effusion. moderate L pleural effusion-- asx aside from mild cough - pt on lasix 20mg PO at baseline but has not been taking and currently on TPN 50ml/hr - restart lasix 20mg QD - recent echo with normal EF, diastolic function could not be determined - continue incentive spirometry - check CBC with AM labs Atrial fibrillation, unknown chronicity - rate controlled - on tele SBO w complicated hernia - Management per General surgery - Status post incisional hernia repair, abscess drainage and small-bowel resection HLD - statin HTN - BP stable - Hold Lisinopril Hypothyroid - Continue Levothyroxine Thank you for allowing me to participate in the pt's care. Will continue to follow. Please contact the medical team if any questions or concerns.
[2024-09-29] MEDS: Parenteral Nutrition 1,200 ML 50 ML IV (21:06)
[2024-09-29] MEDS: Furosemide 20 MG TABLET PO (21:12)
[2024-09-30] VITALS (8 sets, daily range): BP systolic 108–146; BP diastolic 59–84; PULSE 62–96; RESP 16–18; TEMP 35.9–36.7; O2SAT 96–100
[2024-09-30] MEDS: 0.9 % Sodium Chloride Flush 10 ML SYRINGE IVFLUSH (00:11)
[2024-09-30] MEDS: 0.9 % Sodium Chloride Flush 3 ML SYRINGE IVFLUSH ×4 (00:11→22:03)
[2024-09-30] MEDS: Piperacillin Sodium/Tazobactam 3.375 GM in 0.9 % Sodium Chloride 50 ML IV ×4 (02:56→21:50)
[2024-09-30] MEDS: Levothyroxine Sodium 175 MCG TABLET PO (06:11)
[2024-09-30 07:34] LABS: MANUAL DIFF FLAG NO
[2024-09-30 07:49] LABS: Basophils Absolute Auto 0.1 X10*3/uL (0.0-0.2); Basophils Percent Auto 1.7 % (0-2); Eosinophils Absolute Auto 0.2 X10*3/uL (0.0-0.4); Eosinophils Percent Auto 3.3 % (0-4); Hematocrit 41.3 % (37.0-47.0); Hemoglobin 13.3 g/dl (12.0-16.0); Imm Gran Abs Auto 0.14 X10*3/uL (0.00-0.03); Imm Gran Pct Auto 2.2 % (0.0-0.4); Lymphocytes Absolute Auto 0.8 X10*3/uL (1.2-4.9); Lymphocytes Percent Auto 11.9 % (20-40); Mean Corpuscular HGB Conc 32.2 g/dl (31.0-35.0); Mean Corpuscular Hemoglobin 26.1 pg (27.0-33.0); Mean Corpuscular Volume 81.1 fL (80.0-98.0); Mean Platelet Volume 8.7 fL (9.4-12.3); Monocytes Absolute Auto 0.6 X10*3/uL (0.1-1.2); Monocytes Percent Auto 9.1 % (2-11); Neutrophils Absolute Auto 4.6 x10*3/uL (2.0-8.3); Neutrophils Percent Auto 71.8 % (45-73); Platelet Count 462 X10*3/uL (160-400); Red Blood Count 5.09 X10*6/uL (4.20-5.50); Red Cell Distribution Width 15.8 % (11.0-16.0); White Blood Count 6.4 X10*3/uL (4.8-10.8)
[2024-09-30 08:02] LABS: Albumin Level 3.3 g/dL (3.5-5.0); Anion Gap 14 (12-20); Blood Urea Nitrogen 12 mg/dL (9-16); Carbon Dioxide 24 mmol/L (22-29); Chloride 102 mmol/L (96-108); Creatinine Clr Calc Pharmacy 98.8; Estimated Glomerular Filt Rate > 60; Glucose Random 108 mg/dL (60-115); Magnesium 2.2 mg/dL (1.6-2.6); Potassium 4.8 mmol/L (3.3-5.1); Sodium 135 mmol/L (135-145)
--- NOTE | 2024-09-30 08:13 | PM.PNGS ---
Subjective Subjective Date of Service: 09/30/24 Interval history: Patient with no new complaints this morning. Denies any significant abdominal pain. Physical Exam Vital Signs: Vital Signs: Last Vital Signs Temp 98.0 F 09/30/24 07:43 Pulse 82 09/30/24 07:43 Resp 18 09/30/24 07:43 BP 141/82 H 09/30/24 07:43 Pulse Ox 96 09/30/24 07:43 O2 Del Method Room Air 09/30/24 07:43 O2 Flow Rate 1 09/17/24 15:26 BMI result Body Mass Index 43.7 Const: General: comfortable Nutritional Appearance: well nourished Orientation/consciousness: patient oriented x3 Resp: Effort & Inspection: normal respiratory effort GI: Other: Ostomy in place with minimal creamy output noted. Abdomen otherwise soft and nondistended. Skin: Other: Warm, dry, no rashes Neuro: General: patient oriented x3 Objective Data Active Medications Acetaminophen (Acetaminophen 325 Mg Tablet) 650 mg PO Q4H PRN PRN Reason: Pain, Mild 1-3,fever,headache Last Admin: 09/27/24 06:07 Dose: 650 mg Documented By: TAVO Apixaban (Apixaban 5 Mg Tablet) 5 mg PO BID [facility] Last Admin: 09/29/24 20:40 Dose: 5 mg Documented By: ADITYA Bupropion HCl (Bupropion Hcl Xl 150 Mg Tab.Er.24h) 150 mg PO DAILY [facility] Last Admin: 09/29/24 09:49 Dose: 150 mg Documented By: ANGELO Calcium Carbonate (Calcium Carbonate 750 Mg Tab.Chew) 750 mg PO Q4H PRN PRN Reason: Heartburn Furosemide (Furosemide 20 Mg Tablet) 20 mg PO DAILY [facility]; Protocol Last Admin: 09/29/24 21:12 Dose: 20 mg Documented By: ADITYA Hydromorphone HCl (Hydromorphone Hcl 1 Mg/Ml Syringe) 1 mg IVPUSH Q3H PRN; Protocol PRN Reason: Pain, Severe (Pain Scale 7-10) Last Admin: 09/16/24 03:28 Dose: 1 mg Documented By: KACY Piperacillin Sod/Tazobactam (Sod 3.375 gm/ Sodium Chloride) 50 mls @ 100 mls/hr IV Q6H [facility] Last Infusion: 09/30/24 03:31 Dose: Infused Documented By: AMELIA Nutrition (Parenteral) (Parenteral Nutrition) 1,200 mls @ 50 mls/hr IV .Q24H [facility]; Protocol Stop: 09/30/24 20:59 Last Admin: 09/29/24 21:06 Dose: 50 mls/hr Documented By: ADITYA Levothyroxine Sodium (Levothyroxine Sodium 175 Mcg Tablet) 175 mcg PO DAILY@0600 [facility] Last Admin: 09/30/24 06:11 Dose: 175 mcg Documented By: AMELIA Magnesium Hydroxide (Milk Of Magnesia 30 Ml Oral.Susp) 30 ml PO DAILY PRN PRN Reason: Constipation Melatonin (Melatonin 3 Mg Tablet) 6 mg PO BEDTIME PRN PRN Reason: Insomnia Last Admin: 09/20/24 19:47 Dose: 6 mg Documented By: CASTILDigna Metoprolol Tartrate (Metoprolol Tartrate 12.5 Mg Halftab) 12.5 mg PO BID [facility]; Protocol Last Admin: 09/29/24 20:40 Dose: 12.5 mg Documented By: ADITYA Multi-Ingred Medicated Throat [place] (Throat [place], Medicated 177 Ml Bottle) 1 spray MUCOUS MEM Q2H PRN PRN Reason: Sore Throat Last Admin: 09/18/24 22:52 Dose: 1 spray Documented By: JOSE J Ondansetron HCl (Ondansetron Hcl 4 Mg/2 Ml Vial) 4 mg IVPUSH QID PRN PRN Reason: Nausea Last Admin: 09/14/24 18:44 Dose: 4 mg Documented By: LEXI Pharmacy Consult (Consult Rx Parenteral Nutrition Ordering) 1 each MISCELLANE DAILY PRN PRN Reason: Consult order Simethicone (Simethicone 80 Mg Tab.Chew) 80 mg PO QIDWMHS PRN PRN Reason: Gas Last Admin: 09/18/24 23:48 Dose: 80 mg Documented By: JOSE J Comments: pt reports feelin gassy Sodium Chloride (0.9 % Sodium Chloride Flush 3 Ml Syringe) 3 ml IVFLUSH QSHIFT [facility] Last Admin: 09/30/24 00:11 Dose: 3 ml Documented By: AMELIA Sodium Chloride (0.9 % Sodium Chloride Flush 10 Ml Syringe) 10 ml IVFLUSH QSHIFT [facility] Last Admin: 09/30/24 00:11 Dose: 10 ml Documented By: AMELIA Labs 09/30/24 06:57 09/30/24 06:57 Labs: Laboratory Results - last 24 hr 09/29/24 09/30/24 09:28 06:57 MCV 81.1 MCH 26.1 L MCHC 32.2 RDW 15.8 Plt Count 462 H MPV 8.7 L Immature Gran % (Auto) 2.2 H Neut % (Auto) 71.8 Lymph % (Auto) 11.9 L [place] % (Auto) 9.1 Eos % (Auto) 3.3 Baso % (Auto) 1.7 Lymph # (Auto) 0.8 L [place] # (Auto) 0.6 Eos # (Auto) 0.2 Baso # (Auto) 0.1 Abs Immat Gran (auto) 0.14 H Absolute Neuts (auto) 4.6 Absolute Nucleated RBC 0.000 Nucleated RBC % (auto) 0.0 Anion Gap 13 14 Estim Creat Clear Calc 98.8 98.8 Estimated GFR > 60 > 60 Random Glucose 98 108 Calcium 9.2 9.0 Phosphorus 2.9 3.0 Magnesium 2.1 2.2 Albumin 3.5 3.3 L Procedures Date of Service Date of Service: 09/30/24 Progress Note: A&P Assessment and plan (1) S/P small bowel resection: Status: Acute (2) Complete small bowel obstruction: Status: Acute (3) Enterocutaneous fistula: Status: Acute (4) Recurrent incisional hernia with obstruction: Status: Acute Plan Patient 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 Continue local wound management. We will trial on clear liquids today and monitor fistula output. Continue TPN until tolerating regular diet. Anticipating discharge to home. She new physical therapy. Time Spent With Patient Time: Total time managing care of this patient today ____ minutes. Quality Stroke Does the patient have a stroke diagnosis?: No VTE Prior VTE?: No VTE Risk Level:: Surgical - moderate VTE Device Contraindication: N/A - Device Ordered VTE Drug Contraindication: N/A - Med Ordered
[2024-09-30] MEDS: Metoprolol Tartrate 12.5 MG HALFTAB PO ×2 (09:51→21:50)
[2024-09-30] MEDS: Apixaban 5 MG TABLET PO ×2 (09:52→21:50)
[2024-09-30] MEDS: Furosemide 20 MG TABLET PO (09:52)
[2024-09-30] MEDS: buPROPion HCl XL 150 MG TAB.ER.24H PO (09:52)
--- NOTE | 2024-09-30 09:55 | MHC.CLN ---
F/U DIET ADVANCED TO C/L REVIEWED LABS DISCUSSED WITH PHARMACY CONTINUE TPN AT 50ML/HR WITH 30G LIPIDS PROVIDES 1152KCALS (23KCALS/KG BASED ON IBW), 180G DEXTROSE, 60G PROTEIN (1.2G/KG) REPLETE LYTES NEEDED MONITOR PO INTAKE OF CLEARS
--- NOTE | 2024-09-30 14:38 | MHC.CM.PN ---
Addendum entered by Shantel Oshea 09/30/24 14:39: added note, SNFs rarely accept patient's with TPN, so STR may not work for her, may need to have pt. go home with [place] services, TBD. Original Note: Accepting STR choices discussed with Pedro, pt.'s HCP and dtr. in law. DCP is STR if pt. still requiring TPN, if not, family would like to bring her home.
--- NOTE | 2024-09-30 17:35 | HO.PM.IMPN ---
Subjective Subjective Date of Service: 09/30/24 Interval History: Seen and examined this morning History obtained with the assistance of a court worker Follow-up for medical consultation for pleural effusion Patient denies any shortness of breath, orthopnea, dyspnea on exertion No hypoxia Review of Systems Review of Systems: Yes all other systems are reviewed and are negative Constitutional Constitutional: Denies chills and Denies fever(s) Cardiovascular Cardiovascular: Denies chest pain, Denies dyspnea and Denies dyspnea on exertion Respiratory Respiratory: Denies dyspnea and Denies dyspnea on exertion Physical Exam Vital Signs: Vital Signs: Last Vital Signs Temp 97.6 F 09/30/24 15:07 Pulse 72 09/30/24 15:07 Resp 18 09/30/24 15:07 BP 146/84 H 09/30/24 15:07 Pulse Ox 100 09/30/24 15:07 O2 Del Method Room Air 09/30/24 15:07 O2 Flow Rate 1 09/17/24 15:26 BMI result Body Mass Index 43.7 Const: General: cooperative, comfortable, no acute distress, alert and awake Nutritional Appearance: obese Resp: Effort & Inspection: normal respiratory effort, able to speak in complete sentences, no respiratory distress and no use of accessory muscles Cardio: Other: irregular Neuro: Other: Grossly nonfocal Objective Data Active Medications Acetaminophen (Acetaminophen 325 Mg Tablet) 650 mg PO Q4H PRN PRN Reason: Pain, Mild 1-3,fever,headache Last Admin: 09/27/24 06:07 Dose: 650 mg Documented By: TAVO Apixaban (Apixaban 5 Mg Tablet) 5 mg PO BID [facility] Last Admin: 09/30/24 09:52 Dose: 5 mg Documented By: KATARZYNA Bupropion HCl (Bupropion Hcl Xl 150 Mg Tab.Er.24h) 150 mg PO DAILY [facility] Last Admin: 09/30/24 09:52 Dose: 150 mg Documented By: KATARZYNA Calcium Carbonate (Calcium Carbonate 750 Mg Tab.Chew) 750 mg PO Q4H PRN PRN Reason: Heartburn Furosemide (Furosemide 20 Mg Tablet) 20 mg PO DAILY [facility]; Protocol Last Admin: 09/30/24 09:52 Dose: 20 mg Documented By: KATARZYNA Hydromorphone HCl (Hydromorphone Hcl 1 Mg/Ml Syringe) 1 mg IVPUSH Q3H PRN; Protocol PRN Reason: Pain, Severe (Pain Scale 7-10) Last Admin: 09/16/24 03:28 Dose: 1 mg Documented By: KACY Piperacillin Sod/Tazobactam (Sod 3.375 gm/ Sodium Chloride) 50 mls @ 100 mls/hr IV Q6H [facility] Last Infusion: 09/30/24 16:10 Dose: Infused Documented By: KATARZYNA Nutrition (Parenteral) (Parenteral Nutrition) 1,200 mls @ 50 mls/hr IV .Q24H [facility]; Protocol Stop: 09/30/24 20:59 Last Admin: 09/29/24 21:06 Dose: 50 mls/hr Documented By: AIDTYA Nutrition (Parenteral) (Parenteral Nutrition) 1,200 mls @ 50 mls/hr IV .Q24H [facility]; Protocol Stop: 10/01/24 20:59 Levothyroxine Sodium (Levothyroxine Sodium 175 Mcg Tablet) 175 mcg PO DAILY@0600 [facility] Last Admin: 09/30/24 06:11 Dose: 175 mcg Documented By: AMELIA Magnesium Hydroxide (Milk Of Magnesia 30 Ml Oral.Susp) 30 ml PO DAILY PRN PRN Reason: Constipation Melatonin (Melatonin 3 Mg Tablet) 6 mg PO BEDTIME PRN PRN Reason: Insomnia Last Admin: 09/20/24 19:47 Dose: 6 mg Documented By: MADIE Metoprolol Tartrate (Metoprolol Tartrate 12.5 Mg Halftab) 12.5 mg PO BID [facility]; Protocol Last Admin: 09/30/24 09:51 Dose: 12.5 mg Documented By: KATARZYNA Multi-Ingred Medicated Throat [place] (Throat [place], Medicated 177 Ml Bottle) 1 spray MUCOUS MEM Q2H PRN PRN Reason: Sore Throat Last Admin: 09/18/24 22:52 Dose: 1 spray Documented By: JOSE J Ondansetron HCl (Ondansetron Hcl 4 Mg/2 Ml Vial) 4 mg IVPUSH QID PRN PRN Reason: Nausea Last Admin: 09/14/24 18:44 Dose: 4 mg Documented By: LEXI Pharmacy Consult (Consult Rx Parenteral Nutrition Ordering) 1 each MISCELLANE DAILY PRN PRN Reason: Consult order Simethicone (Simethicone 80 Mg Tab.Chew) 80 mg PO QIDWMHS PRN PRN Reason: Gas Last Admin: 09/18/24 23:48 Dose: 80 mg Documented By: JOSE J Comments: pt reports emmy salamanca Sodium Chloride (0.9 % Sodium Chloride Flush 3 Ml Syringe) 3 ml IVFLUSH QSHIFT [facility] Last Admin: 09/30/24 15:42 Dose: 3 ml Documented By: KATARZYNA Sodium Chloride (0.9 % Sodium Chloride Flush 10 Ml Syringe) 10 ml IVFLUSH QSHIFT [facility] Last Admin: 09/30/24 15:42 Dose: Not Given Documented By: KATARZYNA Non-Admin Reason: Duplicate Order Labs 09/30/24 06:57 09/30/24 06:57 Labs: Laboratory Results - last 24 hr 09/30/24 06:57 MCV 81.1 MCH 26.1 L MCHC 32.2 RDW 15.8 Plt Count 462 H MPV 8.7 L Immature Gran % (Auto) 2.2 H Neut % (Auto) 71.8 Lymph % (Auto) 11.9 L [place] % (Auto) 9.1 Eos % (Auto) 3.3 Baso % (Auto) 1.7 Lymph # (Auto) 0.8 L [place] # (Auto) 0.6 Eos # (Auto) 0.2 Baso # (Auto) 0.1 Abs Immat Gran (auto) 0.14 H Absolute Neuts (auto) 4.6 Absolute Nucleated RBC 0.000 Nucleated RBC % (auto) 0.0 Anion Gap 14 Estim Creat Clear Calc 98.8 Estimated GFR > 60 Random Glucose 108 Calcium 9.0 Phosphorus 3.0 Magnesium 2.2 Albumin 3.3 L Assessment and Plan (1) Pleural effusion: Status: Acute Plan Patient is a 74-year-old female with a past medical history significant for HTN, HLD, hypothyroid, new dx of AFib on Eliquis, and morbid obesity, who has been hospitalized since 09/13/24 s/p ex lap for abd abscess, incisional hernia reapir, SBO and enterocutaneous fistua, consulted for new left sided moderate pleural effusion. moderate L pleural effusion asymptomatic, no hypoxia likely due to chronic HFpEF, being off diuretics, hypoalbuminemia pt on lasix 20mg PO at baseline but has not been taking and currently on TPN 50ml/hr restarted lasix 20mg QD continue incentive spirometry would not recommend throacentesis at this time. outpatient repeat imaging to ensure resolution if pt becomes symptomatic could consider diagnostic and therapeutic thoracentesis at that time Atrial fibrillation, unknown chronicity Rate controlled Continue low-dose metoprolol Continue anticoagulation with Eliquis SBO w complicated hernia Management per General surgery Status post incisional hernia repair, abscess drainage and small-bowel resection HLD statin HTN BP stable Hold Lisinopril Hypothyroid Continue Levothyroxine Thank you for allowing me to participate in the pt's care. Will continue to follow Quality Stroke Does the patient have a stroke diagnosis?: No VTE Prior VTE?: No VTE Risk Level:: Surgical - moderate VTE Device Contraindication: N/A - Device Ordered VTE Drug Contraindication: N/A - Med Ordered
[2024-09-30] MEDS: Parenteral Nutrition 1,200 ML 50 ML IV (21:39)
[2024-09-30] MEDS: Acetaminophen 325 MG TABLET 650 MG PO (22:01)
[2024-10-01 03:11] VITALS: BP 122/70; PULSE 68; RESP 16; TEMP 36.2; O2SAT 97
[2024-10-01] MEDS: Piperacillin Sodium/Tazobactam 3.375 GM in 0.9 % Sodium Chloride 50 ML IV ×4 (03:43→21:02)
[2024-10-01] MEDS: Levothyroxine Sodium 175 MCG TABLET PO (05:42)
[2024-10-01 07:15] VITALS: BP 132/79; PULSE 78; RESP 18; TEMP 36.3; O2SAT 96
[2024-10-01] MEDS: oxyCODONE HCl Immed Release 5 MG TABLET PO ×2 (07:44→11:51)
[2024-10-01] MEDS: Apixaban 5 MG TABLET PO ×2 (07:44→21:02)
[2024-10-01] MEDS: Metoprolol Tartrate 12.5 MG HALFTAB PO ×2 (07:45→21:02)
[2024-10-01] MEDS: Furosemide 20 MG TABLET PO (07:45)
[2024-10-01] MEDS: buPROPion HCl XL 150 MG TAB.ER.24H PO (07:45)
--- NOTE | 2024-10-01 08:57 | P.PNGS_ITS ---
Subjective Subjective Date of Service: 10/01/24 Interval history: No acute changes overnight. Patient continues to deny pain, nausea, vomiting. States her breathing has improved. Tolerating TPN. Midline incision drainage output overnight approximately 10 cc Physical Exam 2 Vital Signs: Vital Signs: Last Vital Signs Temp 97.3 F 10/01/24 07:15 Pulse 78 10/01/24 07:15 Resp 18 10/01/24 07:15 BP 132/79 10/01/24 07:15 Pulse Ox 96 10/01/24 07:15 O2 Del Method Room Air 10/01/24 07:15 O2 Flow Rate 1 09/17/24 15:26 BMI result Body Mass Index 43.7 Const: General: comfortable and no acute distress O rientation/consciousness: patient oriented x3 Resp: Effort & Inspection: normal respiratory effort and able to speak in complete sentences GI: Other: Incision dressing intact, unsaturated. Ostomy bag in place to collect midline incision drainage. Drainage appears serosanguineous cloudy. Inspection: No distended Palpation (GI): Soft to palpation, nontender, no guarding and not rigid Neuro: General: patient oriented x3 Objective Data Active Medications Acetaminophen (Acetaminophen 325 Mg Tablet) 650 mg PO Q4H PRN PRN Reason: Pain, Mild 1-3,fever,headache Last Admin: 09/30/24 22:01 Dose: 650 mg Documented By: TAVO Apixaban (Apixaban 5 Mg Tablet) 5 mg PO BID [facility] Last Admin: 10/01/24 07:44 Dose: 5 mg Documented By: SINDHU Bupropion HCl (Bupropion Hcl Xl 150 Mg Tab.Er.24h) 150 mg PO DAILY [facility] Last Admin: 10/01/24 07:45 Dose: 150 mg Documented By: SINDHU Calcium Carbonate (Calcium Carbonate 750 Mg Tab.Chew) 750 mg PO Q4H PRN PRN Reason: Heartburn Furosemide (Furosemide 20 Mg Tablet) 20 mg PO DAILY [facility]; Protocol Last Admin: 10/01/24 07:45 Dose: 20 mg Documented By: SINDHU Hydromorphone HCl (Hydromorphone Hcl 1 Mg/Ml Syringe) 1 mg IVPUSH Q3H PRN; Protocol PRN Reason: Pain, Severe (Pain Scale 7-10) Last Admin: 09/16/24 03:28 Dose: 1 mg Documented By: KACY Piperacillin Sod/Tazobactam (Sod 3.375 gm/ Sodium Chloride) 50 mls @ 100 mls/hr IV Q6H [facility] Last Infusion: 10/01/24 08:21 Dose: Infused Documented By: SINDHU Nutrition (Parenteral) (Parenteral Nutrition) 1,200 mls @ 50 mls/hr IV .Q24H [facility]; Protocol Stop: 10/01/24 20:59 Last Admin: 09/30/24 21:39 Dose: 50 mls/hr Documented By: TAVO Levothyroxine Sodium (Levothyroxine Sodium 175 Mcg Tablet) 175 mcg PO DAILY@0600 [facility] Last Admin: 10/01/24 05:42 Dose: 175 mcg Documented By: TAVO Magnesium Hydroxide (Milk Of Magnesia 30 Ml Oral.Susp) 30 ml PO DAILY PRN PRN Reason: Constipation Melatonin (Melatonin 3 Mg Tablet) 6 mg PO BEDTIME PRN PRN Reason: Insomnia Last Admin: 09/20/24 19:47 Dose: 6 mg Documented By: MADIE Metoprolol Tartrate (Metoprolol Tartrate 12.5 Mg Halftab) 12.5 mg PO BID [facility]; Protocol Last Admin: 10/01/24 07:45 Dose: 12.5 mg Documented By: SINDHU Multi-Ingred Medicated Throat [place] (Throat [place], Medicated 177 Ml Bottle) 1 spray MUCOUS MEM Q2H PRN PRN Reason: Sore Throat Last Admin: 09/18/24 22:52 Dose: 1 spray Documented By: JOSE J Ondansetron HCl (Ondansetron Hcl 4 Mg/2 Ml Vial) 4 mg IVPUSH QID PRN PRN Reason: Nausea Last Admin: 09/14/24 18:44 Dose: 4 mg Documented By: LEXI Oxycodone HCl (Oxycodone Hcl Immed Release 5 Mg Tablet) 5 mg PO Q4H PRN PRN Reason: Pain, Moderate(Pain Scale 4-6) Last Admin: 10/01/24 07:44 Dose: 5 mg Documented By: SINDHU Pharmacy Consult (Consult Rx Parenteral Nutrition Ordering) 1 each MISCELLANE DAILY PRN PRN Reason: Consult order Simethicone (Simethicone 80 Mg Tab.Chew) 80 mg PO QIDWMHS PRN PRN Reason: Gas Last Admin: 09/18/24 23:48 Dose: 80 mg Documented By: JOSE J Comments: pt reports emmy salamanca Sodium Chloride (0.9 % Sodium Chloride Flush 3 Ml Syringe) 3 ml IVFLUSH QSHIFT [facility] Last Admin: 10/01/24 07:45 Dose: Not Given Documented By: SINDHU Non-Admin Reason: Previously Administered Sodium Chloride (0.9 % Sodium Chloride Flush 10 Ml Syringe) 10 ml IVFLUSH QSHIFT [facility] Last Admin: 10/01/24 07:45 Dose: Not Given Documented By: SINDHU Non-Admin Reason: IV Running Labs 09/30/24 06:57 09/30/24 06:57 Procedures Date of Service Date of Service: 10/01/24 Progress Note: A&P Assessment and plan (1) S/P small bowel resection: Status: Acute (2) Enterocutaneous fistula: Status: Acute Plan 74 year old female POD 16 s/p exploratory laparotomy, drainage of abdominal abscess, repair of incisional hernia, small-bowel resection, now with enterocutaneous fistula. Patients doing well, denies pain. Output from it enterocutaneous fistula no 10 cc overnight. We will trial regular diet continue to monitor. We will need strict monitoring of enterocutaneous fistula drainage. We will continue TPN until tolerating diet. If patient tolerating diet, we will consider discharge in the next few days. Ambulation as tolerated Continue IV Zosyn Continue TPN until tolerating diet. Time Spent With Patient Time: Total time managing care of this patient today ____ minutes. Quality Stroke Does the patient have a stroke diagnosis?: No VTE Prior VTE?: No VTE Risk Level:: Surgical - moderate VTE Device Contraindication: N/A - Device Ordered VTE Drug Contraindication: N/A - Med Ordered
[2024-10-01 09:27] LABS: Albumin Level 3.1 g/dL (3.5-5.0); Anion Gap 11 (12-20); Blood Urea Nitrogen 12 mg/dL (9-16); Calcium 8.7 mg/dL (8.4-10.2); Carbon Dioxide 23 mmol/L (22-29); Chloride 103 mmol/L (96-108); Creatinine Clr Calc Pharmacy 97.1; Estimated Glomerular Filt Rate > 60; Glucose Random 101 mg/dL (60-115); Magnesium 2.2 mg/dL (1.6-2.6); Phosphorus 2.6 mg/dL (2.7-4.5); Potassium 4.3 mmol/L (3.3-5.1); Sodium 133 mmol/L (135-145)
--- NOTE | 2024-10-01 10:52 | MHC.CLN ---
F/U DIET ADVANCED TO REGULAR REVIEWED LABS DISCUSSED WITH PHARMACY CONTINUE TPN AT MAX GOAL RATE 50ML/HR WITH 30G LIPIDS PROVIDES 1152KCALS (23KCALS/KG BASED ON IBW), 180G DEXTROSE, 60G PROTEIN (1.2G/KG) REPLETE LYTES NEEDED CLOSE MONITOR OF PO INTAKE GOAL TO DECREASE TPN PO INTAKE IMPROVES RD CAN BE REACHED DURING OFF HOURS VIA TIGER [employer]CT IF NEEDED
--- NOTE | 2024-10-01 11:04 | MHC.CM.PN ---
Addendum entered by Leola Agarwal RN 10/01/24 11:05: PER PREVIOUS CM NOTE PT'S FAMILY WOULD LIKE TO TAKE HER HOME IF OFF TPN, PT CANNOT GO TO STR W/TPN PLAN WILL LIKELY BE HOME ONCE PT OFF TPN. Original Note: EMR REVIEWED, PT S/P ABD ABSCESS/HERNIA REPAIR/SMALL BOWEL RESECTION NOW W/ENTEROCUTANEOUS FISTULA, PER SURGICAL NOTE PLAN FOR STRICT COUNT OF FISTULA DRAINAGE AND TPN UNTIL PT TOLERATING DIET, NO PLAN FOR DC AT THIS TIME, P.T. CONT'S TO RECOMMEND STR AND CM WILL CONT TO FOLLOW DC NEEDS.
[2024-10-01 11:07] VITALS: BP 123/66; PULSE 69; RESP 18; TEMP 36.1; O2SAT 98
--- NOTE | 2024-10-01 14:37 | HO.PM.IMPN ---
Subjective Subjective Date of Service: 10/01/24 Interval History: follow up pleural effusion remains of room air without respiratory symptoms Physical Exam Vital Signs: Vital Signs: Last Vital Signs Temp 97.0 F 10/01/24 11:07 Pulse 69 10/01/24 11:07 Resp 18 10/01/24 11:07 BP 123/66 10/01/24 11:07 Pulse Ox 98 10/01/24 11:07 O2 Del Method Room Air 10/01/24 11:07 O2 Flow Rate 1 09/17/24 15:26 BMI result Body Mass Index 43.7 Const: General: cooperative, comfortable, no acute distress, alert and awake Nutritional Appearance: obese Resp: Effort & Inspection: normal respiratory effort, able to speak in complete sentences, no respiratory distress and no use of accessory muscles Neuro: Other: Grossly nonfocal Objective Data Active Medications Acetaminophen (Acetaminophen 325 Mg Tablet) 650 mg PO Q4H PRN PRN Reason: Pain, Mild 1-3,fever,headache Last Admin: 09/30/24 22:01 Dose: 650 mg Documented By: TAVO Apixaban (Apixaban 5 Mg Tablet) 5 mg PO BID [facility] Last Admin: 10/01/24 07:44 Dose: 5 mg Documented By: SINDHU Bupropion HCl (Bupropion Hcl Xl 150 Mg Tab.Er.24h) 150 mg PO DAILY [facility] Last Admin: 10/01/24 07:45 Dose: 150 mg Documented By: SINDHU Calcium Carbonate (Calcium Carbonate 750 Mg Tab.Chew) 750 mg PO Q4H PRN PRN Reason: Heartburn Furosemide (Furosemide 20 Mg Tablet) 20 mg PO DAILY [facility]; Protocol Last Admin: 10/01/24 07:45 Dose: 20 mg Documented By: SINDHU Hydromorphone HCl (Hydromorphone Hcl 1 Mg/Ml Syringe) 1 mg IVPUSH Q3H PRN; Protocol PRN Reason: Pain, Severe (Pain Scale 7-10) Last Admin: 09/16/24 03:28 Dose: 1 mg Documented By: KACY Piperacillin Sod/Tazobactam (Sod 3.375 gm/ Sodium Chloride) 50 mls @ 100 mls/hr IV Q6H [facility] Last Infusion: 10/01/24 14:15 Dose: Infused Documented By: SINDHU Nutrition (Parenteral) (Parenteral Nutrition) 1,200 mls @ 50 mls/hr IV .Q24H [facility]; Protocol Stop: 10/01/24 20:59 Last Admin: 09/30/24 21:39 Dose: 50 mls/hr Documented By: TAVO Nutrition (Parenteral) (Parenteral Nutrition) 1,200 mls @ 50 mls/hr IV .Q24H [facility]; Protocol Stop: 10/02/24 20:59 Levothyroxine Sodium (Levothyroxine Sodium 175 Mcg Tablet) 175 mcg PO DAILY@0600 [facility] Last Admin: 10/01/24 05:42 Dose: 175 mcg Documented By: TAVO Magnesium Hydroxide (Milk Of Magnesia 30 Ml Oral.Susp) 30 ml PO DAILY PRN PRN Reason: Constipation Melatonin (Melatonin 3 Mg Tablet) 6 mg PO BEDTIME PRN PRN Reason: Insomnia Last Admin: 09/20/24 19:47 Dose: 6 mg Documented By: MADIE Metoprolol Tartrate (Metoprolol Tartrate 12.5 Mg Halftab) 12.5 mg PO BID [facility]; Protocol Last Admin: 10/01/24 07:45 Dose: 12.5 mg Documented By: SINDHU Multi-Ingred Medicated Throat [place] (Throat [place], Medicated 177 Ml Bottle) 1 spray MUCOUS MEM Q2H PRN PRN Reason: Sore Throat Last Admin: 09/18/24 22:52 Dose: 1 spray Documented By: JOSE J Ondansetron HCl (Ondansetron Hcl 4 Mg/2 Ml Vial) 4 mg IVPUSH QID PRN PRN Reason: Nausea Last Admin: 09/14/24 18:44 Dose: 4 mg Documented By: LEXI Oxycodone HCl (Oxycodone Hcl Immed Release 5 Mg Tablet) 5 mg PO Q4H PRN PRN Reason: Pain, Moderate(Pain Scale 4-6) Last Admin: 10/01/24 11:51 Dose: 5 mg Documented By: SINDHU Pharmacy Consult (Consult Rx Parenteral Nutrition Ordering) 1 each MISCELLANE DAILY PRN PRN Reason: Consult order Simethicone (Simethicone 80 Mg Tab.Chew) 80 mg PO QIDWMHS PRN PRN Reason: Gas Last Admin: 09/18/24 23:48 Dose: 80 mg Documented By: JOSE J Comments: pt reports emmy salamanca Sodium Chloride (0.9 % Sodium Chloride Flush 3 Ml Syringe) 3 ml IVFLUSH QSHIFT [facility] Last Admin: 10/01/24 07:45 Dose: Not Given Documented By: SINDHU Non-Admin Reason: Previously Administered Sodium Chloride (0.9 % Sodium Chloride Flush 10 Ml Syringe) 10 ml IVFLUSH QSHIFT [facility] Last Admin: 10/01/24 07:45 Dose: Not Given Documented By: SINDHU Non-Admin Reason: IV Running Labs 09/30/24 06:57 10/01/24 08:54 Labs: Laboratory Results - last 24 hr 10/01/24 08:54 Anion Gap 11 L Estim Creat Clear Calc 97.1 Estimated GFR > 60 Random Glucose 101 Calcium 8.7 Phosphorus 2.6 L Magnesium 2.2 Albumin 3.1 L Assessment and Plan (1) Pleural effusion: Status: Acute Plan Patient is a 74-year-old female with a past medical history significant for HTN, HLD, hypothyroid, new dx of AFib on Eliquis, and morbid obesity, who has been hospitalized since 09/13/24 s/p ex lap for abd abscess, incisional hernia reapir, SBO and enterocutaneous fistua, consulted for new left sided moderate pleural effusion. moderate L pleural effusion asymptomatic, no hypoxia likely due to chronic HFpEF, being off diuretics, hypoalbuminemia pt on lasix 20mg PO at baseline but has not been taking and currently on TPN 50ml/hr restarted lasix 20mg QD continue incentive spirometry would not recommend throacentesis at this time. outpatient repeat imaging to ensure resolution if pt becomes symptomatic could consider diagnostic and therapeutic thoracentesis at that time Atrial fibrillation, unknown chronicity Rate controlled Continue low-dose metoprolol Continue anticoagulation with Eliquis SBO w complicated hernia Management per General surgery Status post incisional hernia repair, abscess drainage and small-bowel resection HLD statin HTN BP stable Hold Lisinopril Hypothyroid Continue Levothyroxine Thank you for allowing me to participate in the pt's care. Will continue to follow Quality Stroke Does the patient have a stroke diagnosis?: No VTE Prior VTE?: No VTE Risk Level:: Surgical - moderate VTE Device Contraindication: N/A - Device Ordered VTE Drug Contraindication: N/A - Med Ordered
[2024-10-01 15:44] VITALS: BP 119/63; PULSE 81; RESP 16; TEMP 36.3; O2SAT 96
[2024-10-01] MEDS: 0.9 % Sodium Chloride Flush 3 ML SYRINGE IVFLUSH ×2 (16:06→21:03)
[2024-10-01 19:42] VITALS: BP 117/78; PULSE 98; RESP 20; TEMP 36.4; O2SAT 96
[2024-10-01] MEDS: Parenteral Nutrition 1,200 ML 50 ML IV (21:02)
[2024-10-01 23:50] VITALS: BP 118/63; PULSE 56; RESP 18; TEMP 36.4; O2SAT 98
[2024-10-02 04:00] VITALS: BP 139/65; PULSE 78; RESP 18; TEMP 37.1; O2SAT 98
[2024-10-02] MEDS: Piperacillin Sodium/Tazobactam 3.375 GM in 0.9 % Sodium Chloride 50 ML IV ×4 (04:28→22:08)
[2024-10-02] MEDS: Levothyroxine Sodium 175 MCG TABLET PO (04:28)
[2024-10-02 07:30] LABS: Albumin Level 3.2 g/dL (3.5-5.0); Anion Gap 10 (12-20); Blood Urea Nitrogen 16 mg/dL (9-16); Calcium 8.4 mg/dL (8.4-10.2); Carbon Dioxide 26 mmol/L (22-29); Chloride 103 mmol/L (96-108); Estimated Glomerular Filt Rate > 60; Glucose Random 119 mg/dL (60-115); Magnesium 2.1 mg/dL (1.6-2.6); Phosphorus 2.2 mg/dL (2.7-4.5); Potassium 4.2 mmol/L (3.3-5.1); Sodium 135 mmol/L (135-145)
[2024-10-02 07:38] VITALS: BP 102/61; PULSE 90; RESP 16; TEMP 36.6; O2SAT 98
[2024-10-02] MEDS: Furosemide 20 MG TABLET PO (08:38)
[2024-10-02] MEDS: buPROPion HCl XL 150 MG TAB.ER.24H PO (08:38)
[2024-10-02] MEDS: Apixaban 5 MG TABLET PO ×2 (08:38→22:08)
[2024-10-02] MEDS: Metoprolol Tartrate 12.5 MG HALFTAB PO ×2 (08:38→22:07)
--- NOTE | 2024-10-02 09:16 | P.PNGS_ITS ---
Subjective Subjective Date of Service: 10/02/24 Interval history: Says she feels well Denies pain Tolerating diet Very scanty output from the enterocutaneous fistula Physical Exam 2 Vital Signs: Vital Signs: Last Vital Signs Temp 97.9 F 10/02/24 07:38 Pulse 90 10/02/24 07:38 Resp 16 10/02/24 07:38 BP 102/61 10/02/24 07:38 Pulse Ox 98 10/02/24 07:38 O2 Del Method Room Air 10/02/24 07:38 O2 Flow Rate 1 09/17/24 15:26 BMI result Body Mass Index 43.7 Const: General: comfortable and no acute distress Resp: Effort & Inspection: normal respiratory effort Cardio: Rate: regular rate GI: Other: Incision clean, very scanty output from the enterocutaneous fistula, stoma appliance in place Palpation (GI): Soft to palpation, not firm, nontender and no guarding Objective Data Active Medications Acetaminophen (Acetaminophen 325 Mg Tablet) 650 mg PO Q4H PRN PRN Reason: Pain, Mild 1-3,fever,headache Last Admin: 09/30/24 22:01 Dose: 650 mg Documented By: TAVO Apixaban (Apixaban 5 Mg Tablet) 5 mg PO BID [facility] Last Admin: 10/02/24 08:38 Dose: 5 mg Documented By: LORETTA Bupropion HCl (Bupropion Hcl Xl 150 Mg Tab.Er.24h) 150 mg PO DAILY [facility] Last Admin: 10/02/24 08:38 Dose: 150 mg Documented By: LORETTA Calcium Carbonate (Calcium Carbonate 750 Mg Tab.Chew) 750 mg PO Q4H PRN PRN Reason: Heartburn Furosemide (Furosemide 20 Mg Tablet) 20 mg PO DAILY [facility]; Protocol Last Admin: 10/02/24 08:38 Dose: 20 mg Documented By: LORETTA Hydromorphone HCl (Hydromorphone Hcl 1 Mg/Ml Syringe) 1 mg IVPUSH Q3H PRN; Protocol PRN Reason: Pain, Severe (Pain Scale 7-10) Last Admin: 09/16/24 03:28 Dose: 1 mg Documented By: KACY Piperacillin Sod/Tazobactam (Sod 3.375 gm/ Sodium Chloride) 50 mls @ 100 mls/hr IV Q6H [facility] Last Admin: 10/02/24 08:39 Dose: 100 mls/hr Documented By: LORETTA Nutrition (Parenteral) (Parenteral Nutrition) 1,200 mls @ 50 mls/hr IV .Q24H [facility]; Protocol Stop: 10/02/24 20:59 Last Admin: 10/01/24 21:02 Dose: 50 mls/hr Documented By: SRINIVAS Levothyroxine Sodium (Levothyroxine Sodium 175 Mcg Tablet) 175 mcg PO DAILY@0600 [facility] Last Admin: 10/02/24 04:28 Dose: 175 mcg Documented By: SRINIVAS Magnesium Hydroxide (Milk Of Magnesia 30 Ml Oral.Susp) 30 ml PO DAILY PRN PRN Reason: Constipation Melatonin (Melatonin 3 Mg Tablet) 6 mg PO BEDTIME PRN PRN Reason: Insomnia Last Admin: 09/20/24 19:47 Dose: 6 mg Documented By: REGULOILDigna Metoprolol Tartrate (Metoprolol Tartrate 12.5 Mg Halftab) 12.5 mg PO BID [facility]; Protocol Last Admin: 10/02/24 08:38 Dose: 12.5 mg Documented By: LORETTA Multi-Ingred Medicated Throat [place] (Throat [place], Medicated 177 Ml Bottle) 1 spray MUCOUS MEM Q2H PRN PRN Reason: Sore Throat Last Admin: 09/18/24 22:52 Dose: 1 spray Documented By: JOSE J Ondansetron HCl (Ondansetron Hcl 4 Mg/2 Ml Vial) 4 mg IVPUSH QID PRN PRN Reason: Nausea Last Admin: 09/14/24 18:44 Dose: 4 mg Documented By: LEXI Oxycodone HCl (Oxycodone Hcl Immed Release 5 Mg Tablet) 5 mg PO Q4H PRN PRN Reason: Pain, Moderate(Pain Scale 4-6) Last Admin: 10/01/24 11:51 Dose: 5 mg Documented By: SINDHU Pharmacy Consult (Consult Rx Parenteral Nutrition Ordering) 1 each MISCELLANE DAILY PRN PRN Reason: Consult order Simethicone (Simethicone 80 Mg Tab.Chew) 80 mg PO QIDWMHS PRN PRN Reason: Gas Last Admin: 09/18/24 23:48 Dose: 80 mg Documented By: JOSE J Comments: pt reports emmy salamanca Sodium Chloride (0.9 % Sodium Chloride Flush 3 Ml Syringe) 3 ml IVFLUSH QSHIFT [facility] Last Admin: 10/01/24 21:03 Dose: 3 ml Documented By: SRINIVAS Sodium Chloride (0.9 % Sodium Chloride Flush 10 Ml Syringe) 10 ml IVFLUSH QSHIFT [facility] Last Admin: 10/01/24 21:03 Dose: Not Given Documented By: SRINIVAS Non-Admin Reason: prior to DC Labs 09/30/24 06:57 10/02/24 06:42 Labs: Laboratory Results - last 24 hr 10/01/24 10/02/24 08:54 06:42 Hold Purple Top SEE NOTE Anion Gap 11 L 10 L Estim Creat Clear Calc 97.1 88.0 Estimated GFR > 60 > 60 Random Glucose 101 119 H Calcium 8.7 8.4 Phosphorus 2.6 L 2.2 L Magnesium 2.2 2.1 Albumin 3.1 L 3.2 L Procedures Date of Service Date of Service: 10/02/24 Progress Note: A&P Assessment and plan (1) Enterocutaneous fistula: Status: Acute Assessment and Plan: Enterocutaneous fistula output is now very scanty Tolerating diet well We will see how oral intake is and plan to DC TPN tomorrow Electrolytes okay Abdomen is soft and benign Hospitalist following Time Spent With Patient Time: Total time managing care of this patient today ____ minutes. Quality Stroke Does the patient have a stroke diagnosis?: No VTE Prior VTE?: No VTE Risk Level:: Surgical - moderate VTE Device Contraindication: N/A - Device Ordered VTE Drug Contraindication: N/A - Med Ordered
[2024-10-02] MEDS: 0.9 % Sodium Chloride Flush 3 ML SYRINGE IVFLUSH ×2 (09:27→16:18)
[2024-10-02 10:56] VITALS: BP 110/59; PULSE 71; RESP 14; TEMP 37; O2SAT 97
[2024-10-02 16:00] VITALS: BP 111/65; PULSE 82; RESP 20; TEMP 37.1; O2SAT 92
--- NOTE | 2024-10-02 16:33 | HO.PM.IMPN ---
Subjective Subjective Date of Service: 10/02/24 Interval History: follow up pleural effusion remains of room air without respiratory symptoms Physical Exam Vital Signs: Vital Signs: Last Vital Signs Temp 98.6 F 10/02/24 10:56 Pulse 71 10/02/24 10:56 Resp 14 10/02/24 10:56 BP 110/59 L 10/02/24 10:56 Pulse Ox 97 10/02/24 10:56 O2 Del Method Room Air 10/02/24 10:56 O2 Flow Rate 1 09/17/24 15:26 BMI result Body Mass Index 43.7 Appearing in no acute distress lung sounds are clear to auscultation heart regular rate rhythm, clear S1, S2 positive bowel sounds, abdomen is soft, nontender neuro patient is alert x3, no focal deficits Objective Data Active Medications Acetaminophen (Acetaminophen 325 Mg Tablet) 650 mg PO Q4H PRN PRN Reason: Pain, Mild 1-3,fever,headache Last Admin: 09/30/24 22:01 Dose: 650 mg Documented By: TAVO Apixaban (Apixaban 5 Mg Tablet) 5 mg PO BID [facility] Last Admin: 10/02/24 08:38 Dose: 5 mg Documented By: LORETTA Bupropion HCl (Bupropion Hcl Xl 150 Mg Tab.Er.24h) 150 mg PO DAILY [facility] Last Admin: 10/02/24 08:38 Dose: 150 mg Documented By: LORETTA Calcium Carbonate (Calcium Carbonate 750 Mg Tab.Chew) 750 mg PO Q4H PRN PRN Reason: Heartburn Furosemide (Furosemide 20 Mg Tablet) 20 mg PO DAILY [facility]; Protocol Last Admin: 10/02/24 08:38 Dose: 20 mg Documented By: LORETTA Hydromorphone HCl (Hydromorphone Hcl 1 Mg/Ml Syringe) 1 mg IVPUSH Q3H PRN; Protocol PRN Reason: Pain, Severe (Pain Scale 7-10) Last Admin: 09/16/24 03:28 Dose: 1 mg Documented By: KACY Piperacillin Sod/Tazobactam (Sod 3.375 gm/ Sodium Chloride) 50 mls @ 100 mls/hr IV Q6H [facility] Last Admin: 10/02/24 16:17 Dose: 100 mls/hr Documented By: LORETTA Nutrition (Parenteral) (Parenteral Nutrition) 1,200 mls @ 50 mls/hr IV .Q24H [facility]; Protocol Stop: 10/02/24 20:59 Last Admin: 10/01/24 21:02 Dose: 50 mls/hr Documented By: SRINIVAS Nutrition (Parenteral) (Parenteral Nutrition) 1,200 mls @ 50 mls/hr IV .Q24H [facility]; Protocol Stop: 10/03/24 20:59 Levothyroxine Sodium (Levothyroxine Sodium 175 Mcg Tablet) 175 mcg PO DAILY@0600 [facility] Last Admin: 10/02/24 04:28 Dose: 175 mcg Documented By: SRINIVAS Magnesium Hydroxide (Milk Of Magnesia 30 Ml Oral.Susp) 30 ml PO DAILY PRN PRN Reason: Constipation Melatonin (Melatonin 3 Mg Tablet) 6 mg PO BEDTIME PRN PRN Reason: Insomnia Last Admin: 09/20/24 19:47 Dose: 6 mg Documented By: CASTILDigna Metoprolol Tartrate (Metoprolol Tartrate 12.5 Mg Halftab) 12.5 mg PO BID [facility]; Protocol Last Admin: 10/02/24 08:38 Dose: 12.5 mg Documented By: MARYTEKEddie Multi-Ingred Medicated Throat [place] (Throat [place], Medicated 177 Ml Bottle) 1 spray MUCOUS MEM Q2H PRN PRN Reason: Sore Throat Last Admin: 09/18/24 22:52 Dose: 1 spray Documented By: JOSE J Ondansetron HCl (Ondansetron Hcl 4 Mg/2 Ml Vial) 4 mg IVPUSH QID PRN PRN Reason: Nausea Last Admin: 09/14/24 18:44 Dose: 4 mg Documented By: LEXI Oxycodone HCl (Oxycodone Hcl Immed Release 5 Mg Tablet) 5 mg PO Q4H PRN PRN Reason: Pain, Moderate(Pain Scale 4-6) Last Admin: 10/01/24 11:51 Dose: 5 mg Documented By: SINDHU Pharmacy Consult (Consult Rx Parenteral Nutrition Ordering) 1 each MISCELLANE DAILY PRN PRN Reason: Consult order Simethicone (Simethicone 80 Mg Tab.Chew) 80 mg PO QIDWMHS PRN PRN Reason: Gas Last Admin: 09/18/24 23:48 Dose: 80 mg Documented By: JOSE J Comments: pt reports emmy salamanca Sodium Chloride (0.9 % Sodium Chloride Flush 3 Ml Syringe) 3 ml IVFLUSH QSHIFT [facility] Last Admin: 10/02/24 16:18 Dose: 3 ml Documented By: LORETTA Sodium Chloride (0.9 % Sodium Chloride Flush 10 Ml Syringe) 10 ml IVFLUSH QSHIFT [facility] Last Admin: 10/02/24 15:36 Dose: Not Given Documented By: LORETTA Non-Admin Reason: Previously Administered Labs 09/30/24 06:57 10/02/24 06:42 Labs: Laboratory Results - last 24 hr 10/02/24 06:42 Hold Purple Top SEE NOTE Anion Gap 10 L Estim Creat Clear Calc 88.0 Estimated GFR > 60 Random Glucose 119 H Calcium 8.4 Phosphorus 2.2 L Magnesium 2.1 Albumin 3.2 L Assessment and Plan (1) Pleural effusion: Status: Acute Plan Patient is a 74-year-old female with a past medical history significant for HTN, HLD, hypothyroid, new dx of AFib on Eliquis, and morbid obesity, who has been hospitalized since 09/13/24 s/p ex lap for abd abscess, incisional hernia reapir, SBO and enterocutaneous fistua, consulted for new left sided moderate pleural effusion. moderate L pleural effusion asymptomatic, no hypoxia likely due to chronic HFpEF, being off diuretics, hypoalbuminemia pt on lasix 20mg PO at baseline but has not been taking and currently on TPN 50ml/hr restarted lasix 20mg QD continue incentive spirometry would not recommend throacentesis at this time. outpatient repeat imaging to ensure resolution if pt becomes symptomatic could consider diagnostic and therapeutic thoracentesis at that time Atrial fibrillation, unknown chronicity Rate controlled Continue low-dose metoprolol Continue anticoagulation with Eliquis SBO w complicated hernia Management per General surgery Status post incisional hernia repair, abscess drainage and small-bowel resection HLD statin HTN BP stable Hold Lisinopril Hypothyroid Continue Levothyroxine Thank you for allowing me to participate in the pt's care. Will continue to follow Quality Stroke Does the patient have a stroke diagnosis?: No VTE Prior VTE?: No VTE Risk Level:: Surgical - moderate VTE Device Contraindication: N/A - Device Ordered VTE Drug Contraindication: N/A - Med Ordered
[2024-10-02 19:20] VITALS: BP 156/84; PULSE 119; RESP 18; TEMP 36.7; O2SAT 99
[2024-10-02] MEDS: Parenteral Nutrition 1,200 ML 50 ML IV (22:08)
[2024-10-02 23:55] VITALS: BP 127/59; PULSE 90; RESP 18; TEMP 36.4; O2SAT 98
[2024-10-03] MEDS: Piperacillin Sodium/Tazobactam 3.375 GM in 0.9 % Sodium Chloride 50 ML IV ×2 (03:23→08:29)
[2024-10-03] MEDS: Levothyroxine Sodium 175 MCG TABLET PO (03:24)
[2024-10-03 03:50] VITALS: BP 134/83; PULSE 76; RESP 18; TEMP 36.6; O2SAT 98
[2024-10-03 07:13] LABS: Albumin Level 3.1 g/dL (3.5-5.0); Anion Gap 11 (12-20); Blood Urea Nitrogen 14 mg/dL (9-16); Calcium 8.6 mg/dL (8.4-10.2); Carbon Dioxide 25 mmol/L (22-29); Chloride 104 mmol/L (96-108); Creatinine Clr Calc Pharmacy 104.2; Estimated Glomerular Filt Rate > 60; Glucose Random 104 mg/dL (60-115); Magnesium 2.1 mg/dL (1.6-2.6); Phosphorus 2.4 mg/dL (2.7-4.5); Sodium 136 mmol/L (135-145)
[2024-10-03 07:19] VITALS: BP 132/76; PULSE 77; RESP 14; TEMP 36.4; O2SAT 97
[2024-10-03] MEDS: Furosemide 20 MG TABLET PO (08:29)
[2024-10-03] MEDS: Apixaban 5 MG TABLET PO ×2 (08:30→21:32)
[2024-10-03] MEDS: buPROPion HCl XL 150 MG TAB.ER.24H PO (08:30)
[2024-10-03] MEDS: Metoprolol Tartrate 12.5 MG HALFTAB PO ×2 (08:30→21:32)
[2024-10-03] MEDS: 0.9 % Sodium Chloride Flush 3 ML SYRINGE IVFLUSH ×2 (08:32→21:34)
[2024-10-03] MEDS: 0.9 % Sodium Chloride Flush 10 ML SYRINGE IVFLUSH (08:33)
--- NOTE | 2024-10-03 08:33 | P.PNIM_ITS ---
Subjective Subjective Date of Service: 10/03/24 Interval History: Follow-up SBO status post surgical intervention Reports feeling well today, has been taking p.o. Physical Exam 2 Vital Signs: Vital Signs: Last Vital Signs Temp 97.6 F 10/03/24 07:19 Pulse 77 10/03/24 07:19 Resp 14 10/03/24 07:19 BP 132/76 10/03/24 07:19 Pulse Ox 97 10/03/24 07:19 O2 Del Method Room Air 10/03/24 07:19 O2 Flow Rate 1 09/17/24 15:26 BMI result Body Mass Index 43.7 Appearing in no acute distress lung sounds are clear to auscultation heart regular rate rhythm, clear S1, S2 positive bowel sounds, abdomen is soft, nontender neuro patient is alert x3, no focal deficits Colostomy in place Objective Data Active Medications Acetaminophen (Acetaminophen 325 Mg Tablet) 650 mg PO Q4H PRN PRN Reason: Pain, Mild 1-3,fever,headache Last Admin: 09/30/24 22:01 Dose: 650 mg Documented By: TAVO Apixaban (Apixaban 5 Mg Tablet) 5 mg PO BID [facility] Last Admin: 10/02/24 22:08 Dose: 5 mg Documented By: SRINIVAS Bupropion HCl (Bupropion Hcl Xl 150 Mg Tab.Er.24h) 150 mg PO DAILY [facility] Last Admin: 10/02/24 08:38 Dose: 150 mg Documented By: LORETTA Calcium Carbonate (Calcium Carbonate 750 Mg Tab.Chew) 750 mg PO Q4H PRN PRN Reason: Heartburn Furosemide (Furosemide 20 Mg Tablet) 20 mg PO DAILY [facility]; Protocol Last Admin: 10/02/24 08:38 Dose: 20 mg Documented By: LORETTA Hydromorphone HCl (Hydromorphone Hcl 1 Mg/Ml Syringe) 1 mg IVPUSH Q3H PRN; Protocol PRN Reason: Pain, Severe (Pain Scale 7-10) Last Admin: 09/16/24 03:28 Dose: 1 mg Documented By: KACY Piperacillin Sod/Tazobactam (Sod 3.375 gm/ Sodium Chloride) 50 mls @ 100 mls/hr IV Q6H [facility] Last Infusion: 10/03/24 03:55 Dose: Infused Documented By: SRINIVAS Nutrition (Parenteral) (Parenteral Nutrition) 1,200 mls @ 50 mls/hr IV .Q24H [facility]; Protocol Stop: 10/03/24 20:59 Last Admin: 10/02/24 22:08 Dose: 50 mls/hr Documented By: SRINIVAS Levothyroxine Sodium (Levothyroxine Sodium 175 Mcg Tablet) 175 mcg PO DAILY@0600 [facility] Last Admin: 10/03/24 03:24 Dose: 175 mcg Documented By: SRINIVAS Magnesium Hydroxide (Milk Of Magnesia 30 Ml Oral.Susp) 30 ml PO DAILY PRN PRN Reason: Constipation Melatonin (Melatonin 3 Mg Tablet) 6 mg PO BEDTIME PRN PRN Reason: Insomnia Last Admin: 09/20/24 19:47 Dose: 6 mg Documented By: MADIE Metoprolol Tartrate (Metoprolol Tartrate 12.5 Mg Halftab) 12.5 mg PO BID [facility]; Protocol Last Admin: 10/02/24 22:07 Dose: 12.5 mg Documented By: SRINIVAS Multi-Ingred Medicated Throat [place] (Throat [place], Medicated 177 Ml Bottle) 1 spray MUCOUS MEM Q2H PRN PRN Reason: Sore Throat Last Admin: 09/18/24 22:52 Dose: 1 spray Documented By: JOSE J Ondansetron HCl (Ondansetron Hcl 4 Mg/2 Ml Vial) 4 mg IVPUSH QID PRN PRN Reason: Nausea Last Admin: 09/14/24 18:44 Dose: 4 mg Documented By: LEXI Oxycodone HCl (Oxycodone Hcl Immed Release 5 Mg Tablet) 5 mg PO Q4H PRN PRN Reason: Pain, Moderate(Pain Scale 4-6) Last Admin: 10/01/24 11:51 Dose: 5 mg Documented By: SINDHU Pharmacy Consult (Consult Rx Parenteral Nutrition Ordering) 1 each MISCELLANE DAILY PRN PRN Reason: Consult order Simethicone (Simethicone 80 Mg Tab.Chew) 80 mg PO QIDWMHS PRN PRN Reason: Gas Last Admin: 09/18/24 23:48 Dose: 80 mg Documented By: JOSE J Comments: pt reports feelin gassy Sodium Chloride (0.9 % Sodium Chloride Flush 3 Ml Syringe) 3 ml IVFLUSH QSHIFT [facility] Last Admin: 10/02/24 23:41 Dose: Not Given Documented By: SRINIVAS Non-Admin Reason: Previously Administered Sodium Chloride (0.9 % Sodium Chloride Flush 10 Ml Syringe) 10 ml IVFLUSH QSHIFT [facility] Last Admin: 10/02/24 23:42 Dose: Not Given Documented By: SRINIVAS Non-Admin Reason: prior to discharge Labs 09/30/24 06:57 10/03/24 06:35 Labs: Laboratory Results - last 24 hr 10/03/24 06:35 Anion Gap 11 L Estim Creat Clear Calc 104.2 Estimated GFR > 60 Random Glucose 104 Calcium 8.6 Phosphorus 2.4 L Magnesium 2.1 Albumin 3.1 L Assessment and Plan (1) Pleural effusion: Status: Acute Plan 74-year-old female with a past medical history significant for HTN, HLD, hypothyroid, new dx of AFib on Eliquis, and morbid obesity, who has been hospitalized since 09/13/24 s/p ex lap for abd abscess, incisional hernia reapir, SBO and enterocutaneous fistua, consulted for new left sided moderate pleural effusion. Moderate L pleural effusion asymptomatic, no hypoxia likely due to chronic HFpEF, being off diuretics, hypoalbuminemia restarted lasix 20mg QD continue incentive spirometry would not recommend throacentesis at this time. outpatient repeat imaging to ensure resolution if pt becomes symptomatic could consider diagnostic and therapeutic thoracentesis Atrial fibrillation, unknown chronicity Rate controlled Continue low-dose metoprolol Continue anticoagulation with Eliquis SBO w complicated hernia Management per General surgery Status post incisional hernia repair, abscess drainage and small-bowel resection According to General surgery no TPN may be discontinued today She is now taking oral medications HLD statin HTN BP stable Continue to hold Lisinopril to avoid hypotension Hypothyroid Continue Levothyroxine Medical consultation complete. Will sign off. Contact hospitalist service for any further consultation issues. Quality Stroke Does the patient have a stroke diagnosis?: No VTE Prior VTE?: No VTE Risk Level:: Surgical - moderate VTE Device Contraindication: N/A - Device Ordered VTE Drug Contraindication: N/A - Med Ordered
--- NOTE | 2024-10-03 09:48 | PM.PNGS ---
Subjective Subjective Date of Service: 10/03/24 Interval history: Denies abdominal pain Good oral intake Says she feels well overall Enterocutaneous fistula output very minimal Physical Exam Vital Signs: Vital Signs: Last Vital Signs Temp 97.6 F 10/03/24 07:19 Pulse 77 10/03/24 07:19 Resp 14 10/03/24 07:19 BP 132/76 10/03/24 07:19 Pulse Ox 97 10/03/24 07:19 O2 Del Method Room Air 10/03/24 07:19 O2 Flow Rate 1 09/17/24 15:26 BMI result Body Mass Index 43.7 Const: Other: Looks well General: comfortable and no acute distress Resp: Effort & Inspection: normal respiratory effort Cardio: Rate: regular rate GI: Other: Incision clean and dry, fistula output very scanty Palpation (GI): Soft to palpation, not firm, nontender and no guarding Objective Data Active Medications Acetaminophen (Acetaminophen 325 Mg Tablet) 650 mg PO Q4H PRN PRN Reason: Pain, Mild 1-3,fever,headache Last Admin: 09/30/24 22:01 Dose: 650 mg Documented By: TAVO Apixaban (Apixaban 5 Mg Tablet) 5 mg PO BID [facility] Last Admin: 10/03/24 08:30 Dose: 5 mg Documented By: LORETTA Bupropion HCl (Bupropion Hcl Xl 150 Mg Tab.Er.24h) 150 mg PO DAILY [facility] Last Admin: 10/03/24 08:30 Dose: 150 mg Documented By: LORETTA Calcium Carbonate (Calcium Carbonate 750 Mg Tab.Chew) 750 mg PO Q4H PRN PRN Reason: Heartburn Furosemide (Furosemide 20 Mg Tablet) 20 mg PO DAILY [facility]; Protocol Last Admin: 10/03/24 08:29 Dose: 20 mg Documented By: LORETTA Hydromorphone HCl (Hydromorphone Hcl 1 Mg/Ml Syringe) 1 mg IVPUSH Q3H PRN; Protocol PRN Reason: Pain, Severe (Pain Scale 7-10) Last Admin: 09/16/24 03:28 Dose: 1 mg Documented By: KACY Nutrition (Parenteral) (Parenteral Nutrition) 1,200 mls @ 50 mls/hr IV .Q24H [facility]; Protocol Stop: 10/03/24 20:59 Last Admin: 10/02/24 22:08 Dose: 50 mls/hr Documented By: SRINIVAS Levothyroxine Sodium (Levothyroxine Sodium 175 Mcg Tablet) 175 mcg PO DAILY@0600 [facility] Last Admin: 10/03/24 03:24 Dose: 175 mcg Documented By: SRINIVAS Magnesium Hydroxide (Milk Of Magnesia 30 Ml Oral.Susp) 30 ml PO DAILY PRN PRN Reason: Constipation Melatonin (Melatonin 3 Mg Tablet) 6 mg PO BEDTIME PRN PRN Reason: Insomnia Last Admin: 09/20/24 19:47 Dose: 6 mg Documented By: CASTILDigna Metoprolol Tartrate (Metoprolol Tartrate 12.5 Mg Halftab) 12.5 mg PO BID [facility]; Protocol Last Admin: 10/03/24 08:30 Dose: 12.5 mg Documented By: LORETTA Multi-Ingred Medicated Throat [place] (Throat [place], Medicated 177 Ml Bottle) 1 spray MUCOUS MEM Q2H PRN PRN Reason: Sore Throat Last Admin: 09/18/24 22:52 Dose: 1 spray Documented By: JOSE J Ondansetron HCl (Ondansetron Hcl 4 Mg/2 Ml Vial) 4 mg IVPUSH QID PRN PRN Reason: Nausea Last Admin: 09/14/24 18:44 Dose: 4 mg Documented By: LEXI Oxycodone HCl (Oxycodone Hcl Immed Release 5 Mg Tablet) 5 mg PO Q4H PRN PRN Reason: Pain, Moderate(Pain Scale 4-6) Last Admin: 10/01/24 11:51 Dose: 5 mg Documented By: SINDHU Pharmacy Consult (Consult Rx Parenteral Nutrition Ordering) 1 each MISCELLANE DAILY PRN PRN Reason: Consult order Simethicone (Simethicone 80 Mg Tab.Chew) 80 mg PO QIDWMHS PRN PRN Reason: Gas Last Admin: 09/18/24 23:48 Dose: 80 mg Documented By: JOSE J Comments: pt reports emmy salamanca Sodium Chloride (0.9 % Sodium Chloride Flush 3 Ml Syringe) [facility] Last Admin: 10/03/24 08:32 Dose: 3 ml Documented By: LORETTA Sodium Chloride (0.9 % Sodium Chloride Flush 10 Ml Syringe) 10 ml IVFLUSH QSHIFT [facility] Last Admin: 10/03/24 08:33 Dose: 10 ml Documented By: LORETTA Labs 09/30/24 06:57 10/03/24 06:35 Labs: Laboratory Results - last 24 hr 10/03/24 06:35 Anion Gap 11 L Estim Creat Clear Calc 104.2 Estimated GFR > 60 Random Glucose 104 Calcium 8.6 Phosphorus 2.4 L Magnesium 2.1 Albumin 3.1 L Procedures Date of Service Date of Service: 10/03/24 Progress Note: A&P Assessment and plan (1) Enterocutaneous fistula: Status: Acute Assessment and Plan: Very scanty output Tolerating oral intake well Abdomen is soft and benign Electrolytes okay Okay to stop TPN after current bag runs out Discussed with nursing staff Time Spent With Patient Time: Total time managing care of this patient today ____ minutes. Quality Stroke Does the patient have a stroke diagnosis?: No VTE Prior VTE?: No VTE Risk Level:: Surgical - moderate VTE Device Contraindication: N/A - Device Ordered VTE Drug Contraindication: N/A - Med Ordered
[2024-10-03 11:30] VITALS: BP 112/57; PULSE 73; RESP 16; TEMP 36.2; O2SAT 99
[2024-10-03 14:52] VITALS: BP 106/55; PULSE 86; RESP 18; TEMP 36.6; O2SAT 98
[2024-10-03 20:00] VITALS: BP 124/64; PULSE 94; RESP 19; TEMP 37.1; O2SAT 98
[2024-10-03] MEDS: Simethicone 80 MG TAB.CHEW PO (21:32)
[2024-10-03] MEDS: Acetaminophen 325 MG TABLET 650 MG PO (21:33)
[2024-10-04] VITALS (8 sets, daily range): BP systolic 98–126; BP diastolic 65–76; PULSE 73–91; RESP 16–19; TEMP 36.4–37.2; O2SAT 94–99
[2024-10-04] MEDS: Levothyroxine Sodium 175 MCG TABLET PO (06:10)
[2024-10-04] MEDS: Acetaminophen 325 MG TABLET 650 MG PO ×2 (06:10→19:48)
--- NOTE | 2024-10-04 07:54 | P.PNGS_ITS ---
Subjective Subjective Date of Service: 10/04/24 Interval history: No bowel movement over the weekend but otherwise patient feels improved. She is tolerating regular diet. TPN was stopped yesterday. Denies abdominal pain. Physical Exam 2 Vital Signs: Vital Signs: Last Vital Signs Temp 97.7 F 10/04/24 07:25 Pulse 73 10/04/24 07:25 Resp 18 10/04/24 07:25 BP 118/72 10/04/24 07:25 Pulse Ox 98 10/04/24 07:25 O2 Del Method Room Air 10/04/24 07:25 O2 Flow Rate 1 09/17/24 15:26 BMI result Body Mass Index 43.7 Const: General: comfortable Nutritional Appearance: well nourished O rientation/consciousness: patient oriented x3 Resp: Effort & Inspection: normal respiratory effort GI: Other: Small amount of purulence discharge from her abdominal wound collected in the ostomy appliance. Abdomen otherwise soft, nondistended. Skin: Other: Warm, dry, no rash Neuro: General: patient oriented x3 Objective Data Active Medications Acetaminophen (Acetaminophen 325 Mg Tablet) 650 mg PO Q4H PRN PRN Reason: Pain, Mild 1-3,fever,headache Last Admin: 10/04/24 06:10 Dose: 650 mg Documented By: SRINIVAS Apixaban (Apixaban 5 Mg Tablet) 5 mg PO BID [facility] Last Admin: 10/03/24 21:32 Dose: 5 mg Documented By: SRINIVAS Bupropion HCl (Bupropion Hcl Xl 150 Mg Tab.Er.24h) 150 mg PO DAILY [facility] Last Admin: 10/03/24 08:30 Dose: 150 mg Documented By: LORETTA Calcium Carbonate (Calcium Carbonate 750 Mg Tab.Chew) 750 mg PO Q4H PRN PRN Reason: Heartburn Furosemide (Furosemide 20 Mg Tablet) 20 mg PO DAILY [facility]; Protocol Last Admin: 10/03/24 08:29 Dose: 20 mg Documented By: LORETTA Levothyroxine Sodium (Levothyroxine Sodium 175 Mcg Tablet) 175 mcg PO DAILY@0600 [facility] Last Admin: 10/04/24 06:10 Dose: 175 mcg Documented By: SRINIVAS Magnesium Hydroxide (Milk Of Magnesia 30 Ml Oral.Susp) 30 ml PO DAILY PRN PRN Reason: Constipation Melatonin (Melatonin 3 Mg Tablet) 6 mg PO BEDTIME PRN PRN Reason: Insomnia Last Admin: 09/20/24 19:47 Dose: 6 mg Documented By: REGULOILDigna Metoprolol Tartrate (Metoprolol Tartrate 12.5 Mg Halftab) 12.5 mg PO BID [facility]; Protocol Last Admin: 10/03/24 21:32 Dose: 12.5 mg Documented By: SRINIVAS Multi-Ingred Medicated Throat [place] (Throat [place], Medicated 177 Ml Bottle) 1 spray MUCOUS MEM Q2H PRN PRN Reason: Sore Throat Last Admin: 09/18/24 22:52 Dose: 1 spray Documented By: JOSE J Ondansetron HCl (Ondansetron Hcl 4 Mg/2 Ml Vial) 4 mg IVPUSH QID PRN PRN Reason: Nausea Last Admin: 09/14/24 18:44 Dose: 4 mg Documented By: LEXI Oxycodone HCl (Oxycodone Hcl Immed Release 5 Mg Tablet) 5 mg PO Q4H PRN PRN Reason: Pain, Moderate(Pain Scale 4-6) Last Admin: 10/01/24 11:51 Dose: 5 mg Documented By: SINDHU Polyethylene Glycol (Polyethylene Glycol 3350 17 Gm Powd.Pack) 17 gm PO DAILY PRN PRN Reason: Constipation Simethicone (Simethicone 80 Mg Tab.Chew) 80 mg PO QIDWMHS PRN PRN Reason: Gas Last Admin: 10/03/24 21:32 Dose: 80 mg Documented By: SRINIVAS Sodium Chloride (0.9 % Sodium Chloride Flush 3 Ml Syringe) 3 ml IVFLUSH [facility] Last Admin: 10/03/24 21:34 Dose: 3 ml Documented By: SRINIVAS Sodium Chloride (0.9 % Sodium Chloride Flush 10 Ml Syringe) 10 ml IVFLUSH [facility] Last Admin: 10/03/24 23:47 Dose: Not Given Documented By: SRINIVAS Non-Admin Reason: prior to d/c Labs 09/30/24 06:57 10/03/24 06:35 Labs: Laboratory Results - last 24 hr 10/04/24 07:05 Hold Purple Top SEE NOTE Procedures Date of Service Date of Service: 10/04/24 Progress Note: A&P Assessment and plan (1) S/P small bowel resection: Status: Acute (2) Enterocutaneous fistula: Status: Acute (3) Recurrent incisional hernia with obstruction: Status: Acute Plan 74-year-old female patient presenting with a small-bowel obstruction and recurrent incisional hernia, status post repair of incisional hernia, small- bowel resection, drainage of abscess, 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 Overall she is improving with no abdominal pain. She is tolerating a regular diet without nausea, vomiting, or increased abdominal pain. She reports no bowel movement over the weekend therefore will be given MiraLax today. Anticipate discharge to home with [facility] for wound care to abdominal incision. She is now off the TPN. The patient expressed understanding and agrees with the plan. Time Spent With Patient Time: Total time managing care of this patient today ____ minutes. Quality Stroke Does the patient have a stroke diagnosis?: No VTE Prior VTE?: No VTE Risk Level:: Surgical - moderate VTE Device Contraindication: N/A - Device Ordered VTE Drug Contraindication: N/A - Med Ordered
[2024-10-04 08:28] LABS: Albumin Level 3.2 g/dL (3.5-5.0); Anion Gap 11 (12-20); Blood Urea Nitrogen 14 mg/dL (9-16); Carbon Dioxide 27 mmol/L (22-29); Chloride 103 mmol/L (96-108); Creatinine Clr Calc Pharmacy 106.2; Estimated Glomerular Filt Rate > 60; Glucose Random 84 mg/dL (60-115); Magnesium 2.1 mg/dL (1.6-2.6); Phosphorus 2.4 mg/dL (2.7-4.5); Potassium 4.6 mmol/L (3.3-5.1); Sodium 136 mmol/L (135-145)
[2024-10-04] MEDS: Apixaban 5 MG TABLET PO ×2 (08:58→19:47)
[2024-10-04] MEDS: Metoprolol Tartrate 12.5 MG HALFTAB PO ×2 (08:58→19:47)
[2024-10-04] MEDS: buPROPion HCl XL 150 MG TAB.ER.24H PO (08:58)
[2024-10-04] MEDS: Furosemide 20 MG TABLET PO (08:59)
[2024-10-04] MEDS: 0.9 % Sodium Chloride Flush 3 ML SYRINGE IVFLUSH ×2 (08:59→16:45)
--- NOTE | 2024-10-04 09:11 | HO.WOUND ---
Wound Consult: Follow up 74 old?female admitted to [facility] on 09/13/24 15:43- See progress notes and H&P for detailed history.? Wound consult follow up for Midline dehiscence / Fistula and copious amounts of drainage.? Patient agreeable to assessment and photo documentation.?Brief chart review completed. Patient is followed by General surgery. Pouch is noted to not have been changed since the 12th when this mortgage loan underwriter first placed the pouch. Skin assessed and pouch was noted to be intact. When removed noted to be pooling arounf the fistula opening. This is also evident by the MASD noted around the fistula site. Recommend changing the pouch every 4 days in an effort to keep pouch adherent and protect periwound skin. The fistula opening is noted to be improved no slough noted at todays assessment. Skin cleansed with NS moist gauze. Skin prep applied. Barrier strip used to create seal around fistula and to full space. The skin inferior to the incision is noted for MASD with some red erythema, denies tenderness. the upper incision had a hydrocolloid and durafiber in place from last application however when removed no drainage noted therefore a dressing is not needed to this area. The most inferior portion of the incision where quentin were removed remains open with pink moist wound bed and moderate amounts of kemp drainage noted, mild odor noted. 09/23/24 10/04/24 Recommendations: Midline Incision - Cleanse with NS Moist gauze, Pat dry. Apply skin prep allow to dry. At open fistula apply barrier strip to edge to protect from drainage and up along incision line to create seal. cut pouch using Template left at bedside and cover opening. Empty when a 1/3 -1/2 full. change every 4 days and PRN. Notify provider of worsening incision. Re-consult wound care Nurse for wound deterioration or wound changes.
--- NOTE | 2024-10-04 13:04 | MHC.CLN ---
F/U DIET ADVANCED TO REGULAR PO INTAKE 75-100% TPN D/C YESTERDAY RD TO FOLLOW WEEKLY
--- NOTE | 2024-10-04 15:04 | MHC.CM.PN ---
EMR reviewed, pt is not medically cleared for discharge at this time due to management of post op care.
[2024-10-04] MEDS: 0.9 % Sodium Chloride Flush 10 ML SYRINGE IVFLUSH ×2 (16:45→19:50)
[2024-10-04] MEDS: Melatonin 3 MG TABLET 6 MG PO (19:48)
[2024-10-05 04:00] VITALS: BP 124/62; PULSE 71; RESP 18; TEMP 36.3; O2SAT 98
[2024-10-05] MEDS: Levothyroxine Sodium 175 MCG TABLET PO (05:19)
[2024-10-05 07:07] VITALS: BP 127/58; PULSE 77; RESP 16; TEMP 36.8; O2SAT 96
--- NOTE | 2024-10-05 07:20 | PM.PNGS ---
Subjective Subjective Date of Service: 10/05/24 <Arturo Sung PA-C - Last Filed: 10/05/24 07:31> 10/05/24 <Drake Crawford MD - Last Filed: 10/05/24 07:51> Interval history: no acute changes overnight. denies pain, fever, chills. had a moderate sized bowel movement yesterday. Tolerating diet. midline incision drainage overnight 25 cc <RK Ramos Last Filed: 10/05/24 07:31> Physical Exam Vital Signs: Vital Signs: Last Vital Signs Temp 98.2 F 10/05/24 07:07 Pulse 77 10/05/24 07:07 Resp 16 10/05/24 07:07 BP 127/58 L 10/05/24 07:07 Pulse Ox 96 10/05/24 07:07 O2 Del Method Room Air 10/05/24 07:07 O2 Flow Rate 1 09/17/24 15:26 BMI result Body Mass Index 43.7 <RK Ramos Last Filed: 10/05/24 07:31> Const: General: comfortable and no acute distress <Arturo Sung PA-C - Last Filed: 10/05/24 07:31> Orientation/consciousness: patient oriented x3 <RK Ramos Last Filed: 10/05/24 07:31> Resp: Effort & Inspection: normal respiratory effort and able to speak in complete sentences <Arturo Sung PA-C - Last Filed: 10/05/24 07:31> GI: Other: midline incision, superior aspect clean and drym, staple intact. inferior aspect remains patent and draining, brown creamy liquid. ostomy appliance overlying <Arturo Sung PA-C - Last Filed: 10/05/24 07:31> Palpation (GI): Soft to palpation, nontender and no guarding <RK Ramos Last Filed: 10/05/24 07:31> Neuro: General: patient oriented x3 <RK Ramos Last Filed: 10/05/24 07:31> Objective Data Active Medications Acetaminophen (Acetaminophen 325 Mg Tablet) 650 mg PO Q4H PRN PRN Reason: Pain, Mild 1-3,fever,headache Last Admin: 10/04/24 19:48 Dose: 650 mg Documented By: FERMIN Apixaban (Apixaban 5 Mg Tablet) 5 mg PO BID [facility] Last Admin: 10/04/24 19:47 Dose: 5 mg Documented By: FERMIN Bupropion HCl (Bupropion Hcl Xl 150 Mg Tab.Er.24h) 150 mg PO DAILY [facility] Last Admin: 10/04/24 08:58 Dose: 150 mg Documented By: LORETTA Calcium Carbonate (Calcium Carbonate 750 Mg Tab.Chew) 750 mg PO Q4H PRN PRN Reason: Heartburn Furosemide (Furosemide 20 Mg Tablet) 20 mg PO DAILY [facility]; Protocol Last Admin: 10/04/24 08:59 Dose: 20 mg Documented By: LORETTA Levothyroxine Sodium (Levothyroxine Sodium 175 Mcg Tablet) 175 mcg PO DAILY@0600 [facility] Last Admin: 10/05/24 05:19 Dose: 175 mcg Documented By: FERMIN Magnesium Hydroxide (Milk Of Magnesia 30 Ml Oral.Susp) 30 ml PO DAILY PRN PRN Reason: Constipation Melatonin (Melatonin 3 Mg Tablet) 6 mg PO BEDTIME PRN PRN Reason: Insomnia Last Admin: 10/04/24 19:48 Dose: 6 mg Documented By: FERMIN Metoprolol Tartrate (Metoprolol Tartrate 12.5 Mg Halftab) 12.5 mg PO BID [facility]; Protocol Last Admin: 10/04/24 19:47 Dose: 12.5 mg Documented By: FERMIN Multi-Ingred Medicated Throat Dietrich (Throat Dietrich, Medicated 177 Ml Bottle) 1 spray MUCOUS MEM Q2H PRN PRN Reason: Sore Throat Last Admin: 09/18/24 22:52 Dose: 1 spray Documented By: JOSE J Ondansetron HCl (Ondansetron Hcl 4 Mg/2 Ml Vial) 4 mg IVPUSH QID PRN PRN Reason: Nausea Last Admin: 09/14/24 18:44 Dose: 4 mg Documented By: LEXI Oxycodone HCl (Oxycodone Hcl Immed Release 5 Mg Tablet) 5 mg PO Q4H PRN PRN Reason: Pain, Moderate(Pain Scale 4-6) Last Admin: 10/01/24 11:51 Dose: 5 mg Documented By: HO.VENLA Polyethylene Glycol (Polyethylene Glycol 3350 17 Gm Powd.Pack) 17 gm PO DAILY PRN PRN Reason: Constipation Simethicone (Simethicone 80 Mg Tab.Chew) 80 mg PO QIDWMHS PRN PRN Reason: Gas Last Admin: 10/03/24 21:32 Dose: 80 mg Documented By: FRANCOISJ Sodium Chloride (0.9 % Sodium Chloride Flush 3 Ml Syringe) 3 ml IVFLUSH [facility] Last Admin: 10/04/24 20:48 Dose: Not Given Documented By: FERMIN Non-Admin Reason: flushed picc line with 5 ml NS Sodium Chloride (0.9 % Sodium Chloride Flush 10 Ml Syringe) 10 ml IVFLUSH [facility] Last Admin: 10/04/24 19:50 Dose: 10 ml Documented By: FERMIN <Arturo Sung PA-C - Last Filed: 10/05/24 07:31> Labs CBC & Chem 7: 09/30/24 06:57 10/04/24 07:05 <Arturo Sung PA-C - Last Filed: 10/05/24 07:31> Labs: Laboratory Results - last 24 hr 10/04/24 07:05 Hold Purple Top SEE NOTE Anion Gap 11 L Estim Creat Clear Calc 106.2 Estimated GFR > 60 Random Glucose 84 Calcium 9.0 Phosphorus 2.4 L Magnesium 2.1 Albumin 3.2 L <Arturo Sung PA-C - Last Filed: 10/05/24 07:31> Procedures Date of Service Date of Service: 10/05/24 <Arturo Sung PA-C - Last Filed: 10/05/24 07:31> 10/05/24 <Drake Crawford MD - Last Filed: 10/05/24 07:51> Progress Note: A&P Assessment and plan (1) S/P small bowel resection: Status: Acute <Arturo Sung PA-C - Last Filed: 10/05/24 07:31> (2) Enterocutaneous fistula: Status: Acute <Arturo Sung PA-C - Last Filed: 10/05/24 07:31> Assessment and Plan: 74-year-old female patient presenting with a small-bowel obstruction and recurrent incisional hernia, status post repair of incisional hernia, small-bowel resection, drainage of abscess, 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 patient improving. Output via fistula 25 cc overnight. Continues to be brown creamy liquid. Incision site is improving, see wound care notes for pictures of the wound without the ostomy appliance. Her abdominal exam is soft and benign. 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 patient improving. Output via fistula 25 cc overnight. Continues to be brown creamy liquid. Incision site is improving, see wound care notes for pictures of the wound without the ostomy appliance. Her abdominal exam is soft and benign. Patient continues to make improvement, tolerating regular diet, BM yesterday, wounds with decreasing output. Appreciate wound care input. Patient reports ambulating with walker. Has some steps to go up to get into her house. Anticipate discharge to home with VNA for wound care in next 1-2 days. I will discuss home needs with the patient's family. <Drake Crawford MD - Last Filed: 10/05/24 07:51> Time Spent With Patient Time: Total time managing care of this patient today ____ minutes. <Arturo Sung PA-C - Last Filed: 10/05/24 07:31> Quality Stroke Does the patient have a stroke diagnosis?: No <Arturo Sung PA-C - Last Filed: 10/05/24 07:31> VTE Prior VTE?: No <Arturo Sung PA-C - Last Filed: 10/05/24 07:31> VTE Risk Level:: Surgical - moderate <Arturo Sung PA-C - Last Filed: 10/05/24 07:31> VTE Device Contraindication: N/A - Device Ordered <Arturo Sung PA-C - Last Filed: 10/05/24 07:31> VTE Drug Contraindication: N/A - Med Ordered <Arturo Sung PA-C - Last Filed: 10/05/24 07:31>
[2024-10-05] MEDS: Apixaban 5 MG TABLET PO ×2 (08:35→20:38)
[2024-10-05] MEDS: Metoprolol Tartrate 12.5 MG HALFTAB PO ×2 (08:35→20:38)
[2024-10-05] MEDS: Furosemide 20 MG TABLET PO (08:35)
[2024-10-05] MEDS: buPROPion HCl XL 150 MG TAB.ER.24H PO (08:35)
[2024-10-05] MEDS: 0.9 % Sodium Chloride Flush 10 ML SYRINGE IVFLUSH ×3 (08:36→20:45)
[2024-10-05 11:29] VITALS: BP 123/66; PULSE 74; RESP 16; TEMP 36.6; O2SAT 99
[2024-10-05 15:19] VITALS: BP 147/66; PULSE 89; RESP 15; TEMP 36.6; O2SAT 98
[2024-10-05] MEDS: Acetaminophen 325 MG TABLET 650 MG PO (15:50)
[2024-10-05 19:46] VITALS: BP 147/73; PULSE 89; RESP 16; TEMP 36.9; O2SAT 96
[2024-10-05] MEDS: 0.9 % Sodium Chloride Flush 3 ML SYRINGE IVFLUSH (20:45)
[2024-10-05 23:36] VITALS: BP 119/64; PULSE 88; RESP 16; TEMP 36.4; O2SAT 97
[2024-10-06 03:49] VITALS: BP 141/80; PULSE 71; RESP 16; TEMP 36.9; O2SAT 99
[2024-10-06] MEDS: Levothyroxine Sodium 175 MCG TABLET PO (05:27)
--- NOTE | 2024-10-06 07:34 | PM.PNGS ---
Subjective Subjective Date of Service: 10/06/24 Patient reports: no new complaints Interval history: denies fever, chills, nausea/vomiting. tolerating diet. ambulating as tolerated. Physical Exam Vital Signs: Vital Signs: Last Vital Signs Temp 98.4 F 10/06/24 03:49 Pulse 71 10/06/24 03:49 Resp 16 10/06/24 03:49 BP 141/80 H 10/06/24 03:49 Pulse Ox 99 10/06/24 03:49 O2 Del Method Room Air 10/06/24 03:49 O2 Flow Rate 1 09/17/24 15:26 BMI result Body Mass Index 43.7 Const: General: comfortable and no acute distress Orientation/consciousness: patient oriented x3 Resp: Effort & Inspection: normal respiratory effort and able to speak in complete sentences GI: Other: ostomy appliance in place, draining about 20 cc brown, creamy discharge. incision site appears clean and dry superiorly. Inspection: No distended Palpation (GI): Soft to palpation, nontender, Guarding due to palpation present (GI) and Rigid due to palpation Neuro: General: patient oriented x3 Objective Data Active Medications Acetaminophen (Acetaminophen 325 Mg Tablet) 650 mg PO Q4H PRN PRN Reason: Pain, Mild 1-3,fever,headache Last Admin: 10/05/24 15:50 Dose: 650 mg Documented By: TYLOR Apixaban (Apixaban 5 Mg Tablet) 5 mg PO BID [facility] Last Admin: 10/05/24 20:38 Dose: 5 mg Documented By: TYE Bupropion HCl (Bupropion Hcl Xl 150 Mg Tab.Er.24h) 150 mg PO DAILY [facility] Last Admin: 10/05/24 08:35 Dose: 150 mg Documented By: TYLOR Calcium Carbonate (Calcium Carbonate 750 Mg Tab.Chew) 750 mg PO Q4H PRN PRN Reason: Heartburn Furosemide (Furosemide 20 Mg Tablet) 20 mg PO DAILY [facility]; Protocol Last Admin: 10/05/24 08:35 Dose: 20 mg Documented By: TYLOR Levothyroxine Sodium (Levothyroxine Sodium 175 Mcg Tablet) 175 mcg PO DAILY@0600 [facility] Last Admin: 10/06/24 05:27 Dose: 175 mcg Documented By: TYE Magnesium Hydroxide (Milk Of Magnesia 30 Ml Oral.Susp) 30 ml PO DAILY PRN PRN Reason: Constipation Melatonin (Melatonin 3 Mg Tablet) 6 mg PO BEDTIME PRN PRN Reason: Insomnia Last Admin: 10/04/24 19:48 Dose: 6 mg Documented By: FERMIN Metoprolol Tartrate (Metoprolol Tartrate 12.5 Mg Halftab) 12.5 mg PO BID [facility]; Protocol Last Admin: 10/05/24 20:38 Dose: 12.5 mg Documented By: TYE Multi-Ingred Medicated Throat Francisco (Throat Francisco, Medicated 177 Ml Bottle) 1 spray MUCOUS MEM Q2H PRN PRN Reason: Sore Throat Last Admin: 09/18/24 22:52 Dose: 1 spray Documented By: JOSE J Ondansetron HCl (Ondansetron Hcl 4 Mg/2 Ml Vial) 4 mg IVPUSH QID PRN PRN Reason: Nausea Last Admin: 09/14/24 18:44 Dose: 4 mg Documented By: LEXI Oxycodone HCl (Oxycodone Hcl Immed Release 5 Mg Tablet) 5 mg PO Q4H PRN PRN Reason: Pain, Moderate(Pain Scale 4-6) Last Admin: 10/01/24 11:51 Dose: 5 mg Documented By: SINDHU Polyethylene Glycol (Polyethylene Glycol 3350 17 Gm Powd.Pack) 17 gm PO DAILY PRN PRN Reason: Constipation Simethicone (Simethicone 80 Mg Tab.Chew) 80 mg PO QIDWMHS PRN PRN Reason: Gas Last Admin: 10/03/24 21:32 Dose: 80 mg Documented By: SRINIVAS Sodium Chloride (0.9 % Sodium Chloride Flush 3 Ml Syringe) 3 ml IVFLUSH [facility] Last Admin: 10/05/24 20:45 Dose: 3 ml Documented By: TYE Sodium Chloride (0.9 % Sodium Chloride Flush 10 Ml Syringe) 10 ml IVFLUSH 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 Patients abdominal exam is soft and benign. Output remains low, stable at this time. To be managed by VNA. Tolerating diet. Patient feels ready to be discharged home, will have VNA for management of wound care using osotmy appliance. Superior quentin removed prior to DC Patient tolerated well. This portion of the incision site appears clean and intact. Inferior quentin remain in place. Patient will follow up in the office in 1 week Time Spent With Patient Time: Total time managing care of this patient today ____ minutes. Quality Stroke Does the patient have a stroke diagnosis?: No VTE Prior VTE?: No VTE Risk Level:: Surgical - moderate VTE Device Contraindication: N/A - Device Ordered VTE Drug Contraindication: N/A - Med Ordered
[2024-10-06 07:40] VITALS: BP 138/73; PULSE 86; RESP 16; TEMP 36.6; O2SAT 97
[2024-10-06] MEDS: Apixaban 5 MG TABLET PO (08:56)
[2024-10-06] MEDS: Metoprolol Tartrate 12.5 MG HALFTAB PO (08:56)
[2024-10-06] MEDS: Furosemide 20 MG TABLET PO (08:56)
[2024-10-06] MEDS: buPROPion HCl XL 150 MG TAB.ER.24H PO (08:56)
[2024-10-06] MEDS: 0.9 % Sodium Chloride Flush 10 ML SYRINGE IVFLUSH (08:59)
[2024-10-06] MEDS: 0.9 % Sodium Chloride Flush 3 ML SYRINGE IVFLUSH (09:00)
[2024-10-06 11:32] VITALS: BP 108/66; PULSE 84; RESP 17; TEMP 36.2; O2SAT 97
--- NOTE | 2024-10-06 13:24 | P.DS_ITS ---
DS: Providers Provider Date of Service: 10/06/24 Date of admission: 09/13/24 15:43 Date of discharge: 10/06/24 Primary care physician: Maki Wheeler MD Admitting clinician: Drake Crawford Consults: 09/13/24 15:43 Consult to Hospitalist Routine Comment: Consulting Provider: [facility] Hospitalists Reason For Exam: New onset AFib, age-indeterminate anterior infarct 09/13/24 17:01 Consult to Cardiology Routine Consulting Provider: [facility] Specialists Reason for consultation: new onset Afib 09/23/24 14:37 Consult to Wound Care Routine Reason for consultation: abcess 09/29/24 14:31 Consult to Hospitalist Routine Comment: Consulting Provider: [facility] Hospitalists Reason For Exam: New Left Pleural Effusion (moderate) Attending physician on discharge: Drake Crawford DS: Diagnosis Discharge Diagnosis (1) Enterocutaneous fistula: Status: Acute (2) S/P small bowel resection: Status: Acute (3) Recurrent incisional hernia with obstruction: Status: Acute DS: Summary Hospital Course Hospital Course: admission HPI: 74-year-old female patient presenting to the emergency department with complaints of nausea/vomiting, with generalized malaise. Patient also reports sensation of palpitations and generally feeling weak. The symptoms started several days ago but increased over the past 24 hours. She presented to the emergency department and was noted to be tachycardic with a heart rate of 127, blood pressure 121/70. Initial laboratories revealed a WBC of 13.2, sodium 127, chloride of 90, BUN of 44 glucose of 131. Troponin was 17.0 (normal range < 3.5-17). A CT abdomen and pelvis revealed dilated loops of proximal small bowel with a transition point at a an incisional hernia located in the lower abdomen. She previously underwent a ventral hernia repair with a large mesh. The new hernia is located below this mesh in the midline. There is also a fluid collection adjacent to this which may be an underlying abscess. EKG revealed atrial fibrillation, new onset with anterior infarct now present, age in determinate. Surgical consultation was requested for management of the small- bowel obstruction. NG tube was placed by the ED and patient was admitted for further evaluation and mangement. Further workup revealed new onset atrial fibrillation with age indeterminate anterior infarct. CT abdomen and pelvis revealed dilated loops of small bowel proximally with a transition point at a ventral hernia below a previous incisional hernia repair. There was a small fluid collection adjacent to this which may indicate an underlying abscess. On examination the patient is mildly tender in this location however there is definitely a palpable incisional hernia in the lower abdomen below the umbilicus. The patient will need surgery to repair this hernia and drain the abscess collection. Patient will need medical and cardiology evaluation prior to surgery given her new diagnosis of atrial fibrillation and anterior infarct. Hospital course: On day 2 of admission, patient was stable, continues to have high output via NG tube. She was seen by cardiology for new onset afib and was cleared to proceed with surgical intervention. The patient was brought the the OR on 09/16 for incisional recurrent hernia repair, abscess drainage, small bowel resection. On POD2 and 3 the patient was doing well aside from incisional site pain. She remained NPO and NG tube output was decreasing. Nutrition was con sulted and PPN was recommended due to the prolonged period of NPO. Patient remained on IV zosyn. On POD 4 the NG tube was clamped, the patient toelrated this well and the NG tube was removed and she was started on clear liquid diet. She tolerated clear liquid diet and was advanced to regular diet. Patient was started on eliquis for anticoagulation due to new onset afib. On POD5 there was increased drainage from incision site with surrounding erythema which was thought to be a seroma. One staple was removed and the wound was allowed to drain. On POD 6 and 7 patient was having increased drainage requiring multiple dressing changes per shift, the drainage had now become feculent. Diet was halted, patient had repeat CT showing an enterocutaneous fistula. Continued to have high output. On POD 8 an ostomy appliance was placed on the area that was draining from the midline incision to protect the skin border and monitor for output. Over the next days the patient remianed NPO and output slowly decreased. A repeat CT continued to show some oral contrast in the abdominal wall, but was improvement from the previous imaging. The patient remianed NPO with TPN. On 09/30 patient was trialed on clear liquid diet, she tolerated this well. There wer no changes over the next few days, output continued to decrease to about 10- 20 cc overnight. Regular diet was resumed on 09/30. Patient tolerated, and TPN was stopped on 10/03. Output from the midline incision remained unchanged over the next few days. She was evaluated by PT for anticpated discharge and functional status due to long hospitalization. The patient had multiple bowel movements and output via incision did not increase. We continued to manage output which was stable at about 10-20 cc per day. On the day of discharge, POD 21, the ostomy appliance remained in place, her abominal exam was soft and benign and the patient was stable at the time of discharge. She will have VNA for continued wound care for the midline incision. Status at Discharge Functional status at discharge: independent ambulation Overall status at discharge: patient is progressing back to baseline Time Attestation Discharge Coordination Time (in mins): 30 Quality: Safe Use of Opioids Does Pt have an Active Cancer Diagnosis on the Problem List?: No Quality: Stroke Does the patient have a stroke diagnosis?: No Physical Exam Vital Signs: Vital Signs: Last Vital Signs Temp 97.2 F 10/06/24 11:32 Pulse 84 10/06/24 11:32 Resp 17 10/06/24 11:32 BP 108/66 10/06/24 11:32 Pulse Ox 97 10/06/24 11:32 O2 Del Method Room Air 10/06/24 11:32 O2 Flow Rate 1 09/17/24 15:26 BMI result Body Mass Index 43.7 Const: General: comfortable and no acute distress Orientation/consciousness: patient oriented x3 Resp: Effort & Inspection: normal respiratory effort and able to speak in complete sentences GI: Other: ostomy appliance in place on the 2 cm open aspect of the midline incision, draining low output brown fluid. Superior aspect of incision is clean dry and intact Inspection: No distended Palpation (GI): Soft to palpation, not firm, nontender, no guarding and not rigid Neuro: General: patient oriented x3 DS: Data Data Completed and Pending Completed studies during hospitalization [Text1]: Pending at discharge 09/15/24 15:35 Surgical [PTH] Routine Discharge Plan Discharge Anticipated Discharge Date/Time: 10/06/24 08:18 Patient Disposition: Home Health Service Discharge Diagnosis: Incisional hernia with small bowel perforation, enterocutaneous fistula Referrals: Drake Crawford MD [Physician, General Surgery] - 1 Week Maki Finch MD [Primary Care Provider, Internal Medicine] - 1 Week José Luis Perez MD [Physician, Cardiology] - 2 Weeks Referral Note: new onset afib, on anticoagulation Discharge Medications: New Eliquis 5 mg Tablet 5 mg PO BID 90 Days Qty: 180 4RF (DME) Ultra-Light Rollator Misc See Rx Instructions .Route Qty: 1 0RF Rx Instructions: As directed Continued levothyroxine 175 mcg tablet 175 mcg PO DAILY@0600 bupropion HCl 150 mg tablet extended release 24 hr 150 mg PO DAILY lisinopril 20 mg tablet 20 mg PO DAILY furosemide 20 mg tablet 20 mg PO DAILY Discharge Orders: Discharge Order (Routine); Ordered 10/06/24 Ordered By: Arturo Sung Diet: Advance to usual diet Activity on Discharge: No heavy lifting Stand Alone Forms: Patient Portal Discharge page Print Language: Georgian Activity Restrictions/Additional Instructions: You were prescribed oxycodone to assist with pain management as needed. You can additionally use OTC ibuprofen or acetaminophen as needed for pain. You will have visiting nurses who will help with wound care. No heavy lifting >20 pounds No strenuous activity. Do not use creams, lotion, ointment on the incision sites You will follow up with Dr. Crawford in the office in 1 week, you can call the office to schedule the appointment Please reach out to the office or be seen at the emergency department if you develop: -Fever >101.5 -Increasing pain or swelling of the area -Increased bleeding from the incision site or the incision begins to separate -If you are concerned for incision site infection such as redness, warmth, discharge. Some yellow/pink tinged discharge is normal -You develop nausea or vomiting Care Plan Goals: Return to baseline level of health. Health Concerns: s/p small bowel resection enterocutaneous fistula, ostomy appliance management new onset atrial fibrillation, now on eliquis for anticoagulation Plan of Treatment: VNA for wound care/ostomy appliance management Assessment: Patient doing well post op, returning towards baseline
--- NOTE | 2024-10-06 14:05 | W.MHC.F2F ---
Service Date Service Date: 10/06/24 Encounter Date of encounter: 10/06/24 Reasons for Services Signs and symptoms assessed: Abdominal exams, Wound care. Patient has enterocutaneous fistula, ostomy appliance is in place to control, monitor drainage, will need to be changed if leaking and to asses wound regularly Reason for [facility]: wound care and postoperative assessment and/or care Homebound: Leaving the home is medically contraindicated at this time without the asist of a device and/or another person due th the listed conditions above and below. Reason homebound: weakness related to hospital stay Certification: Based on the above findings, I certify that this patient is confined to the home and needs intermittent [facility] care, physical therapy and/or speech therapy, or continues to need occupational therapy. The patient is under my care, and I have initiated the establishment of the plan of care. The patient will be followed by a physician who will periodically review the plan of care. Time Spent With Patient Time: Total time managing care of this patient today ____ minutes.
[2024-10-06 15:25] VITALS: BP 141/72; PULSE 86; RESP 17; TEMP 36.7; O2SAT 99
--- NOTE | 2024-10-06 16:05 | MHC.CM.PN ---
Second IMM, 10/06/24, Pt. has been medically cleared for DC, she will go home via family transport and have home care services from [facility].
--- NOTE | 2024-10-06 18:49 | HO.REMOVAL ---
Removal of PICC/Midline Removal of PICC/Midline: Removal of PICC/Midline: 1. Date: 10/06/2024 2. Reason removed: No Longer Needed 3. Inserted length: 41Cm Right Basilic 4. Removed length: 41cm Right Basilic--Intact 5. A dressing was placed over the site upon removal. No edema or bleeding at the site. Pt tolerated procedure
== END 2024-10-06 19:00 | disposition home health service (06) | DRG 329 ==
LOC: HO.ED 15:34 → HO.EDOVER 15:56 → HO.S3 16:16 → HO.IMC 18:52
PROVIDERS: Nurse Practitioner; Physician Assistant; Physician Assistant Medical; Student in an Organized Health Care Education/Training Program; Admitting Provider Surgery; Emergency Provider Emergency Medicine Emergency Medical Services; PCP Internal Medicine; Visit Provider Surgery
DX: K43.0 Incisional hernia with obstruction, without gangrene (principal); K63.1 Perforation of intestine (nontraumatic); K65.1 Peritoneal abscess; E87.1 Hypo-osmolality and hyponatremia; Z68.41 Body mass index [BMI] 40.0-44.9, adult; K63.2 Fistula of intestine; I50.32 Chronic diastolic (congestive) heart failure; E03.9 Hypothyroidism, unspecified; I48.91 Unspecified atrial fibrillation; E88.09 Other disorders of plasma-protein metabolism, not elsewhere classified; E83.39 Other disorders of phosphorus metabolism; E66.01 Morbid (severe) obesity due to excess calories; E78.5 Hyperlipidemia, unspecified; I10 Essential (primary) hypertension; I25.2 Old myocardial infarction; Z79.01 Long term (current) use of anticoagulants; Z20.822 Contact with and (suspected) exposure to COVID-19; Z79.890 Hormone replacement therapy; Z79.899 Other long term (current) drug therapy
CPT/HCPCS: 0241U; 36415; 36573; 71045; 74177; 80048; 80053; 81001; 81003; 82040; 83605; 83735; 84100; 84439; 84443; 84478; 84484; 85025; 85027; 87040; 87070; 87073; 87205; 88304; 88307; 93005; 93306; 93971; 97116; 97162; 99285; A6260; C1751; J0131; J0330; J1171; J1650; J2003; J2405; J2543; J2704; J2795; J3010; Q9957; Q9967

== ENCOUNTER → 2024-09-13 09:22 | Outpatient (BNV) | payer OTHER, SELFPAY | PROVIDERS: Admitting Provider Surgery; Emergency Provider Emergency Medicine Emergency Medical Services; PCP Internal Medicine; Visit Provider Internal Medicine | DX: I48.91 Unspecified atrial fibrillation (principal) | CPT/HCPCS: 93010 ==

== ENCOUNTER → 2024-09-13 09:55 | Outpatient (BNV) | payer OTHER, SELFPAY | PROVIDERS: Emergency Provider Emergency Medicine Emergency Medical Services; PCP Internal Medicine; Visit Provider Surgery | DX: K43.0 Incisional hernia with obstruction, without gangrene (principal); I21.09 ST elevation (STEMI) myocardial infarction involving other coronary artery of anterior wall; I48.91 Unspecified atrial fibrillation | CPT/HCPCS: 99223 ==

== ENCOUNTER → 2024-09-13 10:40 | Outpatient (BNV) | payer OTHER, SELFPAY | PROVIDERS: Emergency Provider Emergency Medicine Emergency Medical Services; PCP Internal Medicine; Visit Provider Radiology Diagnostic Radiology | DX: K46.9 Unspecified abdominal hernia without obstruction or gangrene (principal); I51.7 Cardiomegaly; Z46.59 Encounter for fitting and adjustment of other gastrointestinal appliance and device | CPT/HCPCS: 71045; 74177 ==

== ENCOUNTER 2024-09-13 15:43 | Outpatient (BNV) | payer OTHER, SELFPAY | END 2024-09-14 07:00 | PROVIDERS: Admitting Provider Surgery; Emergency Provider Emergency Medicine Emergency Medical Services; PCP Internal Medicine; Visit Provider Internal Medicine | DX: I51.7 Cardiomegaly (principal); I48.91 Unspecified atrial fibrillation | CPT/HCPCS: 93306 ==

== ENCOUNTER 2024-09-13 15:43 | Outpatient (BNV) | payer OTHER, SELFPAY | END 2024-09-23 10:57 | PROVIDERS: Admitting Provider Surgery; Emergency Provider Emergency Medicine Emergency Medical Services; PCP Internal Medicine; Visit Provider Radiology Diagnostic Radiology | DX: K65.1 Peritoneal abscess (principal) | CPT/HCPCS: 74177 ==

== ENCOUNTER 2024-09-13 15:43 | Outpatient (BNV) | payer OTHER, SELFPAY | END 2024-09-20 12:05 | PROVIDERS: Admitting Provider Surgery; Emergency Provider Emergency Medicine Emergency Medical Services; PCP Internal Medicine; Visit Provider Radiology Diagnostic Radiology | DX: M79.602 Pain in left arm (principal); R22.32 Localized swelling, mass and lump, left upper limb | CPT/HCPCS: 93971 ==

== ENCOUNTER 2024-09-13 15:43 | Outpatient (BNV) | payer OTHER, SELFPAY | END 2024-09-29 12:10 | PROVIDERS: Admitting Provider Surgery; Emergency Provider Emergency Medicine Emergency Medical Services; PCP Internal Medicine; Visit Provider Radiology Diagnostic Radiology | DX: J90 Pleural effusion, not elsewhere classified (principal) | CPT/HCPCS: 71045 ==

== ENCOUNTER 2024-09-13 15:43 | Outpatient (BNV) | payer OTHER, SELFPAY | END 2024-09-28 06:00 | PROVIDERS: Admitting Provider Surgery; Emergency Provider Emergency Medicine Emergency Medical Services; PCP Internal Medicine; Visit Provider Radiology Diagnostic Radiology | DX: K63.2 Fistula of intestine (principal) | CPT/HCPCS: 74177 ==

== ENCOUNTER → 2024-09-13 15:43 | Outpatient (BNV) | payer OTHER, SELFPAY | PROVIDERS: Admitting Provider Surgery; Emergency Provider Emergency Medicine Emergency Medical Services; PCP Internal Medicine; Visit Provider Student in an Organized Health Care Education/Training Program | DX: I48.91 Unspecified atrial fibrillation (principal); K56.601 Complete intestinal obstruction, unspecified as to cause | CPT/HCPCS: 99222; 99231; 99232 ==

== ENCOUNTER → 2024-09-13 15:43 | Outpatient (BNV) | payer OTHER, SELFPAY | PROVIDERS: Admitting Provider Surgery; Emergency Provider Emergency Medicine Emergency Medical Services; PCP Internal Medicine; Visit Provider Internal Medicine | DX: I48.91 Unspecified atrial fibrillation (principal); K43.0 Incisional hernia with obstruction, without gangrene | CPT/HCPCS: 99223; 99232 ==

== ENCOUNTER 2024-10-13 10:10 | Outpatient (AMB) | payer OTHER, SELFPAY ==
--- NOTE | 2024-10-13 10:13 | A.OFFPC_ITS ---
Vital Signs 3 10/13/24 10:14 Height 5 ft 2 in Weight 219 lb 2 oz BMI 40.1 BP 120/70 Blood Pressure Location Lt brachial Position Sitting Pulse 82 Pulse Source Pulse Oximeter Temp 97.3 F Temp Source Temporal Artery Scan Pulse Oximetry (%) 97 Oxygen Delivery Method Room Air Intake Visit Reasons: [facility] 10/06 SBO Intake Note: Patient is here for hospital discharge and TCM follow up. Patient was discharged from [facility] on 10/06/24. Tube Drawing Supervisor Required: Yes Tube Drawing Supervisor Language: Licensed Prosthetist/Orthotist Name: Kristy ([id number]) Information Interpreted: non-clinical & clinical Supervisor Intelligence Analyst: Not Required per policy Accompanied by: Self / Same As Patient Allergies No Known Allergies (No Known Allergies*) Allergy (Verified 10/13/24 10:14) Medication List - Last Reconciled 10/13/24 by Ely Fair PA-C apixaban (Eliquis) 5 mg PO BID 90 days bupropion HCl XL 150 mg PO DAILY furosemide 20 mg PO DAILY levothyroxine 175 mcg PO DAILY@0600 lisinopril 20 mg PO DAILY nystatin 1 appl topical DAILY walker (Ultra-Light Rollator misc) As directed Tobacco use date assessed: 10/13/24 Fall risk assessment: No Falls in past year Last assessed Fall Risk: 10/13/24 Dental Screening Dental Screen Date: 08/10/24 HPI [facility] 10/06 SBO 2 HPI0 Details 74-year-old female with past medical his tory of hypertension, hypothyroid, hypercholesterolemia, obesity, depression, history of LA, atrial fibrillation last seen by Dr. Moreno 07/2024 coming in for hospital discharge follow up. In review of the notes, patient was seen in [facility] ED 09/13/2024 with complaints of nausea/vomiting CT of the abdomen and pelvis revealed dilated loops of proximal small bowel and small fluid collection adjacent to ventral hernia repair indicating underlying abscess. EKG revealing atrial fibrillation new onset with anterior infarct now present. NG tube was placed, seen by cardiology and cleared for surgery. Patient was brought to the OR 09/16/2024 for incisional recurrent hernia repair, abscess drainage and small-bowel resection. Patient is started on clear liquid diet postop day 4 and started on Eliquis for new onset atrial fibrillation. On postop day 6 and 7 increase drainage requiring multiple dressing changes and drainage had become feculent CT revealing enterocutaneous fistula ostomy was placed remain NPO. TPN was stopped 10/03/2024 and evaluated by PT anticipated full discharge. Postop day 21 the ostomy appliance remained in place and she was discharged with [facility] for continued wound care. Patient was discharged home 10/06/2024. seismic interpreter [employer] ([id number]) was used for the duration of this visit. Presenting with follow-up for bowel obstruction, management of atrial fibrillation, and evaluation of pleural effusion. Patient is currently following with [facility] for regular wound care for her fistula site. There is new identified erythema inferior to the fistula site. Patient reports low output from the ostomy without any blood or purulent discharge. Her wound checks with [facility] have not revealed any concerns. She did have pleural effusion identified on chest x- ray upon discharge from the hospital and is currently asymptomatic at this time. She has not yet had a Cardiology appointment for her newly diagnosed atrial fibrillation and possible inferior infarct. No acute concerns today. TCM 2 TCM Information0 Date of Discharge 10/06/24 Discharged From [facility] Interactive Contact Date (Reference documentation from this date) 10/08/24 [facility] Medical History Anterior wall myocardial infarction Atrial fibrillation Postmenopausal Morbid obesity with BMI of 40.0-44.9, adult Port wine stain Pure hypercholesterolemia Hypothyroidism Essential hypertension Surgical History Hx of cataract extraction Hx of colonoscopy H/O ventral hernia repair History of total abdominal hysterectomy History of cholecystectomy Family History Father Hypertension Mother Cancer Sister Hyperlipidemia Son No problems noted. Son No problems noted. Son No problems noted. Social History Household Members: Family Housing: House Do you presently have visiting nurse or other home services: Yes ([facility]) Alcohol intake: former Comment: counts correct Patient Tobacco Use Status: Never used Tobacco e-Cigarette/Vaping Use: Never Used Second Hand Smoke Exposure: No service: No Current occupational status: unemployed and disabled Current occupation: rt handed Cognitive needs: No Hearing needs: No Vision needs: Yes Questionnaire Thrive Questionnaire Date Thrive assessed: 09/14/24 I am a: Patient What is your living situation today?: I have a steady place to live Within the past 12 months, did the food you bought not last and you didn't have the money to get more?: Never true Within the past 12 months, did you worry whether your food would run out before you got money to buy more?: Never true Do you have trouble paying for medicines?: No Do you have trouble getting transportation to medical appointments?: Yes Do you have trouble paying your heating and electricity bill?: No Do you have trouble taking care of your child, family member or friend?: No Do you have trouble with day-to-day activities such as bathing, preparing meals, shopping, managing finances, etc.?: No Are you currently unemployed and looking for a job?: Yes Are you interested in more education?: No Please select the resources that you would like help with: None Currently or been in a relationship where the following occur: No concerns reported THRIVE Score: 1 AUDIT C Alcohol Use Questionnaire (AUDIT-C) 2. How many drinks containing alcohol do you have on a typical day when you are drinking?: 1 or 2 3. How often do you have six or more drinks on one occasion?: Never Total Score: 0 YOVANA-7 AMB Questionnaire YOVANA-7 Date YOVANA - 7 assessed: 08/10/24 Source: Developed by Drs. Caleb Guzman, Juanita De Dios, Aris Coppola and colleagues, with an educational travis from [employer]. Review of Systems Const Denies body aches, Denies chills, Denies fever(s), Denies headache(s) and Denies poor appetite Eyes Reports no additional complaints ENT Denies dysphagia, Denies dizziness, Denies headache(s) and Denies odynophagia Card Denies chest pain, Denies syncope, Denies edema, Denies irregular heart rhythm, Denies lightheadedness and Denies dyspnea Resp Denies cough and Denies dyspnea GI Denies abdominal pain, Denies constipation, Denies dysphagia, Denies diarrhea, Denies nausea, Denies odynophagia and Denies vomiting Reports no additional complaints Musc Reports no additional complaints and Denies abnormal gait Skin/Breast Reports system reviewed and no additional complaints, except as documented Neuro Denies abnormal gait, Denies dizziness, Denies syncope and Denies headache(s) Psych Reports no additional complaints Physical exam (Primary Care) Vital Signs: Last Vital Signs Temp 97.3 F 10/13/24 10:14 Pulse 82 10/13/24 10:14 BP 120/70 10/13/24 10:14 Pulse Ox 97 10/13/24 10:14 Oxygen Delivery Method Room Air 10/13/24 10:14 BMI result Body Mass Index 40.1 Tobacco/Smoking Status: Tobacco use Status Tobacco use date assessed 10/13/24 10/13/24 10:23 Patient Tobacco Use Status Never used Tobacco 10/13/24 10:23 Tobacco use type 11/15/21 11:00 e-Cigarette/Vaping Use Never Used 10/13/24 10:23 Thrive Assessment: Date of Thrive Assessment Date Thrive assessed 09/14/24 10/13/24 10:23 Currently or been in a relationship where the following occur: No concerns reported Const General: cooperative, healthy appearing, comfortable and no acute distress Orientation/consciousness: patient oriented x3 HENMT Head: Yes normocephalic Ears: hearing grossly normal bilaterally General nose exam: Normal external nose present Eyes General: appearance normal, both eyes and all related structures Conjunctivae: conjunctivae normal Neck Neck: Yes full ROM and Yes no lymphadenopathy Resp Effort & Inspection: normal respiratory effort Auscultation: clear to auscultation bilaterally, no crackles, no rales, no rhonchi and no wheezes Cardio Rate: regular rate Rhythm: abnormal rhythm GI Other: Inferior to the fistula site Skin General skin exam: no rashes or lesions noted Neuro General: patient oriented x3 Gait exam (Neuro): Normal gait present Extrem General: Yes normal to inspection, Yes full ROM and No edema Psych Affect: normal affect Attitude: cooperative Insight: Good insight present (Psych) Judgement: Good judgement present (Psych) Coding Level of Care Code TCM Mod MDM <= 7 Days Complex EM visit Add On G2211 Diagnoses Atrial fibrillation, unspecified type I48.91 Atrial fibrillation type: unspecified Anterior wall myocardial infarction I21.09 Essential hypertension I10 Morbid obesity with BMI of 40.0-44.9, adult E66.01; Z68.41 Complete small bowel obstruction K56.601 Pleural effusion J90 Rash R21 Assessment & Plan Assessment & Plan (1) Atrial fibrillation: Code(s): I48.91 - Unspecified atrial fibrillation Category: Medical Qualifiers: Atrial fibrillation type: unspecified Qualified Code(s): I48.91 - Unspecified atrial fibrillation Plan: Patient having new onset atrial fibrillation. She does have an irregular rhythm on exam today. Plan to continue on full oral anticoagulation with Eliquis plan to continue to monitor kidney function while on this medication. Not currently on rate control. Referral was placed to cardiology today. (2) Anterior wall myocardial infarction: Code(s): I21.09 - ST elevation (STEMI) myocardial infarction involving other coronary artery of anterior wall Category: Medical Plan: Patient found to have age indeterminate anterior wall LA on EKG. Referral was placed to cardiology today for further evaluation and treatment. (3) Essential hypertension: Code(s): I10 - Essential (primary) hypertension Category: Medical Plan: Continue on current blood pressure medication. Avoid salt intake and encourage healthy diet and regular exercise. (4) Morbid obesity with BMI of 40.0-44.9, adult: Code(s): E66.01 - Morbid (severe) obesity due to excess calories; Z68.41 - Body mass index [BMI] 40.0-44.9, adult Category: Medical Plan: Healthy diet and regular exercise is encouraged. (5) Complete small bowel obstruction: Code(s): K56.601 - Complete intestinal obstruction, unspecified as to cause Category: Medical Plan: Patient having a complete small bowel obstruction s/p resection with further development of enterocutaneous fistula. She has an ostomy covering the fistula site. She reports very little drainage from the fistula site and ostomy bag has low output. No bloody or purulent discharge from the fistula site has been seen. She reports normal bowel movements and has returned to a full diet. I reinforced General surgery recommendations to avoid strenuous or heavy lifting. She will continue to follow with her surgeon and has a appointment for 10/28/2024. Continue to follow with [facility] for regular wound care. (6) Pleural effusion: Code(s): J90 - Pleural effusion, not elsewhere classified Category: Medical Plan: Patient having pleural effusion seen on chest x-ray prior to discharge from the hospital. On exam today bilateral lungs are clear without crackling or diminished lung sounds. Plan to obtain chest x-ray to ensure effusion is resolving. (7) Rash: Code(s): R21 - Rash and other nonspecific skin eruption Category: Medical Plan: Patient having a rash under the ostomy site concerning for yeast infection. Does not have beer to have an infection around the fistula site itself and no purulent drainage from the wound. Rash is likely secondary to the placement of the ostomy bag and moisture in the skin. Recommended use of nystatin powder. I did also message the General surgery team to make them aware and nystatin powder was deemed appropriate. Plan The patient will undergo a chest x-ray to assess the status of the pleural effusion. A cardiology referral is arranged for atrial fibrillation management, highlighting the need for ongoing care. Antifungal powder will be applied inferior to the fistula site to manage erythema and prevent infection. Leg elevation and reduced salt intake are advised to manage bilateral chronic edema. Wound care will continue, with a wound photograph sent to the surgeon for review. Regular follow-up is essential to monitor and adjust treatment plans. This note was constructed using voice recognition software. While every effort has been made to ensure accuracy and supervisor taping, still areas may have been included sometimes these areas may affect the content or meeting of the given symptoms. Total time spent caring for the patient today was 30 minutes. This includes time spent before the visit reviewing the chart, time spent during the visit, and time spent after the visit and documentation. Patient was informed and verbally consented to the use of an ambient scribe for clinic note documentation during this visit. Orders: Orders 2 XR chest 2V Today J90 - Pleural effusion, not elsewhere classified Referrals 2 Cardiology Referral I21.09 - ST elevation (STEMI) myocardial infarction involving other coronary artery of anterior wall, I48.91 - Unspecified atrial fibrillation Medications: New 2 nystatin 1 appl topical DAILY 30 grams 0RF
[2024-10-13 10:14] VITALS: BP 120/70; PULSE 82; TEMP 36.3; O2SAT 97; BMI 40.1
--- OUTSIDE RECORDS SUMMARY | 2024-10-13 10:41 | XMS_ITS | Patient Health Record ---
Author Organization [facility] Address [address] [place] [address] Care Team Providers Care Transportation Associate Name Role Phone Caleb Mcallister Unavailable [phone] Reason For Referral No Information Plan Of Treatment No Information
== END 2024-10-13 11:41 | disposition home or self-care (01) ==
LOC: HO.HMCH 10:11
PROVIDERS: PCP Internal Medicine
DX: I48.91 Unspecified atrial fibrillation (principal); K56.601 Complete intestinal obstruction, unspecified as to cause; E66.01 Morbid (severe) obesity due to excess calories; Z68.41 Body mass index [BMI] 40.0-44.9, adult; I25.2 Old myocardial infarction; I10 Essential (primary) hypertension; J90 Pleural effusion, not elsewhere classified; R21 Rash and other nonspecific skin eruption

== ENCOUNTER → 2024-10-13 10:10 | Outpatient (BNVA) | payer OTHER, SELFPAY | PROVIDERS: PCP Internal Medicine | DX: I10 Essential (primary) hypertension (principal); E03.9 Hypothyroidism, unspecified; E78.00 Pure hypercholesterolemia, unspecified; F32.A Depression, unspecified; I48.91 Unspecified atrial fibrillation; I21.09 ST elevation (STEMI) myocardial infarction involving other coronary artery of anterior wall; E66.01 Morbid (severe) obesity due to excess calories; J90 Pleural effusion, not elsewhere classified; R21 Rash and other nonspecific skin eruption; Z93.9 Artificial opening status, unspecified; Z87.19 Personal history of other diseases of the digestive system; Z68.41 Body mass index [BMI] 40.0-44.9, adult | CPT/HCPCS: 99495 ==

== ENCOUNTER 2024-10-29 13:00 | Outpatient (AMB) | payer OTHER, SELFPAY ==
--- OUTSIDE RECORDS SUMMARY | 2024-10-29 13:03 | XMS_ITS | Patient Health Record ---
Author Organization [facility] Address [address] [place] [address] Care Team Providers Care Radiological Technician Name Role Phone Caleb Mcallister Unavailable [phone] Reason For Referral No Information Plan Of Treatment No Information
--- NOTE | 2024-10-29 13:11 | MHC.OFFVIS ---
Vital Signs 10/29/24 13:28 10/29/24 13:28 Weight 218 lb BP 132/72 Intake Visit Reasons: post hernia repair Intake Note: Pt states, I'm here because the doctor told me to come to have my belly checked. pt states drainage has decreased. c/o constipation but that has resolved after eating bananas Tube Machine Operator Helper Required: Yes Tube Machine Operator Helper Name: Julian Null Allergies No Known Allergies (No Known Allergies*) Allergy (Verified 10/29/24 13:40) Medication List - Last Reconciled 10/29/24 by Liborio Soliz, RN apixaban (Eliquis) 5 mg PO BID 90 days bupropion HCl XL 150 mg PO DAILY furosemide 20 mg PO DAILY levothyroxine 175 mcg PO DAILY@0600 lisinopril 20 mg PO DAILY nystatin 1 appl topical DAILY walker (Ultra-Light Rollator misc) As directed HPI HPI post hernia repair: Details: manager transmission services used for this evaluation. Patient reports she is overall doing well. Reports drainage from midline incision has continued ot decrease, she is no longer requiring the ostomy appliance and now is using gauze to cover the wound. She denies pain in the abdomen. Reports she was constipated for a few days recently but this has resovled. Bowel funciton and appetite are at baseline. She was seen by PCP 2 weeks ago who prescribed her a powder for a suspected fungal infection of the skin, this has now resolved [facility] Medical History (Updated 10/14/24 @ 00:01 by Nathaly Pickens) Preoperative cardiovascular examination Atrial fibrillation with rapid ventricular response New onset atrial fibrillation Abscess Complete small bowel obstruction Recurrent incisional hernia with obstruction Postmenopausal Morbid obesity with BMI of 40.0-44.9, adult Port wine stain Pure hypercholesterolemia Hypothyroidism Essential hypertension Surgical History (Updated 10/29/24 @ 15:28 by Arturo Sung PA-C) S/P small bowel resection (09/15/24) Hx of cataract extraction Hx of colonoscopy H/O ventral hernia repair History of total abdominal hysterectomy History of cholecystectomy Family History Father Hypertension Mother Cancer Sister Hyperlipidemia Son No problems noted. Son No problems noted. Son No problems noted. Social History Household Members: Family Housing: House Do you presently have visiting nurse or other home services: Yes ([facility]) Alcohol intake: former Comment: counts correct Patient Tobacco Use Status: Never used Tobacco e-Cigarette/Vaping Use: Never Used Second Hand Smoke Exposure: No service: No Current occupational status: unemployed and disabled Current occupation: rt handed Cognitive needs: No Hearing needs: No Vision needs: Yes Review of Systems Const All systems reviewed & are unremarkable except as noted in HPI and below Physical Exam Vital Signs: Last Vital Signs BP 132/72 10/29/24 13:28 Const General: comfortable and no acute distress Orientation/consciousness: patient oriented x3 Resp Effort & Inspection: normal respiratory effort and able to speak in complete sentences GI Other: protuberant abdomen. A few quentin remain in place, removed in office. Midline incision has two 1-2 cm open wounds that do not appear to track. The superior of the two has some hypergranulation tissue. Inspection: No distended Palpation (GI): Soft to palpation, nontender and no guarding Skin Rashes: no rashes Neuro General: patient oriented x3 Assessment & Plan Assessment & Plan (1) Enterocutaneous fistula: Code(s): K63.2 - Fistula of intestine Category: Medical (2) History of incisional hernia repair: Code(s): Z98.890 - Other specified postprocedural states; Z87.19 - Personal history of other diseases of the digestive system Category: Surgical Plan 74 year old female s/p hernia repair, small bowel resection with post op enterocutaneous fistula presenting to the office for follow up. Patient is doing well overall, she is not experiencing pain, bowel function and appetite are at baseline. Drainage from midline incision is now scant. Patient has transitioned away from using ostomy and plans to collect fluid, now is using gauze. Minimal saturation on dressings were removed today in the office. There were 5 quentin remaining of the skin which I removed in the office today, the patient tolerated this well. There are small 1 cm open wounds on midline incision, these appear to be superficial, did not probe these bones. The superior open wound does have some hypergranulation tissue that may impair wound healing if this persists we will use silver nitrate at her next visit. Otherwise the abdomen is soft and benign. The rash treated by primary care appears to have resolved at this point. She should continue to dress this with gauze and tape daily. We will keep her restrictions on no heavy lifting greater than 15-20 lb and no strenuous activity She will follow up in 3 weeks, or sooner with any concerns. Coding Level of Care Code Global (22522) Diagnoses Enterocutaneous fistula K63.2 History of incisional hernia repair Z98.890; Z87.19
[2024-10-29 13:28] VITALS: BP 132/72
== END 2024-10-29 13:30 | disposition home or self-care (01) ==
LOC: HO.HGS 13:01
PROVIDERS: PCP Internal Medicine
DX: K63.2 Fistula of intestine (principal); Z98.890 Other specified postprocedural states; Z87.19 Personal history of other diseases of the digestive system
CPT/HCPCS: 99024

== ENCOUNTER → 2024-10-29 13:00 | Outpatient (BNVA) | payer OTHER, SELFPAY | PROVIDERS: PCP Internal Medicine | DX: K63.2 Fistula of intestine (principal); Z87.19 Personal history of other diseases of the digestive system; Z98.890 Other specified postprocedural states | CPT/HCPCS: 99212 ==

== ENCOUNTER 2024-11-08 07:15 | Outpatient (AMB) | payer OTHER, SELFPAY ==
--- OUTSIDE RECORDS SUMMARY | 2019-04-09 20:00 | XMS_ITS | Continuity of Care Document ---
Author Organization [facility] Address [address] [place] [address] Phone Care Team Providers Care Reuse Technician Name Role Phone Adrian GILMAN, Carlene Unavailable Unavailable Procedures Procedure Date DUPLICATE ENCOUNTER SUBSEQUENT HOSPITAL CARE SUBSEQUENT HOSPITAL CARE SUBSEQUENT HOSPITAL CARE INITIAL HOSPITAL CARE SUBSEQUENT HOSPITAL CARE SUBSEQUENT HOSPITAL CARE TTE W/DOPPLER COMPLETE Advance Directives Directive Yes / No Effective Date File Name No Information Encounters Encounter Description Practice Location Reason(s) For Visit Diagnoses Date Provider Providers Copied on Encounter [facility], [facility] [place], [address], tel:[phone] [facility] No Information Adrian Fahed. [address], [address] [place] [address], [id number]. tel:[phone] Referring Provider: Carlene Campbell [address] [place] [address], [id number] . tel:[phone] [facility], [address] [place], [address], tel:[phone] [facility] No Information Adrian Concepcion. [address], [address], [place], [id number]. tel:[phone] Referring Provider: Carlene Campbell [address], [place], [address] . tel:[phone] [facility] C[facility], [address] [facility], [place], [address], tel:[phone] [facility] No Information Angelita Velez. [address], [address], [place], [place], [id number], [place]. tel:[phone] Referring Provider: Agustin Goldstein, [address], [place], [address] . tel:[phone] Family History Family Member Type Diagnosis Age At Onset No Information Payers Payer name Insurance type Covered republican ID Freda noel(peewee) Cristopher [facility] [id number] [facility] [id number] Social History Type Description Quantity Date Captured Comments Sex Female Smoking Status No Information Chief Complaint And Reason For Visit No Information Reason For Referral Reason For Referral No Information History Of Present Illness Encounter Date Complaint History Of Prese nt Illness No Information Functional Status Date Functional Assessmen t No Information Instructions Date Instruction Additional Infor mation No Information Assessments Type Assessment Date No Information Patient Care Teams Name Effective Dates (start - stop) Status Members No Information
--- NOTE | 2024-11-08 07:37 | MHC.PC.OV ---
Vital Signs 11/08/24 07:38 Height 5 ft 2 in Weight 217 lb BMI 39.7 BP 132/80 Blood Pressure Location Rt brachial Position Sitting Intake Visit [place]asons[place] [facility] [place] Hernia/Obstructive bowel movement Rotary Surface Grinder Required: No Accompanied by: Child Allergies No Known Allergies (No Known Allergies*) Allergy (Verified 11/08/24 07:46) Medication List - Last Reconciled 11/08/24 by Maki Wheeler MD apixaban (Eliquis) 5 mg PO BID 90 days bupropion HCl XL 150 mg PO QAM 30 days furosemide 20 mg PO DAILY levothyroxine 175 mcg PO DAILY@0600 lisinopril 20 mg PO DAILY nystatin 1 appl topical DAILY walker (Ultra-Light Rollator misc) As directed Tobacco use date assessed: 10/13/24 Fall risk assessment: 1 Fall in past year Last assessed Fall Risk: 11/08/24 Dental Screening Dental Screen Date: 08/10/24 HPI HPI Comments History of Present Illness Details The patient is a 74-year-old female presenting for a follow-up after recent hospitalization and surgery. She was hospitalized last month due to a small bowel obstruction, which required surgical intervention including a small bowel resection and the placement of a temporary ostomy bag, which has since been removed. Additionally, she had an incisional hernia repair and drainage of an abscess during the same hospitalization. The patient has a history of atrial fibrillation, for which she is on apixaban 5 mg twice daily. She continues to follow up with cardiology, and her recent echocardiogram showed an ejection fraction of 55-60% with mild dilation of the ascending aorta. Her medical history also includes depression, managed with bupropion 150 mg, and hypothyroidism, managed with levothyroxine 175 mcg. She is also on lisinopril 20 mg for hypertension, which is well controlled. 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 She reports no recent fever and feels generally well post-surgery. [facility] Medical History Preoperative cardiovascular examination Atrial fibrillation with rapid ventricular response New onset atrial fibrillation Abscess Complete small bowel obstruction Recurrent incisional hernia with obstruction Postmenopausal Morbid obesity with BMI of 40.0-44.9, adult Port wine stain Pure hypercholesterolemia Hypothyroidism Essential hypertension Surgical History S/P small bowel resection (09/15/24) Hx of cataract extraction Hx of colonoscopy H/O ventral hernia repair History of total abdominal hysterectomy History of cholecystectomy Family History Father Hypertension Mother Cancer Sister Hyperlipidemia Son No problems noted. Son No problems noted. Son No problems noted. Social History Household Members: Family Housing: House Do you presently have visiting nurse or other home services: Yes ([facility]) Alcohol intake: former Comment: counts correct Patient Tobacco Use Status: Never used Tobacco e-Cigarette/Vaping Use: Never Used Second Hand Smoke Exposure: No service: No Current occupational status: unemployed and disabled Current occupation: rt handed Cognitive needs: No Hearing needs: No Vision needs: Yes Questionnaire Thrive Questionnaire Date Thrive assessed: 08/10/24 I am a: Patient What is your living situation today?: I have a steady place to live Within the past 12 months, did the food you bought not last and you didn't have the money to get more?: Never true Within the past 12 months, did you worry whether your food would run out before you got money to buy more?: Never true Do you have trouble paying for medicines?: No Do you have trouble getting transportation to medical appointments?: Yes Do you have trouble paying your heating and electricity bill?: No Do you have trouble taking care of your child, family member or friend?: No Do you have trouble with day-to-day activities such as bathing, preparing meals, shopping, managing finances, etc.?: No Are you currently unemployed and looking for a job?: Yes Are you interested in more education?: No Please select the resources that you would like help with: None Currently or been in a relationship where the following occur: No concerns reported THRIVE Score: 1 YOVANA-7 AMB Questionnaire YOVANA-7 Date YOVANA - 7 assessed: 08/10/24 Source: Developed by Drs. Caleb Guzman, Juanita De Dios, Aris Coppola and colleagues, with an educational travis from [employer]. Review of Systems Const All systems reviewed & are unremarkable except as noted in HPI and below Card Denies chest pain at rest, Denies chest pain with activity, Denies edema, Denies irregular heart rhythm, Denies claudication, Denies dyspnea, Denies dyspnea on exertion, Denies orthopnea, Denies paroxysmal nocturnal dyspnea and Denies slow heart rate Resp Denies cough, Denies dyspnea and Denies dyspnea on exertion GI Denies abdominal pain, Denies change in bowel habits, Denies excessive flatus, Denies nausea and Denies vomiting Denies urinary incontinence, Denies urinary hesitancy and Denies urinary urgency Musc Denies atrophy, Denies deformity and Denies limited range of motion Physical exam (Primary Care) Vital Signs: Last Vital Signs BP 132/80 11/08/24 07:38 BMI result Body Mass Index 39.7 BMI Assessment/Plan discussion: High BMI High, discussed plan: lifestyle, weight reduction, dietary and physical activity Tobacco/Smoking Status: Tobacco use Status Tobacco use date assessed 10/13/24 11/08/24 07:42 Patient Tobacco Use Status Never used Tobacco 11/08/24 07:42 Tobacco use type 11/15/21 11:00 e-Cigarette/Vaping Use Never Used 11/08/24 07:42 Thrive Assessment: Date of Thrive Assessment Date Thrive assessed 08/10/24 11/08/24 07:42 Currently or been in a relationship where the following occur: No concerns reported Resp Effort & Inspection: normal respiratory effort Auscultation: clear to auscultation bilaterally Cardio Jugular venous distension: no JVD Rate: regular rate Rhythm: regular rhythm Heart sounds: S1 normal heart sound present and S2 normal heart sound present GI Inspection: Yes normal to inspection Palpation (GI): Soft to palpation and nontender Auscultation: normal bowel sounds Extrem General: Yes full ROM Coding Level of Care Code Est Pt Level 4 (20818) Complex EM visit Add On G2211 Diagnoses Atrial fibrillation I48.91 Mild recurrent major depression F33.0 Essential hypertension I10 Hypothyroidism, unspecified type E03.9 Hypothyroidism type: unspecified Time Spent (min) 22 Assessment & Plan Assessment & Plan (1) Atrial fibrillation: Code(s): I48.91 - Unspecified atrial fibrillation Category: Medical (2) Mild recurrent major depression: Code(s): F33.0 - Major depressive disorder, recurrent, mild Category: Medical (3) Essential hypertension: Code(s): I10 - Essential (primary) hypertension Category: Medical (4) Hypothyroidism: Code(s): E03.9 - Hypothyroidism, unspecified Category: Medical Qualifiers: Hypothyroidism type: unspecified Qualified Code(s): E03.9 - Hypothyroidism, unspecified Plan The patient will continue on her current medications, including apixaban for atrial fibrillation, bupropion for depression, levothyroxine for hypothyroidism, and lisinopril for hypertension. She will follow up with cardiology to monitor her atrial fibrillation and mild dilation of the ascending aorta. Laboratory tests are scheduled for March to assess thyroid function, cholesterol, glucose, vitamin D, renal, and liver function. The patient is advised to continue using nystatin for candidal intertrigo and to report any new symptoms or concerns. Patient was informed and verbally consented to the use of an ambient scribe for clinic note documentation during this visit. Orders: Orders Lipid Panel 5 Months E78.5 - Hyperlipidemia, unspecified Vitamin D 25-OH Total 5 Months E55.9 - Vitamin D deficiency, unspecified Thyroid Stimulating Hormone 5 Months E03.9 - Hypothyroidism, unspecified Comprehensive [place]. Panel Fast 5 Months I10 - Essential (primary) hypertension
[2024-11-08 07:38] VITALS: BP 132/80; BMI 39.7
== END 2024-11-08 07:55 | disposition home or self-care (01) ==
LOC: HO.HMCH 07:16
PROVIDERS: PCP Internal Medicine; Visit Provider Internal Medicine
DX: I48.91 Unspecified atrial fibrillation (principal); F33.0 Major depressive disorder, recurrent, mild; I10 Essential (primary) hypertension; E03.9 Hypothyroidism, unspecified

== ENCOUNTER → 2024-11-08 07:15 | Outpatient (BNVA) | payer OTHER, SELFPAY | PROVIDERS: PCP Internal Medicine; Visit Provider Internal Medicine | DX: E66.01 Morbid (severe) obesity due to excess calories (principal); I10 Essential (primary) hypertension; R10.9 Unspecified abdominal pain; I48.91 Unspecified atrial fibrillation; F33.0 Major depressive disorder, recurrent, mild; E03.9 Hypothyroidism, unspecified; E78.5 Hyperlipidemia, unspecified; E55.9 Vitamin D deficiency, unspecified; Z09 Encounter for follow-up examination after completed treatment for conditions other than malignant neoplasm; Z68.41 Body mass index [BMI] 40.0-44.9, adult; Z68.39 Body mass index [BMI] 39.0-39.9, adult; Z79.899 Other long term (current) drug therapy | CPT/HCPCS: 93005; 99212 ==

== ENCOUNTER 2024-11-08 08:07 | Outpatient (AMB) | payer OTHER, SELFPAY ==
--- NOTE | 2024-11-08 09:10 | A.OFFVIS_ITS ---
Vital Signs 11/08/24 09:11 Height 5 ft 2 in Weight 217 lb 6.012 oz BMI 39.8 BP 134/80 Blood Pressure Location Rt brachial Position Sitting Pulse 89 Pulse Source Monitor Intake Visit Reasons: c-F/up Sql Database Administrator Required: Yes Sql Database Administrator Language: Senior Gamemaster Name: voice day [id number] Allergies No Known Allergies (No Known Allergies*) Allergy (Verified 11/08/24 09:13) Medication List - Last Reconciled 11/08/24 by Chelsie Mares DROP MACHINE OPERATOR-C apixaban (Eliquis) 5 mg PO BID 90 days bupropion HCl XL 150 mg PO QAM 30 days furosemide 20 mg PO DAILY levothyroxine 175 mcg PO DAILY@0600 lisinopril 20 mg PO DAILY walker (Ultra-Light Rollator misc) As directed HPI HPI c-F/up: Details: Linda is a 74-year-old female with past medical history of morbid obesity, hypertension, hyperlipidemia, who was recently admitted to [facility] with nausea and vomiting, abdominal pain and found to have abdominal abscess under prior hernia repair. She had surgery with drainage of abscess. During her admission she was noted to have new finding of atrial fibrillation and was started on anticoagulation once surgically appropriate. She now presents for follow-up. Today she reports that she has been doing well since her hospital discharge. She does still have some mild abdominal discomfort. No heart palpitations, rapid heartbeats, cardiac concerns. No prior known history of atrial fibrillation. She denies chest discomfort at rest or with activity. No shortness of breath, PND, orthopnea. No lightheadedness, presyncope, syncope, falls. Bleeding issues reported with Eliquis use. She admits to being mostly sedentary. Daughter present. Certified automotive parts interpreter used. [facility] Medical History Preoperative cardiovascular examination Atrial fibrillation with rapid ventricular response New onset atrial fibrillation Abscess Complete small bowel obstruction Recurrent incisional hernia with obstruction Postmenopausal Morbid obesity with BMI of 40.0-44.9, adult Port wine stain Pure hypercholesterolemia Hypothyroidism Essential hypertension Surgical History S/P small bowel resection (09/15/24) Hx of cataract extraction Hx of colonoscopy H/O ventral hernia repair History of total abdominal hysterectomy History of cholecystectomy Family History Father Hypertension Mother Cancer Sister Hyperlipidemia Son No problems noted. Son No problems noted. Son No problems noted. Social History Household Members: Family Housing: House Do you presently have visiting nurse or other home services: Yes ([facility]) Alcohol intake: former Comment: counts correct Patient Tobacco Use Status: Never used Tobacco e-Cigarette/Vaping Use: Never Used Second Hand Smoke Exposure: No service: No Current occupational status: unemployed and disabled Current occupation: rt handed Cognitive needs: No Hearing needs: No Vision needs: Yes Review of Systems Const All systems reviewed & are unremarkable except as noted in HPI and below ENT Denies dizziness Card Denies chest pain, Denies chest pain at rest, Denies chest pain with activity, Denies rapid heart rate, Denies pedal edema, Denies edema, Denies leg edema, Denies lightheadedness, Denies palpitations, Denies dyspnea, Denies dyspnea on exertion and Denies orthopnea Resp Denies cough, Denies dyspnea and Denies dyspnea on exertion GI Denies hematochezia and Denies change in stool character Musc Denies abnormal gait, Denies limited range of motion, Denies muscle cramps, Denies muscle weakness, Denies numbness, Denies radiating pain into limb, Denies stiffness and Denies tingling Neuro Denies abnormal gait, Denies dizziness, Denies numbness and Denies tingling Endo Denies palpitations Physical Exam Vital Signs: Last Vital Signs Pulse 89 11/08/24 09:11 BP 134/80 11/08/24 09:11 BMI result Body Mass Index 39.8 Const General: cooperative, healthy appearing, comfortable and no acute distress Orientation/consciousness: patient oriented x3 Neck Neck: Yes normal visual inspection Resp Effort & Inspection: normal respiratory effort Auscultation: clear to auscultation bilaterally, no rales, no rhonchi and no wheezes Cardio Rate: regular rate Rhythm: abnormal rhythm Heart sounds: S1 normal heart sound present, S2 normal heart sound present, no gallops, no murmurs and no rubs Neuro General: patient oriented x3 Extrem General: Yes normal to inspection, No no pedal edema and No calf tenderness Psych Appearance: grossly normal Mental Status: mental status grossly normal Speech and movement: Normal speech and movement present Office Procedures EKG Details: Today, read by me atrial fibrillation, cant exclude prior anterior infarct, rate 89, Qtc 462ms [id number], Complete Assessment & Plan Assessment & Plan (1) Atrial fibrillation: Code(s): I48.91 - Unspecified atrial fibrillation Category: Medical Plan: New finding of atrial fibrillation at time of hospital admission unknown longevity. Echocardiogram showed EF 55-60%, no regional wall motion abnormalities, left atrium moderately dilated, ascending aorta 4 cm. She was not put on rate slowing medications. Chads Vasc score of 4(age, female, hypertension). On Eliquis for anticoagulation and no bleeding issues reported. EKG today showing atrial fibrillation, rate 89. Will start on low-dose metoprolol XL 25 mg daily. Will check Holter monitor to assess for rate control and if persistent or paroxysmal AFib. Currently asymptomatic. May continue to treat with rate control. Cardiology follow-up 3 months, sooner if needed (2) Essential hypertension: Code(s): I10 - Essential (primary) hypertension Category: Medical Plan: Blood pressure goal less than 130/80. Near goal at present. Continue lisinopril. Starting low-dose metoprolol. (3) Morbid obesity with BMI of 40.0-44.9, adult: Code(s): E66.01 - Morbid (severe) obesity due to excess calories; Z68.41 - Body mass index [BMI] 40.0-44.9, adult Category: Medical Plan: Cardiac risk factor (4) Hospital discharge follow-up: Code(s): Z09 - Encounter for follow-up examination after completed treatment for conditions other than malignant neoplasm Category: Medical Plan: Discharge summary reviewed Plan Time spent on chart review, documentation, interview assessment Orders: Orders ECG 3 day holter monitor Today I48.91 - Unspecified atrial fibrillation Medications: New metoprolol succinate ER 25 mg PO DAILY 30 tabs 5RF Coding Level of Care Code Est Pt Level 4 (67649) Complex EM visit Add On G2211 Diagnoses Atrial fibrillation I48.91 Essential hypertension I10 Morbid obesity with BMI of 40.0-44.9, adult E66.01; Z68.41 Hospital discharge follow-up Z09 CPT Codes EKG - CPT: 26822-[id number], Complete ([id number]) Time Spent (min) 32
[2024-11-08 09:11] VITALS: BP 134/80; PULSE 89; BMI 39.8
== END 2024-11-08 09:49 | disposition home or self-care (01) ==
LOC: HO.HCS 08:07
PROVIDERS: PCP Internal Medicine; Visit Provider Nurse Practitioner Family
DX: I48.91 Unspecified atrial fibrillation (principal); I10 Essential (primary) hypertension; E66.01 Morbid (severe) obesity due to excess calories; Z68.41 Body mass index [BMI] 40.0-44.9, adult; Z09 Encounter for follow-up examination after completed treatment for conditions other than malignant neoplasm
CPT/HCPCS: 93010; 99214; G2211

== ENCOUNTER 2024-12-03 07:17 | Outpatient (REF) | payer OTHER, SELFPAY ==
--- NOTE | ~2024-12-03 | CT_ITS ---
CLINICAL HISTORY: S42.92XA - Fracture of left shoulder girdle, part unspecified, initial e... CT of the left shoulder without contrast Comparison: None provided Findings: Axial scanning from the lower neck with the distal humerus with sagittal and coronal reformatted imaging. There is a fracture of the base of the acromial process with a dorsally displaced fragment. There is a fluid collection contiguous between the glenohumeral and acromioclavicular joints. There is narrowing of the acromial humeral space on the coronal images. Correlate for possible rotator cuff pathology. The muscles of the rotator cuff are atrophic. Regional soft tissue structures are otherwise unremarkable. IMPRESSION: 1.. Scapular acromial process fracture with displaced fragment. 2. Findings of possible rotator cuff tear with glenohumeral and AC joint contiguous effusion. Clinically appropriate follow-up recommended. This document has been electronically signed by: Everett Rascon MD on 12/04/2024 09:34:31
--- OUTSIDE RECORDS SUMMARY | 2024-12-03 07:19 | XMS_ITS | Patient Health Record ---
Author Organization [facility] Address [address] [place] [address] Care Team Providers Care Audiovisual Tech Name Role Phone Caleb Mcallister Unavailable [phone] Reason For Referral No Information Plan Of Treatment No Information
== END 2024-12-03 07:18 | disposition home or self-care (01) ==
LOC: HO.CT 07:17
PROVIDERS: PCP Internal Medicine; Visit Provider Physician Assistant
DX: S42.92XA Fracture of left shoulder girdle, part unspecified, initial encounter for closed fracture (principal); I48.91 Unspecified atrial fibrillation
CPT/HCPCS: 73200; 93242

== ENCOUNTER → 2024-12-03 07:18 | Outpatient (BNV) | payer OTHER, SELFPAY | PROVIDERS: PCP Internal Medicine; Visit Provider Specialist | DX: S42.122A Displaced fracture of acromial process, left shoulder, initial encounter for closed fracture (principal) | CPT/HCPCS: 73200 ==

== ENCOUNTER → 2024-12-03 07:47 | Outpatient (BNV) | payer OTHER, SELFPAY | PROVIDERS: PCP Internal Medicine; Visit Provider Internal Medicine Cardiovascular Disease | DX: I49.1 Atrial premature depolarization (principal) | CPT/HCPCS: 93244 ==

== ENCOUNTER 2024-12-09 12:01 | Outpatient (AMB) | payer OTHER, SELFPAY ==
--- NOTE | 2024-12-09 12:38 | AM.OFFWIN_ITS ---
Intake Vital Signs 3 12/09/24 12:41 Height 5 ft 2 in Weight 219 lb BMI 40.1 BP 140/90 H Blood Pressure Location Rt brachial Position Sitting Pulse 55 Pulse Source Pulse Oximeter Temp 98.2 F Temp Source Oral Pulse Oximetry (%) 100 Oxygen Delivery Method Room Air Intake Visit Reasons: EP Spider bite? Red, puss Intake Note: pt presents with a blister with swelling and redness surrounding on left arm. states she felt something bite her 2 days ago. pain 07/22 Patient Tobacco Use Status: Never used Tobacco Allergies No Known Allergies (No Known Allergies*) Allergy (Verified 12/09/24 12:40) Do you need a note to return to daycare/school/sports/work: Yes HPI HPI Comments 2 History of Present Illness0 Details 74 y/o Female patient who presents to [facility] walk in clinic with c/o Insect Bite Left Upper Arm. She was cleaning her Basement 2 days ago and felt a Sting. She noticed Swelling, redness and mild pain. Denies fevers, chills, Nausea or vomiting. [facility] Medical History (Updated 12/09/24 @ 13:14 by Marian Farley NP) Cellulitis of skin Preoperative cardiovascular examination Atrial fibrillation with rapid ventricular response New onset atrial fibrillation Abscess Complete small bowel obstruction Recurrent incisional hernia with obstruction Postmenopausal Morbid obesity with BMI of 40.0-44.9, adult Port wine stain Pure hypercholesterolemia Hypothyroidism Essential hypertension Surgical History S/P small bowel resection (09/15/24) Hx of cataract extraction Hx of colonoscopy H/O ventral hernia repair History of total abdominal hysterectomy History of cholecystectomy Family History Father Hypertension Mother Cancer Sister Hyperlipidemia Son No problems noted. Son No problems noted. Son No problems noted. Social History Household Members: Family Housing: House Do you presently have visiting nurse or other home services: Yes ([facility]) Alcohol intake: former Comment: counts correct Patient Tobacco Use Status: Never used Tobacco e-Cigarette/Vaping Use: Never Used Second Hand Smoke Exposure: No service: No Current occupational status: unemployed and disabled Current occupation: rt handed Cognitive needs: No Hearing needs: No Vision needs: Yes Review of Systems Const All systems reviewed & are unremarkable except as noted in HPI and below Physical Exam Vital Signs: Last Vital Signs Temp 98.2 F 12/09/24 12:41 Pulse 55 12/09/24 12:41 BP 140/90 H 12/09/24 12:41 Pulse Ox 100 12/09/24 12:41 Oxygen Delivery Method Room Air 12/09/24 12:41 BMI result Body Mass Index 40.1 Const General: no acute distress Nutritional Appearance: obese Orientation/consciousness: patient oriented x3 Neuro General: patient oriented x3, gait normal and moves all extremities Extrem Left upper extremity: shoulder/upper arm Details: tenderness, normal ROM and warmth Shoulder/upper arm images: 2 1. Medium Abscess erythematous indurated and TTP, Filled with yellow discharge. Psych Speech and movement: Normal speech and movement present Assessment & Plan Assessment & Plan (1) Cellulitis of skin: Code(s): L03.90 - Cellulitis, unspecified Plan: Apply warm compresses to promote drainage. Acetaminophen for pain relief. Ordered Doxy for 10 days. Medications: New 2 doxycycline hyclate 100 mg PO BID 20 caps 0RF 10 days L03.90 - Cellulitis, unspecified Coding Level of Care Code Est Pt Level 4 (67308) Diagnoses Cellulitis of skin L03.90 Time Spent (min) 20
[2024-12-09 12:41] VITALS: BP 140/90; PULSE 55; TEMP 36.8; O2SAT 100; BMI 40.1
== END 2024-12-09 13:25 | disposition home or self-care (01) ==
PROVIDERS: PCP Internal Medicine; Visit Provider Nurse Practitioner Family
DX: L03.90 Cellulitis, unspecified (principal)

== ENCOUNTER → 2024-12-09 12:01 | Outpatient (BNVA) | payer OTHER, SELFPAY | PROVIDERS: PCP Internal Medicine; Visit Provider Nurse Practitioner Family | DX: L03.90 Cellulitis, unspecified (principal) | CPT/HCPCS: 99212 ==

== ENCOUNTER 2025-01-05 09:31 | Outpatient (AMB) | payer OTHER, SELFPAY ==
--- NOTE | 2025-01-05 09:49 | A.OFFVIS_ITS ---
Vital Signs 01/05/25 09:55 Height 5 ft 2 in Weight 219 lb BMI 40.1 Intake Visit Reasons: OV- CT review/ LT Shoulder fracture per TM Intake Note: Linda is a 74 year old right hand dominant female who presents today for a follow up of left shoulder fracture, DOI 08/07/24. At her last visit she was instructed to avoid any lifting or reaching motions above shoulder level or behind the plane of the body, she will follow up once CT scan is obtained. Today patient reports her pain has gotten worse since her last visit. Mma Fighter Required: Yes Mma Fighter Services: Mma Fighter Present Mma Fighter Name: Obdulio ID#[id number] Allergies No Known Allergies (No Known Allergies*) Allergy (Verified 01/05/25 09:55) Medication List - Last Reconciled 01/05/25 by Tawnya Srivastava PA-C amoxicillin 875 mg PO BID apixaban (Eliquis) 5 mg PO BID 90 days bupropion HCl XL 150 mg PO QAM 30 days doxycycline hyclate 100 mg PO BID 10 days furosemide 20 mg PO DAILY levothyroxine 175 mcg PO DAILY@0600 lisinopril 20 mg PO DAILY metoprolol succinate ER 25 mg PO DAILY walker (Ultra-Light Rollator misc) As directed HPI HPI OV- CT review/ LT Shoulder fracture per TM: Details: 74-year-old female returns to the office today for a follow-up left shoulder CT scan. She had a fall back in July which resulted in a left shoulder injury. She was recently hospitalized in September for poor oral intake. She states she is feeling well today. She does have occasional discomfort in the shoulder with lifting. REPLACED BY [facility] Medical History (Updated 12/09/24 @ 13:14 by Marian Farley NP) Cellulitis of skin Preoperative cardiovascular examination Atrial fibrillation with rapid ventricular response New onset atrial fibrillation Abscess Complete small bowel obstruction Recurrent incisional hernia with obstruction Postmenopausal Morbid obesity with BMI of 40.0-44.9, adult Port wine stain Pure hypercholesterolemia Hypothyroidism Essential hypertension Surgical History S/P small bowel resection (09/15/24) Hx of cataract extraction Hx of colonoscopy H/O ventral hernia repair History of total abdominal hysterectomy History of cholecystectomy Family History Father Hypertension Mother Cancer Sister Hyperlipidemia Son No problems noted. Son No problems noted. Son No problems noted. Social History Household Members: Family Housing: House Do you presently have visiting nurse or other home services: Yes ([facility]NA) Alcohol intake: former Comment: counts correct Patient Tobacco Use Status: Never used Tobacco e-Cigarette/Vaping Use: Never Used Second Hand Smoke Exposure: No service: No Current occupational status: unemployed and disabled Current occupation: rt handed Cognitive needs: No Hearing needs: No Vision needs: Yes Review of Systems Const All systems reviewed & are unremarkable except as noted in HPI and below Physical Exam Vital Signs: BMI result Body Mass Index 40.1 Const General: cooperative and no acute distress Orientation/consciousness: patient oriented x3 Resp Effort & Inspection: normal respiratory effort and able to speak in complete sentences Cardio Peripheral pulses: Peripheral pulses 2+ throughout Neuro General: patient oriented x3 Extrem Other: Left arm it is normal to inspection she does have a birthmark on her left forearm into her hand. Mild tenderness over the proximal humerus which extends into the bicipital groove. She has significant crepitus with passive range of motion. Neurovascularly intact Results Reviewed Results Reviewed: CT scan 12/04/24 IMPRESSION: 1.. Scapular acromial process fracture with displaced fragment. 2. Findings of possible rotator cuff tear with glenohumeral and AC joint contiguous effusion. Clinically appropriate follow-up recommended. Assessment & Plan Assessment & Plan (1) Shoulder fracture, left: Code(s): S42.92XA - Fracture of left shoulder girdle, part unspecified, initial encounter for closed fracture Category: Medical Plan: We discussed the extent of the CT scan. Her fracture appears stable and she is progressing well since I last saw her. I did place an order for physical therapy to work on some gentle motion and postural training. Gentle rotator cuff strengthening exercises. She can advance activities as tolerated and see me back as needed. Orders: Orders PT Evaluation and Treatment Today S42.92XA - Fracture of left shoulder girdle, part unspecified, initial encounter for closed fracture Coding Level of Care Code Est Pt Level 3 (79053) Complex EM visit Add On G2211 Diagnoses Shoulder fracture, left S42.92XA
[2025-01-05 09:55] VITALS: BMI 40.1
--- OUTSIDE RECORDS SUMMARY | 2025-01-05 11:24 | XMS_ITS | Patient Health Record ---
Author Organization [facility] Address [address] [place] [address] Care Team Providers Care Electrical Cad Designer Name Role Phone Caleb Mcallister Unavailable [phone] Reason For Referral No Information Plan Of Treatment No Information
== END 2025-01-05 11:00 | disposition home or self-care (01) ==
LOC: HO.HOS 09:31
PROVIDERS: PCP Internal Medicine; Visit Provider Physician Assistant
DX: S42.92XA Fracture of left shoulder girdle, part unspecified, initial encounter for closed fracture (principal)
CPT/HCPCS: 99213; G2211

== ENCOUNTER → 2025-01-05 09:31 | Outpatient (BNVA) | payer OTHER, SELFPAY | PROVIDERS: PCP Internal Medicine; Visit Provider Physician Assistant | DX: S42.92XA Fracture of left shoulder girdle, part unspecified, initial encounter for closed fracture (principal); W01.0XXA Fall on same level from slipping, tripping and stumbling without subsequent striking against object, initial encounter; Y93.9 Activity, unspecified; Y92.9 Unspecified place or not applicable; Y99.9 Unspecified external cause status | CPT/HCPCS: 99212 ==

== ENCOUNTER 2025-02-03 08:35 | Outpatient (AMB) | payer OTHER, SELFPAY ==
[2025-02-03 08:39] VITALS: BP 114/72; PULSE 85; BMI 41.0
--- NOTE | 2025-02-03 08:39 | MHC.OFFVIS ---
Vital Signs 02/03/25 08:39 Height 5 ft 2 in Weight 223 lb 15.834 oz BMI 41.0 BP 114/72 Blood Pressure Location Rt brachial Position Sitting Pulse 85 Pulse Source Pulse Oximeter Intake Visit Reasons: 3 mth s/p holter Mastercam Programmer Required: No Mastercam Programmer Services: Mastercam Programmer Offered & Declined Care Partner: Care Partner Present Allergies No Known Allergies (No Known Allergies*) Allergy (Verified 02/03/25 08:43) Medication List - Last Reconciled 02/03/25 by Chelsie Mares NP-C apixaban (Eliquis) 5 mg PO BID 90 days bupropion HCl XL 150 mg PO QAM 30 days furosemide 20 mg PO BID 30 days levothyroxine 175 mcg PO DAILY@0600 lisinopril 20 mg PO DAILY metoprolol succinate ER 25 mg PO DAILY walker (Ultra-Light Rollator misc) As directed HPI HPI 3 mth s/p holter: Details: Linda is a 74-year-old female with past medical history of morbid obesity, hypertension, hyperlipidemia, who was recently admitted to [facility] with nausea and vomiting, abdominal pain and found to have abdominal abscess under prior hernia repair. She had surgery with drainage of abscess. During her admission she was noted to have new finding of atrial fibrillation and was started on anticoagulation once surgically appropriate. She has not had known recurrent AFib since that time. Today she reports that she has been doing well with no concerning heart palpitations. She denies chest discomfort at rest or with activity. No shortness of breath, PND, orthopnea. No lightheadedness, presyncope, syncope, falls. No Bleeding issues reported with Eliquis use. She admits to being mostly sedentary. Granddaughter present and is helping with [place] interpretation. She states patient is starting to get forgetful. [facility] Medical History Cellulitis of skin Preoperative cardiovascular examination Atrial fibrillation with rapid ventricular response New onset atrial fibrillation Abscess Complete small bowel obstruction Recurrent incisional hernia with obstruction Postmenopausal Morbid obesity with BMI of 40.0-44.9, adult Port wine stain Pure hypercholesterolemia Hypothyroidism Essential hypertension Surgical History S/P small bowel resection (09/15/24) Hx of cataract extraction Hx of colonoscopy H/O ventral hernia repair History of total abdominal hysterectomy History of cholecystectomy Family History Father Hypertension Mother Cancer Sister Hyperlipidemia Son No problems noted. Son No problems noted. Son No problems noted. Social History Household Members: Family Housing: House Do you presently have visiting nurse or other home services: Yes (VNA) Alcohol intake: former Comment: counts correct Patient Tobacco Use Status: Never used Tobacco e-Cigarette/Vaping Use: Never Used Second Hand Smoke Exposure: No service: No Current occupational status: unemployed and disabled Current occupation: rt handed Cognitive needs: No Hearing needs: No Vision needs: Yes Review of Systems Const All systems reviewed & are unremarkable except as noted in HPI and below ENT Denies dizziness Card Denies chest pain, Denies chest pain at rest, Denies chest pain with activity, Denies rapid heart rate, Denies pedal edema, Denies edema, Denies leg edema, Denies lightheadedness, Denies palpitations, Denies dyspnea, Denies dyspnea on exertion and Denies orthopnea Resp Denies cough, Denies dyspnea and Denies dyspnea on exertion GI Denies hematochezia and Denies change in stool character Musc Denies abnormal gait, Denies limited range of motion, Denies muscle cramps, Denies muscle weakness, Denies numbness, Denies radiating pain into limb, Denies stiffness and Denies tingling Neuro Denies abnormal gait, Denies dizziness, Denies numbness and Denies tingling Endo Denies palpitations Physical Exam Vital Signs: Last Vital Signs Pulse 85 02/03/25 08:39 BP 114/72 02/03/25 08:39 BMI result Body Mass Index 41.0 Const General: cooperative, healthy appearing, comfortable and no acute distress Orientation/consciousness: patient oriented x3 HEENT Head: Yes normal to inspection Eyes Sclerae: sclerae normal Neck Neck: Yes normal visual inspection and Yes no JVD Carotids: normal carotid upstroke Chest Chest palpation & inspection: normal inspection of the chest Resp Effort & Inspection: normal respiratory effort Auscultation: clear to auscultation bilaterally, no crackles, no rales, no rhonchi and no wheezes Cardio Jugular venous distension: no JVD Rate: regular rate Rhythm: regular rhythm Heart sounds: S1 normal heart sound present, S2 normal heart sound present, no gallops, no murmurs and no rubs Peripheral pulses: Peripheral pulses 2+ throughout GI Inspection: Yes normal to inspection Skin General skin exam: no rashes or lesions noted Neuro General: patient oriented x3 Extrem General: Yes normal to inspection, No no pedal edema and No calf tenderness Psych Appearance: grossly normal Mental Status: mental status grossly normal Speech and movement: Normal speech and movement present Assessment & Plan Assessment & Plan (1) Atrial fibrillation: Code(s): I48.91 - Unspecified atrial fibrillation Category: Medical Plan: Newer finding of paroxysmal atrial fibrillation, that is being treated with rhythm control. Echocardiogram 09/14/2024 showed EF 55-60%, no regional wall motion abnormalities, left atrium moderately dilated, ascending aorta 4 cm. Holter monitor done 12/03/2024 showed sinus rhythm with average heart rate 80 beats per minute, no atrial fibrillation noted, occasional PACs and one 6 beat wide complex irregular rhythm. Pulse is regular on examination today, clinically in sinus rhythm. Continue you metoprolol XL for rate/rhythm control. Continue Eliquis for anticoagulation. Cardiology follow-up 6 months, sooner if needed. (2) Essential hypertension: Code(s): I10 - Essential (primary) hypertension Category: Medical Plan: Blood pressure goal less than 130/80. Well controlled at present. Continue metoprolol and lisinopril. (3) Morbid obesity with BMI of 40.0-44.9, adult: Code(s): E66.01 - Morbid (severe) obesity due to excess calories; Z68.41 - Body mass index [BMI] 40.0-44.9, adult Category: Medical Plan: Cardiac risk factor Plan I discussed with the patient the intermittent nature of her atrial fibrillation and the current management plan with metoprolol and Eliquis. We agreed on a follow-up in six months unless symptoms change. I advised discussing her memory impairment with her primary care physician for further evaluation and potential treatment options. Patient Instructions: - Continue taking metoprolol and Eliquis as prescribed. - Monitor for any new symptoms such as palpitations or memory changes. - Follow up with primary care physician regarding memory concerns. - Return for follow-up in six months or sooner if symptoms change. Patient was informed and verbally consented to the use of an ambient scribe for clinic note documentation during this visit. Visit time spent on chart review, interview, assessment, orders, documentation. Coding Level of Care Code Est Pt Level 4 (89824) Complex EM visit Add On G2211 Diagnoses Atrial fibrillation I48.91 Essential hypertension I10 Morbid obesity with BMI of 40.0-44.9, adult E66.01; Z68.41 Time Spent (min) 28
== END 2025-02-03 09:08 | disposition home or self-care (01) ==
LOC: HO.HCS 08:36
PROVIDERS: PCP Internal Medicine; Visit Provider Nurse Practitioner Family
DX: I48.91 Unspecified atrial fibrillation (principal); I10 Essential (primary) hypertension; E66.01 Morbid (severe) obesity due to excess calories; Z68.41 Body mass index [BMI] 40.0-44.9, adult
CPT/HCPCS: 99214; G2211

== ENCOUNTER → 2025-02-03 08:35 | Outpatient (BNVA) | payer OTHER, SELFPAY | PROVIDERS: PCP Internal Medicine; Visit Provider Nurse Practitioner Family | DX: I10 Essential (primary) hypertension (principal); I48.91 Unspecified atrial fibrillation; E66.01 Morbid (severe) obesity due to excess calories; Z68.41 Body mass index [BMI] 40.0-44.9, adult | CPT/HCPCS: 99212 ==

== ENCOUNTER 2025-02-08 09:02 | Outpatient (RCR) | payer OTHER, SELFPAY ==
--- NOTE | 2025-01-20 10:56 | MHC.PT.EP ---
[facility] [place] Office [place] Office [place] Office [address] Sinha [address] [phone] F: [phone] F: [phone] F: [phone] F: [phone] Physical Therapy Plan of Care Date of Evaluation: 01/20/25 Date of Surgery: Diagnosis: fx of L shoulder girdle shoulder fx L, WBAT, postural training, RTC strength Assessment: 74 y/o R-hand dominant female s/p L scapular acromial process fx sustained on 08/07/24. Upon CT scan 12/04/24, fx visualized and questionable RTC pathology. She has not had PT d/t hospitalization for small bowel obstruction September 2024. Currently she presents with no AROM, 50% PROM L shoulder, full elbow AROM, significantly decreased strength L shoulder, pain and impaired postural awareness resulting in pain and difficulty with sleeping on L side, grooming, dressing, cooking, reaching, lifting and 'everything' with SPADI 130/130. Recommend PT 2x/week for 6 weeks to address impairments, implement HEP, and optimize functional mobility. Frequency and Duration: The patient will be seen 2x/week for 6 weeks Short Term Goals: 3 weeks I with HEP Improve L shoulder AROM flexion to 80* Coal Hiker Goals: 6 weeks I with HEP and self managment of sx Pt will be able to perform grooming with B shoulders and pain < 3/10 Pt will be able to reach into overhead cabinet with pain < 3/10 Improve SPADI to 100/130 Treatment Plan: Modalities to reduce pain, spasms and effusion. Manual therapy to restore motion and function. Therapeutic exercise to improve strength and flexibility. Neuromuscular re-education for posture and balance. Therapeutic activities to return to functional activities of daily living. Electronically signed by: Cherise Chavez PT Please sign and return to therapist. Thank you for your referral.
--- NOTE | 2025-02-22 12:04 | MHC.PT.DC ---
[facility] [place] Office [place] Office [place] Office [address] Wayne Sinha [address] [phone] F: [phone] F: [phone] F: [phone] F: [phone] Physical Therapy Discharge Report Diagnosis: fx of L shoulder girdle shoulder fx L, WBAT, postural training, RTC strength Date of Surgery: Date of Evaluation: 01/20/25 Date of Discharge: 02/22/25 Treatments to Date: 3 Cancellations to Date: 4 No Shows to Date: 2 Discharge Status: Visit Non-compliance Discharge Summary: D/c d/t noncompliance with scheduling policy Electronically signed by: Cherise Chavez PT Please sign and return to therapist. Thank you for your referral.
== END 2025-02-22 12:05 | disposition home or self-care (01) ==
LOC: HO.PT 09:02
PROVIDERS: PCP Internal Medicine; Visit Provider Physician Assistant
DX: S42.92XA Fracture of left shoulder girdle, part unspecified, initial encounter for closed fracture (principal)
CPT/HCPCS: 97110; 97162

== ENCOUNTER 2025-03-22 10:05 | Outpatient (AMB) | payer OTHER, SELFPAY ==
[2025-03-22 10:13] VITALS: BP 136/82; PULSE 56; O2SAT 97; BMI 41.5
--- NOTE | 2025-03-22 10:13 | MHC.PC.OV ---
Vital Signs 03/22/25 10:13 Height 5 ft 2 in Weight 227 lb BMI 41.5 BP 136/82 Blood Pressure Location Lt brachial Position Sitting Pulse 56 Pulse Source Pulse Oximeter Pulse Oximetry (%) 97 Oxygen Delivery Method Room Air Intake Visit Reasons: Annual Exam Tester Equipment Required: No Accompanied by: Self / Same As Patient Allergies No Known Allergies (No Known Allergies*) Allergy (Verified 03/22/25 10:41) Medication List - Last Reconciled 03/22/25 by Maki Wheeler MD apixaban (Eliquis) 5 mg PO BID 90 days bupropion HCl XL 150 mg PO QAM 30 days furosemide 20 mg PO BID 30 days levothyroxine 175 mcg PO DAILY@0600 lisinopril 20 mg PO DAILY metoprolol succinate ER 25 mg PO DAILY walker (Ultra-Light Rollator misc) As directed Tobacco use date assessed: 10/13/24 Fall risk assessment: No Falls in past year Last assessed Fall Risk: 03/22/25 Dental Screening Dental Screen Date: 08/10/24 HPI HPI Comments History of Present Illness Details This is a patient with atrial fibrillation and morbid obesity that comes today for her physical exam. Mammogram done 2023. DEXA scan done 2023 and was normal. Vaccines are up-to-date. [facility] Medical History Cellulitis of skin Preoperative cardiovascular examination Atrial fibrillation with rapid ventricular response New onset atrial fibrillation Abscess Complete small bowel obstruction Recurrent incisional hernia with obstruction Postmenopausal Morbid obesity with BMI of 40.0-44.9, adult Port wine stain Pure hypercholesterolemia Hypothyroidism Essential hypertension Surgical History S/P small bowel resection (09/15/24) Hx of cataract extraction Hx of colonoscopy H/O ventral hernia repair History of total abdominal hysterectomy History of cholecystectomy Family History Father Hypertension Mother Cancer Sister Hyperlipidemia Son No problems noted. Son No problems noted. Son No problems noted. Social History Household Members: Family Housing: House Do you presently have visiting nurse or other home services: Yes (VNA) Alcohol intake: former Comment: counts correct Patient Tobacco Use Status: Never used Tobacco Tobacco use type: Cigarette e-Cigarette/Vaping Use: Never Used Second Hand Smoke Exposure: No service: No Current occupational status: unemployed and disabled Current occupation: rt handed Cognitive needs: No Hearing needs: No Vision needs: Yes Questionnaire Thrive Questionnaire Date Thrive assessed: 08/10/24 I am a: Patient What is your living situation today?: I have a steady place to live Within the past 12 months, did the food you bought not last and you didn't have the money to get more?: Never true Within the past 12 months, did you worry whether your food would run out before you got money to buy more?: Never true Do you have trouble paying for medicines?: No Do you have trouble getting transportation to medical appointments?: Yes Do you have trouble paying your heating and electricity bill?: No Do you have trouble taking care of your child, family member or friend?: No Do you have trouble with day-to-day activities such as bathing, preparing meals, shopping, managing finances, etc.?: No Are you currently unemployed and looking for a job?: Yes Are you interested in more education?: No Please select the resources that you would like help with: None Currently or been in a relationship where the following occur: No concerns reported THRIVE Score: 1 YOVANA-7 AMB Questionnaire YOVANA-7 Date YOVANA - 7 assessed: 08/10/24 Source: Developed by Drs. Caleb Guzman, Juanita De Dios, Aris Coppola and colleagues, with an educational travis from [employer]. Review of Systems Const All systems reviewed & are unremarkable except as noted in HPI and below Card Denies chest pain at rest, Denies chest pain with activity, Denies edema, Denies irregular heart rhythm, Denies claudication, Denies dyspnea, Denies dyspnea on exertion, Denies orthopnea, Denies paroxysmal nocturnal dyspnea and Denies slow heart rate Resp Denies cough, Denies dyspnea and Denies dyspnea on exertion GI Denies abdominal pain, Denies change in bowel habits, Denies excessive flatus, Denies nausea and Denies vomiting Physical exam (Primary Care) Vital Signs: Last Vital Signs Pulse 56 03/22/25 10:13 BP 136/82 03/22/25 10:13 Pulse Ox 97 03/22/25 10:13 Oxygen Delivery Method Room Air 03/22/25 10:13 BMI result Body Mass Index 41.5 BMI Assessment/Plan discussion: High BMI High, discussed plan: lifestyle, weight reduction, dietary and physical activity Tobacco/Smoking Status: Tobacco use Status Tobacco use date assessed 10/13/24 03/22/25 10:15 Patient Tobacco Use Status Never used Tobacco 03/22/25 10:15 Tobacco use type Cigarette 03/22/25 10:15 e-Cigarette/Vaping Use Never Used 03/22/25 10:15 Thrive Assessment: Date of Thrive Assessment Date Thrive assessed 08/10/24 03/22/25 10:15 Currently or been in a relationship where the following occur: No concerns reported HENCO Head: Yes normal to inspection, Yes normocephalic and Yes atraumatic Ears: external ears normal Eyes General: appearance normal, both eyes and all related structures Eyelids: Yes eyelids normal Conjunctivae: conjunctivae normal Neck Neck: Yes normal visual inspection and Yes supple Resp Effort & Inspection: normal respiratory effort Auscultation: clear to auscultation bilaterally Cardio Jugular venous distension: no JVD Rate: regular rate Rhythm: regular rhythm Heart sounds: S1 normal heart sound present and S2 normal heart sound present GI Inspection: Yes normal to inspection Palpation (GI): Soft to palpation and nontender Auscultation: normal bowel sounds Skin General skin exam: no rashes or lesions noted Neuro General: no focal motor deficits Extrem General: Yes full ROM Psych Appearance: grossly normal Coding Level of Care Code Est Pt Prev Care >65y(25044) Diagnoses Physical exam Z00.00 Atrial fibrillation I48.91 Morbid obesity with BMI of 40.0-44.9, adult E66.01; Z68.41 Time Spent (min) 30 Assessment & Plan Assessment & Plan (1) Physical exam: Code(s): Z00.00 - Encounter for general adult medical examination without abnormal findings Category: Medical (2) Atrial fibrillation: Code(s): I48.91 - Unspecified atrial fibrillation Category: Medical (3) Morbid obesity with BMI of 40.0-44.9, adult: Code(s): E66.01 - Morbid (severe) obesity due to excess calories; Z68.41 - Body mass index [BMI] 40.0-44.9, adult Category: Medical Plan Repeat physical exam in a year. For her atrial fibrillation continue chronic anticoagulation. For her morbid obesity start diet and exercise to reach BMI goal less than 30. Orders: Orders Vitamin D 25-OH Total Today E55.9 - Vitamin D deficiency, unspecified Comprehensive [place]. Panel Fast Today I48.91 - Unspecified atrial fibrillation Thyroid Stimulating Hormone Today E03.9 - Hypothyroidism, unspecified Lipid Panel Today E78.5 - Hyperlipidemia, unspecified MM tomosynthesis screening BI Today Z12.31 - Encounter for screening mammogram for malignant neoplasm of breast
== END 2025-03-22 10:57 | disposition home or self-care (01) ==
LOC: HO.HMCH 10:05
PROVIDERS: PCP Internal Medicine; Visit Provider Internal Medicine
DX: Z00.00 Encounter for general adult medical examination without abnormal findings (principal); I48.91 Unspecified atrial fibrillation; E66.01 Morbid (severe) obesity due to excess calories; Z68.41 Body mass index [BMI] 40.0-44.9, adult

== ENCOUNTER → 2025-03-22 10:05 | Outpatient (BNVA) | payer OTHER, SELFPAY | PROVIDERS: PCP Internal Medicine; Visit Provider Internal Medicine | DX: Z00.00 Encounter for general adult medical examination without abnormal findings (principal); I48.91 Unspecified atrial fibrillation; E66.01 Morbid (severe) obesity due to excess calories; E03.9 Hypothyroidism, unspecified; E55.9 Vitamin D deficiency, unspecified; E78.5 Hyperlipidemia, unspecified; Z68.41 Body mass index [BMI] 40.0-44.9, adult | CPT/HCPCS: 99397 ==